=== PATIENT | male | born 1935 | race Caucasian/White ===

== ENCOUNTER 2020-10-20 15:59 | Outpatient (REF) | payer MEDICARE, SELFPAY ==
[2020-10-20 16:21] LABS: MANUAL DIFF FLAG NO
[2020-10-20 16:24] LABS: Basophils Percent Auto 0.3 % (0-2); Eosinophils Absolute Auto 0.1 X10*3/uL (0.0-0.4); Eosinophils Percent Auto 2.2 % (0-4); Hematocrit 38.9 % (42-52); Hemoglobin 12.3 g/dl (14.0-18.0); Imm Gran Abs Auto 0.01 X10*3/uL (0.00-0.03); Imm Gran Pct Auto 0.2 % (0.0-0.4); Lymphocytes Absolute Auto 1.8 X10*3/uL (1.2-4.9); Lymphocytes Percent Auto 29.5 % (20-40); Mean Corpuscular HGB Conc 31.6 g/dl (31.0-36.0); Mean Corpuscular Volume 88.6 fL (80-98); Mean Platelet Volume 9.4 fL (9.4-12.4); Monocytes Absolute Auto 0.6 X10*3/uL (0.1-1.2); Monocytes Percent Auto 9.3 % (2-11); Neutrophils Absolute Auto 3.7 X10*3/uL (2.0-8.3); Neutrophils Percent Auto 58.5 % (45-73); Platelet Count 229 X10*3/uL (160-400); Red Blood Count 4.39 X10*6/uL (4.60-5.80); Red Cell Distribution Width 13.3 % (11.0-16.0); White Blood Count 6.2 X10*3/uL (4.8-10.8)
--- NOTE | 2020-10-20 16:26 | MR_ITS ---
EXAMINATION: MR BRAIN WITHOUT AND WITH CONTRAST CLINICAL INFORMATION: Parageusia. Reported tinnitus. COMPARISON: MRI dated 01/19/2017. TECHNIQUE: Multiplanar, multisequence imaging of the brain was performed before and after the intravenous administration of 7 mL of Gadavist. FINDINGS: No diffusion abnormalities are identified to suggest an acute or subacute infarct. The ventricles are normal in size. No mass effect or midline shift is seen. Mild chronic white matter microangiopathic changes again noted with generalized parenchymal volume loss. No extra-axial fluid collections are seen. The brainstem and cerebellum are normal. There is no abnormal parenchymal or leptomeningeal enhancement. The anterior cranial fossa and olfactory recesses appear normal. The gradient refocused acquisition is normal. The craniovertebral junction, marrow signal, and midline structures are normal. The major intracranial flow voids at the level of the [place] de[place] of [place] are preserved. The dural venous sinus flow voids are maintained. The mastoid air cells are well aerated. There is a 3 cm retention cyst along the floor of the right maxillary sinus. Small retention cysts and mild mucosal thickening noted in the left maxillary antrum. Leftward nasal septal deviation visible. MR/MR head/brain wo/w con IMPRESSION: No abnormal enhancement. No retrocochlear pathology. Stable mild white matter signal changes and moderate generalized parenchymal volume loss. No acute findings.
[2020-10-20 16:55] LABS: Alanine Aminotransferase 14 U/L (0-40); Albumin Level 4.2 g/dL (3.5-5.0); Alkaline Phosphatase 114 U/L (39-117); Anion Gap 10 (12-20); Aspartate Amino Transferase 18 U/L (5-37); Bilirubin Total 0.3 mg/dL (0.0-1.0); Blood Urea Nitrogen 16 mg/dL (9-16); Calcium 9.1 mg/dL (8.4-10.2); Carbon Dioxide 32 mmol/L (22-29); Chloride 100 mmol/L (96-108); Estimated Glomerular Filt Rate > 60; Glucose Random 121 mg/dL (60-115); Potassium 4.8 mmol/l (3.3-5.1); Sodium 137 mmol/L (135-145); Total Protein 6.5 g/dL (6.5-8.0)
[2020-10-20 17:02] LABS: Erythrocyte Sedimentation Rate 10 MM/HR (0-15)
[2020-10-20 17:16] LABS: Free T4 (Free Thyroxine) 0.94 ng/dL (0.71-1.85); Thyroid Stimulating Hormone 0.98 uIU/mL (0.32-4.0)
[2020-10-20 17:23] LABS: Folate 13.5 ng/mL (> or = 4.0); Vitamin B12 1169 pg/mL (200-900)
== END 2020-10-20 16:00 | disposition home or self-care (01) ==
LOC: HO.MRI 15:59
PROVIDERS: PCP Internal Medicine; Visit Provider Internal Medicine
DX: R43.2 Parageusia (principal)
CPT/HCPCS: 36415; 70553; 80053; 82607; 82746; 84439; 84443; 85025; 85652; A9585

== ENCOUNTER 2021-03-28 07:33 | Outpatient (REF) | payer MEDICARE, SELFPAY ==
[2021-03-28 10:21] LABS: MANUAL DIFF FLAG NO
[2021-03-28 10:25] LABS: Basophils Percent Auto 0.5 % (0-2); Eosinophils Absolute Auto 0.3 X10*3/uL (0.0-0.4); Eosinophils Percent Auto 4.3 % (0-4); Hematocrit 38.1 % (42-52); Hemoglobin 12.2 g/dl (14.0-18.0); Imm Gran Abs Auto 0.01 X10*3/uL (0.00-0.03); Imm Gran Pct Auto 0.2 % (0.0-0.4); Immature Retic Fraction 8.2 % (2.3-13.4); Lymphocytes Absolute Auto 1.7 X10*3/uL (1.2-4.9); Lymphocytes Percent Auto 26.6 % (20-40); Mean Corpuscular Hemoglobin 28.5 pg (27.0-33.0); Mean Platelet Volume 10.1 fL (9.4-12.4); Monocytes Absolute Auto 0.6 X10*3/uL (0.1-1.2); Monocytes Percent Auto 9.1 % (2-11); Neutrophils Absolute Auto 3.7 X10*3/uL (2.0-8.3); Neutrophils Percent Auto 59.3 % (45-73); Platelet Count 217 X10*3/uL (160-400); Red Blood Count 4.28 X10*6/uL (4.60-5.80); Red Cell Distribution Width 13.4 % (11.0-16.0); Retic HGB Equivalent 31.5 pg (30.0-35.0); Reticulocyte Percent 1.2 % (0.5-1.8); Reticulocytes Absolute 0.052 X10*6/uL (0.026-0.095); White Blood Count 6.3 X10*3/uL (4.8-10.8)
[2021-03-28 10:45] LABS: Alanine Aminotransferase 16 U/L (0-40); Albumin Level 3.9 g/dL (3.5-5.0); Alkaline Phosphatase 137 U/L (39-117); Anion Gap 11 (12-20); Aspartate Amino Transferase 16 U/L (5-37); Bilirubin Total 0.3 mg/dL (0.0-1.0); Blood Urea Nitrogen 15 mg/dL (9-16); Calcium 9.2 mg/dL (8.4-10.2); Carbon Dioxide 29 mmol/L (22-29); Chloride 104 mmol/L (96-108); Cholesterol 141 mg/dL; Estimated Glomerular Filt Rate > 60; Glucose Random 120 mg/dL (60-115); HDL Cholesterol 52 mg/dL; Iron 84 mcg/dL (45-160); LDL Cholesterol Calculated 72 mg/dl; Percent Iron Saturation 38 % (15-50); Potassium 4.2 mmol/L (3.3-5.1); Sodium 140 mmol/L (135-145); Total Iron Binding Capacity 222 mcg/dL (228-428); Total Protein 6.1 g/dL (6.5-8.0); Triglycerides 88 mg/dL; Unsaturated Iron Binding 138 ug/dL
[2021-03-28 10:55] LABS: Estimated Average Glucose 137 mg/dL; Hemoglobin A1C 151.0847 umol/L; Hemoglobin A1c % 6.4 %
[2021-03-28 11:06] LABS: Ferritin 307 ng/mL (20-250); Free T4 (Free Thyroxine) 0.87 ng/dL (0.71-1.85); Thyroid Stimulating Hormone 0.97 uIU/mL (0.32-4.0); Vitamin D 25-OH Total 46.6 ng/mL (>30)
[2021-03-28 11:19] LABS: Creatinine Urine 104.51 mg/dL; Microalbum/Creatinine Ratio Ur 12.4 ug/mg cr
[2021-03-28 11:48] LABS: Folate 13.3 ng/mL (> or = 4.0); Vitamin B12 1425 pg/mL (200-900)
[2021-03-31 12:21] LABS: Alkaline Phosphatase Bone 31.4 mcg/L (see note)
== END 2021-03-28 07:34 | disposition home or self-care (01) ==
LOC: HO.10HDL 07:33
PROVIDERS: Absent Provider Internal Medicine Endocrinology, Diabetes & Metabolism; Visit Provider Internal Medicine
DX: I10 Essential (primary) hypertension (principal); I25.10 Atherosclerotic heart disease of native coronary artery without angina pectoris; E11.65 Type 2 diabetes mellitus with hyperglycemia; E78.00 Pure hypercholesterolemia, unspecified; M88.9 Osteitis deformans of unspecified bone; M85.80 Other specified disorders of bone density and structure, unspecified site
CPT/HCPCS: 36415; 80053; 80061; 82043; 82306; 82607; 82728; 82746; 83036; 83540; 84075; 84439; 84443; 85025; 85045

== ENCOUNTER → 2021-03-29 10:25 | Outpatient (BNVA) | payer MEDICARE, SELFPAY | PROVIDERS: PCP Internal Medicine; Visit Provider Internal Medicine Endocrinology, Diabetes & Metabolism | DX: M88.9 Osteitis deformans of unspecified bone (principal); M85.80 Other specified disorders of bone density and structure, unspecified site | CPT/HCPCS: 99212 ==

== ENCOUNTER → 2021-04-20 08:27 | Outpatient (REF) | payer MEDICARE, SELFPAY ==
--- NOTE | 2021-04-20 08:31 | CA_ITS ---
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 Normal LV systolic function with impaired relaxation filling pattern 2. Mildly dilated left atrium 3. Moderate aortic stenosis 4. Normal RV systolic pressure 5. No pericardial effusion Findings Left Ventricle Normal left ventricular size, thickness, and systolic function. The visually estimated ejection fraction is between 55-60%. There is paradoxical septal motion consistent with post-operative status. Spectral Doppler is indicative of an impaired relaxation filling pattern. E/E prime ratio is between 8 and 15 consistent with indeterminate filling pressures. Right Ventricle Normal right ventricular cavity size and systolic function. Atria The left atrium is mildly dilated. There is lipomatous hypertrophy of the interatrial septum. There is no evidence of interatrial shunt. The right atrium is normal in size. Aortic Valve There is moderate calcification of the aortic valve. There is moderate thickening of the aortic valve. There is moderate aortic valve stenosis. The peak aortic gradient is 49 mmHg.The mean gradient is 26 mmHg. The aortic valve area is 1.25 cm2. There is trace (trivial) aortic valve regurgitation. Mitral Valve There is mild anterior mitral leaflet thickening. There is mild mitral annular calcification. There is no mitral valve regurgitation. There is no mitral valve stenosis. Pulmonic Valve The pulmonic valve is likely normal. Tricuspid Valve Likely normal tricuspid valve structure and function. There is trace tricuspid valve regurgitation. The right ventricular systolic pressure is normal. The right ventricular systolic pressure is 29 mmHg. Normal right atrial pressure. There is no evidence of pulmonary hypertension. Great Vessels All visible segments of the aorta are normal in size. The pulmonary artery was not well visualized. Small plaque is seen in the sino tubular ridge. Venous The inferior vena cava is normal in size and collapses greater than 50% with inspiration. Pericardium/Pleural There is no evidence of pericardial effusion. Prior Study Comparison Changes noted compared to prior study dated: 04/07/2020. Aortic stenosis is moderate Measurements 2D Linear Measurements IVSd: 1.12 0.6-0.9/0.6-1.0 cm LVIDd: 4.29 3.9-5.3/4.2-5.9 cm LVIDd Index: 2.37 2.4-3.2/2.2-3.1 cm/m2 LVIDs: 3.05 2.0-3.6 cm LVPWd: 1.06 0.7-1.1 cm Ao Root: 3.80 2.1-3.5 cm LA Diam: 4.10 2.7-3.8/3.0-4.0 cm LAIDs Index: 2.27 1.5-2.3 cm/m2 LV Mass: 199.56 67-162/88-224 g LV Mass Index: 110.26 43-95/49-115 g/m2 LVOT Diam: 2.20 3.0+(-)1.3 cm 2D Systolic Function EF 4C: 56.80 >55% EF 2C: 55.20 >55% EF BiP: 55.50 >55% Mitral Valve MV Pk E: 0.89 MV PK A: 1.08 MV Decel Time: 303.00 E/A: 0.80 E'Lateral: 11.50 E'Medial: 5.33 E/E' Med: 16.70 E/E' Lat: 7.70 PHT: 89.00 MVA PHT: 2.47 Decel [place]: 2.93 Aortic Valve AoV Pk L[place]: 3.49 AoV Mn [place]: 2.39 AoV VTI: 0.81 AoV Pk Grad: 49.00 Aov Mn Grad: 26.00 SIRISHA Cont.VTI: 1.25 AI Pk [place]: 3.04 AI [place]: 1.64 LVOT LVOT Pk [place]: 1.19 LVOT Mn [place]: 0.79 LVOT VTI: 0.27 LVOT Pk Grad: 6.00 LVOT Mn Grad: 3.00 LVOT Diam: 2.20 LVOT Area: 3.80 Diastolic Function MV Pk E: 0.89 MV Pk A: 1.08 E/A: 0.80 E'Medial: 5.33 E/E' Med: 16.70 E' Laterial: 11.50 E/E' Lat: 7.70 Tricuspid Valve TR Pk [place]azaro: 2.54 TR Pk Grad: 26.00 RA Press: 3.00 RVSP: 29.00 Great Vessels Aorta Ao Root-2D: 3.80 2.0-3.7 cm Ao Asc: 3.50 2.1-3.4 cm Ao Arch: 2.70 Updated in Other Vendor System with Status of Final Kristofer Pinon MD electronically signed on 04/20/2021 3:47:03 PM with status of Final
== END ==
LOC: HO.CARD 08:27
PROVIDERS: Visit Provider Internal Medicine
DX: I35.0 Nonrheumatic aortic (valve) stenosis (principal); Z95.1 Presence of aortocoronary bypass graft
CPT/HCPCS: 93306

== ENCOUNTER → 2021-05-09 09:33 | Outpatient (BNVA) | payer MEDICARE, SELFPAY | PROVIDERS: PCP Internal Medicine; Referring Provider Internal Medicine; Visit Provider Internal Medicine | DX: I25.10 Atherosclerotic heart disease of native coronary artery without angina pectoris (principal); I35.0 Nonrheumatic aortic (valve) stenosis; I49.3 Ventricular premature depolarization; I10 Essential (primary) hypertension; E11.8 Type 2 diabetes mellitus with unspecified complications | CPT/HCPCS: 93005; 99212 ==

== ENCOUNTER → 2022-04-24 09:01 | Outpatient (REF) | payer MEDICARE, SELFPAY ==
--- NOTE | 2022-04-24 09:19 | CA_ITS ---
Transthoracic Echocardiogram Patient (Last, First, Middle): Kenneth Beard, Gender: Male Date of : 1935 Age: 86 Procedure Date: 04/24/2022 Procedure Type: Transthoracic Echocardiogram Location: OP Height: 162.56 cm Weight: 77.57 kg BSA: 1.83 m2 Heart Rate: bpm BP: 140 / 61 mmHg Predatory Game Hunter: NINA Referring MD: Nj Damian MD Symptoms: I35.0 - Nonrheumatic aortic (valve) stenosis Study Quality: Fair ECG Rhythm: Sinus, PVCs Conclusions: - The left ventricular systolic function is normal. The calculated ejection fraction is 57% by biplane method. - There is moderate aortic valve stenosis. Findings Left Ventricle Normal left ventricular cavity size. There is mildly increased left ventricular wall thickness. The left ventricular systolic function is normal. The calculated ejection fraction is 57% by biplane method. There is no evidence of regional wall motion abnormalities. Evidence suggests grade I (mild) diastolic dysfunction. Right Ventricle Normal right ventricular cavity size. There is mildly decreased right ventricular systolic function. Atria The left atrium is moderately dilated. The right atrium is normal in size. Aortic Valve There is moderate calcification of the aortic valve. There is moderate aortic valve stenosis. The mean gradient is 21 mmHg. The aortic valve area is 1.22 cm2. There is mild aortic valve regurgitation. Mitral Valve The mitral valve appears normal. There is no mitral valve regurgitation. There is no mitral valve stenosis. Pulmonic Valve The pulmonic valve is likely normal. Tricuspid Valve Normal tricuspid valve structure. There is mild tricuspid valve regurgitation. The pulmonary artery systolic pressure is normal. Great Vessels The asc aorta is normal in size. Small plaque is seen in the sino tubular ridge. Venous The inferior vena cava was not well visualized. The inferior vena cava is normal in size and collapses greater than 50% with inspiration. Pericardium/Pleural There is no evidence of pericardial effusion. Prior Study Comparison No significant change compared to prior study dated: 04/20/2021. Measurements 2D Linear Measurements IVSd: 1.15 0.6-0.9/0.6-1.0 cm LVIDd: 4.33 3.9-5.3/4.2-5.9 cm LVIDd Index: 2.37 2.4-3.2/2.2-3.1 cm/m2 LVIDs: 3.04 2.0-3.6 cm LVPWd: 1.16 0.7-1.1 cm LA Diam: 3.40 2.7-3.8/3.0-4.0 cm LAIDs Index: 1.86 1.5-2.3 cm/m2 LV Mass: 220.04 67-162/88-224 g LV Mass Index: 120.24 43-95/49-115 g/m2 LVOT Diam: 2.20 3.0+(-)1.3 cm 2D Systolic Function EF 4C: 63.00 >55% EF 2C: 53.40 >55% EF BiP: 57.00 >55% Mitral Valve MV Pk E: 0.66 MV PK A: 0.98 MV Decel Time: 316.00 E/A: 0.70 E'Lateral: 9.25 E'Medial: 4.79 E/E' Med: 13.80 E/E' Lat: 7.10 PHT: 93.00 MVA PHT: 2.37 Decel [place]: 2.09 Aortic Valve AoV Pk Lazaro: 3.37 AoV Mn [place]: 2.01 AoV VTI: 0.80 AoV Pk Grad: 45.00 Aov Mn Grad: 21.00 SIRISHA Cont.VTI: 1.22 AI Pk L[place]aro: 3.34 AI [place]: 1.56 LVOT LVOT Pk [place]azaro: 0.93 LVOT Mn [place]: 0.66 LVOT VTI: 0.26 LVOT Pk Grad: 3.00 LVOT Mn Grad: 2.00 LVOT Diam: 2.20 LVOT Area: 3.80 Diastolic Function MV Pk E: 0.66 MV Pk A: 0.98 E/A: 0.70 E'Medial: 4.79 E/E' Med: 13.80 E' Laterial: 9.25 E/E' Lat: 7.10 Tricuspid Valve TR Pk [place]az[place]: 2.23 TR Pk Grad: 20.00 Great Vessels Aorta Sinus of Valsalva: 4.21 2.0-3.[address] [place]: 2.63 1.7-3.4 cm Ao Asc: 3.50 2.1-3.4 cm Updated in Other Vendor System with Status of Final Nj Damian MD electronically signed on 04/24/2022 12:24:00 PM with status of Final
== END ==
LOC: HO.CARD 09:01
PROVIDERS: PCP Internal Medicine; Visit Provider Internal Medicine
DX: I35.0 Nonrheumatic aortic (valve) stenosis (principal)
CPT/HCPCS: 93306

== ENCOUNTER 2022-04-29 15:37 | Emergency (ER) | payer MEDICARE, SELFPAY ==
--- NOTE | ~2022-04-29 | XR_ITS ---
EXAMINATION: XR FINGER, LEFT CLINICAL INFORMATION: Laceration with electric hedge clipper COMPARISON: Left hand radiographs 01/30/2017 TECHNIQUE: Three views of the left index finger. FINDINGS: Bandaging overlies the index finger. There is soft tissue laceration at the tip of the finger. Subtle linear lucency through the radial margin of the tuft of the distal phalanx suspicious for nondisplaced osseous involvement/fracture. No additional fracture or dislocation. Mild osteoarthritic changes of the IP joints throughout the hand and compatible the presence of small marginal osteophytes. Moderate first CMC joint space narrowing and osteophyte formation also noted. XR/XR finger LT min 2V IMPRESSION: 1. Soft tissue laceration overlying the distal index finger. There is a small lucency at the radial margin of the tuft of the index finger distal phalanx suspicious for focal osseous involvement/small nondisplaced fracture.
[2022-04-29 16:04] VITALS: BP 146/47; PULSE 56; RESP 16; TEMP 36.6; O2SAT 99; BMI 30.4
--- NOTE | 2022-04-29 19:04 | ED_ITS ---
HPI - Wound/Laceration General Chief Complaint: Wound/Laceration Stated Complaint: finger lac Time Seen by Provider: 04/29/22 18:55 Source: patient Mode of arrival: ambulatory Limitations: no limitations History of Present Illness HPI narrative: 86-year-old male here with reports of laceration to the left index finger after he cut his finger with cargo trimmer at home. This happened just prior to arrival. Patient is unsure of his last tetanus vaccination. He reports no numbness, tingling, weakness, fevers, chills. Patient is not on any anticoagulation. Related Data Home Medications Medication Instructions Recorded Confirmed ascorbate calcium (vitamin C) 500 500 mg PO DAILY 10/11/20 01/09/22 mg tablet aspirin 81 mg tablet,delayed 81 mg PO DAILY 10/11/20 01/09/22 release (Adult Aspirin Regimen) vitamins A,C,W-scps-ctqjyg PO 03/29/21 01/09/22 [PreserVision AREDS] Previous Rx's Medication Instructions Recorded blood sugar diagnostic #3 boxes 03/31/21 metoprolol succinate 25 mg 25 mg PO DAILY #90 tabs 05/06/21 tablet,extended release 24 hr lancets #3 boxes 05/12/21 metformin 500 mg tablet 1,000 mg PO BID #360 tabs 11/13/21 rosuvastatin 40 mg tablet (Crestor) 40 mg PO DAILY #90 tabs 12/26/21 ferrous sulfate 325 mg (65 mg 325 mg PO DAILY #90 tabs 01/09/22 iron) tablet (Feosol) cyanocobalamin (vitamin B-12) 1,000 mcg PO DAILY #90 caps 01/29/22 1,000 mcg capsule cholecalciferol (vitamin D3) 50 50 mcg PO DAILY #30 caps 04/20/22 mcg (2,000 unit) capsule amoxicillin 875 mg-potassium 1 tab PO BID #14 tabs 04/29/22 clavulanate 125 mg tablet Allergies Allergy/AdvReac Type Severity Reaction Status Date / Time No Known Allergies Allergy Verified 01/09/22 14:25 [No Known Allergies*] Review of Systems Review of Systems: Yes all other systems are reviewed and are negative Constitutional: Constitutional: Reports no additional constitutional complaints, Denies body ache(s), Denies chills, Denies fever(s), Denies headache(s) and Denies weakness Eyes: Eyes: Reports no additional eye complaints and Denies change in vision ENT: Reports system reviewed and no additional complaints, except as doc umented, Denies dizziness, Denies headache(s), Denies nasal congestion, Denies nasal discharge and Denies neck pain Cardiovascular: Cardiovascular: Reports no additional cardiovascular complaints, Denies chest pain, Denies leg edema and Denies dyspnea Respiratory: Respiratory: Reports no additional respiratory complaints, Denies cough and Denies dyspnea Gastrointestinal: Gastrointestinal: Reports no additional gastrointestinal complaints, Denies abdominal pain, Denies diarrhea, Denies nausea and Denies vomiting Genitourinary: Genitourinary: Denies urinary incontinence Musculoskeletal: Musculoskeletal: Reports no additional musculoskeletal complaints, Denies back pain, Denies arthralgias, Denies joint swelling, Denies neck pain, Denies numbness and Denies tingling Integumentary/Breasts: Skin/Breast: Reports system reviewed and no additional complaints, except as docu and Denies rash Neurologic: Reports system reviewed and no additional complaints, except as documented, Denies Abnormal speech present, Denies dizziness, Denies headac he(s), Denies numbness, Denies tingling and Denies weakness PMFSH Past Medical History Attestation statement: The following information was validated with the patient. Source: old records reviewed and nursing notes reviewed Medical History Aortic stenosis, mild Left renal stone Lumbar degenerative disc disease Macular degeneration Paget's disease of bone Peripheral vascular disease Surgical History History of ankle surgery History of bilateral cataract extraction History of inguinal hernia repair History of tonsillectomy S/P CABG x 3 S/P repair of hydrocele Family History Family History Father CVD (cardiovascular disease) Mother CVD (cardiovascular disease) Heart disease Brother In good health Sister In good health Son Diabetes Social History Social History Housing: House Alcohol intake: never Patient Tobacco Use Status: Former Tobacco user e-Cigarette/Vaping Use: Never Used Advance Directives: No Advance Directives Information Provided: No Current occupational status: retired Physical Exam Vital Signs: Vital Signs: Last Vital Signs Temp 97.8 F 04/29/22 16:04 Pulse 56 04/29/22 16:04 Resp 16 04/29/22 16:04 BP 146/47 H 04/29/22 16:04 Pulse Ox 99 04/29/22 16:04 O2 Del Method 04/29/22 16:04 BMI result Body Mass Index 30.4 Const: General: cooperative, healthy appearing, comfortable and no acute distress Orientation/consciousness: patient oriented x3 Limitations: no limitations HEENT: Head: Yes normal to inspection Ears: hearing grossly normal bilaterally General nose exam: Normal external nose present Face and sinus: Yes normal facial exam Mouth: Normal oral and palatal mucosa present Throat: Yes posterior oropharynx normal Eyes: General: appearance normal, both eyes and all related structures Pupils: Equal, round and reactive pupils present Neck: Neck: Yes normal visual inspection Chest: Chest palpation & inspection: normal inspection of the chest Resp: Effort & Inspection: normal respiratory effort Auscultation: clear to auscultation bilaterally Cardio: Rate: regular rate Rhythm: regular rhythm Peripheral pulses: Peripheral pulses 2+ throughout Back/Spine/Pelvis: Thoracic/Lumbar Spine: thoracic and lumbar spine normal to inspection Skin: General skin exam: no rashes or lesions noted Neuro: General: patient oriented x3 and moves all extremities Cranial nerves: Yes Equal, round and reactive pupils present Cognition (Neuro): normal cognition Speech: No Abnormal speech present Gait exam (Neuro): Normal gait present Extrem: General: Yes normal to inspection Hand/finger images: 1. 2 cm laceration. Bleeding is controlled. Full range of motion of the digit. Neurovascular intact distally. Nail is intact MDM - Wound/Laceration MDM Narrative Medical decision making narrative: 86-year-old male here with laceration to left index finger from cargo trimmer just prior to arrival. Will obtain x-rays, update tetanus, provide wound repair Differential Diagnosis Differential diagnosis: Likely laceration Medical Records Attestation: I reviewed the patient's medical records. Lab Data Attestation: I reviewed the patient's lab results. Imaging Data hand xray: Attestation: I personally reviewed and interpreted this imaging study as follows: Radiologist's impression: [address] [address] XRay Report Signed Patient: Kenneth Beard MR#: [id number] : 1935 Acct:[id number] Age/Sex: 86 / M ADM Date: 04/29/22 Loc: HO.ED Attending Dr: Ordering Physician: Generic ED Physician Date of Service: 04/29/22 Procedure(s): XR finger LT min 2V Accession Number(s): [id number] cc: Generic ED Physician~ EXAMINATION: XR FINGER, LEFT CLINICAL INFORMATION: Laceration with electric hedge clipper COMPARISON: Left hand radiographs 01/30/2017? TECHNIQUE: Three views of the left index finger. FINDINGS: Bandaging overlies the index finger. There is soft tissue laceration at the tip of the finger. Subtle linear lucency through the radial margin of the tuft of the distal phalanx suspicious for nondisplaced osseous involvement/fracture. No additional fracture or dislocation. Mild osteoarthritic changes of the IP joints throughout the hand and compatible the presence of small marginal osteophytes. Moderate first CMC joint space narrowing and osteophyte formation also noted. XR/XR finger LT min 2V IMPRESSION: ? 1. Soft tissue laceration overlying the distal index finger. There is a small lucency at the radial margin of the tuft of the index finger distal phalanx suspicious for focal osseous involvement/small nondisplaced fracture. ? Procedures Laceration Laceration 1: Site: hand (Second digit) Side (If applicable): left Size (cm): 2 Description: linear Depth: simple, single layer Local Anesthetic: lidocaine 1% Amount of anesthesia used (mL): 4 Pre-repair: wound explored, irrigated extensively and deep structures intact Skin layer closed with: vicryl Size (cm): 5-0 Number of sutures: 4 Technique: simple, interrupted Nerve Block Nerve Block 1: Time out performed: Yes Local Anesthetic: lidocaine 1% Amount of anesthesia used (mL): 4 Side: left Nerve Blocks: digital Procedure Successful: Yes Patient Tolerated Procedure: well Complications: none Discharge Plan Discharge Clinical Impression: Laceration, Fracture of distal phalanx of finger Patient Disposition: Home, Self-Care Instructions: Finger Fracture (ED), Finger Laceration (ED) Additional Instructions: Wash your laceration with soap and water every day Sutures out in 7-10 days Return for redness, fever, drainage Prescriptions: New amoxicillin-pot clavulanate 875-125 mg tablet 1 tab PO BID Qty: 14 0RF No Action (DME) blood sugar diagnostic Strip See Rx Instructions Not Applicable TID Qty: 3 3RF Rx Instructions: As directed check blood sugars 3 times a day metoprolol succinate 25 mg tablet extended release 24 hr 25 mg PO DAILY Qty: 90 3RF (DME) lancets Misc See Rx Instructions .ROUTE TID Qty: 3 3RF Rx Instructions: As directed check the blood sugars 3 times a day metformin 500 mg tablet 1,000 mg PO BID Qty: 360 0RF rosuvastatin [Crestor] 40 mg tablet 40 mg PO DAILY Qty: 90 1RF ferrous sulfate [Feosol] 325 mg (65 mg iron) tablet 325 mg PO DAILY Qty: 90 3RF cyanocobalamin (vitamin B-12) 1,000 mcg capsule 1,000 mcg PO DAILY Qty: 90 3RF cholecalciferol (vitamin D3) 50 mcg (2,000 unit) capsule 50 mcg PO DAILY Qty: 30 11RF aspirin [Adult Aspirin Regimen] 81 mg tablet,delayed release (DR/EC) 81 mg PO DAILY ascorbate calcium (vitamin C) 500 mg tablet 500 mg PO DAILY vitamins A,C,O-scut-ysiffd PO Referrals: Po,Radha Washburn MD [Primary Care Provider] - Interventions: ED Discharge Assessment Last Done: 04/29/22 21:00 Discharge Date/Time: 04/29/22 21:03
[2022-04-29] MEDS: Lidocaine HCl 1 % MPF 5 ML VIAL SUBCUT (19:50)
[2022-04-29] MEDS: Diphth,Pertus(ACell),Tet Adult 0.5 ML SYRINGE IM (20:04)
== END 2022-04-29 21:03 | disposition home or self-care (01) ==
PROVIDERS: Emergency Provider Emergency Medicine; PCP Internal Medicine
DX: S62.661B Nondisplaced fracture of distal phalanx of left index finger, initial encounter for open fracture (principal); W29.3XXA Contact with powered garden and outdoor hand tools and machinery, initial encounter; Y93.H2 Activity, gardening and landscaping; Y92.017 Garden or yard in single-family (private) house as the place of occurrence of the external cause; Y99.9 Unspecified external cause status
CPT/HCPCS: 12001; 73140; 90471; 90715; 99282; 99284

== ENCOUNTER 2022-05-04 06:58 | Outpatient (REF) | payer MEDICARE, SELFPAY ==
[2022-05-04 11:19] LABS: Alkaline Phosphatase 146 U/L (39-117)
== END 2022-05-04 06:59 | disposition home or self-care (01) ==
LOC: HO.HMGCLDS 06:58
PROVIDERS: Visit Provider Internal Medicine Endocrinology, Diabetes & Metabolism
DX: M88.9 Osteitis deformans of unspecified bone (principal)
CPT/HCPCS: 36415; 84075

== ENCOUNTER → 2022-05-08 12:40 | Outpatient (BNVA) | payer MEDICARE, SELFPAY | PROVIDERS: PCP Internal Medicine; Referring Provider Internal Medicine; Visit Provider Internal Medicine | DX: I25.10 Atherosclerotic heart disease of native coronary artery without angina pectoris (principal); I35.0 Nonrheumatic aortic (valve) stenosis; I10 Essential (primary) hypertension; E11.8 Type 2 diabetes mellitus with unspecified complications; Z79.82 Long term (current) use of aspirin; Z79.84 Long term (current) use of oral hypoglycemic drugs; Z79.899 Other long term (current) drug therapy | CPT/HCPCS: 93005; 99212 ==

== ENCOUNTER 2022-05-08 15:37 | Emergency (ER) | payer MEDICARE, SELFPAY | END 2022-05-08 16:52 | disposition left against medical advice (07) | PROVIDERS: Emergency Provider Emergency Medicine; PCP Internal Medicine | DX: Z48.02 Encounter for removal of sutures (principal) ==

== ENCOUNTER 2022-05-09 06:52 | Emergency (ER) | payer MEDICARE, SELFPAY ==
[2022-05-09 07:01] VITALS: BP 151/59; PULSE 62; RESP 16; TEMP 36.2; O2SAT 99; BMI 29.0
--- NOTE | 2022-05-09 07:04 | ED.RECABL ---
HPI - Recheck/Abnormal Lab/Rx General Chief Complaint: Wound/Laceration Stated Complaint: stitch removal Time Seen by Provider: 05/09/22 06:57 Source: patient Mode of arrival: ambulatory Limitations: no limitations History of Present Illness complaint: suture/staple removal Initial visit (ago): day(s) (10) Initial visit for: laceration Returns today for: staple/stitch removal Symptoms since prior visit: no new symptoms Context: planned re-check Associated symptoms: none Treatments prior to arrival: dressings Related Data Home Medications Medication Instructions Recorded Confirmed ascorbate calcium (vitamin C) 500 500 mg PO DAILY 10/11/20 05/08/22 mg tablet aspirin 81 mg tablet,delayed 81 mg PO DAILY 10/11/20 05/08/22 release (Adult Aspirin Regimen) vitamins A,C,W-mgzw-fcfmdf PO 03/29/21 05/08/22 [PreserVision AREDS] metformin 500 mg tablet 500 mg PO DAILY 05/08/22 05/08/22 Previous Rx's Medication Instructions Recorded blood sugar diagnostic #3 boxes 03/31/21 metoprolol succinate 25 mg 25 mg PO DAILY #90 tabs 05/06/21 tablet,extended release 24 hr lancets #3 boxes 05/12/21 rosuvastatin 40 mg tablet (Crestor) 40 mg PO DAILY #90 tabs 12/26/21 ferrous sulfate 325 mg (65 mg 325 mg PO DAILY #90 tabs 01/09/22 iron) tablet (Feosol) cyanocobalamin (vitamin B-12) 1,000 mcg PO DAILY #90 caps 01/29/22 1,000 mcg capsule cholecalciferol (vitamin D3) 50 50 mcg PO DAILY #30 caps 04/20/22 mcg (2,000 unit) capsule amlodipine 2.5 mg tablet 2.5 mg PO DAILY #90 tabs 05/08/22 Allergies Allergy/AdvReac Type Severity Reaction Status Date / Time No Known Allergies Allergy Verified 05/08/22 12:51 [No Known Allergies*] Review of Systems Review of Systems: Constitutional : No Fever, No Chills, Cardiovascular : No Chest Pain, No SOB Respiratory : No Dyspnea Gastrointestinal : No abdominal pain Musculoskeletal : No Joint Swelling Skin : No rash, positive healing skin laceration Neuro : No Weakness, No Numbness PMFSH Past Medical History Attestation statement: The following information was validated with the patient. Medical History Aortic stenosis, mild Left renal stone Lumbar degenerative disc disease Macular degeneration Paget's disease of bone Peripheral vascular disease Surgical History History of ankle surgery History of bilateral cataract extraction History of inguinal hernia repair History of tonsillectomy S/P CABG x 3 S/P repair of hydrocele Family History Family History Father CVD (cardiovascular disease) Mother CVD (cardiovascular disease) Heart disease Brother In good health Sister In good health Son Diabetes Social History Social History Housing: House Alcohol intake: never Patient Tobacco Use Status: Former Tobacco user e-Cigarette/Vaping Use: Never Used Current occupational status: retired Physical Exam Vital Signs: Vital Signs: Last Vital Signs Temp 97.1 F 05/09/22 07:01 Pulse 62 05/09/22 07:01 Resp 16 05/09/22 07:01 BP 151/59 H 05/09/22 07:01 Pulse Ox 99 05/09/22 07:01 O2 Del Method 05/09/22 07:01 BMI result Body Mass Index 29.0 Appearance: Alert. Oriented X3. No acute distress. Eyes: Pupils equal, round and reactive to light. ENT: Pharynx normal. Neck: Normal inspection. CVS: Pulses normal. Respiratory: No respiratory distress. Skin: Skin warm and dry. Normal skin color. Extremities: R index finger wound well appearing no redness, swelling, drainage, warmth, wound margins well approximated [address] Neuro: Oriented X 3. No motor deficit. No sensory deficit. MDM - Recheck/Abnormal Lab/Rx MDM Narrative Medical decision making narrative: 86 yo male s/p stitches on 04/29 - wound well healing no issues here for stitch removal. will remove and send home with precautions Procedures Procedure Narrative Procedure Narrative: removed 3 sutures without issue tolerated well - wound well healed had lost 1 suture at home prior to arrival, no signs of infection at this time Discharge Plan Discharge Clinical Impression: Encounter for removal of sutures Patient Disposition: Home, Self-Care Instructions: Stitches Removal (ED) Additional Instructions: return to ED for any worsening symptoms or concerns monitor for redness, yellow drainage, fevers, swelling keep clean and dry for 3 more days Prescriptions: No Action (DME) blood sugar diagnostic Strip See Rx Instructions Not Applicable TID Qty: 3 3RF Rx Instructions: As directed check blood sugars 3 times a day metoprolol succinate 25 mg tablet extended release 24 hr 25 mg PO DAILY Qty: 90 3RF (DME) lancets Misc See Rx Instructions .ROUTE TID Qty: 3 3RF Rx Instructions: As directed check the blood sugars 3 times a day rosuvastatin [Crestor] 40 mg tablet 40 mg PO DAILY Qty: 90 1RF ferrous sulfate [Feosol] 325 mg (65 mg iron) tablet 325 mg PO DAILY Qty: 90 3RF cyanocobalamin (vitamin B-12) 1,000 mcg capsule 1,000 mcg PO DAILY Qty: 90 3RF cholecalciferol (vitamin D3) 50 mcg (2,000 unit) capsule 50 mcg PO DAILY Qty: 30 11RF aspirin [Adult Aspirin Regimen] 81 mg tablet,delayed release (DR/EC) 81 mg PO DAILY ascorbate calcium (vitamin C) 500 mg tablet 500 mg PO DAILY vitamins A,C,A-wlvp-rdtjio PO metformin 500 mg tablet 500 mg PO DAILY amlodipine 2.5 mg tablet 2.5 mg PO DAILY Qty: 90 3RF
== END 2022-05-09 07:17 | disposition home or self-care (01) ==
LOC: HO.ED 07:12
PROVIDERS: Emergency Provider Emergency Medicine; PCP Internal Medicine
DX: Z48.02 Encounter for removal of sutures (principal); M88.9 Osteitis deformans of unspecified bone; E55.9 Vitamin D deficiency, unspecified
CPT/HCPCS: 99212; 99282

== ENCOUNTER 2022-06-12 07:58 | Outpatient (REF) | payer MEDICARE, SELFPAY ==
[2022-06-12 09:25] LABS: MANUAL DIFF FLAG NO
[2022-06-12 09:28] LABS: Basophils Percent Auto 0.6 % (0-2); Eosinophils Absolute Auto 0.2 X10*3/uL (0.0-0.4); Eosinophils Percent Auto 2.9 % (0-4); Hematocrit 38.4 % (42.0-52.0); Hemoglobin 12.3 g/dl (14.0-18.0); Imm Gran Abs Auto 0.01 X10*3/uL (0.00-0.03); Imm Gran Pct Auto 0.1 % (0.0-0.4); Immature Retic Fraction 12.7 % (2.3-13.4); Lymphocytes Absolute Auto 2.3 X10*3/uL (1.2-4.9); Lymphocytes Percent Auto 33.1 % (20-40); Mean Corpuscular Hemoglobin 27.8 pg (27.0-33.0); Mean Corpuscular Volume 86.7 fL (80.0-98.0); Mean Platelet Volume 9.7 fL (9.4-12.4); Monocytes Absolute Auto 0.6 X10*3/uL (0.1-1.2); Monocytes Percent Auto 9.1 % (2-11); Neutrophils Absolute Auto 3.7 x10*3/uL (2.0-8.3); Neutrophils Percent Auto 54.2 % (45-73); Platelet Count 242 X10*3/uL (160-400); Red Blood Count 4.43 X10*6/uL (4.60-5.80); Red Cell Distribution Width 13.4 % (11.0-16.0); Retic HGB Equivalent 32.5 pg (30.0-35.0); Reticulocyte Percent 1.4 % (0.5-1.8); Reticulocytes Absolute 0.063 X10*6/uL (0.026-0.095); White Blood Count 6.9 X10*3/uL (4.8-10.8)
[2022-06-12 09:53] LABS: Cholesterol 146 mg/dL; Creatinine Urine 110.76 mg/dL; HDL Cholesterol 51 mg/dL; LDL Cholesterol Calculated 78 mg/dl; Microalbum/Creatinine Ratio Ur 38.8 ug/mg cr; Triglycerides 85 mg/dL
[2022-06-12 10:15] LABS: Ferritin 355 ng/mL (20-250); Free T4 (Free Thyroxine) 0.88 ng/dL (0.71-1.85)
[2022-06-12 11:17] LABS: Folate 10.4 ng/mL (> or = 4.0); Vitamin B12 911 pg/mL (200-900)
== END 2022-06-12 07:59 | disposition home or self-care (01) ==
LOC: HO.10HDL 07:58
PROVIDERS: Visit Provider Internal Medicine
DX: E11.65 Type 2 diabetes mellitus with hyperglycemia (principal); E78.00 Pure hypercholesterolemia, unspecified
CPT/HCPCS: 36415; 80061; 82043; 82607; 82728; 82746; 84439; 85025; 85045

== ENCOUNTER 2022-09-18 08:04 | Outpatient (REF) | payer MEDICARE, SELFPAY ==
[2022-09-18 10:56] LABS: Estimated Average Glucose 146 mg/dL; Hemoglobin A1c % 6.7 %
[2022-09-18 11:09] LABS: Alanine Aminotransferase 17 U/L (0-40); Albumin Level 3.8 g/dL (3.5-5.0); Alkaline Phosphatase 126 U/L (39-117); Anion Gap 16 (12-20); Aspartate Amino Transferase 23 U/L (5-37); Bilirubin Total 0.5 mg/dL (0.0-1.0); Blood Urea Nitrogen 19 mg/dL (9-16); Calcium 9.2 mg/dL (8.4-10.2); Carbon Dioxide 24 mmol/L (22-29); Chloride 105 mmol/L (96-108); Cholesterol 143 mg/dL; Estimated Glomerular Filt Rate 53; Glucose Random 125 mg/dL (60-115); HDL Cholesterol 48 mg/dL; Iron 74 mcg/dL (45-160); LDL Cholesterol Calculated 81 mg/dl; Percent Iron Saturation 36 % (15-50); Potassium 4.4 mmol/L (3.3-5.1); Sodium 141 mmol/L (135-145); Total Iron Binding Capacity 207 mcg/dL (228-428); Total Protein 6.4 g/dL (6.5-8.0); Triglycerides 74 mg/dL; Unsaturated Iron Binding 133 ug/dL
[2022-09-18 11:16] LABS: Creatinine Urine 147.67 mg/dL
[2022-09-18 11:29] LABS: Thyroid Stimulating Hormone 1.07 uIU/mL (0.32-4.0)
== END 2022-09-18 08:05 | disposition home or self-care (01) ==
LOC: HO.10HDL 08:04
PROVIDERS: Visit Provider Internal Medicine
DX: E78.00 Pure hypercholesterolemia, unspecified (principal); E11.65 Type 2 diabetes mellitus with hyperglycemia
CPT/HCPCS: 36415; 80053; 80061; 83036; 83540; 84443

== ENCOUNTER 2022-12-25 08:36 | Outpatient (REF) | payer MEDICARE, SELFPAY ==
[2022-12-25 10:25] LABS: MANUAL DIFF FLAG NO
[2022-12-25 10:52] LABS: Basophils Percent Auto 0.5 % (0-2); Eosinophils Absolute Auto 0.2 X10*3/uL (0.0-0.4); Eosinophils Percent Auto 3.1 % (0-4); Hematocrit 36.9 % (42.0-52.0); Hemoglobin 11.9 g/dl (14.0-18.0); Imm Gran Abs Auto 0.01 X10*3/uL (0.00-0.03); Imm Gran Pct Auto 0.2 % (0.0-0.4); Immature Retic Fraction 11.8 % (2.3-13.4); Lymphocytes Absolute Auto 2.3 X10*3/uL (1.2-4.9); Lymphocytes Percent Auto 37.5 % (20-40); Mean Corpuscular HGB Conc 32.2 g/dl (31.0-36.0); Mean Corpuscular Hemoglobin 28.4 pg (27.0-33.0); Mean Corpuscular Volume 88.1 fL (80.0-98.0); Mean Platelet Volume 10.2 fL (9.4-12.4); Monocytes Absolute Auto 0.6 X10*3/uL (0.1-1.2); Monocytes Percent Auto 9.7 % (2-11); Platelet Count 241 X10*3/uL (160-400); Red Blood Count 4.19 X10*6/uL (4.60-5.80); Red Cell Distribution Width 13.3 % (11.0-16.0); Retic HGB Equivalent 32.7 pg (30.0-35.0); Reticulocyte Percent 1.3 % (0.5-1.8); Reticulocytes Absolute 0.054 X10*6/uL (0.026-0.095); White Blood Count 6.1 X10*3/uL (4.8-10.8)
[2022-12-25 11:07] LABS: Estimated Average Glucose 146 mg/dL; Hemoglobin A1c % 6.7 %
[2022-12-25 11:36] LABS: Alanine Aminotransferase 18 U/L (0-40); Albumin Level 3.6 g/dL (3.5-5.0); Alkaline Phosphatase 114 U/L (39-117); Anion Gap 12 (12-20); Aspartate Amino Transferase 17 U/L (5-37); Bilirubin Total 0.5 mg/dL (0.0-1.0); Blood Urea Nitrogen 14 mg/dL (9-16); Calcium 9.2 mg/dL (8.4-10.2); Carbon Dioxide 27 mmol/L (22-29); Chloride 105 mmol/L (96-108); Cholesterol 131 mg/dL; Estimated Glomerular Filt Rate > 60; Glucose Random 121 mg/dL (60-115); HDL Cholesterol 47 mg/dL; Iron 80 mcg/dL (45-160); LDL Cholesterol Calculated 67 mg/dl; Percent Iron Saturation 39 % (15-50); Potassium 4.3 mmol/L (3.3-5.1); Sodium 140 mmol/L (135-145); Total Iron Binding Capacity 203 mcg/dL (228-428); Total Protein 5.7 g/dL (6.5-8.0); Triglycerides 85 mg/dL; Unsaturated Iron Binding 123 ug/dL
[2022-12-25 11:37] LABS: Ferritin 345 ng/mL (20-250)
== END 2022-12-25 08:37 | disposition home or self-care (01) ==
LOC: HO.10HDL 08:36
PROVIDERS: Visit Provider Internal Medicine
DX: E11.65 Type 2 diabetes mellitus with hyperglycemia (principal); E78.00 Pure hypercholesterolemia, unspecified
CPT/HCPCS: 36415; 80053; 80061; 82728; 83036; 83540; 85025; 85045

== ENCOUNTER → 2023-03-26 14:15 | Outpatient (REF) | payer MEDICARE, SELFPAY ==
--- NOTE | 2023-03-26 14:18 | CA_ITS ---
Transthoracic Echocardiogram Patient (Last, First, Middle): Kenneth Beard, Gender: Male Date of : 1935 Age: 87 Procedure Date: 03/26/2023 Procedure Type: Transthoracic Echocardiogram Location: OP Height: 162.56 cm Weight: 78.02 kg BSA: 1.83 m2 Heart Rate: 53 bpm BP: 148 / 70 mmHg Anthropology Faculty Member: SB Referring MD: Nj Damian MD Symptoms: I35.0 - Nonrheumatic aortic (valve) stenosis Study Quality: Adequate w contrast ECG Rhythm: Bradycardia Conclusions: - The left ventricular systolic function is hyperdynamic. The visually estimated ejection fraction is >70%. - There is moderately decreased right ventricular systolic function. - There is moderate to severe aortic valve stenosis. Findings Procedure Information Contrast agent, definity, is being given per protocol without apparent complications. Left Ventricle Normal left ventricular cavity size. The left ventricular systolic function is hyperdynamic. The visually estimated ejection fraction is >70%. There is no evidence of regional wall motion abnormalities. Diastolic function is normal for age. There is mild septal asymmetric hypertrophy. Right Ventricle Mildly increased right ventricular cavity size. There is moderately decreased right ventricular systolic function. Atria Both atria are normal in size. Aortic Valve There is moderate calcification of the aortic valve. There is moderate to severe aortic valve stenosis. The peak aortic velocity is 3.34 m/s with a calculated peak gradient of 45 mmHg. The mean gradient is 23 mmHg. The aortic valve area is 0.93 cm2. There is trace (trivial) aortic valve regurgitation. Dimensionless index 0.27. Mitral Valve There is mild mitral annular calcification. There is no mitral valve regurgitation. There is no mitral valve stenosis. Pulmonic Valve The pulmonic valve is likely normal. Tricuspid Valve Normal tricuspid valve structure. There is mild tricuspid valve regurgitation. There is no evidence of pulmonary hypertension. Great Vessels The asc aorta is normal in size. Venous The inferior vena cava was not well visualized. Pericardium/Pleural There is no evidence of pericardial effusion. Prior Study Comparison Changes noted compared to prior study dated: 04/24/2022. Progression of aortic valve stenosis. Measurements 2D Linear Measurements IVSd: 1.13 0.6-0.9/0.6-1.0 cm LVIDd: 5.32 3.9-5.3/4.2-5.9 cm LVIDd Index: 2.91 2.4-3.2/2.2-3.1 cm/m2 LVIDs: 3.79 2.0-3.6 cm LVPWd: 0.67 0.7-1.1 cm LA Diam: 4.00 2.7-3.8/3.0-4.0 cm LAIDs Index: 2.19 1.5-2.3 cm/m2 LV Mass: 218.16 67-162/88-224 g LV Mass Index: 119.21 43-95/49-115 g/m2 LVOT Diam: 2.20 3.0+(-)1.3 cm 2D Systolic Function EF 4C: 73.80 >55% EF 2C: 83.10 >55% EF BiP: 78.70 >55% Mitral Valve MV Pk E: 0.72 MV PK A: 0.92 MV Decel Time: 299.00 E/A: 0.80 E'Lateral: 7.51 E'Medial: 4.24 E/E' Med: 17.00 E/E' Lat: 9.60 PHT: 88.00 MVA PHT: 2.50 Decel Montour: 2.40 Aortic Valve AoV Pk Lazaro: 3.34 AoV Mn Alzaro: 2.25 AoV VTI: 0.86 AoV Pk Grad: 45.00 Aov Mn Grad: 23.00 SIRISHA Cont.VTI: 0.93 AI Pk Lazaro: 3.52 AI Montour: 1.81 LVOT LVOT Pk Lazaro: 0.92 LVOT Mn Lazaro: 0.63 LVOT VTI: 0.21 LVOT Pk Grad: 3.00 LVOT Mn Grad: 2.00 LVOT Diam: 2.20 LVOT Area: 3.80 Diastolic Function MV Pk E: 0.72 MV Pk A: 0.92 E/A: 0.80 E'Medial: 4.24 E/E' Med: 17.00 E' Laterial: 7.51 E/E' Lat: 9.60 Right Ventricle TAPSE (mm): 11.70 TVS' Lazaro: 8.27 Tricuspid Valve TR Pk Lazaro: 2.29 TR Pk Grad: 21.00 RA Press: 3.00 RVSP: 24.00 Great Vessels Aorta Sinus of Valsalva: 3.60 2.0-3.5 cm Ao Asc: 3.70 2.1-3.4 cm Pulmonary Valve PV Pk Lazaro: 0.86 Peak PV Grad: 3.00 Updated in Other Vendor System with Status of Final Nj Damian MD electronically signed on 03/26/2023 3:44:33 PM with status of Final
== END ==
LOC: HO.CARD 14:15
PROVIDERS: PCP Internal Medicine; Visit Provider Internal Medicine
DX: I35.0 Nonrheumatic aortic (valve) stenosis (principal)
CPT/HCPCS: 93306; Q9957

== ENCOUNTER → 2023-05-07 12:37 | Outpatient (BNVA) | payer MEDICARE, SELFPAY | PROVIDERS: PCP Internal Medicine; Referring Provider Internal Medicine; Visit Provider Internal Medicine | DX: I25.10 Atherosclerotic heart disease of native coronary artery without angina pectoris (principal); I35.0 Nonrheumatic aortic (valve) stenosis; I10 Essential (primary) hypertension; E11.8 Type 2 diabetes mellitus with unspecified complications | CPT/HCPCS: 93005; 99212 ==

== ENCOUNTER → 2023-05-08 15:53 | Outpatient (BNVA) | payer MEDICARE, SELFPAY | PROVIDERS: PCP Internal Medicine; Visit Provider Internal Medicine Endocrinology, Diabetes & Metabolism | DX: M88.812 Osteitis deformans of left shoulder (principal); E55.9 Vitamin D deficiency, unspecified | CPT/HCPCS: 99212 ==

== ENCOUNTER 2023-05-28 08:38 | Outpatient (REF) | payer MEDICARE, SELFPAY ==
[2023-05-28 11:41] LABS: Estimated Average Glucose 146 mg/dL; Hemoglobin A1c % 6.7 %
[2023-05-28 11:57] LABS: Alanine Aminotransferase 11 U/L (0-40); Albumin Level 3.8 g/dL (3.5-5.0); Alkaline Phosphatase 141 U/L (39-117); Anion Gap 13 (12-20); Aspartate Amino Transferase 16 U/L (5-37); Bilirubin Total 0.4 mg/dL (0.0-1.0); Blood Urea Nitrogen 13 mg/dL (9-16); Calcium 9.6 mg/dL (8.4-10.2); Carbon Dioxide 27 mmol/L (22-29); Chloride 104 mmol/L (96-108); Estimated Glomerular Filt Rate 55; Glucose Random 126 mg/dL (60-115); Potassium 4.1 mmol/L (3.3-5.1); Sodium 140 mmol/L (135-145); Total Protein 6.4 g/dL (6.5-8.0)
== END 2023-05-28 08:39 | disposition home or self-care (01) ==
LOC: HO.10HDL 08:38
PROVIDERS: Visit Provider Internal Medicine
DX: E11.9 Type 2 diabetes mellitus without complications (principal); E78.00 Pure hypercholesterolemia, unspecified
CPT/HCPCS: 36415; 80053; 83036

== ENCOUNTER 2023-05-28 11:24 | Outpatient (AMB) | payer MEDICARE, SELFPAY ==
[2023-05-28 11:37] VITALS: BP 128/62; PULSE 53; O2SAT 96; BMI 30.2
--- NOTE | 2023-05-28 11:37 | MHC.PC.OV ---
Vital Signs 05/28/23 11:37 Height 5 ft 4 in Weight 176 lb BMI 30.2 BP 128/62 Blood Pressure Location Lt brachial Position Sitting Pulse 53 Pulse Source Pulse Oximeter Pulse Oximetry (%) 96 Oxygen Delivery Method Room Air Intake Visit Reasons: DM Allergies No Known Allergies [No Known Allergies*] Allergy (Verified 05/28/23 11:40) Tobacco use date assessed: 05/28/23 Fall risk assessment: No Falls in past year Last assessed Fall Risk: 05/28/23 Dental Screening Dental Screen Date: 05/28/23 Did you have a dental visit in the last 12 months?: No Did you have a dental problem in the last 6 months where you did not have access to dental care?: No HPI DM HPI Details 88-year-old obese male with diabetes mellitus coronary artery disease hypercholesterolemia aortic stenosis hypertension coming in for follow-up. Last seen in December 2022. Patient has also Paget's and has been following up with endocrinology. Stable presently and will continue monitoring the alkaline phosphatase if going high then will refer back to Endocrinology patient also followed up with Cardiology April 2023 and advised echocardiogram in 1 year echocardiogram done March 2023 The left ventricular systolic function is hyperdynamic. The visually estimated ejection fraction is >70%. - There is moderately decreased right ventricular systolic function. - There is moderate to severe aortic valve stenosis 0.93. macular degeneration - sent to [facility]- retina specialist Dr. Godoy [facility] Medical History (Updated 05/28/23 @ 12:20 by Radha Ortiz MD) Aortic stenosis, mild Coronary artery disease Diabetic nephropathy Hypercholesterolemia Left renal stone Lumbar degenerative disc disease Macular degeneration Osteopenia Overweight (BMI 25.0-29.9) Paget's bone disease Paget's disease of bone Peripheral vascular disease Type 2 diabetes mellitus with hyperglycemia Vitamin D deficiency Surgical History History of ankle surgery History of bilateral cataract extraction History of inguinal hernia repair History of tonsillectomy S/P CABG x 3 S/P repair of hydrocele Family History Father CVD (cardiovascular disease) Mother CVD (cardiovascular disease) Heart disease Brother In good health Sister In good health Son Diabetes Social History (Reviewed 06/27/23 @ 15:58 by MARILYNN Lorenzana Housing: House Alcohol intake: never Patient Tobacco Use Status: Former Tobacco user e-Cigarette/Vaping Use: Never Used Current occupational status: retired Cognitive needs: No Hearing needs: No Vision needs: Yes Questionnaire Thrive Questionnaire Date Thrive assessed: 12/28/22 AUDIT C Alcohol Use Questionnaire (AUDIT-C) 1. How often do you have a drink containing alcohol?: Never 3. How often do you have six or more drinks on one occasion?: Never Total Score: 0 LESLEY-7 AMB Questionnaire LESLEY-7 Date LESLEY - 7 assessed: 12/28/22 Source: Developed by Drs. Lawson Jackson, Geeta Montoya, Chivo Felix and colleagues, with an educational fallon from [employer]. Physical exam (Primary Care) Vital Signs: Last Vital Signs Pulse 53 05/28/23 11:37 BP 128/62 05/28/23 11:37 Pulse Ox 96 05/28/23 11:37 Oxygen Delivery Method Room Air 05/28/23 11:37 BMI result Body Mass Index 30.2 Tobacco/Smoking Status: Tobacco use Status Tobacco use date assessed 05/28/23 05/28/23 11:43 Patient Tobacco Use Status Former Tobacco user 05/28/23 11:43 e-Cigarette/Vaping Use Never Used 05/28/23 11:43 Thrive Assessment: Date of Thrive Assessment Date Thrive assessed 12/28/22 05/28/23 11:43 Const General: alert; No acute distress Eyes Conjunctivae: conjunctivae normal Resp Auscultation: clear to auscultation bilaterally Cardio Rate: regular rate Rhythm: regular rhythm GI Inspection: Yes normal to inspection Extrem General: Yes normal to inspection and No edema Results AMB Hemoglobin A1c AMB Hemoglobin A1c 7.0 % Last Edit by ROSETTA Bean on 05/28/23 11:46 Results Reviewed Results Reviewed: Laboratory Last Values Hgb A1c (Clinic) 7.0 % (4.0-6.0) H 05/28/23 09:04 Assessment and Plan Assessment & Plan (1) Type 2 diabetes mellitus with hyperglycemia: Comment: PApale Code(s): E11.65 - Type 2 diabetes mellitus with hyperglycemia Qualifiers: Diabetes mellitus intermediate insulin use: without joint terminal attack controller use Qualified Code(s): E11.65 - Type 2 diabetes mellitus with hyperglycemia Plan: Decrease the amount of carbohydrate intake, pasta, bread, rice and potatoes are all sugar and that is aside from all the sweet stuff, remember that fruits are good but they are Sweet also. Hemoglobin A1c goal of less than 7.0 patient is taking metformin 500 once a day (2) Hypercholesterolemia: Code(s): E78.00 - Pure hypercholesterolemia, unspecified Plan: Avoid fried foods, chicken skin, eggs, butter margarine, pastries and meat. Be it pork or beef they have a lot of cholesterol LDL goal of less than 70. December 2022 last tested (3) Paget's bone disease: Code(s): M88.9 - Osteitis deformans of unspecified bone Plan: Patient has seen Endocrinology and this is stable will continue to monitor (4) Atherosclerotic cardiovascular disease: Code(s): I25.10 - Atherosclerotic heart disease of kaw coronary artery without angina pectoris Plan: Control the cholesterol, weight, blood pressure, diabetes (5) Obesity (BMI 30.0-34.9): Code(s): E66.9 - Obesity, unspecified Plan: Diet and exercise (6) Essential hypertension: Code(s): I10 - Essential (primary) hypertension Plan: Continue with blood pressure medication. Decrease salt intake and exercise patient takes metoprolol fit 25 mg once a day and amlodipine 2.5 mg once a day (7) Non-rheumatic aortic stenosis: Comment: April 2022 1.2 cm2, march 2023 0.93 Code(s): I35.0 - Nonrheumatic aortic (valve) stenosis Plan: Continuing to monitor with echocardiogram (8) Macular degeneration: Code(s): H35.30 - Unspecified macular degeneration Orders: Orders AMB Hemoglobin A1c Today E11.65 - Type 2 diabetes mellitus with hyperglycemia Coding Level of Care Code Est Pt Level 4 (76297) Diagnoses Type 2 diabetes mellitus with hyperglycemia E11.65 Diabetes mellitus joint terminal attack controller insulin use: without joint terminal attack controller use Hypercholesterolemia E78.00 Paget's bone disease M88.9 Atherosclerotic cardiovascular disease I25.10 Obesity (BMI 30.0-34.9) E66.9 Essential hypertension I10 Non-rheumatic aortic stenosis I35.0 Macular degeneration H35.30
== END 2023-05-28 12:35 | disposition home or self-care (01) ==
PROVIDERS: Visit Provider Internal Medicine
DX: E11.65 Type 2 diabetes mellitus with hyperglycemia (principal); I10 Essential (primary) hypertension; E66.9 Obesity, unspecified; Z68.30 Body mass index [BMI] 30.0-30.9, adult; E78.00 Pure hypercholesterolemia, unspecified; I25.10 Atherosclerotic heart disease of native coronary artery without angina pectoris; I35.0 Nonrheumatic aortic (valve) stenosis; M88.9 Osteitis deformans of unspecified bone; H35.30 Unspecified macular degeneration
CPT/HCPCS: 83036; 99214

== ENCOUNTER 2023-09-06 15:45 | Outpatient (AMB) | payer MEDICARE, SELFPAY ==
[2023-09-06 15:51] VITALS: BP 130/54; PULSE 55; O2SAT 98; BMI 29.5
--- NOTE | 2023-09-06 15:51 | A.OFFPC_ITS ---
Vital Signs 09/06/23 15:51 Height 5 ft 4 in Weight 172 lb BMI 29.5 BP 130/54 L Blood Pressure Location Lt brachial Position Sitting Pulse 55 Pulse Source Pulse Oximeter Pulse Oximetry (%) 98 Oxygen Delivery Method Room Air Intake Visit Reasons: 3 month f/u Allergies No Known Allergies [No Known Allergies*] Allergy (Verified 09/06/23 15:51) Medication List - Last Reconciled 09/06/23 by Radha Ortiz MD amlodipine 2.5 mg PO DAILY ascorbate calcium (vitamin C) 500 mg PO DAILY aspirin (Adult Aspirin Regimen) 81 mg PO DAILY blood sugar diagnostic As directed check blood sugars 3 times a day blood sugar diagnostic (OneTouch Ultra Test strips) As directed check the blood sugar once a day cholecalciferol (vitamin D3) 50 mcg PO DAILY cyanocobalamin (vitamin B-12) 1,000 mcg PO DAILY ferrous sulfate (Feosol) 325 mg PO DAILY lancets As directed check the blood sugars 3 times a day ONETOUCH ULTRASOFT LANCETS metformin 500 mg PO DAILY 90 days metoprolol succinate ER 25 mg PO DAILY rosuvastatin (Crestor) 40 mg PO DAILY vitamins A,C,A-hmsk-lseniy (PreserVision AREDS) PO Tobacco use date assessed: 05/28/23 Fall risk assessment: No Falls in past year Last assessed Fall Risk: 09/06/23 Dental Screening Dental Screen Date: 09/06/23 Did you have a dental visit in the last 12 months?: No Did you have a dental problem in the last 6 months where you did not have access to dental care?: No Was dental information given to patient?: Patient has dentist HPI 3 month f/u HPI Details 88-year-old overweight male with control led diabetes mellitus hypercholesterolemia coronary artery disease hypertension aortic stenosis coming in for follow-up. Last seen in May 2020, retina specialist injection L eye - macular deg. Q [address] Shahla Peguero. better [facility] Medical History Osteopenia Paget's bone disease Overweight (BMI 25.0-29.9) Peripheral vascular disease Hypercholesterolemia Diabetic nephropathy Type 2 diabetes mellitus with hyperglycemia Macular degeneration Lumbar degenerative disc disease Left renal stone Paget's disease of bone Vitamin D deficiency Aortic stenosis, mild Coronary artery disease Surgical History S/P CABG x 3 History of tonsillectomy History of bilateral cataract extraction History of ankle surgery S/P repair of hydrocele History of inguinal hernia repair Family History Father CVD (cardiovascular disease) Mother CVD (cardiovascular disease) Heart disease Brother In good health Sister In good health Son Diabetes Social History Housing: House Alcohol intake: never Patient Tobacco Use Status: Former Tobacco user e-Cigarette/Vaping Use: Never Used Current occupational status: retired Cognitive needs: No Hearing needs: No Vision needs: Yes Questionnaire PHQ-9 Over the last 2 weeks, how often have you been bothered by any of the following problems? 1. Little interest or pleasure in doing things: not at all 2. Feeling down, depressed, or hopeless: not at all 3. Trouble falling or staying asleep, or sleeping too much: not at all 4. Feeling tired or having little energy: not at all 5. Poor appetite or overeating: not at all 6. Feeling bad about yourself - or that you are a failure or have let yourself or your family down: not at all 7. Trouble concentrating on things, such as reading the newspaper or watching television: not at all 8. Moving or speaking so slowly that other people could have noticed. Or the opposite - being so fidgety or restless that you have been moving around a lot more than usual: not at all 9. Thoughts that you would be better off or of hurting yourself in some way: not at all Total score: 0 Depression Screening Interpretation: Negative Depression Screening Done: Yes Source: Developed by Drs. Lawson Jackson, Geeta Montoya, Chivo Felix and colleagues, with an educational fallon from [employer]. Thrive Questionnaire Date Thrive assessed: 12/28/22 AUDIT C Alcohol Use Questionnaire (AUDIT-C) 1. How often do you have a drink containing alcohol?: Never 3. How often do you have six or more drinks on one occasion?: Never Total Score: 0 LESLEY-7 AMB Questionnaire LESLEY-7 Date LESLEY - 7 assessed: 12/28/22 Source: Developed by DrsAlysia Jackson, Geeta Montoya, Chivo Felix and colleagues, with an educational fallon from [employer]. Physical exam (Primary Care) Vital Signs: Last Vital Signs Pulse 55 09/06/23 15:51 BP 130/54 L 09/06/23 15:51 Pulse Ox 98 09/06/23 15:51 Oxygen Delivery Method Room Air 09/06/23 15:51 BMI result Body Mass Index 29.5 Tobacco/Smoking Status: Tobacco use Status Tobacco use date assessed 05/28/23 09/06/23 15:52 Patient Tobacco Use Status Former Tobacco user 09/06/23 15:52 e-Cigarette/Vaping Use Never Used 09/06/23 15:52 PHQ-9: PHQ-9 Score PHQ-9: Total score 0 09/06/23 16:24 Depression Screening Interpretation: Negative Thrive Assessment: Date of Thrive Assessment Date Thrive assessed 12/28/22 09/06/23 15:52 Const General: alert; No acute distress Eyes Conjunctivae: conjunctivae normal Resp Auscultation: clear to auscultation bilaterally Cardio Rate: regular rate Rhythm: regular rhythm GI Inspection: Yes normal to inspection Extrem General: Yes normal to inspection and No edema Results AMB Hemoglobin A1c AMB Hemoglobin A1c 6.8 % Last Edit by ROSETTA Carey on 09/06/23 16:25 Results Reviewed Results Reviewed: Laboratory Last Values Hgb A1c (Clinic) 6.8 % (4.0-6.0) H 09/06/23 16:05 Assessment and Plan Assessment & Plan (1) Type 2 diabetes mellitus with hyperglycemia: Comment: Roxy Code(s): E11.65 - Type 2 diabetes mellitus with hyperglycemia Qualifiers: Diabetes mellitus [employer] insulin use: without prison use Qualified Code(s): E11.65 - Type 2 diabetes mellitus with hyperglycemia Plan: Decrease the amount of carbohydrate intake, pasta, bread, rice and potatoes are all sugar and that is aside from all the sweet stuff, remember that fruits are good but they are Sweet also. Hemoglobin A1c goal of less than 7.0 patient on metformin 500 mg once a day (2) Atherosclerotic cardiovascular disease: Code(s): I25.10 - Atherosclerotic heart disease of [place] coronary artery without angina pectoris Plan: Control the cholesterol, weight, blood pressure, diabetes and continue with aspirin 81 (3) Non-rheumatic aortic stenosis: Comment: April 2022 1.2 cm2, march 2023 0.93 Code(s): I35.0 - Nonrheumatic aortic (valve) stenosis Plan: Continue to follow-up March 2023 last echocardiogram (4) Essential hypertension: Code(s): I10 - Essential (primary) hypertension Plan: Continue with blood pressure medication. Decrease salt intake and exercise on amlodipine 2.5 mg once a day metoprolol 25 mg once a day (5) Overweight (BMI 25.0-29.9): Code(s): E66.3 - Overweight Plan: Diet and exercise (6) Hypercholesterolemia: Code(s): E78.00 - Pure hypercholesterolemia, unspecified Plan: Avoid fried foods, chicken skin, eggs, butter margarine, pastries and meat. Be it pork or beef they have a lot of cholesterol on rosuvastatin 40 mg once a day LDL goal of less than 70 and triglyceride of less than 150 Orders: Orders AMB Hemoglobin A1c Today E11.65 - Type 2 diabetes mellitus with hyperglycemia Free T4 (Free Thyroxine) 4 Months I25.10 - Atherosclerotic heart disease of [place] coronary artery without angina pectoris Thyroid Stimulating Hormone 4 Months I25.10 - Atherosclerotic heart disease of [place] coronary artery without angina pectoris Lipid Panel 4 Months E78.00 - Pure hypercholesterolemia, unspecified, I25.10 - Atherosclerotic heart disease of [place] coronary artery without angina pectoris Ferritin 4 Months I25.10 - Atherosclerotic heart disease of [place] coronary artery without angina pectoris IRON PROFILE 4 Months I25.10 - Atherosclerotic heart disease of [place] coronary artery without angina pectoris Reticulocyte Count 4 Months I25.10 - Atherosclerotic heart disease of [place] coronary artery without angina pectoris Creatinine Urine 4 Months E11.65 - Type 2 diabetes mellitus with hyperglycemia, I25.10 - Atherosclerotic heart disease of [place] coronary artery without angina pectoris Complete Blood Count Auto Diff 4 Months I25.10 - Atherosclerotic heart disease of [place] coronary artery without angina pectoris Comprehensive Met. Panel 4 Months I25.10 - Atherosclerotic heart disease of [place] coronary artery without angina pectoris Vitamin B12 and Folate 4 Months I25.10 - Atherosclerotic heart disease of [place] coronary artery without angina pectoris Microalbumin, Random (w Creat) 4 Months E11.65 - Type 2 diabetes mellitus with hyperglycemia, I25.10 - Atherosclerotic heart disease of [place] coronary artery without angina pectoris Medications: New blood sugar diagnostic (vufinduch Ultra Test strips) As directed check the blood sugar once a day 100 ea 3RF E11.65 - Type 2 diabetes mellitus with hyperglycemia, I25.10 - Atherosclerotic heart disease of [place] coronary artery without angina pectoris Refilled metformin 500 mg PO DAILY 90 days 90 tabs 1RF I25.10 - Atherosclerotic heart disease of [place] coronary artery without angina pectoris Coding Level of Care Code Est Pt Level 4 (57382) Diagnoses Type 2 diabetes mellitus with hyperglycemia, without long-term current use of insulin E11.65 Diabetes mellitus [employer] insulin use: without prison use Atherosclerotic cardiovascular disease I25.10 Non-rheumatic aortic stenosis I35.0 Essential hypertension I10 Overweight (BMI 25.0-29.9) E66.3 Hypercholesterolemia E78.00 Additional Codes PHQ-9 - 37398 - PHQ-9 Billing: ([id number])
== END 2023-09-06 16:49 | disposition home or self-care (01) ==
PROVIDERS: PCP Internal Medicine; Visit Provider Internal Medicine
DX: E11.65 Type 2 diabetes mellitus with hyperglycemia (principal); I25.10 Atherosclerotic heart disease of native coronary artery without angina pectoris; I35.0 Nonrheumatic aortic (valve) stenosis; I10 Essential (primary) hypertension; E66.3 Overweight; E78.00 Pure hypercholesterolemia, unspecified
CPT/HCPCS: 83036; 99214

== ENCOUNTER 2023-09-27 13:29 | Emergency (ER) | payer OTHER, SELFPAY ==
[2023-09-27 13:51] VITALS: BP 146/56; PULSE 54; RESP 18; TEMP 36.7; O2SAT 100; BMI 28.8
--- NOTE | 2023-09-27 14:02 | ED_ITS ---
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 Tetanus up-to-date. Denies injury to other area, numbness, tingling, weakness. Denies crush injury Onset (ago): hour(s) Related Data Home Medications Medication Instructions Recorded Confirmed ascorbate calcium (vitamin C) 500 500 mg PO DAILY 10/11/20 09/06/23 mg tablet aspirin 81 mg tablet,delayed 81 mg PO DAILY 10/11/20 09/06/23 release (Adult Aspirin Regimen) vitamins A,C,C-hywf-fxpucl PO 03/29/21 09/06/23 [PreserVision AREDS] Previous Rx's Medication Instructions Recorded blood sugar diagnostic #3 boxes 03/31/21 cholecalciferol (vitamin D3) 50 50 mcg PO DAILY #30 caps 04/20/22 mcg (2,000 unit) capsule cyanocobalamin (vitamin B-12) 1,000 mcg PO DAILY #90 caps 02/17/23 1,000 mcg capsule ferrous sulfate 325 mg (65 mg 325 mg PO DAILY #90 tabs 03/01/23 iron) tablet (Feosol) amlodipine 2.5 mg tablet 2.5 mg PO DAILY #90 tabs 03/22/23 metoprolol succinate 25 mg 25 mg PO DAILY #90 tabs 04/18/23 tablet,extended release 24 hr rosuvastatin 40 mg tablet (Crestor) 40 mg PO DAILY #90 tabs 06/04/23 lancets #300 ea 07/11/23 blood sugar diagnostic (OneTouch #100 ea 09/06/23 Ultra Test strips) metformin 500 mg tablet 500 mg PO DAILY 90 days #90 tabs 09/06/23 bacitracin 500 unit/gram topical 1 appl topical BID #30 grams 09/27/23 ointment Allergies Allergy/AdvReac Type Severity Reaction Status Date / Time No Known Allergies Allergy Verified 09/06/23 15:51 [No Known Allergies*] Review of Systems Review of Systems: Constitutional: No Fever, No Chills ENT/Mouth: No Ear Pain, No Nasal Congestion, No sore throat, No Rhinorrhea, No Swallowing Difficulty Cardiovascular: No Chest Pain, No SOB Respiratory: No Cough, No Sputum, Musculoskeletal: No joint pain, No Myalgias, No Joint Swelling Skin: + Skin Lesions, No rash Neuro: No Weakness, No Numbness, No Paresthesias Yes all other systems are reviewed and are negative Constitutional: Constitutional: Reports as per [facility] Past Medical History Attestation statement: The following information was validated with the patient. Source: old records reviewed Medical History Osteopenia Paget's bone disease Overweight (BMI 25.0-29.9) Peripheral vascular disease Hypercholesterolemia Diabetic nephropathy Type 2 diabetes mellitus with hyperglycemia Macular degeneration Lumbar degenerative disc disease Left renal stone Paget's disease of bone Vitamin D deficiency Aortic stenosis, mild Coronary artery disease Surgical History S/P CABG x 3 History of tonsillectomy History of bilateral cataract extraction History of ankle surgery S/P repair of hydrocele History of inguinal hernia repair Family History Family History Father CVD (cardiovascular disease) Mother CVD (cardiovascular disease) Heart disease Brother In good health Sister In good health Son Diabetes Social History Social History Housing: House Alcohol intake: never Patient Tobacco Use Status: Former Tobacco user e-Cigarette/Vaping Use: Never Used Advance Directives: No Current occupational status: retired Cognitive needs: No Hearing needs: No Vision needs: Yes Physical Exam Vital Signs: Vital Signs: Last Vital Signs Temp 98.1 F 09/27/23 13:51 Pulse 54 09/27/23 13:51 Resp 18 09/27/23 13:51 BP 146/56 H 09/27/23 13:51 Pulse Ox 100 09/27/23 13:51 O2 Del Method Room Air 09/27/23 13:51 BMI result Body Mass Index 28.8 Const: General: cooperative, healthy appearing and no acute distress Orientation/consciousness: patient oriented x3 Limitations: no limitations HEENT: Head: Yes normal to inspection and Yes atraumatic Ears: hearing grossly normal bilaterally General nose exam: Normal external nose present Face and sinus: Yes normal facial exam Eyes: General: appearance normal, both eyes and all related structures EOM: EOMs intact bilaterally Neck: Neck: Yes normal visual inspection and Yes no meningeal signs Resp: Effort & Inspection: normal respiratory effort and no respiratory distress Cardio: Rate: regular rate Skin: Other: 2cm half [place] laceration noted to left 3rd digit palmar aspect, distal to DIP. Smaller 0.5 cm half o[place] laceration noted just distal. Superficial. Underlying structures appear intact. Full range of motion intact. Neurovascular intact. Bbrhfo-sm-bsenu opposition intact Rashes: no rashes Neuro: General: patient oriented x3, tone normal and no meningeal signs Cranial nerves: Yes CN's II-XII intact bilaterally Gait exam (Neuro): Normal gait present Extrem: General: Yes normal to inspection Medications Administered Discontinued Medications Generic Name Dose Route Start Last Admin Trade Name Castroq PRN Reason Stop Dose Admin Bacitracin 1 appl 09/27/23 15:07 09/27/23 15:10 Bacitracin Oint 0.9 Gm Packet TOPICAL 09/27/23 15:08 1 appl ONCE ONE Administration Protocol Lidocaine HCl 5 ml 09/27/23 14:09 09/27/23 14:38 Lidocaine Hcl 1 % Mpf 5 Ml Vial INFILTRATI 09/27/23 14:10 5 ml ONCE ONE Administration Medical Decision Making Medical Decision Making MDM Narrative: 88-year-old male with a past medical history Paget's bone disease, PVD, diabetes, aortic stenosis, CAD, on ASA presenting to the ED complaining of laceration to left middle finger 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 On exam vital signs stable, NAD, nontoxic appearing, physical exam as noted above. Concern for laceration. Tetanus up-to-date. Low suspicion for fracture. No evidence of infection Plan: Repair wound Please refer to course for remaining clinical decision making, interpretation of labs/imaging results, and discussions with consultants and/or family members. Differential Diagnosis Differential Diagnoses: The differential diagnosis associated with the presentation includes As above External Record Review External record reviewed: Inpatient record, Office record, Outpatient record, Prior outpatient labs, Prior outpatient radiology, Primary care record and Outside ED record Tests considered The following testing was considered but not selected: As above Procedures Laceration Laceration 1: Site: hand Side (If applicable): left Size (cm): 2 Description: flap and irregular Depth: simple, single layer Local Anesthetic: lidocaine 1% and other anesthetic (Digital block) Amount of anesthesia used (mL): 4 Pre-repair: wound explored Skin layer closed with: nylon Size (cm): 5-0 Number of sutures: 3 Technique: simple, interrupted Laceration 2: Site: hand Side (If applicable): left Size (cm): 1 Description: flap and irregular Depth: simple, single layer Local Anesthetic: lidocaine 1% and other anesthetic (Digital block) Pre-repair: wound explored Skin layer closed with: nylon Size (cm): 5-0 Number of sutures: 1 Technique: simple, interrupted Discharge Plan Discharge Clinical Impression: Finger laceration Patient Disposition: Home, Self-Care Instructions: Finger Laceration (ED) Additional Instructions: Your wounds were repaired today in the emergency department. Keep dry and clean. You need to return to any emergency department, urgent care, or your PCPs office in 7-10 days for suture removal Apply bacitracin and or Neosporin daily Once sutures are removed apply anti scar cream like Mederma If area begins look infected, is red, there is drainage, streaking, or you have fever please return to the emergency department Prescriptions: New bacitracin 500 unit/gram ointment 1 appl topical BID Qty: 30 0RF No Action (DME) blood sugar diagnostic Strip See Rx Instructions Not Applicable TID Qty: 3 3RF Rx Instructions: As directed check blood sugars 3 times a day cholecalciferol (vitamin D3) 50 mcg (2,000 unit) capsule 50 mcg PO DAILY Qty: 30 11RF cyanocobalamin (vitamin B-12) 1,000 mcg capsule 1,000 mcg PO DAILY Qty: 90 3RF ferrous sulfate [Feosol] 325 mg (65 mg iron) tablet 325 mg PO DAILY Qty: 90 3RF amlodipine 2.5 mg tablet 2.5 mg PO DAILY Qty: 90 3RF metoprolol succinate 25 mg tablet extended release 24 hr 25 mg PO DAILY Qty: 90 3RF rosuvastatin [Crestor] 40 mg tablet 40 mg PO DAILY Qty: 90 1RF (DME) lancets Misc See Rx Instructions .ROUTE TID Qty: 300 3RF Rx Instructions: As directed check the blood sugars 3 times a day ONETOUCH ULTRASOFT LANCETS aspirin [Adult Aspirin Regimen] 81 mg tablet,delayed release (DR/EC) 81 mg PO DAILY ascorbate calcium (vitamin C) 500 mg tablet 500 mg PO DAILY (DME) OneTouch Ultra Test Strip See Rx Instructions .ROUTE .MEDSUPPLY Qty: 100 3RF Rx Instructions: As directed check the blood sugar once a day metformin 500 mg tablet 500 mg PO DAILY 90 Days Qty: 90 1RF vitamins A,C,D-zrhn-jkunqk PO Referrals: Po,Radha Washburn MD [Primary Care Provider] - 1 week Interventions: ED Discharge Assessment Last Done: 09/27/23 15:21 Discharge Date/Time: 09/27/23 15:22
[2023-09-27] MEDS: Lidocaine HCl 1 % MPF 5 ML VIAL INFILTRATI (14:38)
[2023-09-27] MEDS: Bacitracin Oint 0.9 GM PACKET 1 APPL TOPICAL (15:10)
== END 2023-09-27 15:22 | disposition home or self-care (01) ==
PROVIDERS: Emergency Provider Emergency Medicine; PCP Internal Medicine
DX: S61.213A Laceration without foreign body of left middle finger without damage to nail, initial encounter (principal); M79.642 Pain in left hand; E11.9 Type 2 diabetes mellitus without complications; I25.10 Atherosclerotic heart disease of native coronary artery without angina pectoris; W26.9XXA Contact with unspecified sharp object(s), initial encounter; Y93.9 Activity, unspecified; Y92.9 Unspecified place or not applicable; Y99.0 Civilian activity done for income or pay; Z79.899 Other long term (current) drug therapy; Z79.84 Long term (current) use of oral hypoglycemic drugs; Z87.891 Personal history of nicotine dependence
CPT/HCPCS: 12002; 99282; 99284

== ENCOUNTER 2023-10-08 10:28 | Outpatient (AMB) | payer OTHER, SELFPAY ==
[2023-10-08 12:19] VITALS: BP 118/68; PULSE 65; TEMP 36.4; O2SAT 98
--- NOTE | 2023-10-08 12:19 | MHC.OFFWIV ---
Intake Vital Signs 10/08/23 12:19 Height 5 ft 4 in Weight 175 lb BMI 30.0 BP 118/68 Blood Pressure Location Rt brachial Position Sitting Pulse 65 Pulse Source Pulse Oximeter Temp 97.6 F Temp Source Temporal Artery Scan Pulse Oximetry (%) 98 Oxygen Delivery Method Room Air Intake Visit Reasons: EST/stitch removal on middle finger(LOBBY) Intake Note: pt is here today to have stitch removal from middle finger Patient Tobacco Use Status: Former Tobacco user Allergies No Known Allergies [No Known Allergies*] Allergy (Verified 10/08/23 12:19) Do you need a note to return to daycare/school/sports/work: No HPI EST/stitch removal on middle finger(LOBBY) HPI Details 88-year-old male presents to the office for a sick visit. Patient would like to get the stitches removed. [facility] Medical History Osteopenia Paget's bone disease Overweight (BMI 25.0-29.9) Peripheral vascular disease Hypercholesterolemia Diabetic nephropathy Type 2 diabetes mellitus with hyperglycemia Macular degeneration Lumbar degenerative disc disease Left renal stone Paget's disease of bone Vitamin D deficiency Aortic stenosis, mild Coronary artery disease Surgical History S/P CABG x 3 History of tonsillectomy History of bilateral cataract extraction History of ankle surgery S/P repair of hydrocele History of inguinal hernia repair Family History Father CVD (cardiovascular disease) Mother CVD (cardiovascular disease) Heart disease Brother In good health Sister In good health Son Diabetes Housing: House Alcohol intake: never Patient Tobacco Use Status: Former Tobacco user e-Cigarette/Vaping Use: Never Used Current occupational status: retired Cognitive needs: No Hearing needs: No Vision needs: Yes Physical Exam Vital Signs: Last Vital Signs Temp 97.6 F 10/08/23 12:19 Pulse 65 10/08/23 12:19 BP 118/68 10/08/23 12:19 Pulse Ox 98 10/08/23 12:19 Oxygen Delivery Method Room Air 10/08/23 12:19 BMI result Body Mass Index 30.0 Extrem Other: Left hand: 3rd digit: Well stitched wound. Wound approximation is good. Four sutures have been placed. Assessment & Plan Assessment & Plan (1) Open wound, hand: Code(s): S61.409A - Unspecified open wound of unspecified hand, initial encounter Plan: Sutures removed. Patient tolerated the procedure well. Coding Level of Care Code Est Pt Level 3 (82541) Diagnoses Open wound, hand S61.409A
== END 2023-10-08 13:20 | disposition home or self-care (01) ==
PROVIDERS: PCP Internal Medicine; Visit Provider Internal Medicine
DX: S61.409A Unspecified open wound of unspecified hand, initial encounter (principal)
CPT/HCPCS: 99213

== ENCOUNTER 2023-10-24 08:39 | Outpatient (AMB) | payer OTHER, SELFPAY ==
[2023-10-24 08:45] VITALS: BP 140/60; PULSE 54; O2SAT 96; BMI 29.2
--- NOTE | 2023-10-24 08:45 | A.OFFPC_ITS ---
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: Present Accompanied by: Son Allergies No Known Allergies [No Known Allergies*] Allergy (Verified 10/24/23 08:47) Medication List - Last Reconciled 10/24/23 by Radha Ortiz MD amlodipine 2.5 mg PO DAILY ascorbate calcium (vitamin C) 500 mg PO DAILY aspirin (Adult Aspirin Regimen) 81 mg PO DAILY bacitracin 1 appl topical BID blood sugar diagnostic As directed check blood sugars 3 times a day blood sugar diagnostic (OneTouch Ultra Test strips) As directed check the blood sugar once a day cholecalciferol (vitamin D3) 50 mcg PO DAILY cyanocobalamin (vitamin B-12) 1,000 mcg PO DAILY ferrous sulfate (Feosol) 325 mg PO DAILY lancets As directed check the blood sugars 3 times a day ONETOUCH ULTRASOFT LANCETS metformin 500 mg PO DAILY 90 days metoprolol succinate ER 25 mg PO DAILY rosuvastatin (Crestor) 40 mg PO DAILY vitamins A,C,F-[id number] (PreserVision AREDS) PO Tobacco use date assessed: 05/28/23 Fall risk assessment: No Falls in past year Last assessed Fall Risk: 10/24/23 Dental Screening Dental Screen Date: 10/24/23 Did you have a dental visit in the last 12 months?: Yes Did you have a dental problem in the last 6 months where you did not have access to dental care?: No Was dental information given to patient?: No (Dentures) HPI depression, HR slowing down HPI Details 88-year-old overweight male with control led diabetes mellitus coronary artery disease aortic stenosis hypertension hypercholesterolemia last seen in August 2023.. Review of the notes ER visit 10/08/2023 had laceration on the left middle finger work related and came in for an stitch removal. Noted on exam has bradycardia. . Patient does have benign positional vertigo but reassured them about this problem. Patient brought up the problem of the having him getting down because the is getting depressed and rodriguez but discussed with the patient that this is more of a problem off and to set up with her physician. Meanwhile discussed with the patient that if there is any thing to help with his mood regarding counseling and therapy then I will be able to do. Patient is aware. [facility] Medical History Osteopenia Paget's bone disease Overweight (BMI 25.0-29.9) Peripheral vascular disease Hypercholesterolemia Diabetic nephropathy Type 2 diabetes mellitus with hyperglycemia Macular degeneration Lumbar degenerative disc disease Left renal stone Paget's disease of bone Vitamin D deficiency Aortic stenosis, mild Coronary artery disease Surgical History S/P CABG x 3 History of tonsillectomy History of bilateral cataract extraction History of ankle surgery S/P repair of hydrocele History of inguinal hernia repair Family History Father CVD (cardiovascular disease) Mother CVD (cardiovascular disease) Heart disease Brother In good health Sister In good health Son Diabetes Social History Housing: House Alcohol intake: never Patient Tobacco Use Status: Former Tobacco user e-Cigarette/Vaping Use: Never Used Current occupational status: retired Cognitive needs: No Hearing needs: No Vision needs: Yes Questionnaire Thrive Questionnaire Date Thrive assessed: 12/28/22 LESLEY-7 AMB Questionnaire LESLEY-7 Date LESLEY - 7 assessed: 12/28/22 Source: Developed by Drs. Lawson Jackson, Geeta Montoya, Chivo Felix and colleagues, with an educational fallon from [employer]. Physical exam (Primary Care) Vital Signs: Last Vital Signs Pulse 54 10/24/23 08:45 BP 140/60 H 10/24/23 08:45 Pulse Ox 96 10/24/23 08:45 Oxygen Delivery Method Room Air 10/24/23 08:45 BMI result Body Mass Index 29.2 Tobacco/Smoking Status: Tobacco use Status Tobacco use date assessed 05/28/23 10/24/23 08:50 Patient Tobacco Use Status Former Tobacco user 10/24/23 08:50 e-Cigarette/Vaping Use Never Used 10/24/23 08:50 Thrive Assessment: Date of Thrive Assessment Date Thrive assessed 12/28/22 10/24/23 08:50 Const General: alert; No acute distress Eyes Conjunctivae: conjunctivae normal Resp Auscultation: clear to auscultation bilaterally Cardio Rate: regular rate Rhythm: regular rhythm GI Inspection: Yes normal to inspection Extrem General: Yes normal to inspection and No edema Assessment and Plan Assessment & Plan (1) Laceration of finger of left hand: Code(s): S61.219A - Laceration without foreign body of unspecified finger without damage to nail, initial encounter Plan: Resolved (2) Atherosclerotic cardiovascular disease: Code(s): I25.10 - Atherosclerotic heart disease of [place] coronary artery without angina pectoris Plan: Control the cholesterol, weight, blood pressure, diabetes and continue with aspirin 81 mg once a day (3) Essential hypertension: Code(s): I10 - Essential (primary) hypertension Plan: Patient presently on amlodipine 2.5 mg once a day metoprolol 25 mg once a day. Discussed with the patient that if the heart rate is getting slow with symptoms then we can always decrease the metoprolol to half a tablet once a day. Coding Level of Care Code Est Pt Level 4 (78727) Diagnoses Laceration of finger of left hand S61.219A Atherosclerotic cardiovascular disease I25.10 Essential hypertension I10
== END 2023-10-24 09:34 | disposition home or self-care (01) ==
PROVIDERS: PCP Internal Medicine; Visit Provider Internal Medicine
DX: S61.219A Laceration without foreign body of unspecified finger without damage to nail, initial encounter (principal); I25.10 Atherosclerotic heart disease of native coronary artery without angina pectoris; I10 Essential (primary) hypertension; Z23 Encounter for immunization
CPT/HCPCS: 90471; 90686; 99214

== ENCOUNTER 2023-12-24 07:54 | Outpatient (REF) | payer MEDICARE, SELFPAY ==
[2023-12-24 11:14] LABS: MANUAL DIFF FLAG NO
[2023-12-24 11:25] LABS: Basophils Percent Auto 0.6 % (0-2); Eosinophils Absolute Auto 0.2 X10*3/uL (0.0-0.4); Eosinophils Percent Auto 2.6 % (0-4); Imm Gran Abs Auto 0.01 X10*3/uL (0.00-0.03); Imm Gran Pct Auto 0.2 % (0.0-0.4); Immature Retic Fraction 11.1 % (2.3-13.4); Lymphocytes Absolute Auto 2.1 X10*3/uL (1.2-4.9); Mean Corpuscular HGB Conc 31.6 g/dl (31.0-36.0); Mean Corpuscular Volume 85.6 fL (80.0-98.0); Mean Platelet Volume 9.9 fL (9.4-12.4); Monocytes Absolute Auto 0.7 X10*3/uL (0.1-1.2); Monocytes Percent Auto 10.4 % (2-11); Neutrophils Absolute Auto 3.7 x10*3/uL (2.0-8.3); Neutrophils Percent Auto 55.2 % (45-73); Platelet Count 267 X10*3/uL (160-400); Red Blood Count 4.44 X10*6/uL (4.60-5.80); Red Cell Distribution Width 13.6 % (11.0-16.0); Retic HGB Equivalent 31.4 pg (30.0-35.0); Reticulocyte Percent 1.2 % (0.5-1.8); Reticulocytes Absolute 0.053 X10*6/uL (0.026-0.095); White Blood Count 6.6 X10*3/uL (4.8-10.8)
[2023-12-24 11:33] LABS: Creatinine Urine 93.33 mg/dL; Microalbum/Creatinine Ratio Ur 92.1 ug/mg cr (<30)
[2023-12-24 12:47] LABS: Alanine Aminotransferase 10 U/L (0-40); Albumin Level 3.8 g/dL (3.5-5.0); Alkaline Phosphatase 120 U/L (39-117); Anion Gap 12 (12-20); Aspartate Amino Transferase 15 U/L (5-37); Bilirubin Total 0.4 mg/dL (0.0-1.0); Blood Urea Nitrogen 18 mg/dL (9-16); Calcium 9.7 mg/dL (8.4-10.2); Carbon Dioxide 27 mmol/L (22-29); Chloride 105 mmol/L (96-108); Cholesterol 141 mg/dL (<200); Estimated Glomerular Filt Rate 44; Ferritin 452 ng/mL (20-250); Free T4 (Free Thyroxine) 0.75 ng/dL (0.71-1.85); Glucose Random 127 mg/dL (60-115); HDL Cholesterol 48 mg/dL (>40); Iron 56 mcg/dL (45-160); LDL Cholesterol Calculated 74 mg/dL (<100); Percent Iron Saturation 31 % (15-50); Sodium 140 mmol/L (135-145); Thyroid Stimulating Hormone 1.42 uIU/mL (0.32-4.0); Total Iron Binding Capacity 180 mcg/dL (228-428); Total Protein 6.7 g/dL (6.5-8.0); Triglycerides 99 mg/dL (<150); Unsaturated Iron Binding 124 ug/dL
[2023-12-24 12:52] LABS: Folate 5.3 ng/mL (> or = 4.0); Vitamin B12 1189 pg/mL (200-900)
== END 2023-12-24 07:55 | disposition home or self-care (01) ==
LOC: HO.10HDL 07:54
PROVIDERS: Visit Provider Internal Medicine
DX: I25.10 Atherosclerotic heart disease of native coronary artery without angina pectoris (principal); E11.65 Type 2 diabetes mellitus with hyperglycemia; E78.00 Pure hypercholesterolemia, unspecified
CPT/HCPCS: 36415; 80053; 80061; 82043; 82570; 82607; 82728; 82746; 83540; 84439; 84443; 85025; 85045

== ENCOUNTER 2024-01-01 15:29 | Outpatient (AMB) | payer MEDICARE, SELFPAY ==
[2024-01-01 15:36] VITALS: BP 142/60; PULSE 51; O2SAT 100; BMI 29.2
--- NOTE | 2024-01-01 15:36 | A.OFFPC_ITS ---
Vital Signs 01/01/24 15:36 Height 5 ft 4 in Weight 170 lb BMI 29.2 BP 142/60 H Blood Pressure Location Lt brachial Position Sitting Pulse 51 Pulse Source Pulse Oximeter Pulse Oximetry (%) 100 Oxygen Delivery Method Room Air Intake Visit Reasons: DM Intake Note: Patient is here to follow up on DM Creative Services Writer Required: No Allergies No Known Allergies [No Known Allergies*] Allergy (Verified 01/01/24 15:37) Tobacco use date assessed: 01/01/24 Fall risk assessment: No Falls in past year Last assessed Fall Risk: 01/01/24 Dental Screening Dental Screen Date: 01/01/24 HPI DM HPI Details 88-year-old overweight male with a histo ry of coronary artery disease hypertension diabetes mellitus hypercholesterolemia Paget's bone disease coming in for follow-up last seen in October having a laceration of the finger.. 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 to be monitored [facility] Medical History Osteopenia Paget's bone disease Overweight (BMI 25.0-29.9) Peripheral vascular disease Hypercholesterolemia Diabetic nephropathy Type 2 diabetes mellitus with hyperglycemia Macular degeneration Lumbar degenerative disc disease Left renal stone Paget's disease of bone Vitamin D deficiency Aortic stenosis, mild Coronary artery disease Surgical History S/P CABG x 3 History of tonsillectomy History of bilateral cataract extraction History of ankle surgery S/P repair of hydrocele History of inguinal hernia repair Family History Father CVD (cardiovascular disease) Mother CVD (cardiovascular disease) Heart disease Brother In good health Sister In good health Son Diabetes Social History Housing: House Alcohol intake: never Patient Tobacco Use Status: Former Tobacco user e-Cigarette/Vaping Use: Never Used Current occupational status: retired Cognitive needs: No Hearing needs: No Vision needs: Yes Questionnaire Thrive Questionnaire Date Thrive assessed: 12/28/22 AUDIT C Alcohol Use Questionnaire (AUDIT-C) 1. How often do you have a drink containing alcohol?: Never 3. How often do you have six or more drinks on one occasion?: Never Total Score: 0 LESLEY-7 AMB Questionnaire LESLEY-7 Date LESLEY - 7 assessed: 01/01/24 Source: Developed by Drs. Lawson Jackson, Geeta Montoya, Chivo Felix and colleagues, with an educational fallon from [employer]. Physical exam (Primary Care) Vital Signs: Last Vital Signs Pulse 51 01/01/24 15:36 BP 142/60 H 01/01/24 15:36 Pulse Ox 100 01/01/24 15:36 Oxygen Delivery Method Room Air 01/01/24 15:36 BMI result Body Mass Index 29.2 Tobacco/Smoking Status: Tobacco use Status Tobacco use date assessed 01/01/24 01/01/24 15:37 Patient Tobacco Use Status Former Tobacco user 01/01/24 15:37 e-Cigarette/Vaping Use Never Used 01/01/24 15:37 Thrive Assessment: Date of Thrive Assessment Date Thrive assessed 12/28/22 01/01/24 15:37 Const General: alert; No acute distress Eyes Conjunctivae: conjunctivae normal Resp Auscultation: clear to auscultation bilaterally Cardio Rate: regular rate Rhythm: regular rhythm GI Inspection: Yes normal to inspection Extrem General: Yes normal to inspection and No edema Results AMB Hemoglobin A1c AMB Hemoglobin A1c 6.0 % Last Edit by ROSETTA Bean on 01/01/24 15:50 Results Reviewed Results Reviewed: Laboratory Last Values Hgb A1c (Clinic) 6.0 % (4.0-6.0) 01/01/24 11:29 Assessment and Plan Assessment & Plan (1) Type 2 diabetes mellitus with hyperglycemia: Comment: Roxy Code(s): E11.65 - Type 2 diabetes mellitus with hyperglycemia Qualifiers: Diabetes mellitus half-way insulin use: without half-way use Qualified Code(s): E11.65 - Type 2 diabetes mellitus with hyperglycemia Plan: Decrease the amount of carbohydrate intake, pasta, bread, rice and potatoes are all sugar and that is aside from all the sweet stuff, remember that fruits are good but they are Sweet also. Hemoglobin A1c goal of less than 7.0 patient presently on metformin 500 mg once a day (2) Atherosclerotic cardiovascular disease: Code(s): I25.10 - Atherosclerotic heart disease of [place] coronary artery without angina pectoris Plan: Control the cholesterol, weight, blood pressure, diabetes continue with aspirin 81 mg once a day (3) Hypercholesterolemia: Code(s): E78.00 - Pure hypercholesterolemia, unspecified Plan: Avoid fried foods, chicken skin, eggs, butter margarine, pastries and meat. Be it pork or beef they have a lot of cholesterol LDL goal of less than 70 and triglyceride of less than 150 on rosuvastatin 40 mg once a day (4) Overweight (BMI 25.0-29.9): Code(s): E66.3 - Overweight Plan: Diet and exercise (5) Non-rheumatic aortic stenosis: Comment: April 2022 1.2 cm2, march 2023 0.93 Code(s): I35.0 - Nonrheumatic aortic (valve) stenosis Plan: Continue to monitor. Echocardiogram to be done in March (6) Macular degeneration: Code(s): H35.30 - Unspecified macular degeneration Plan: Patient sees Ophthalmology and has had intravitreal Avastin (7) Anemia: Code(s): D64.9 - Anemia, unspecified Plan: Chronic and stable (8) Diabetic nephropathy: Code(s): E11.21 - Type 2 diabetes mellitus with diabetic nephropathy Plan: Keep well hydrated, avoid NSAIDs. Request for blood work for follow-up on renal function in 3 months. Orders: Orders Hemoglobin A1c 3 Months E11.65 - Type 2 diabetes mellitus with hyperglycemia Comprehensive Met. Panel 3 Months E11.65 - Type 2 diabetes mellitus with hyperglycemia Magnesium 3 Months E11.65 - Type 2 diabetes mellitus with hyperglycemia AMB Hemoglobin A1c Today E11.65 - Type 2 diabetes mellitus with hyperglycemia Medications: Refilled rosuvastatin (Crestor) 40 mg PO DAILY 90 tabs 2RF E78.00 - Pure hypercholesterolemia, unspecified Coding Level of Care Code Est Pt Level 4 (25083) Diagnoses Type 2 diabetes mellitus with hyperglycemia, without long-term current use of insulin E11.65 Diabetes mellitus half-way insulin use: without intermediate school teacher use Atherosclerotic cardiovascular disease I25.10 Hypercholesterolemia E78.00 Overweight (BMI 25.0-29.9) E66.3 Non-rheumatic aortic stenosis I35.0 Macular degeneration H35.30 Anemia D64.9 Diabetic nephropathy E11.21
== END 2024-01-01 16:28 | disposition home or self-care (01) ==
LOC: HO.HMGH 15:30
PROVIDERS: PCP Internal Medicine; Visit Provider Internal Medicine
DX: E11.65 Type 2 diabetes mellitus with hyperglycemia (principal); E11.21 Type 2 diabetes mellitus with diabetic nephropathy; I25.10 Atherosclerotic heart disease of native coronary artery without angina pectoris; E78.00 Pure hypercholesterolemia, unspecified; E66.3 Overweight; I35.0 Nonrheumatic aortic (valve) stenosis; H35.30 Unspecified macular degeneration; D64.9 Anemia, unspecified
CPT/HCPCS: 83036; 99214

== ENCOUNTER 2024-01-26 10:30 | Inpatient (IN) | payer MEDICARE, SELFPAY ==
--- NOTE | ~2024-01-26 | FL_ITS ---
EXAMINATION: XR FLUOROSCOPY WITH IMAGES CLINICAL INFORMATION: Cystoscopy with ureteroscopy and retrograde pyelogram. COMPARISON: CT 01/26/2024. TECHNIQUE: Fluoroscopy Supervised By: Dr. Lobo Dugan. Fluoroscopy Time: 34.0 seconds. Cumulative Dose: 13.00 mGy. Images: 7. FINDINGS: Imaging was obtained during placement of a presumed internally dwelling double-J ureteral stent. Only the proximal end of the stent is seen in an upper pole calyx. No imaging of the bladder. Please see Dr. Lobo Dugan's report for full details. FL/FL guidance in OR IMPRESSION: Fluoroscopy and spot films provided during retrograde pyelogram.
--- NOTE | ~2024-01-26 | CT_ITS ---
EXAMINATION: CT ABDOMEN AND PELVIS WITH CONTRAST CLINICAL INFORMATION: Hematuria, UTI and left flank pain, question pyelonephritis COMPARISON: None available. TECHNIQUE: Multidetector volumetric images were obtained from the superior aspect of the liver through the pubic symphysis following administration 85 mL of Omnipaque 350 intravenous contrast. Sagittal and coronal reformatted images were obtained on the technologist's workstation. Oral contrast: No This CT examination was performed using dose optimization techniques as appropriate, variously including the following: *Automated exposure control *Adjustment of mA and/or kV according to patient size (this includes techniques or standardized protocols for targeted exams where dose is matched to indication/reason for exam; i.e. extremities or head) *Use of iterative reconstruction technique DLP: 844 mGy-cm FINDINGS: LUNG BASES: Coronary artery calcifications present, recommend correlation with cardiac risk factors. Calcifications in the aortic valve leaflets which can be seen in the setting of aortic stenosis. Mild lower lobe cylindrical bronchiectasis. ABDOMINAL AND PELVIC WALL: Unremarkable. LIVER AND BILIARY TREE: Unremarkable. GALLBLADDER: Unremarkable. PANCREAS: Unremarkable. SPLEEN: Unremarkable. ADRENAL GLANDS: Unremarkable. KIDNEYS AND URETERS: Moderate left hydroureteronephrosis with a delayed nephrogram. The left ureter is dilated to the level of the ureterovesicular junction. No striation of the renal nephrogram to favor pyelonephritis. There is mild right hydroureteronephrosis with the ureter dilated to the level of the left ureterovesicular junction. Bosniak 2 left upper pole renal cyst with a punctate cortical calcification, no imaging follow-up recommended. No nephrolithiasis. GASTROINTESTINAL TRACT: Small hiatal hernia. Arch and small bowel are unremarkable. Normal appendix. VASCULAR: Moderate atherosclerosis of the abdominal aorta. LYMPH NODES/PERITONEUM: No lymphadenopathy. FREE FLUID: None. BLADDER: There is an abnormal heterogeneous soft tissue mass involving the base of the bladder measuring 4.1 cm, 6:65, inseparable from the prostate gland and involving the left ureterovesicular junction and abutting the right ureterovesicular junction. PELVIC VISCERA: Findings of bladder mass inseparable from the prostate as detailed above. OSSEOUS STRUCTURES: Unremarkable. CT/CT abdomen pelvis w IV con IMPRESSION: 1. There is an abnormal heterogeneous soft tissue mass involving the base of the bladder measuring 4.1 cm, inseparable from the prostate gland and involving the left ureterovesicular junction and abutting the right ureterovesicular junction resulting in moderate left hydroureteronephrosis with a delayed nephrogram and mild right hydroureteronephrosis. Findings are suspicious for transitional cell carcinoma, though differential considerations could include primary prostatic malignancy invading the bladder. Recommend correlation with PSA, urologic evaluation and consideration of cystoscopy. 2. No striation of the renal nephrogram to favor pyelonephritis. 3. Coronary artery calcifications present, recommend correlation with cardiac risk factors. Calcifications in the aortic valve leaflets which can be seen in the setting of aortic stenosis. 4. Mild lower lobe cylindrical bronchiectasis. The findings and recommendations were discussed with SHERINE Barrientos by telephone at 01/26/2024 3:22 PM and it was ascertained that the content and urgency of the report was understood at the time of direct communication.
[2024-01-26 10:37] VITALS: BP 144/39; PULSE 57; RESP 18; TEMP 36.4; O2SAT 100; BMI 29.1
[2024-01-26 10:58] LABS: MANUAL DIFF FLAG NO
[2024-01-26 11:01] LABS: Basophils Percent Auto 0.5 % (0-2); Eosinophils Absolute Auto 0.1 X10*3/uL (0.0-0.4); Eosinophils Percent Auto 1.2 % (0-4); Hematocrit 36.2 % (42.0-52.0); Hemoglobin 11.5 g/dl (14.0-18.0); Imm Gran Abs Auto 0.02 X10*3/uL (0.00-0.03); Imm Gran Pct Auto 0.3 % (0.0-0.4); Lymphocytes Absolute Auto 1.4 X10*3/uL (1.2-4.9); Lymphocytes Percent Auto 20.8 % (20-40); Mean Corpuscular HGB Conc 31.8 g/dl (31.0-36.0); Mean Corpuscular Hemoglobin 27.3 pg (27.0-33.0); Mean Corpuscular Volume 85.8 fL (80.0-98.0); Mean Platelet Volume 9.1 fL (9.4-12.4); Monocytes Absolute Auto 0.6 X10*3/uL (0.1-1.2); Monocytes Percent Auto 9.5 % (2-11); Neutrophils Absolute Auto 4.5 x10*3/uL (2.0-8.3); Neutrophils Percent Auto 67.7 % (45-73); Platelet Count 263 X10*3/uL (160-400); Red Blood Count 4.22 X10*6/uL (4.60-5.80); Red Cell Distribution Width 13.6 % (11.0-16.0); White Blood Count 6.6 X10*3/uL (4.8-10.8)
[2024-01-26 11:04] LABS: Appearance Urine Turbid; Glucose Urine UA Negative (Negative); Leukocyte Esterase Urine Moderate (2+) (Negative); Nitrite Urine Positive (Negative); PH 6.5 (5.0-9.0); UMIC TRIGGER UACC YES; Urine Blood Large (3+) (Negative); Urine Ketones 15 mg/dL (Negative); Urine Protein 300 (3+) mg/dL (Neg-Trace)
[2024-01-26 11:18] LABS: Alanine Aminotransferase 9 U/L (0-40); Albumin Level 3.7 g/dL (3.5-5.0); Alkaline Phosphatase 130 U/L (39-117); Anion Gap 11 (12-20); Aspartate Amino Transferase 14 U/L (5-37); Bilirubin Total 0.3 mg/dL (0.0-1.0); Blood Urea Nitrogen 17 mg/dL (9-16); Calcium 9.7 mg/dL (8.4-10.2); Carbon Dioxide 29 mmol/L (22-29); Chloride 106 mmol/L (96-108); Color Urine BROWN; Creatinine Clr Calc Pharmacy 31.8; Estimated Glomerular Filt Rate 42; Glucose Random 153 mg/dL (60-115); Potassium 4.2 mmol/L (3.3-5.1); Sodium 142 mmol/L (135-145); Total Protein 6.4 g/dL (6.5-8.0)
[2024-01-26 11:36] VITALS: BP 134/42; PULSE 57; RESP 16; TEMP 36.7; O2SAT 100
[2024-01-26 11:38] LABS: Bacteria Urine None Seen (None Seen); Hyaline Casts Urine 0-2 /LPF (0-2); UACC Culture Trigger YES; WBC Urine 21-50 /HPF (0-5)
--- NOTE | 2024-01-26 11:41 | PC.NURSE ---
pt a&ox4. vss and up to date. pt presents to the ED d/t bright red hematuria/dysuria since yesterday. pt denies all other urinary sx. pt states that he had 2 episodes where a large clot came out while urinating. pt denies n/v/d/abd pain/fever/chills. no sob/wob noted. respirations even and unlabored. pt waiting to be seen by ED provider. partner bedside for support. plan of care ongoing. call baltazar placed within reach.
[2024-01-26 11:49] LABS: RBC Urine >20 /HPF (0-2)
[2024-01-26] MEDS: 0.9 % Sodium Chloride 1,000 ML 999 ML IVCONT (12:06)
[2024-01-26 12:29] LABS: Lactic Acid 1.2 mmol/L (0.5-2.0)
[2024-01-26] MEDS: cefTRIAXone sodium 2 GM in 0.9 % Sodium Chloride 50 ML IV (12:32)
--- NOTE | 2024-01-26 12:34 | PC.NURSE ---
abx administered per provider order.
[2024-01-26] MEDS: iohexoL 350 MG/ML 100 ML INFUS..BTL IV (13:11)
--- NOTE | 2024-01-26 13:35 | PC.NURSE ---
pt to CT at this time.
--- NOTE | 2024-01-26 14:28 | ED_ITS ---
HPI - Male Genitourinary General Chief complaint: Urogenital-Male Stated complaint: blood in urine Time Seen by Provider: 01/26/24 11:26 Source: patient and family Mode of arrival: ambulatory Limitations: no limitations History of Present Illness HPI Narrative: 88-year-old male with a past medical history Paget's bone disease, PVD, diabetes, aortic stenosis, CAD, on ASA presenting to the ER with complaints of hematuria that he noticed yesterday and today. He reports he did notice some clots. He reports he has never had hematuria in the past. He denies any history of cancer. He denies any fevers, chills, dizziness headaches, neck pain or stiffness, chest pain or shortness of breath, abdominal pain, flank pain, back pain, black or bloody stools, recent falls or trauma or any other symptoms complaints or concerns at this time MD Complaint: other (Hematuria) Onset (ago): day(s) (2) Duration: constant Location: penis Relieving factors: none Exacerbating factors: urination Associated symptoms: Reports denies other symptoms Related Data Home Medications Medication Instructions Recorded Confirmed ascorbate calcium (vitamin C) 500 500 mg PO DAILY 10/11/20 10/24/23 mg tablet aspirin 81 mg tablet,delayed 81 mg PO DAILY 10/11/20 10/24/23 release (Adult Aspirin Regimen) vitamins A,C,C-[id number] PO 03/29/21 10/24/23 [PreserVision AREDS] Previous Rx's Medication Instructions Recorded blood sugar diagnostic #3 boxes 03/31/21 cholecalciferol (vitamin D3) 50 50 mcg PO DAILY #30 caps 04/20/22 mcg (2,000 unit) capsule ferrous sulfate 325 mg (65 mg 325 mg PO DAILY #90 tabs 03/01/23 iron) tablet (Feosol) amlodipine 2.5 mg tablet 2.5 mg PO DAILY #90 tabs 03/22/23 metoprolol succinate 25 mg 25 mg PO DAILY #90 tabs 04/18/23 tablet,extended release 24 hr lancets #300 ea 07/11/23 blood sugar diagnostic (OneTouch #100 ea 09/06/23 Ultra Test strips) metformin 500 mg tablet 500 mg PO DAILY 90 days #90 tabs 09/06/23 bacitracin 500 unit/gram topical 1 appl topical BID #30 grams 09/27/23 ointment cyanocobalamin (vitamin B-12) 1,000 mcg PO DAILY #90 caps 10/07/23 1,000 mcg capsule rosuvastatin 40 mg tablet (Crestor) 40 mg PO DAILY #90 tabs 01/01/24 Allergies Allergy/AdvReac Type Severity Reaction Status Date / Time No Known Allergies Allergy Verified 01/26/24 10:40 [No Known Allergies*] Review of Systems 2 Review of Systems: Constitutional : No Weight loss, No Fever, No Chills, No Night Sweats, No Fatigue, No Malaise ENT/Mouth: No ear pain, No sore throat, No Difficulty swallowing Cardiovascular : No Chest Pain, No SOB, No Dyspnea on Exertion, No Orthopnea, No Edema, No Palpitations Respiratory : No Cough, No Sputum, No Wheezing, No Dyspnea Gastrointestinal : No Nausea, No Vomiting, No Diarrhea, No abdominal Pain, No Hematochezia, No Melena Genitourinary : + Hematuria, No testicular pain, No irregular bleeding, No Dysuria, No Urinary Frequency, No Hematuria,No Urinary Incontinence, No Urgency, No Flank Pain Musculoskeletal : No joint pain, No Myalgias, No Joint Swelling Skin : No Skin Lesions, No rash Neuro : No Weakness, No Numbness, No Paresthesias, No Loss of Consciousness, NoDizziness, No Headache Psych : No Social Issues, Heme/Lymph: No Bruising, No Bleeding,No Lymphadenopathy Endocrine : No Polyuria, No Polydipsia, No Temperature Intolerance PATIENT DENIES ANY THOUGHTS OF STDS Yes all other systems are reviewed and are negative [facility] Past Medical History Attestation statement: The following information was validated with the patient. Source: old records reviewed, obtained from family and nursing notes reviewed Medical History Osteopenia Paget's bone disease Overweight (BMI 25.0-29.9) Peripheral vascular disease Hypercholesterolemia Diabetic nephropathy Type 2 diabetes mellitus with hyperglycemia Macular degeneration Lumbar degenerative disc disease Left renal stone Paget's disease of bone Vitamin D deficiency Aortic stenosis, mild Coronary artery disease Surgical History S/P CABG x 3 History of tonsillectomy History of bilateral cataract extraction History of ankle surgery S/P repair of hydrocele History of inguinal hernia repair Family History Family History Father CVD (cardiovascular disease) Mother CVD (cardiovascular disease) Heart disease Brother In good health Sister In good health Son Diabetes Social History Social History Housing: House Alcohol intake: never Patient Tobacco Use Status: Former Tobacco user Smoked in Last 30 Days: No e-Cigarette/Vaping Use: Never Used Use of substances other than those prescribed or required for medical reasons: No Advance Directives: No Advance Directives Information Provided: No Current occupational status: retired Cognitive needs: No Hearing needs: No Vision needs: Yes Physical Exam 2 Vital Signs: Vital Signs: Last Vital Signs Temp 97.8 F 01/26/24 15:40 Pulse 53 01/26/24 15:40 Resp 16 01/26/24 15:40 BP 158/50 H 01/26/24 15:40 Pulse Ox 97 01/26/24 15:40 O2 Del Method Room Air 01/26/24 15:40 BMI result Body Mass Index 29.1 vital signs have been reviewed as normal and appeared to be correct. Blood pressure normal. Heart rate normal. Respiration rate normal. Temperature normal. Oxygen saturation normal. Appearance: Alert. Oriented X3. No acute distress. Head: Normal external exam. Normocephalic. Atraumatic. Eyes: PERRLA. EOMI. Conjunctiva and sclera normal. Eyelids normal. ENT: Pharynx normal. Uvula midline. Moist mucous membranes. Normal voice. Neck: Normal inspection. Neck supple. FROM. No adenopathy. Thyroid Normal. No tracheal deviation noted. No crepitus is noted. No meningeal signs. CVS: Normal heart rate and rhythm. Heart sound normal. Pulses normal throughout. No murmurs/rales/gallops. Respiratory: No respiratory distress. Painless inspiration. Breath sounds normal. No wheezes/rales/rhonchi noted. Chest nontender. No accessory muscle usage noted or decreased air movement noted. No signs of trauma. Abdomen: Soft and nontender. Nondistended. No guarding. No rigidity. Bowel sounds normal in all 4 quadrants. No distention noted. No organomegaly noted. No visible injury noted. No rebound tenderness. Negative Rovsing sign. Negative obturator's sign. Negative psoas sign. Negative Bell sign. Back: + left CVA tenderness. Full range of motion noted. Nontender. No signs of trauma. Patient neuro intact bilaterally and distally on all 4 extremities. Patient's reflexes intact bilaterally and distally on all 4 extremities. No rashes/lesion/induration/fluctuance or signs of infection noted. Skin: Skin warm and dry. Normal skin color. Normal skin turgor. No rashes/lesions/lacerations noted. Extremities: No lower extremity edema. No calf tenderness is noted. Extremities exhibit normal range of motion and nontender. Neuro: Oriented X 3. No motor deficit. No sensory deficit. Reflexes normal. Normal steady gait. No focal neuro deficits noted. CN's II-XII intact bilaterally? Vascular: + radial pulses/+ 2 distal pedal pulses/+2 dorsalis pedis b/l. Normal cap refill. No cyanosis noted to upper extremity nails and lower extremity toes nails. Course Course Course Narrative: 11:55pm - 88-year-old male presenting with painless hematuria for the past 2 days with clots. Has never had this in the past. Concerned for UTI versus kidney stone versus malignancy. H&P not consistent with sepsis. Plan: Labs, UA, CT scan abdomen pelvis with IV contrast and re-evaluate Reevaluation(s) Reevaluation #1: Labs reviewed patient mild anemia with an H&H of 11.5/36.2. Anion gap 11. BUN 17. Creatinine 1.56. This is new for the patient. Random glucose 153. Alkaline phosphate 130. Total protein 6.4. UA revealed protein, blood, positive for nitrates and leukocytes consistent with UTI. Therefore blood cultures and lactate were obtained and patient was given IV Rocephin and IV fluids. CT scan of abdomen pelvis still pending at this time. Will re-evaluate Time: 15:06 Reevaluation #2: CT scan abdomen pelvis with IV contrast returned at this time and revealed that patient has abnormal mass involving base of the bladder which is 4.1 cm inseparable from the prostate gland and it is involving the left UVJ and abutting the right UVJ resulting in moderate left hydroureteronephrosis and delayed nephrogram and mild right hydroureteronephrosis. Findings are suspicious for transitional cell carcinoma including primary prostatic malignancy invading the bladder. They are recommending PSA and cystoscopy. There is no pyelonephritis. And there is other chronic changes otherwise no other acute processes. Therefore at this time I sent out a tiger text to Dr. Dugan the urologist. I discussed this with the patient, his and his son at bedside they understand and agree with the plan that the patient will need admission for further evaluation treatment and the abnormalities found on the CT scan. Will continue to monitor. Time: 15:28 Reevaluation #3: I discussed this case with Dr. Dugan who reported that the patient should be admitted to Medicine for procedure on Sunday or Sunday. Patient reports his hematuria has improved. Patient will be admitted at this time. Patient with family at bedside understand agree this plan Time: 15:47 Medications Administered Discontinued Medications Generic Name Dose Route Start Last Admin Trade Name Freq PRN Reason Stop Dose Admin Sodium Chloride 1,000 mls @ 999 mls/hr 01/26/24 11:45 01/26/24 13:55 Ns IVCONT 01/26/24 12:45 Infused .Q1H1M ELEANOR Infusion Ceftriaxone Sodium 2 gm/ 50 mls @ 100 mls/hr 01/26/24 11:55 01/26/24 13:26 Sodium Chloride IV 01/26/24 12:24 Infused ONCE ONE Infusion Iohexol 100 ml 01/26/24 13:11 01/26/24 13:11 Iohexol 350 Mg/Ml 100 Ml Infus..Btl IV 01/26/24 13:12 85 ml ONCE ONE Administration Medical Decision Making Medical Decision Making MDM Narrative: see course Differential Diagnosis Differential Diagnoses: The differential diagnosis associated with the presentation includes see course Admission/Observation Consideration of admission/observation: Escalation of care including admission/observation considered Consult Healthcare Provider Management of the patient was discussed with: Hospitalist and Events Associate (Dr. Dugan the Urology) Lab Data [facility] Lab Attestation statement: I reviewed the patient's lab results. 01/26/24 10:51 01/26/24 10:51 Labs: Lab Results 01/26/24 01/26/24 Range/Units 10:51 12:06 WBC 6.6 (4.8-10.8) X10*3/uL RBC 4.22 L (4.60-5.80) X10*6/uL Hgb 11.5 L (14.0-18.0) g/dl Hct 36.2 L (42.0-52.0) % MCV 85.8 (80.0-98.0) fL MCH 27.3 (27.0-33.0) pg MCHC 31.8 (31.0-36.0) g/dl RDW 13.6 (11.0-16.0) % Plt Count 263 (160-400) X10*3/uL MPV 9.1 L (9.4-12.4) fL Immature Gran % (Auto) 0.3 (0.0-0.4) % Neut % (Auto) 67.7 (45-73) % Lymph % (Auto) 20.8 (20-40) % [place] % (Auto) 9.5 (2-11) % Eos % (Auto) 1.2 (0-4) % Baso % (Auto) 0.5 (0-2) % Lymph # (Auto) 1.4 (1.2-4.9) X10*3/uL [place] # (Auto) 0.6 (0.1-1.2) X10*3/uL Eos # (Auto) 0.1 (0.0-0.4) X10*3/uL Baso # (Auto) 0.0 (0.0-0.2) X10*3/uL Abs Immat Gran (auto) 0.02 (0.00-0.03) X10*3/uL Absolute Neuts (auto) 4.5 (2.0-8.3) x10*3/uL Absolute Nucleated RBC 0.000 (0.0-0.012) X10*3/uL Nucleated RBC % (auto) 0.0 (0.0-0.2) /100WBC Sodium 142 (135-145) mmol/L Potassium 4.2 (3.3-5.1) mmol/L Chloride 106 (96-108) mmol/L Carbon Dioxide 29 (22-29) mmol/L Anion Gap 11 L (12-20) BUN 17 H (9-16) mg/dL Creatinine 1.56 H (0.5-1.4) mg/dL Estim Creat Clear Calc 31.8 Estimated GFR 42 Random Glucose 153 H (60-115) mg/dL Lactic Acid 1.2 (0.5-2.0) mmol/L Calcium 9.7 (8.4-10.2) mg/dL Total Bilirubin 0.3 (0.0-1.0) mg/dL AST 14 (5-37) U/L ALT 9 (0-40) U/L Alkaline Phosphatase 130 H (39-117) U/L Total Protein 6.4 L (6.5-8.0) g/dL Albumin 3.7 (3.5-5.0) g/dL Urine Color BROWN Urine Appearance Turbid Urine pH 6.5 (5.0-9.0) Ur Specific [place] 1.020 (1.005-1.025) Urine Protein 300 (3+) H (Neg-Trace) mg/dL Urine Glucose (UA) Negative (Negative) mg/dL Urine Ketones 15 (Negative) mg/dL Urine Blood Large (3+) H (Negative) Urine Nitrite Positive H (Negative) Ur Leukocyte Esterase Moderate (2+) H (Negative) Urine RBC >20 H (0-2) /HPF Urine WBC 21-50 H (0-5) /HPF Ur Squamous Epith Cells 11-20 (0-2) /HPF Urine Bacteria None Seen (None Seen) Hyaline Casts 0-2 (0-2) /LPF Independent Interpretation I performed an independent interpretation of an: CT Scan (CT scan abdomen pelvis with IV contrast reviewed by myself this is my independent interpretation agreeable radiologist report) Radiology Impression Discussion of test interpretation with radiology: I have reviewed the radiologist's reading. Radiologist Impression: FINDINGS: LUNG BASES: Coronary artery calcifications present, recommend correlation with cardiac risk factors. Calcifications in the aortic valve leaflets which can be seen in the setting of aortic stenosis. Mild lower lobe cylindrical bronchiectasis. ABDOMINAL AND PELVIC WALL: Unremarkable. LIVER AND BILIARY TREE: Unremarkable. GALLBLADDER: Unremarkable. PANCREAS: Unremarkable. SPLEEN: Unremarkable. ADRENAL GLANDS: Unremarkable. KIDNEYS AND URETERS: Moderate left hydroureteronephrosis with a delayed nephrogram. The left ureter is dilated to the level of the ureterovesicular junction. No striation of the renal nephrogram to favor pyelonephritis. There is mild right hydroureteronephrosis with the ureter dilated to the level of the left ureterovesicular junction. Bosniak 2 left upper pole renal cyst with a punctate cortical calcification, no imaging follow-up recommended. No nephrolithiasis. GASTROINTESTINAL TRACT: Small hiatal hernia. Arch and small bowel are unremarkable. Normal appendix. VASCULAR: Moderate atherosclerosis of the abdominal aorta. LYMPH NODES/PERITONEUM: No lymphadenopathy. FREE FLUID: None. BLADDER: There is an abnormal heterogeneous soft tissue mass involving the base of the bladder measuring 4.1 cm, 6:65, inseparable from the prostate gland and involving the left ureterovesicular junction and abutting the right ureterovesicular junction. PELVIC VISCERA: Findings of bladder mass inseparable from the prostate as detailed above. OSSEOUS STRUCTURES: Unremarkable. CT/CT abdomen pelvis w IV con IMPRESSION: 1. There is an abnormal heterogeneous soft tissue mass involving the base of the bladder measuring 4.1 cm, inseparable from the prostate gland and involving the left ureterovesicular junction and abutting the right ureterovesicular junction resulting in moderate left hydroureteronephrosis with a delayed nephrogram and mild right hydroureteronephrosis. Findings are suspicious for transitional cell carcinoma, though differential considerations could include primary prostatic malignancy invading the bladder. Recommend correlation with PSA, urologic evaluation and consideration of cystoscopy. 2. No striation of the renal nephrogram to favor pyelonephritis. 3. Coronary artery calcifications present, recommend correlation with cardiac risk factors. Calcifications in the aortic valve leaflets which can be seen in the setting of aortic stenosis. 4. Mild lower lobe cylindrical bronchiectasis. The findings and recommendations were discussed with SHERINE Barrientos by telephone at 01/26/2024 3:22 PM and it was ascertained that the content and urgency of the report was understood at the time of direct communication. Independent Historian Clinical information obtained from an independent historian. History obtained from or confirmed by: Spouse Patient, son, at bedside, medical records and nurse's note External Record Review External record reviewed: Inpatient record, Office record, Outpatient record, Prior outpatient labs, Prior outpatient radiology, Primary care record and Outside ED record All prior labs/imaging/EKG and notes that are accessible in our system reviewed by my Prescription Management I considered prescription management with: Antibiotic Social Determinants Patient?s care significantly limited by Social Determinants of Health including: Other Social Determinant of Health Critical Care Time Critical Care Time Critical Care Time: Yes Total Critical Care Time: 60 Attestation: I personally attest to this time spent taking care of the patient Discharge Plan Discharge Clinical Impression: Hematuria, UTI (urinary tract infection), Abnormal computed tomography of abdomen and pelvis, Bladder mass, Prostate mass Patient Disposition: Admitted As Inpatient Prescriptions: No Action (DME) blood sugar diagnostic Strip See Rx Instructions Not Applicable TID Qty: 3 3RF Rx Instructions: As directed check blood sugars 3 times a day cholecalciferol (vitamin D3) 50 mcg (2,000 unit) capsule 50 mcg PO DAILY Qty: 30 11RF ferrous sulfate [Feosol] 325 mg (65 mg iron) tablet 325 mg PO DAILY Qty: 90 3RF amlodipine 2.5 mg tablet 2.5 mg PO DAILY Qty: 90 3RF metoprolol succinate 25 mg tablet extended release 24 hr 25 mg PO DAILY Qty: 90 3RF (DME) lancets Misc See Rx Instructions .ROUTE TID Qty: 300 3RF Rx Instructions: As directed check the blood sugars 3 times a day ONETOUCH ULTRASOFT LANCETS cyanocobalamin (vitamin B-12) 1,000 mcg capsule 1,000 mcg PO DAILY Qty: 90 3RF bacitracin 500 unit/gram ointment 1 appl topical BID Qty: 30 0RF aspirin [Adult Aspirin Regimen] 81 mg tablet,delayed release (DR/EC) 81 mg PO DAILY ascorbate calcium (vitamin C) 500 mg tablet 500 mg PO DAILY (DME) OneTouch Ultra Test Strip See Rx Instructions .ROUTE .MEDSUPPLY Qty: 100 3RF Rx Instructions: As directed check the blood sugar once a day metformin 500 mg tablet 500 mg PO DAILY 90 Days Qty: 90 1RF rosuvastatin [Crestor] 40 mg tablet 40 mg PO DAILY Qty: 90 2RF vitamins A,C,M-lbxn-ocznwt PO
[2024-01-26 15:40] VITALS: BP 158/50; PULSE 53; RESP 16; TEMP 36.6; O2SAT 97
--- NOTE | 2024-01-26 16:53 | PM.IMHP ---
History of Present Illness Date of Service: 01/26/24 Attending physician on admission: Ankit Blanco Chief Complaint: hematuria 88-year-old male with history of hypertension, aortic stenosis, coronary artery disease, osteopenia, Paget's disease, hyperlipidemia, CKD stage 3, macular degeneration, PVCs, and [id number] type 2 diabetes presented to the ED for evaluation of hematuria she noted last night. States while urinating last night on 2 separate occasions, passed blood clots with bright red urine. This morning did not note any clots but urine was still red. However has been given IV fluids in the ER and urine is now more pink in color without clots. He states he has had mild dysuria for several days and also reports urinary frequency that has been ongoing for several years. Denies any fevers, chills, abdominal pain, nausea, vomiting, diarrhea, shortness of breath, lightheadedness, chest pain. Denies any history of similar symptoms. Vital signs stable since arrival. No leukocytosis. Mild, stable normocytic anemia with H/H 11.5/36.2%. Creatinine 1.56, consistent with baseline. Electrolyte levels normal. Glucose 153. Lactic acid 1.2. Urinalysis significant for 2+ leukocytes, positive nitrites, 3+ blood, 3+ protein, positive urinary sediment, negative bacteria. CT abdomen/pelvis shows abnormal heterogenous soft tissue mass involving the base of the bladder measuring 4.1 cm inseparable from the prostate gland involving the left ureterovesicular junction and abutting the right ureterovesicular junction resulting in moderate left hydronephrosis with delayed nephrogram and mild right hydroureteronephrosis suspicious for transitional cell carcinoma though differential could include primary prostate malignancy involving the bladder. No evidence of pyelonephritis. In the ED, has been given 1 L IV NS, 2 g Rocephin. ED discussed with urology recommending admission to medicine for hematuria. Review of Systems Review of Systems: General: No fevers, malaise, unintentional weight loss HEENT: No blurred vision, diplopia. No sore throat, nasal congestion, rhinorrhea, sinus pain, ear pain Cardiovascular: No chest pain, palpitations, or leg edema Respiratory: No shortness of breath, wheezing, cough GI: No abdominal pain, nausea, vomiting, diarrhea, constipation, melena, hematochezia : +hematuria, +dysuria, +urinary frequency. No decreased urinary output MSK: No myalgia, back pain Neuro: No headaches, weakness, paresthesias Skin: No rashes or lesions [facility] Medical History Osteopenia Paget's bone disease Overweight (BMI 25.0-29.9) Peripheral vascular disease Hypercholesterolemia Diabetic nephropathy Type 2 diabetes mellitus with hyperglycemia Macular degeneration Lumbar degenerative disc disease Left renal stone Paget's disease of bone Vitamin D deficiency Aortic stenosis, mild Coronary artery disease Family History Father CVD (cardiovascular disease) Mother CVD (cardiovascular disease) Heart disease Brother In good health Sister In good health Son Diabetes Surgical History S/P CABG x 3 History of tonsillectomy History of bilateral cataract extraction History of ankle surgery S/P repair of hydrocele History of inguinal hernia repair Social History Housing: House Alcohol intake: never Patient Tobacco Use Status: Former Tobacco user Smoked in Last 30 Days: No e-Cigarette/Vaping Use: Never Used Use of substances other than those prescribed or required for medical reasons: No Advance Directives: No Advance Directives Information Provided: No Current occupational status: retired Cognitive needs: No Hearing needs: No Vision needs: Yes Meds Allergies Allergy/AdvReac Type Severity Reaction Status Date / Time No Known Allergies Allergy Verified 01/26/24 10:40 [No Known Allergies*] Active Medications: Current Medications Acetaminophen (Acetaminophen 325 Mg Tablet) 650 mg PO Q6H PRN PRN Reason: Pain, Mild (Pain Scale 1-3) Ondansetron HCl (Ondansetron Hcl 4 Mg/2 Ml Vial) 4 mg IVPUSH Q8H PRN PRN Reason: Nausea and Vomiting Senna (Sennosides 8.6 Mg Tablet) 17.2 mg PO BEDTIME PRN PRN Reason: Constipation Sodium Chloride (0.9 % Sodium Chloride Flush 3 Ml Syringe) 3 ml IVFLUSH [facility] Home Medications Medication Instructions Recorded Confirmed Last Taken Type ascorbate calcium (vitamin C) 500 500 mg PO DAILY 10/11/20 10/24/23 Unknown History mg tablet aspirin 81 mg tablet,delayed 81 mg PO DAILY 10/11/20 10/24/23 Unknown History release (Adult Aspirin Regimen) vitamins A,C,U-ouel-onflkd PO 03/29/21 10/24/23 Unknown History [PreserVision AREDS] Physical Exam Vital Signs and Narrative: Vital Signs: Last Vital Signs Temp 97.8 F 01/26/24 15:40 Pulse 53 01/26/24 15:40 Resp 16 01/26/24 15:40 BP 158/50 H 01/26/24 15:40 Pulse Ox 97 01/26/24 15:40 O2 Del Method Room Air 01/26/24 15:40 BMI result Body Mass Index 29.1 Constitutional - Awake and Alert, No apparent distress Eyes - PERRLA, EOMI Cardiovascular - S1S2, RRR, No edema Respiratory - Normal lung expansion, Normal respiratory effort, No respiratory distress, CTA bilaterally Gastrointestinal - NT / ND; +BS; No rebound or guarding Extremities - no calf tenderness bilaterally, no swelling Skin - Warm/Dry Neurological - Alert & oriented x3 Psychological - Appropriate affect Results Labs 01/26/24 10:51 01/26/24 10:51 Labs: Laboratory Results - last 24 hr 01/26/24 01/26/24 10:51 12:06 MCV 85.8 MCH 27.3 MCHC 31.8 RDW 13.6 Plt Count 263 MPV 9.1 L Immature Gran % (Auto) 0.3 Neut % (Auto) 67.7 Lymph % (Auto) 20.8 Davis % (Auto) 9.5 Eos % (Auto) 1.2 Baso % (Auto) 0.5 Lymph # (Auto) 1.4 Davis # (Auto) 0.6 Eos # (Auto) 0.1 Baso # (Auto) 0.0 Abs Immat Gran (auto) 0.02 Absolute Neuts (auto) 4.5 Absolute Nucleated RBC 0.000 Nucleated RBC % (auto) 0.0 Anion Gap 11 L Estim Creat Clear Calc 31.8 Estimated GFR 42 Random Glucose 153 H Lactic Acid 1.2 Calcium 9.7 Total Bilirubin 0.3 AST 14 ALT 9 Alkaline Phosphatase 130 H Total Protein 6.4 L Albumin 3.7 Urine Color BROWN Urine Appearance Turbid Urine pH 6.5 Ur Specific [place] 1.020 Urine Protein 300 (3+) H Urine Glucose (UA) Negative Urine Ketones 15 Urine Blood Large (3+) H Urine Nitrite Positive H Ur Leukocyte Esterase Moderate (2+) H Urine RBC >20 H Urine WBC 21-50 H Ur Squamous Epith Cells 11-20 Urine Bacteria None Seen Hyaline Casts 0-2 Imaging Radiologist's Impressions: Impressions Abdomen/Pelvis CT 01/26/24 13:29 IMPRESSION: 1. There is an abnormal heterogeneous soft tissue mass involving the base of the bladder measuring 4.1 cm, inseparable from the prostate gland and involving the left ureterovesicular junction and abutting the right ureterovesicular junction resulting in moderate left hydroureteronephrosis with a delayed nephrogram and mild right hydroureteronephrosis. Findings are suspicious for transitional cell carcinoma, though differential considerations could include primary prostatic malignancy invading the bladder. Recommend correlation with PSA, urologic evaluation and consideration of cystoscopy. 2. No striation of the renal nephrogram to favor pyelonephritis. 3. Coronary artery calcifications present, recommend correlation with cardiac risk factors. Calcifications in the aortic valve leaflets which can be seen in the setting of aortic stenosis. 4. Mild lower lobe cylindrical bronchiectasis. The findings and recommendations were discussed with SHERINE Barrientos by telephone at 01/26/2024 3:22 PM and it was ascertained that the content and urgency of the report was understood at the time of direct communication. Assessment and Plan (1) Prostate mass: Status: Acute (2) Bladder mass: Status: Acute (3) UTI (urinary tract infection): Status: Acute (4) Hematuria: Status: Acute Plan 88-year-old male with history of hypertension, aortic stenosis, coronary artery disease, osteopenia, Paget's disease, hyperlipidemia, CKD stage 3, macular degeneration, PVCs, and sir-jtkyugs-aymxaaakx type 2 diabetes admitted for further management of gross hematuria. #Gross hematuria with bladder/prostate mass -CT abdomen/pelvis shows abnormal heterogenous soft tissue mass involving the base of the bladder measuring 4.1 cm inseparable from the prostate gland involving the left ureterovesicular junction and abutting the right ureterovesicular junction resulting in moderate left hydronephrosis with delayed nephrogram and mild right hydroureteronephrosis suspicious for transitional cell carcinoma though differential could include primary prostate malignancy involving the bladder. -no recurrence of clots, hold on cbi for now -urology consult -PSA, urine cytology ordered -hold aspirin #Acute UTi -UA with 2+ leukocytes, positive nitrites, 3+ blood, positive urinary sediment, negative bacteria -IV ceftriaxone (initiated 01/25) -No leukocytosis, no sepsis -follow cultures # alw-dsohtce-kcarchegg type 2 diabetes -POC glucose, diabetic diet -Humalog on sliding scale -hold metformin # hypertension -blood pressure reasonably controlled -continue metoprolol, amlodipine # CAD/ -asymptomatic -hold aspirin due to above. Continue statin, beta-jayson # osteopenia/Paget's disease -continue multivitamin # chronic normocytic anemia -likely related to chronic disease -H/H above transfusion threshold -continue ferrous sulfate # CKD stage 3 -renal function baseline DVT prophylaxis- SCPs Full code Patient requires inpatient stay at least 2 midnights for management of gross hematuria requiring close monitoring of blood counts, expert consultation, and possible cystoscopy with biopsy given prostate/bladder mass seen on CT scan Quality Stroke Does the patient have a stroke diagnosis?: No VTE Prior VTE?: No VTE Risk Level:: Medical - moderate - high VTE Device Contraindication: N/A - Device Ordered VTE Drug Contraindication: Treatment Not Indicated
--- NOTE | 2024-01-26 16:58 | PC.NURSE ---
pt speaking w/ hospitalist at this time. pt and family aware of plans in regards to future care at this time. plan of care ongoing. call baltazar placed within reach.
[2024-01-26 18:02] VITALS: BP 143/51; PULSE 61; RESP 16; TEMP 36.8; O2SAT 99
--- NOTE | 2024-01-26 18:03 | PC.NURSE ---
vss and up to date at this time. pt denies pain. resting comfortably in no apparent distress. no sob/wob noted. respirations remain even and unlabored. pt waiting for bed assignment at this time. call baltazar placed within reach.
--- NOTE | 2024-01-26 18:27 | PHA.MEDREC ---
Pharmacy Consult ? Medication Reconciliation Pharmacy has completed the medication reconciliation. spoke with patient and family member at bedside who had a list. Went over the list with them to confirm medications.
[2024-01-26 19:23] VITALS: BP 142/53; PULSE 56; RESP 16; TEMP 36.8; O2SAT 99
--- NOTE | 2024-01-26 19:25 | PM.UROCN ---
History of Present Illness Consult details Consult date: 01/26/24 Narrative: CC: Left hydro secondary to bladder mass 88-year-old male presents to emergency room with complaints of hematuria. He did notice some clots. No prior hematuria. Denies prior cancer. Past medical history of Paget's Alk phos 155, creatinine 1.[address] result - abnormal heterogeneous soft tissue mass involving the base of the bladder measuring 4.1 cm, inseparable from the prostate gland and involving the left ureterovesicular junction and abutting the right ureterovesicular junction resulting in moderate left hydroureteronephrosis with a delayed nephrogram and mild right hydroureteronephrosis PSA pending. If PSA comes back elevated over 20 would recommend bone scan. Current alk-phos difficult to determine with background of Paget's bone disease. Will consider cystoscopy with bladder biopsy for Sunday or Sunday next week Review of Systems Constitutional: Constitutional: Reports as per HPI and Reports no additional constitutional complaints Cardiovascular: Cardiovascular: Reports as per HPI and Reports no additional cardiovascular complaints Respiratory: Respiratory: Reports as per HPI and Reports no additional respiratory complaints Gastrointestinal: Gastrointestinal: Reports as per HPI and Reports no additional gastrointestinal complaints Genitourinary: Genitourinary: Reports as per HPI Musculoskeletal: Musculoskeletal: Reports no additional musculoskeletal complaints and Reports as per HPI Neurologic: Reports system reviewed and no additional complaints, except as documented and Reports as per HPI [facility] Past Medical History Medical History Osteopenia Paget's bone disease Overweight (BMI 25.0-29.9) Peripheral vascular disease Hypercholesterolemia Diabetic nephropathy Type 2 diabetes mellitus with hyperglycemia Macular degeneration Lumbar degenerative disc disease Left renal stone Paget's disease of bone Vitamin D deficiency Aortic stenosis, mild Coronary artery disease Family History Family History Father CVD (cardiovascular disease) Mother CVD (cardiovascular disease) Heart disease Brother In good health Sister In good health Son Diabetes Surgical History Surgical History S/P CABG x 3 History of tonsillectomy History of bilateral cataract extraction History of ankle surgery S/P repair of hydrocele History of inguinal hernia repair Social History Social History Housing: House Alcohol intake: never Patient Tobacco Use Status: Former Tobacco user Smoked in Last 30 Days: No e-Cigarette/Vaping Use: Never Used Use of substances other than those prescribed or required for medical reasons: No Advance Directives: No Advance Directives Information Provided: No Nutrition Risks: No Nutritional Risk Current occupational status: retired Cognitive needs: No Hearing needs: No Vision needs: Yes Meds Allergies Allergy/AdvReac Type Severity Reaction Status Date / Time No Known Allergies Allergy Verified 01/26/24 10:40 [No Known Allergies*] Active Medications: Current Medications Acetaminophen (Acetaminophen 325 Mg Tablet) 650 mg PO Q6H PRN PRN Reason: Pain, Mild (Pain Scale 1-3) Amlodipine Besylate (Amlodipine Besylate 2.5 Mg Tablet) 2.5 mg PO DAILY [facility]; Protocol Ascorbic Acid (Ascorbic Acid 500 Mg Tablet) 500 mg PO DAILY [facility] Aspirin (Aspirin Enteric Coated 81 Mg Tablet.) 81 mg PO DAILY [facility] Atorvastatin Calcium (Atorvastatin Calcium 80 Mg Tablet) 80 mg PO DAILY [facility] Cyanocobalamin (Cyanocobalamin (Vitamin B-12) 1,000 Mcg Tablet) 1,000 mcg PO Q48H [facility] Dextrose (Dextrose 50 % 25 Gm/50 Ml Syringe) 25 gm IVPUSH Q15M PRN; Protocol PRN Reason: per Hypoglycemia Standing Ord. Ferrous Sulfate (Ferrous Sulfate 324 Mg Tablet.) 324 mg PO Q48H [facility] Glucose (Glucose Gel 15 Gm Gel..Gram.) 15 gm PO Q15M PRN; Protocol PRN Reason: per Hypoglycemia Standing Ord. Ceftriaxone Sodium 1 gm/ (Sodium Chloride) 50 mls @ 100 mls/hr IV Q24H [facility] Insulin Human Lispro (Insulin Lispro 100 Unit/Ml 3 Ml Vial) 0 unit SUBCUT QIDACHS [facility]; Protocol Metoprolol Succinate (Metoprolol Succinate Er 25 Mg Tab.Er.24h) 25 mg PO DAILY [facility]; Protocol Ondansetron HCl (Ondansetron Hcl 4 Mg/2 Ml Vial) 4 mg IVPUSH Q8H PRN PRN Reason: Nausea and Vomiting Senna (Sennosides 8.6 Mg Tablet) 17.2 mg PO BEDTIME PRN PRN Reason: Constipation Sodium Chloride (0.9 % Sodium Chloride Flush 3 Ml Syringe) 3 ml IVFLUSH QSHIFT [facility] Vitamin D (Cholecalciferol (Vitamin D3) 25 Mcg Tablet) 50 mcg PO DAILY [facility] Home Medications Medication Instructions Recorded Confirmed Last Taken Type ascorbate calcium (vitamin C) 500 500 mg PO DAILY 10/11/20 01/26/24 Unknown History mg tablet aspirin 81 mg tablet,delayed 81 mg PO DAILY 10/11/20 01/26/24 01/26/24 History release (Adult Aspirin Regimen) vitamins A,C,R-avhu-jsklhk 1 tab PO BID 03/29/21 01/26/24 01/26/24 History [PreserVision AREDS] cyanocobalamin (vitamin B-12) 1,000 mcg PO Q OTHER DAY 01/26/24 01/26/24 Unknown History 1,000 mcg capsule ferrous sulfate 325 mg (65 mg 325 mg PO Q OTHER DAY 01/26/24 01/26/24 01/26/24 History iron) tablet (Feosol) Physical Exam Vital Signs: Vital Signs: Last Vital Signs Temp 98.2 F 01/26/24 19:23 Pulse 56 01/26/24 19:23 Resp 16 01/26/24 19:23 BP 142/53 H 01/26/24 19:23 Pulse Ox 99 01/26/24 19:23 O2 Del Method Room Air 01/26/24 18:02 BMI result Body Mass Index 29.1 Const: General: cooperative, healthy appearing, comfortable and no acute distress Orientation/consciousness: patient oriented x3 HEENT: Face and sinus: Yes normal facial exam Mouth: moist mucous membranes Neck: Neck: Yes normal visual inspection, Yes full ROM and Yes trachea midline Chest: Chest palpation & inspection: normal inspection of the chest Resp: Effort & Inspection: normal respiratory effort, able to speak in complete sentences and no respiratory distress GI: Inspection: Yes normal to inspection Back/Spine/Pelvis: Cervical Spine: normal cervical lordosis Thoracic/Lumbar Spine: thoracic and lumbar spine normal to inspection Skin: General skin exam: no rashes or lesions noted Neuro: General: patient oriented x3, tone normal and moves all extremities Extrem: General: Yes normal to inspection and Yes capillary refill normal Results Labs 01/26/24 10:51 01/26/24 10:51 Labs: Abnormal lab results 01/26/24 Range/Units 10:51 RBC 4.22 L (4.60-5.80) X10*6/uL Hgb 11.5 L (14.0-18.0) g/dl Hct 36.2 L (42.0-52.0) % MPV 9.1 L (9.4-12.4) fL Anion Gap 11 L (12-20) BUN 17 H (9-16) mg/dL Creatinine 1.56 H (0.5-1.4) mg/dL Random Glucose 153 H (60-115) mg/dL Alkaline Phosphatase 130 H (39-117) U/L Total Protein 6.4 L (6.5-8.0) g/dL Urine Protein 300 (3+) H (Neg-Trace) mg/dL Urine Blood Large (3+) H (Negative) Urine Nitrite Positive H (Negative) Ur Leukocyte Esterase Moderate (2+) H (Negative) Urine RBC >20 H (0-2) /HPF Urine WBC 21-50 H (0-5) /HPF Short CBC 01/26/24 Range/Units 10:51 WBC 6.6 (4.8-10.8) X10*3/uL Hgb 11.5 L (14.0-18.0) g/dl Hct 36.2 L (42.0-52.0) % Plt Count 263 (160-400) X10*3/uL BMP 01/26/24 10:51 Sodium 142 Potassium 4.2 Chloride 106 Carbon Dioxide 29 BUN 17 H Creatinine 1.56 H Calcium 9.7 Liver Function 01/26/24 Range/Units 10:51 Total Bilirubin 0.3 (0.0-1.0) mg/dL AST 14 (5-37) U/L ALT 9 (0-40) U/L Alkaline Phosphatase 130 H (39-117) U/L Albumin 3.7 (3.5-5.0) g/dL Urine 01/26/24 Range/Units 10:51 Urine Color BROWN Urine Appearance Turbid Urine pH 6.5 (5.0-9.0) Ur Specific [place] 1.020 (1.005-1.025) Urine Protein 300 (3+) H (Neg-Trace) mg/dL Urine Glucose (UA) Negative (Negative) mg/dL All other labs normal. Assessment and Plan (1) Prostate mass: Status: Acute (2) Bladder mass: Status: Acute (3) Hydronephrosis: Status: Acute (4) Acute kidney injury: Status: Acute Plan Await PSA Bone scan if elevated Plan cystoscopy and bladder biopsy for Sunday or Sunday Procedures Date of Service Date of Service: 01/26/24
[2024-01-26] MEDS: Cyanocobalamin (Vitamin B-12) 1,000 MCG TABLET 1000 MCG PO (19:29)
[2024-01-26] MEDS: Ferrous Sulfate 324 MG TABLET.DR PO (19:29)
--- NOTE | 2024-01-26 19:32 | PC.NURSE ---
assumed care of patient at 1900 - pt A&Ox4, resting comfortably on stretcher, offering no current coplaints. medicated per jan, pt took meds whole with water no issues. vital signs updated - call baltazar within reach. [facility]
[2024-01-26 20:17] VITALS: BMI 29.1
[2024-01-26 20:30] LABS: Urine Cytology See Pathology rpt
[2024-01-26 20:56] LABS: Glucose, Whole Blood 153 mg/dL (60-115)
[2024-01-26] MEDS: Insulin Lispro 100 UNIT/ML 3 ML VIAL SUBCUT (21:21)
[2024-01-26] MEDS: 0.9 % Sodium Chloride Flush 3 ML SYRINGE IVFLUSH (21:22)
[2024-01-26 21:41] VITALS: BP 140/65; PULSE 60; RESP 16; TEMP 35.9; O2SAT 100
[2024-01-27 03:23] VITALS: BP 128/59; PULSE 53; RESP 16; TEMP 36.4; O2SAT 97
[2024-01-27 05:42] LABS: MANUAL DIFF FLAG NO
[2024-01-27 05:49] LABS: Basophils Absolute Auto 0.1 X10*3/uL (0.0-0.2); Basophils Percent Auto 0.7 % (0-2); Eosinophils Absolute Auto 0.1 X10*3/uL (0.0-0.4); Hematocrit 35.2 % (42.0-52.0); Hemoglobin 11.5 g/dl (14.0-18.0); Imm Gran Abs Auto 0.01 X10*3/uL (0.00-0.03); Imm Gran Pct Auto 0.1 % (0.0-0.4); Lymphocytes Absolute Auto 1.5 X10*3/uL (1.2-4.9); Lymphocytes Percent Auto 21.1 % (20-40); Mean Corpuscular HGB Conc 32.7 g/dl (31.0-36.0); Mean Corpuscular Volume 85.9 fL (80.0-98.0); Mean Platelet Volume 9.5 fL (9.4-12.4); Monocytes Absolute Auto 0.8 X10*3/uL (0.1-1.2); Monocytes Percent Auto 11.9 % (2-11); Neutrophils Absolute Auto 4.4 x10*3/uL (2.0-8.3); Neutrophils Percent Auto 64.2 % (45-73); Platelet Count 237 X10*3/uL (160-400); Red Cell Distribution Width 13.7 % (11.0-16.0); White Blood Count 6.9 X10*3/uL (4.8-10.8)
[2024-01-27 06:02] LABS: Anion Gap 12 (12-20); Blood Urea Nitrogen 15 mg/dL (9-16); Calcium 9.2 mg/dL (8.4-10.2); Carbon Dioxide 26 mmol/L (22-29); Chloride 107 mmol/L (96-108); Creatinine Clr Calc Pharmacy 37.3; Estimated Glomerular Filt Rate 51; Glucose Random 84 mg/dL (60-115); Potassium 4.5 mmol/L (3.3-5.1); Sodium 140 mmol/L (135-145)
[2024-01-27 07:33] LABS: Glucose, Whole Blood 89 mg/dL (60-115)
[2024-01-27 08:00] VITALS: BP 158/66; PULSE 64; RESP 18; TEMP 36.1; O2SAT 100
[2024-01-27] MEDS: Metoprolol Succinate ER 25 MG TAB.ER.24H PO (08:41)
[2024-01-27] MEDS: Ascorbic Acid 500 MG TABLET PO (08:41)
[2024-01-27] MEDS: Atorvastatin Calcium 80 MG TABLET PO (08:41)
[2024-01-27] MEDS: amLODIPine Besylate 2.5 MG TABLET PO (08:41)
[2024-01-27] MEDS: Aspirin Enteric Coated 81 MG TABLET.DR PO (08:41)
[2024-01-27] MEDS: Cholecalciferol (Vitamin D3) 25 MCG TABLET 50 MCG PO (08:41)
[2024-01-27] MEDS: 0.9 % Sodium Chloride Flush 3 ML SYRINGE IVFLUSH ×2 (08:44→23:08)
--- NOTE | 2024-01-27 09:44 | HO.PM.IMPN ---
Subjective Subjective Date of Service: 01/27/24 Interval History: urine cleared Physical Exam Vital Signs: Vital Signs: Last Vital Signs Temp 97 F 01/27/24 08:00 Pulse 64 01/27/24 08:00 Resp 18 01/27/24 08:00 BP 158/66 H 01/27/24 08:00 Pulse Ox 100 01/27/24 08:00 O2 Del Method Room Air 01/27/24 08:00 BMI result Body Mass Index 29.1 General: AO X 3, no acute distress Resp: CTA bilateral, no accessory muscles used CVS: S1,S2,RRR GI: soft, non tender, non distended Neuro: motor grossly intact, alert Psych: appropriate affect, appropriate insight Const: General: cooperative, healthy appearing, comfortable and no acute distress Orientation/consciousness: patient oriented x3 HEENT: Face and sinus: Yes normal facial exam Mouth: moist mucous membranes Neck: Neck: Yes normal visual inspection, Yes full ROM and Yes trachea midline Chest: Chest palpation & inspection: normal inspection of the chest Resp: Effort & Inspection: normal respiratory effort, able to speak in complete sentences and no respiratory distress GI: Inspection: Yes normal to inspection Back/Spine/Pelvis: Cervical Spine: normal cervical lordosis Thoracic/Lumbar Spine: thoracic and lumbar spine normal to inspection Skin: General skin exam: no rashes or lesions noted Neuro: General: patient oriented x3, tone normal and moves all extremities Extrem: General: Yes normal to inspection and Yes capillary refill normal Objective Data Active Medications Acetaminophen (Acetaminophen 325 Mg Tablet) 650 mg PO Q6H PRN PRN Reason: Pain, Mild (Pain Scale 1-3) Amlodipine Besylate (Amlodipine Besylate 2.5 Mg Tablet) 2.5 mg PO DAILY [facility]; Protocol Last Admin: 01/27/24 08:41 Dose: 2.5 mg Documented By: ABELARDO Ascorbic Acid (Ascorbic Acid 500 Mg Tablet) 500 mg PO DAILY [facility] Last Admin: 01/27/24 08:41 Dose: 500 mg Documented By: ABELARDO Aspirin (Aspirin Enteric Coated 81 Mg Tablet.) 81 mg PO DAILY [facility] Last Admin: 01/27/24 08:41 Dose: 81 mg Documented By: ABELARDO Atorvastatin Calcium (Atorvastatin Calcium 80 Mg Tablet) 80 mg PO DAILY [facility] Last Admin: 01/27/24 08:41 Dose: 80 mg Documented By: ABELARDO Cyanocobalamin (Cyanocobalamin (Vitamin B-12) 1,000 Mcg Tablet) 1,000 mcg PO Q48H [facility] Last Admin: 01/26/24 19:29 Dose: 1,000 mcg Documented By: NAYAN Dextrose (Dextrose 50 % 25 Gm/50 Ml Syringe) 25 gm IVPUSH Q15M PRN; Protocol PRN Reason: per Hypoglycemia Standing Ord. Ferrous Sulfate (Ferrous Sulfate 324 Mg Tablet.Dr) 324 mg PO Q48H [facility] Last Admin: 01/26/24 19:29 Dose: 324 mg Documented By: NAYAN Glucose (Glucose Gel 15 Gm Gel..Gram.) 15 gm PO Q15M PRN; Protocol PRN Reason: per Hypoglycemia Standing Ord. Ceftriaxone Sodium 1 gm/ (Sodium Chloride) 50 mls @ 100 mls/hr IV Q24H [facility] Insulin Human Lispro (Insulin Lispro 100 Unit/Ml 3 Ml Vial) 0 unit SUBCUT QIDACHS [facility]; Protocol Last Admin: 01/27/24 07:34 Dose: Not Given Documented By: ABELARDO Non-Admin Reason: No Insulin Coverage Metoprolol Succinate (Metoprolol Succinate Er 25 Mg Tab.Er.24h) 25 mg PO DAILY [facility]; Protocol Last Admin: 01/27/24 08:41 Dose: 25 mg Documented By: ABELARDO Ondansetron HCl (Ondansetron Hcl 4 Mg/2 Ml Vial) 4 mg IVPUSH Q8H PRN PRN Reason: Nausea and Vomiting Senna (Sennosides 8.6 Mg Tablet) 17.2 mg PO BEDTIME PRN PRN Reason: Constipation Sodium Chloride (0.9 % Sodium Chloride Flush 3 Ml Syringe) 3 ml IVFLUSH QSHIFT [facility] Last Admin: 01/27/24 08:44 Dose: 3 ml Documented By: ABELARDO Vitamin D (Cholecalciferol (Vitamin D3) 25 Mcg Tablet) 50 mcg PO DAILY [facility] Last Admin: 01/27/24 08:41 Dose: 50 mcg Documented By: ABELARDO Labs 01/27/24 05:14 01/27/24 05:14 Labs: Laboratory Results - last 24 hr 01/26/24 01/26/24 01/26/24 10:51 12:06 20:37 MCV 85.8 MCH 27.3 MCHC 31.8 RDW 13.6 Plt Count 263 MPV 9.1 L Immature Gran % (Auto) 0.3 Neut % (Auto) 67.7 Lymph % (Auto) 20.8 [place] % (Auto) 9.5 Eos % (Auto) 1.2 Baso % (Auto) 0.5 Lymph # (Auto) 1.4 [place] # (Auto) 0.6 Eos # (Auto) 0.1 Baso # (Auto) 0.0 Abs Immat Gran (auto) 0.02 Absolute Neuts (auto) 4.5 Absolute Nucleated RBC 0.000 Nucleated RBC % (auto) 0.0 Anion Gap 11 L Estim Creat Clear Calc 31.8 Estimated GFR 42 POC Glucose 153 H Random Glucose 153 H Lactic Acid 1.2 Calcium 9.7 Total Bilirubin 0.3 AST 14 ALT 9 Alkaline Phosphatase 130 H Total Protein 6.4 L Albumin 3.7 Prostate Specific Ag Urine Color BROWN Urine Appearance Turbid Urine pH 6.5 Ur Specific [place] 1.020 Urine Protein 300 (3+) H Urine Glucose (UA) Negative Urine Ketones 15 Urine Blood Large (3+) H Urine Nitrite Positive H Ur Leukocyte Esterase Moderate (2+) H Urine RBC >20 H Urine WBC 21-50 H Ur Squamous Epith Cells 11-20 Urine Bacteria None Seen Hyaline Casts 0-2 01/27/24 01/27/24 05:14 07:24 MCV 85.9 MCH 28.0 MCHC 32.7 RDW 13.7 Plt Count 237 MPV 9.5 Immature Gran % (Auto) 0.1 Neut % (Auto) 64.2 Lymph % (Auto) 21.1 [place] % (Auto) 11.9 H Eos % (Auto) 2.0 Baso % (Auto) 0.7 Lymph # (Auto) 1.5 [place] # (Auto) 0.8 Eos # (Auto) 0.1 Baso # (Auto) 0.1 Abs Immat Gran (auto) 0.01 Absolute Neuts (auto) 4.4 Absolute Nucleated RBC 0.000 Nucleated RBC % (auto) 0.0 Anion Gap 12 Estim Creat Clear Calc 37.3 Estimated GFR 51 POC Glucose 89 Random Glucose 84 Lactic Acid Calcium 9.2 Total Bilirubin AST ALT Alkaline Phosphatase Total Protein Albumin Prostate Specific Ag 2.30 Urine Color Urine Appearance Urine pH Ur Specific [place] Urine Protein Urine Glucose (UA) Urine Ketones Urine Blood Urine Nitrite Ur Leukocyte Esterase Urine RBC Urine WBC Ur Squamous Epith Cells Urine Bacteria Hyaline Casts Assessment and Plan (1) Hydronephrosis: Status: Acute Plan 88M PMH cad, , htn, hld, pagers, ckd3, macular degeneration, dm presented with hematuria, found to have suspicious bladder mass hematuria due to bladder mass complicated by hydronephrosis now cleared plan for cysto sunday or sunday psa normal, suspect bladder ca uti rocephin, follow up cultures dm insulin htn metoprolol, amlodipine cad, as holding asa for hematuria continue statin ckd 3 stable dvt prophylaxis - mechancial due to hematuria full code reason for continued hospitalization:plan for inpatient cysto due to hydronephrosis Quality Stroke Does the patient have a stroke diagnosis?: No VTE Prior VTE?: No VTE Risk Level:: Medical - moderate - high VTE Device Contraindication: N/A - Device Ordered VTE Drug Contraindication: Treatment Not Indicated
[2024-01-27 11:43] LABS: Glucose, Whole Blood 118 mg/dL (60-115)
[2024-01-27] MEDS: cefTRIAXone sodium 1 GM in 0.9 % Sodium Chloride 50 ML IV (13:10)
--- NOTE | 2024-01-27 15:25 | MHC.CM.PN ---
CM MET WITH PT AND DAUGHTER AT BEDSIDE PT LIVES WITH HIS AND IS INDEPENDENT WITH CARE / MOBILITY PT HAS [facility], CURRENTLY ONLY A CM THAT CHECKS IN Q 6 MONTHS PT SAYS HE HAS A HCP, COPY REQUESTED PCP: BOB MARTINEZ IMM DELIVERED DCP: HOME NO SERVICES VIA FAMILY TRANSPORT
[2024-01-27 15:34] VITALS: BP 172/76; PULSE 52; RESP 18; TEMP 36.6; O2SAT 100
[2024-01-27 15:56] VITALS: BP 136/72
[2024-01-27 16:37] LABS: Glucose, Whole Blood 129 mg/dL (60-115)
[2024-01-27 20:00] VITALS: BP 158/60; PULSE 56; RESP 18; TEMP 36.5; O2SAT 99
[2024-01-27 20:40] LABS: Glucose, Whole Blood 117 mg/dL (60-115)
[2024-01-28] VITALS (9 sets, daily range): BP systolic 130–188; BP diastolic 59–80; PULSE 53–74; RESP 12–18; TEMP 36–36.4; O2SAT 98–100
[2024-01-28 07:21] LABS: Glucose, Whole Blood 121 mg/dL (60-115)
[2024-01-28] MEDS: Atorvastatin Calcium 80 MG TABLET PO (07:50)
[2024-01-28] MEDS: Ascorbic Acid 500 MG TABLET PO (07:50)
[2024-01-28] MEDS: Aspirin Enteric Coated 81 MG TABLET.DR PO (07:50)
[2024-01-28] MEDS: Cholecalciferol (Vitamin D3) 25 MCG TABLET 50 MCG PO (07:50)
[2024-01-28] MEDS: Metoprolol Succinate ER 25 MG TAB.ER.24H PO (07:50)
[2024-01-28] MEDS: 0.9 % Sodium Chloride Flush 3 ML SYRINGE IVFLUSH ×3 (07:51→23:32)
[2024-01-28] MEDS: amLODIPine Besylate 2.5 MG TABLET PO (07:51)
--- NOTE | 2024-01-28 08:18 | HO.PM.IMPN ---
Subjective Subjective Date of Service: 01/28/24 Interval History: no further hematuria Physical Exam Vital Signs: Vital Signs: Last Vital Signs Temp 97 F 01/28/24 07:41 Pulse 60 01/28/24 07:41 Resp 12 01/28/24 07:41 BP 159/72 H 01/28/24 07:41 Pulse Ox 99 01/28/24 07:41 O2 Del Method Room Air 01/28/24 07:41 BMI result Body Mass Index 29.1 General: AO X 3, no acute distress Resp: CTA bilateral, no accessory muscles used CVS: S1,S2,RRR GI: soft, non tender, non distended Neuro: motor grossly intact, alert Psych: appropriate affect, appropriate insight Const: General: cooperative, healthy appearing, comfortable and no acute distress Orientation/consciousness: patient oriented x3 HEENT: Face and sinus: Yes normal facial exam Mouth: moist mucous membranes Neck: Neck: Yes normal visual inspection, Yes full ROM and Yes trachea midline Chest: Chest palpation & inspection: normal inspection of the chest Resp: Effort & Inspection: normal respiratory effort, able to speak in complete sentences and no respiratory distress GI: Inspection: Yes normal to inspection Back/Spine/Pelvis: Cervical Spine: normal cervical lordosis Thoracic/Lumbar Spine: thoracic and lumbar spine normal to inspection Skin: General skin exam: no rashes or lesions noted Neuro: General: patient oriented x3, tone normal and moves all extremities Extrem: General: Yes normal to inspection and Yes capillary refill normal Objective Data Active Medications Acetaminophen (Acetaminophen 325 Mg Tablet) 650 mg PO Q6H PRN PRN Reason: Pain, Mild (Pain Scale 1-3) Amlodipine Besylate (Amlodipine Besylate 2.5 Mg Tablet) 2.5 mg PO DAILY [facility]; Protocol Last Admin: 01/28/24 07:51 Dose: 2.5 mg Documented By: CRUZ Ascorbic Acid (Ascorbic Acid 500 Mg Tablet) 500 mg PO DAILY [facility] Last Admin: 01/28/24 07:50 Dose: 500 mg Documented By: CRUZ Aspirin (Aspirin Enteric Coated 81 Mg Tablet.) 81 mg PO DAILY [facility] Last Admin: 01/28/24 07:50 Dose: 81 mg Documented By: CRUZ Atorvastatin Calcium (Atorvastatin Calcium 80 Mg Tablet) 80 mg PO DAILY [facility] Last Admin: 01/28/24 07:50 Dose: 80 mg Documented By: CRUZ Cyanocobalamin (Cyanocobalamin (Vitamin B-12) 1,000 Mcg Tablet) 1,000 mcg PO Q48H [facility] Last Admin: 01/26/24 19:29 Dose: 1,000 mcg Documented By: NAYAN Dextrose (Dextrose 50 % 25 Gm/50 Ml Syringe) 25 gm IVPUSH Q15M PRN; Protocol PRN Reason: per Hypoglycemia Standing Ord. Ferrous Sulfate (Ferrous Sulfate 324 Mg Tablet.) 324 mg PO Q48H [facility] Last Admin: 01/26/24 19:29 Dose: 324 mg Documented By: NAYAN Glucose (Glucose Gel 15 Gm Gel..Gram.) 15 gm PO Q15M PRN; Protocol PRN Reason: per Hypoglycemia Standing Ord. Ceftriaxone Sodium 1 gm/ (Sodium Chloride) 50 mls @ 100 mls/hr IV Q24H [facility] Last Infusion: 01/27/24 13:44 Dose: Infused Documented By: ABELARDO Insulin Human Lispro (Insulin Lispro 100 Unit/Ml 3 Ml Vial) 0 unit SUBCUT QIDACHS [facility]; Protocol Last Admin: 01/28/24 07:45 Dose: Not Given Documented By: CRUZ Non-Admin Reason: No Insulin Coverage Metoprolol Succinate (Metoprolol Succinate Er 25 Mg Tab.Er.24h) 25 mg PO DAILY [facility]; Protocol Last Admin: 01/28/24 07:50 Dose: 25 mg Documented By: CRUZ Ondansetron HCl (Ondansetron Hcl 4 Mg/2 Ml Vial) 4 mg IVPUSH Q8H PRN PRN Reason: Nausea and Vomiting Senna (Sennosides 8.6 Mg Tablet) 17.2 mg PO BEDTIME PRN PRN Reason: Constipation Sodium Chloride (0.9 % Sodium Chloride Flush 3 Ml Syringe) 3 ml IVFLUSH QSHIFT [facility] Last Admin: 01/28/24 07:51 Dose: 3 ml Documented By: CRUZ Vitamin D (Cholecalciferol (Vitamin D3) 25 Mcg Tablet) 50 mcg PO DAILY [facility] Last Admin: 01/28/24 07:50 Dose: 50 mcg Documented By: CRUZ Labs 01/27/24 05:14 01/27/24 05:14 Labs: Laboratory Results - last 24 hr 0301/27/24 01/27/24 11:07 16:33 20:29 POC Glucose 118 H 129 H 117 H 01/28/24 07:05 POC Glucose 121 H Microbiology Microbiology Results: Microbiology 01/26/24 12:15 Blood Culture - Preliminary Blood - Venous No growth after 24 hours. 01/26/24 12:06 Blood Culture - Preliminary Blood - Venous No growth after 24 hours. 01/26/24 Unknown Urine Culture - Final Urine clean catch - Urine zimmer top No growth. Assessment and Plan (1) Hydronephrosis: Status: Acute Plan 88M PMH cad, , htn, hld, pagers, ckd3, macular degeneration, dm presented with hematuria, found to have suspicious bladder mass hematuria due to bladder mass complicated by hydronephrosis now cleared plan for cysto add on today psa normal, suspect bladder ca uti rocephin urine culture negative dm insulin htn metoprolol, amlodipine cad, as asa, statin ckd 3 stable dvt prophylaxis - mechancial due to hematuria full code reason for continued hospitalization:plan for inpatient cysto due to hydronephrosis Quality Stroke Does the patient have a stroke diagnosis?: No VTE Prior VTE?: No VTE Risk Level:: Medical - moderate - high VTE Device Contraindication: N/A - Device Ordered VTE Drug Contraindication: Treatment Not Indicated
[2024-01-28 08:27] LABS: Hematocrit 38.1 % (42.0-52.0); Hemoglobin 12.2 g/dl (14.0-18.0); Mean Corpuscular Hemoglobin 27.2 pg (27.0-33.0); Mean Corpuscular Volume 84.9 fL (80.0-98.0); Mean Platelet Volume 9.5 fL (9.4-12.4); Platelet Count 251 X10*3/uL (160-400); Red Blood Count 4.49 X10*6/uL (4.60-5.80); Red Cell Distribution Width 13.7 % (11.0-16.0); White Blood Count 7.2 X10*3/uL (4.8-10.8)
[2024-01-28 08:40] LABS: Anion Gap 13 (12-20); Blood Urea Nitrogen 19 mg/dL (9-16); Calcium 9.6 mg/dL (8.4-10.2); Carbon Dioxide 26 mmol/L (22-29); Chloride 106 mmol/L (96-108); Creatinine Clr Calc Pharmacy 34.5; Estimated Glomerular Filt Rate 47; Glucose Fasting 113 mg/dL (60-99); Potassium 4.3 mmol/L (3.3-5.1); Sodium 141 mmol/L (135-145)
[2024-01-28 11:23] LABS: Glucose, Whole Blood 118 mg/dL (60-115)
[2024-01-28] MEDS: cefTRIAXone sodium 1 GM in 0.9 % Sodium Chloride 50 ML IV (12:06)
[2024-01-28 14:23] LABS: Glucose, Whole Blood 101 mg/dL (60-115)
[2024-01-28] MEDS: Dextrose 50 % 25 GM/50 ML SYRINGE IVPUSH (14:43)
--- NOTE | 2024-01-28 14:54 | MHC.CM.PN ---
per rounds pt to have a cysto todayno dc at this time
[2024-01-28 15:20] LABS: Glucose, Whole Blood 158 mg/dL (60-115)
--- NOTE | 2024-01-28 15:26 | PC.NURSE ---
Md Blanco Made aware via tiger text at 14:24 the pts blood sugar is 101, pt states he feels symptomatic, pt is requesting sugar water . MD Blanco ordered 12.5gm D50 IVP 1x. Medication administered per orders, blood sugar recheck 158 at 15:15. Pt states he feels better.
[2024-01-28 16:17] LABS: Glucose, Whole Blood 125 mg/dL (60-115)
--- NOTE | 2024-01-28 17:52 | PC.NURSE ---
Preop report given to MACHINE FITTERLia.
--- NOTE | 2024-01-28 18:01 | HO.ANESPROP2 ---
[facility] Active Problems Active Problems: All Active Problems (Updated 01/26/24 @ 19:47 by Lobo Dugan MD) Acute kidney injury (Acute) Hydronephrosis (Acute) Prostate mass (Acute) Bladder mass (Acute) Abnormal computed tomography of abdomen and pelvis (Acute) UTI (urinary tract infection) (Acute) Hematuria (Acute) Laceration of finger of left hand (Acute) Macular degeneration (Acute) Obesity (BMI 30.0-34.9) (Acute) PVC (premature ventricular contraction) (Acute) Essential hypertension (Acute) Non-rheumatic aortic stenosis (Acute) Atherosclerotic cardiovascular disease (Acute) Osteopenia (Acute) Paget's bone disease (Acute) Anemia (Acute) Dysgeusia (Acute) Overweight (BMI 25.0-29.9) (Acute) Hypercholesterolemia (Acute) Diabetic nephropathy (Acute) Type 2 diabetes mellitus with hyperglycemia (Acute) Vitamin D deficiency (Acute) Coronary artery disease (Acute) Past Medical History Medical History Osteopenia Paget's bone disease Overweight (BMI 25.0-29.9) Peripheral vascular disease Hypercholesterolemia Diabetic nephropathy Type 2 diabetes mellitus with hyperglycemia Macular degeneration Lumbar degenerative disc disease Left renal stone Paget's disease of bone Vitamin D deficiency Aortic stenosis, mild Coronary artery disease Functional capacity: independent ambulation Family History Family History Father CVD (cardiovascular disease) Mother CVD (cardiovascular disease) Heart disease Brother In good health Sister In good health Son Diabetes Family history of problems with anesthesia: No Surgical History Surgical History S/P CABG x 3 History of tonsillectomy History of bilateral cataract extraction History of ankle surgery S/P repair of hydrocele History of inguinal hernia repair History of Problems with Anesthesia: No Social History Social History Household Members: Spouse Housing: House Do you presently have visiting nurse or other home services: No Alcohol intake: never Patient Tobacco Use Status: Former Tobacco user Quit Date: 1979 Tobacco use type: Cigarette Cigarette Packs Per Day: 2 Cigarettes Per Day: 40.0 Years Smoked: 30 e-Cigarette/Vaping Use: Never Used service: Yes Current occupational status: retired Cognitive needs: No Hearing needs: No Vision needs: Yes Meds Allergies Allergy/AdvReac Type Severity Reaction Status Date / Time No Known Allergies Allergy Verified 01/28/24 17:25 [No Known Allergies*] Active Medications: Current Medications Acetaminophen (Acetaminophen 325 Mg Tablet) 650 mg PO Q6H PRN PRN Reason: Pain, Mild (Pain Scale 1-3) Amlodipine Besylate (Amlodipine Besylate 2.5 Mg Tablet) 2.5 mg PO DAILY [facility]; Protocol Last Admin: 01/28/24 07:51 Dose: 2.5 mg Ascorbic Acid (Ascorbic Acid 500 Mg Tablet) 500 mg PO DAILY [facility] Last Admin: 01/28/24 07:50 Dose: 500 mg Aspirin (Aspirin Enteric Coated 81 Mg Tablet.) 81 mg PO DAILY [facility] Last Admin: 01/28/24 07:50 Dose: 81 mg Atorvastatin Calcium (Atorvastatin Calcium 80 Mg Tablet) 80 mg PO DAILY [facility] Last Admin: 01/28/24 07:50 Dose: 80 mg Cyanocobalamin (Cyanocobalamin (Vitamin B-12) 1,000 Mcg Tablet) 1,000 mcg PO Q48H [facility] Last Admin: 01/26/24 19:29 Dose: 1,000 mcg Dextrose (Dextrose 50 % 25 Gm/50 Ml Syringe) 25 gm IVPUSH Q15M PRN; Protocol PRN Reason: per Hypoglycemia Standing Ord. Ferrous Sulfate (Ferrous Sulfate 324 Mg Tablet.) 324 mg PO Q48H [facility] Last Admin: 01/26/24 19:29 Dose: 324 mg Glucose (Glucose Gel 15 Gm Gel..Gram.) 15 gm PO Q15M PRN; Protocol PRN Reason: per Hypoglycemia Standing Ord. Ceftriaxone Sodium 1 gm/ (Sodium Chloride) 50 mls @ 100 mls/hr IV Q24H [facility] Last Infusion: 01/28/24 12:41 Dose: Infused Insulin Human Lispro (Insulin Lispro 100 Unit/Ml 3 Ml Vial) 0 unit SUBCUT QIDACHS [facility]; Protocol Last Admin: 01/28/24 15:58 Dose: Not Given Metoprolol Succinate (Metoprolol Succinate Er 25 Mg Tab.Er.24h) 25 mg PO DAILY [facility]; Protocol Last Admin: 01/28/24 07:50 Dose: 25 mg Ondansetron HCl (Ondansetron Hcl 4 Mg/2 Ml Vial) 4 mg IVPUSH Q8H PRN PRN Reason: Nausea and Vomiting Senna (Sennosides 8.6 Mg Tablet) 17.2 mg PO BEDTIME PRN PRN Reason: Constipation Sodium Chloride (0.9 % Sodium Chloride Flush 3 Ml Syringe) 3 ml IVFLUSH QSHIFT [facility] Last Admin: 01/28/24 14:42 Dose: 3 ml Vitamin D (Cholecalciferol (Vitamin D3) 25 Mcg Tablet) 50 mcg PO DAILY [facility] Last Admin: 01/28/24 07:50 Dose: 50 mcg Home Medications Medication Instructions Recorded Confirmed Last Taken Type ascorbate calcium (vitamin C) 500 500 mg PO DAILY 10/11/20 01/26/24 Unknown History mg tablet aspirin 81 mg tablet,delayed 81 mg PO DAILY 10/11/20 01/26/24 01/26/24 History release (Adult Aspirin Regimen) vitamins A,C,[id number] 1 tab PO BID 03/29/21 01/26/24 01/26/24 History [PreserVision AREDS] cyanocobalamin (vitamin B-12) 1,000 mcg PO Q OTHER DAY 01/26/24 01/26/24 Unknown History 1,000 mcg capsule ferrous sulfate 325 mg (65 mg 325 mg PO Q OTHER DAY 01/26/24 01/26/24 01/26/24 History iron) tablet (Feosol) Exam Height,Weight and Vital Signs: Height 5 ft 4 in Weight 77 kg Last Vital Signs Temp 97.1 F 01/28/24 17:31 Pulse 63 01/28/24 17:31 Resp 16 01/28/24 17:31 BP 188/79 H 01/28/24 17:31 Pulse Ox 99 01/28/24 17:31 O2 Del Method Room Air 01/28/24 17:31 Pertinent Lab Results Pertinent Lab Results: Laboratory Tests 01/26/24 01/26/24 01/26/24 10:51 12:06 20:37 WBC 6.6 RBC 4.22 L Hgb 11.5 L Hct 36.2 L MCV 85.8 MCH 27.3 MCHC 31.8 RDW 13.6 Plt Count 263 MPV 9.1 L Immature Gran % (Auto) 0.3 Neut % (Auto) 67.7 Lymph % (Auto) 20.8 [place] % (Auto) 9.5 Eos % (Auto) 1.2 Baso % (Auto) 0.5 Lymph # (Auto) 1.4 [place] # (Auto) 0.6 Eos # (Auto) 0.1 Baso # (Auto) 0.0 Abs Immat Gran (auto) 0.02 Absolute Neuts (auto) 4.5 Absolute Nucleated RBC 0.000 Nucleated RBC % (auto) 0.0 Sodium 142 Potassium 4.2 Chloride 106 Carbon Dioxide 29 Anion Gap 11 L BUN 17 H Creatinine 1.56 H Estim Creat Clear Calc 31.8 Estimated GFR 42 POC Glucose 153 H Random Glucose 153 H Fasting Glucose Lactic Acid 1.2 Calcium 9.7 Total Bilirubin 0.3 AST 14 ALT 9 Alkaline Phosphatase 130 H Total Protein 6.4 L Albumin 3.7 Prostate Specific Ag Urine Color BROWN Urine Appearance Turbid Urine pH 6.5 Ur Specific [place] 1.020 Urine Protein 300 (3+) H Urine Glucose (UA) Negative Urine Ketones 15 Urine Blood Large (3+) H Urine Nitrite Positive H Ur Leukocyte Esterase Moderate (2+) H Urine RBC >20 H Urine WBC 21-50 H Ur Squamous Epith Cells 11-20 Urine Bacteria None Seen Hyaline Casts 0-2 01/27/24 01/27/24 01/27/24 05:14 07:24 11:07 WBC 6.9 RBC 4.10 L Hgb 11.5 L Hct 35.2 L MCV 85.9 MCH 28.0 MCHC 32.7 RDW 13.7 Plt Count 237 MPV 9.5 Immature Gran % (Auto) 0.1 Neut % (Auto) 64.2 Lymph % (Auto) 21.1 [place] % (Auto) 11.9 H Eos % (Auto) 2.0 Baso % (Auto) 0.7 Lymph # (Auto) 1.5 [place] # (Auto) 0.8 Eos # (Auto) 0.1 Baso # (Auto) 0.1 Abs Immat Gran (auto) 0.01 Absolute Neuts (auto) 4.4 Absolute Nucleated RBC 0.000 Nucleated RBC % (auto) 0.0 Sodium 140 Potassium 4.5 Chloride 107 Carbon Dioxide 26 Anion Gap 12 BUN 15 Creatinine 1.33 Estim Creat Clear Calc 37.3 Estimated GFR 51 POC Glucose 89 118 H Random Glucose 84 Fasting Glucose Lactic Acid Calcium 9.2 Total Bilirubin AST ALT Alkaline Phosphatase Total Protein Albumin Prostate Specific Ag 2.30 Urine Color Urine Appearance Urine pH Ur Specific [place] Urine Protein Urine Glucose (UA) Urine Ketones Urine Blood Urine Nitrite Ur Leukocyte Esterase Urine RBC Urine WBC Ur Squamous Epith Cells Urine Bacteria Hyaline Casts 01/27/24 01/27/24 01/28/24 16:33 20:29 07:05 WBC RBC Hgb Hct MCV MCH MCHC RDW Plt Count MPV Immature Gran % (Auto) Neut % (Auto) Lymph % (Auto) [place] % (Auto) Eos % (Auto) Baso % (Auto) Lymph # (Auto) [place] # (Auto) Eos # (Auto) Baso # (Auto) Abs Immat Gran (auto) Absolute Neuts (auto) Absolute Nucleated RBC Nucleated RBC % (auto) Sodium Potassium Chloride Carbon Dioxide Anion Gap BUN Creatinine Estim Creat Clear Calc Estimated GFR POC Glucose 129 H 117 H 121 H Random Glucose Fasting Glucose Lactic Acid Calcium Total Bilirubin AST ALT Alkaline Phosphatase Total Protein Albumin Prostate Specific Ag Urine Color Urine Appearance Urine pH Ur Specific [place] Urine Protein Urine Glucose (UA) Urine Ketones Urine Blood Urine Nitrite Ur Leukocyte Esterase Urine RBC Urine WBC Ur Squamous Epith Cells Urine Bacteria Hyaline Casts 01/28/24 01/28/24 01/28/24 07:37 11:19 14:19 WBC 7.2 RBC 4.49 L Hgb 12.2 L Hct 38.1 L MCV 84.9 MCH 27.2 MCHC 32.0 RDW 13.7 Plt Count 251 MPV 9.5 Immature Gran % (Auto) Neut % (Auto) Lymph % (Auto) [place] % (Auto) Eos % (Auto) Baso % (Auto) Lymph # (Auto) [place] # (Auto) Eos # (Auto) Baso # (Auto) Abs Immat Gran (auto) Absolute Neuts (auto) Absolute Nucleated RBC 0.000 Nucleated RBC % (auto) 0.0 Sodium 141 Potassium 4.3 Chloride 106 Carbon Dioxide 26 Anion Gap 13 BUN 19 H Creatinine 1.44 H Estim Creat Clear Calc 34.5 Estimated GFR 47 POC Glucose 118 H 101 Random Glucose Fasting Glucose 113 H Lactic Acid Calcium 9.6 Total Bilirubin AST ALT Alkaline Phosphatase Total Protein Albumin Prostate Specific Ag Urine Color Urine Appearance Urine pH Ur Specific [place] Urine Protein Urine Glucose (UA) Urine Ketones Urine Blood Urine Nitrite Ur Leukocyte Esterase Urine RBC Urine WBC Ur Squamous Epith Cells Urine Bacteria Hyaline Casts 01/28/24 01/28/24 15:15 16:12 WBC RBC Hgb Hct MCV MCH MCHC RDW Plt Count MPV Immature Gran % (Auto) Neut % (Auto) Lymph % (Auto) [place] % (Auto) Eos % (Auto) Baso % (Auto) Lymph # (Auto) [place] # (Auto) Eos # (Auto) Baso # (Auto) Abs Immat Gran (auto) Absolute Neuts (auto) Absolute Nucleated RBC Nucleated RBC % (auto) Sodium Potassium Chloride Carbon Dioxide Anion Gap BUN Creatinine Estim Creat Clear Calc Estimated GFR POC Glucose 158 H 125 H Random Glucose Fasting Glucose Lactic Acid Calcium Total Bilirubin AST ALT Alkaline Phosphatase Total Protein Albumin Prostate Specific Ag Urine Color Urine Appearance Urine pH Ur Specific [place] Urine Protein Urine Glucose (UA) Urine Ketones Urine Blood Urine Nitrite Ur Leukocyte Esterase Urine RBC Urine WBC Ur Squamous Epith Cells Urine Bacteria Hyaline Casts Airway Mallampati Class: III TM Dist: >3cm Neck ROM: Full Denture: Upper and Lower Heart: RRR Lungs: CTA Assessment and Plan Assessment Anesthesia Assessment: Anesthesia Plan Discussed Final Anesthetic Review Family History of Problems with Anesthesia: No History of Problems with Anesthesia: No NPO: Yes ASA Class: III and Emergency Final Preanesthetic Review: Meds/Allgs Chart Reviewed, Consent Obtained/Reviewed and Anes Risks/Benef Reviewed Patient Risk: Intermediate Procedure Risk: Intermediate Anesthetic Plan Anesthetic Plan: GA Disposition: Standard PACU
--- NOTE | 2024-01-28 20:39 | MHC.SHP ---
Pre-Procedural Eval Section A - 24 Hr Update-Section A only Date of Service: 01/28/24 The patient is an INPATIENT: Yes Changes since office visit: No Cold of Flu in the past 2 weeks, No New Medical Problems, No Changes in Medication and No Patient answered all questions The patient has been examined within 24 hours of the surgical procedure. The History & Physical has been completed within 30 days and I have reviewed it.: Yes Section B - Complete if H&P > 30 days Chief Complaint: hematuria, uti Details of Present Illness: Bladder mass, left hydronephrosis, elevated creatinine, normal PSA Relevant Social History: None Present Medications: see Short Stay Collaborative assessment Medical History: No relevant PMH History of Previous Operations: No relevant previous surgery Allergies: Allergies Allergy/AdvReac Type Severity Reaction Status Date / Time No Known Allergies Allergy Verified 01/28/24 17:25 [No Known Allergies*] Review of Systems Sugical H&P ROS: Negative: Constitution, Cardiovascular, Respiratory, Neurological, Psychiatric, Hem-Onc, Allergic/Immunologic, Gastrointestinal, Genitourinary, Musculoskeletal, Integumentary, Endocrine and Eyes/Ears/Nose/Throat Exam Surgical H&P Exam: Normal: HEENT, Normal: Heart, Normal: Lungs, Normal: Extremities, Normal: Abdomen, Normal: Skin and Normal: Neurological Plan Diagnosis/Plan: Unchanged (Cystoscopy, bladder biopsy, left retrograde, left stent placement) I have reviewed the history and physical and performed a pertinent physical examination on my patient. No changes have occurred unless specified. Time Spent With Patient Time: Total time managing care of this patient today ____ minutes.
--- NOTE | 2024-01-28 20:41 | P.PNUR_ITS ---
Subjective Subjective Date of Service: 01/28/24 Interval history: Minimal hematuria PSA result 2.3 Low probability for prostate cancer Imaging CT result - abnormal heterogeneous soft tissue mass involving the base of the bladder measuring 4.1 cm, inseparable from the prostate gland and involving the left ureterovesicular junction and abutting the right ureterovesicular junction resulting in moderate left hydroureteronephrosis with a delayed nephrogram and mild right hydroureteronephrosis Likely bladder cancer. Plan cystoscopy, bladder biopsy, left stent placement with left retrograde Physical Exam 2 Vital Signs: Vital Signs: Last Vital Signs Temp 97.1 F 01/28/24 17:31 Pulse 63 01/28/24 17:31 Resp 16 01/28/24 17:31 BP 188/79 H 01/28/24 17:31 Pulse Ox 99 01/28/24 17:31 O2 Del Method Room Air 01/28/24 17:31 BMI result Body Mass Index 29.1 Const: General: cooperative, healthy appearing, comfortable and no acute distress Orientation/consciousness: patient oriented x3 HEENT: Face and sinus: Yes normal facial exam Mouth: moist mucous membranes Neck: Neck: Yes normal visual inspection, Yes full ROM and Yes trachea midline Chest: Chest palpation & inspection: normal inspection of the chest Resp: Effort & Inspection: normal respiratory effort, able to speak in complete sentences and no respiratory distress GI: Inspection: Yes normal to inspection Back/Spine/Pelvis: Cervical Spine: normal cervical lordosis Thoracic/Lumbar Spine: thoracic and lumbar spine normal to inspection Skin: General skin exam: no rashes or lesions noted Neuro: General: patient oriented x3, tone normal and moves all extremities Extrem: General: Yes normal to inspection and Yes capillary refill normal Urology Results Labs 01/28/24 07:37 01/28/24 07:37 Labs: Laboratory Results - last 24 hr 01/28/24 01/28/24 01/28/24 07:05 07:37 11:19 WBC 7.2 RBC 4.49 L Hgb 12.2 L Hct 38.1 L MCV 84.9 MCH 27.2 MCHC 32.0 RDW 13.7 Plt Count 251 MPV 9.5 Absolute Nucleated RBC 0.000 Nucleated RBC % (auto) 0.0 Sodium 141 Potassium 4.3 Chloride 106 Carbon Dioxide 26 Anion Gap 13 BUN 19 H Creatinine 1.44 H Estim Creat Clear Calc 34.5 Estimated GFR 47 POC Glucose 121 H 118 H Fasting Glucose 113 H Calcium 9.6 01/28/24 01/28/24 01/28/24 14:19 15:15 16:12 WBC RBC Hgb Hct MCV MCH MCHC RDW Plt Count MPV Absolute Nucleated RBC Nucleated RBC % (auto) Sodium Potassium Chloride Carbon Dioxide Anion Gap BUN Creatinine Estim Creat Clear Calc Estimated GFR POC Glucose 101 158 H 125 H Fasting Glucose Calcium Progress Note: A&P Assessment and plan (1) Bladder mass: Status: Acute (2) Abnormal computed tomography of abdomen and pelvis: Status: Acute (3) Hydronephrosis: Status: Acute Plan Risks, benefits and alternatives to therapy were discussed. These include but are not limited to infection, bleeding, damage to local organs and tissues, need for further interventions. Anesthetic risks regarding cardiac arrhythmia, blood clots, and potential mortality were discussed. The patient understands the typical recovery time and the outpatient nature of the procedure. After consideration of these risks the patient gives full informed consent and they wish to move ahead with the procedure. Cystoscopy, left retrograde, left stent placement, bladder biopsy/mass removal Time Spent With Patient Time: Total time managing care of this patient today ____ minutes. Progress Note: Quality Stroke Does the patient have a stroke diagnosis?: No
--- NOTE | 2024-01-28 21:21 | P.CONAN_ITS ---
[facility] Active Problems Active Problems: All Active Problems (Updated 01/28/24 @ 20:43 by Lobo Dugan MD) Acute kidney injury (Acute) Hydronephrosis (Acute) Bladder mass (Acute) Abnormal computed tomography of abdomen and pelvis (Acute) UTI (urinary tract infection) (Acute) Hematuria (Acute) Laceration of finger of left hand (Acute) Macular degeneration (Acute) Obesity (BMI 30.0-34.9) (Acute) PVC (premature ventricular contraction) (Acute) Essential hypertension (Acute) Non-rheumatic aortic stenosis (Acute) Atherosclerotic cardiovascular disease (Acute) Osteopenia (Acute) Paget's bone disease (Acute) Anemia (Acute) Dysgeusia (Acute) Overweight (BMI 25.0-29.9) (Acute) Hypercholesterolemia (Acute) Diabetic nephropathy (Acute) Type 2 diabetes mellitus with hyperglycemia (Acute) Vitamin D deficiency (Acute) Coronary artery disease (Acute) Past Medical History Medical History Prostate mass Osteopenia Paget's bone disease Overweight (BMI 25.0-29.9) Peripheral vascular disease Hypercholesterolemia Diabetic nephropathy Type 2 diabetes mellitus with hyperglycemia Macular degeneration Lumbar degenerative disc disease Left renal stone Paget's disease of bone Vitamin D deficiency Aortic stenosis, mild Coronary artery disease Functional capacity: independent ambulation Family History Family History Father CVD (cardiovascular disease) Mother CVD (cardiovascular disease) Heart disease Brother In good health Sister In good health Son Diabetes Family history of problems with anesthesia: No Surgical History Surgical History S/P CABG x 3 History of tonsillectomy History of bilateral cataract extraction History of ankle surgery S/P repair of hydrocele History of inguinal hernia repair History of Problems with Anesthesia: No Social History Social History Household Members: Spouse Housing: House Do you presently have visiting nurse or other home services: No Alcohol intake: never Patient Tobacco Use Status: Former Tobacco user Quit Date: 1979 Tobacco use type: Cigarette Cigarette Packs Per Day: 2 Cigarettes Per Day: 40.0 Years Smoked: 30 e-Cigarette/Vaping Use: Never Used service: Yes Current occupational status: retired Cognitive needs: No Hearing needs: No Vision needs: Yes Meds Allergies Allergy/AdvReac Type Severity Reaction Status Date / Time No Known Allergies Allergy Verified 01/28/24 17:25 [No Known Allergies*] Active Medications: Current Medications Acetaminophen (Acetaminophen 325 Mg Tablet) 650 mg PO Q6H PRN PRN Reason: Pain, Mild (Pain Scale 1-3) Amlodipine Besylate (Amlodipine Besylate 2.5 Mg Tablet) 2.5 mg PO DAILY [facility]; Protocol Last Admin: 01/28/24 07:51 Dose: 2.5 mg Ascorbic Acid (Ascorbic Acid 500 Mg Tablet) 500 mg PO DAILY [facility] Last Admin: 01/28/24 07:50 Dose: 500 mg Aspirin (Aspirin Enteric Coated 81 Mg Tablet.) 81 mg PO DAILY [facility] Last Admin: 01/28/24 07:50 Dose: 81 mg Atorvastatin Calcium (Atorvastatin Calcium 80 Mg Tablet) 80 mg PO DAILY [facility] Last Admin: 01/28/24 07:50 Dose: 80 mg Cyanocobalamin (Cyanocobalamin (Vitamin B-12) 1,000 Mcg Tablet) 1,000 mcg PO Q48H [facility] Last Admin: 01/26/24 19:29 Dose: 1,000 mcg Dextrose (Dextrose 50 % 25 Gm/50 Ml Syringe) 25 gm IVPUSH Q15M PRN; Protocol PRN Reason: per Hypoglycemia Standing Ord. Fentanyl (Fentanyl Citrate/Pf 100 Mcg/2 Ml Vial) 25 mcg IVPUSH Q5M PRN; Protocol PRN Reason: Pain, Moderate(Pain Scale 4-6) Stop: 01/29/24 00:13 Ferrous Sulfate (Ferrous Sulfate 324 Mg Tablet.) 324 mg PO Q48H [facility] Last Admin: 01/26/24 19:29 Dose: 324 mg Glucose (Glucose Gel 15 Gm Gel..Gram.) 15 gm PO Q15M PRN; Protocol PRN Reason: per Hypoglycemia Standing Ord. Ceftriaxone Sodium 1 gm/ (Sodium Chloride) 50 mls @ 100 mls/hr IV Q24H [facility] Last Infusion: 01/28/24 12:41 Dose: Infused Insulin Human Lispro (Insulin Lispro 100 Unit/Ml 3 Ml Vial) 0 unit SUBCUT QIDAC [facility]; Protocol Last Admin: 01/28/24 15:58 Dose: Not Given Metoprolol Succinate (Metoprolol Succinate Er 25 Mg Tab.Er.24h) 25 mg PO DAILY [facility]; Protocol Last Admin: 01/28/24 07:50 Dose: 25 mg Ondansetron HCl (Ondansetron Hcl 4 Mg/2 Ml Vial) 4 mg IVPUSH Q8H PRN PRN Reason: Nausea and Vomiting Senna (Sennosides 8.6 Mg Tablet) 17.2 mg PO BEDTIME PRN PRN Reason: Constipation Sodium Chloride (0.9 % Sodium Chloride Flush 3 Ml Syringe) 3 ml IVFLUSH QSHIFT [facility] Last Admin: 01/28/24 14:42 Dose: 3 ml Vitamin D (Cholecalciferol (Vitamin D3) 25 Mcg Tablet) 50 mcg PO DAILY [facility] Last Admin: 01/28/24 07:50 Dose: 50 mcg Home Medications Medication Instructions Recorded Confirmed Last Taken Type ascorbate calcium (vitamin C) 500 500 mg PO DAILY 10/11/20 01/26/24 Unknown History mg tablet aspirin 81 mg tablet,delayed 81 mg PO DAILY 10/11/20 01/26/24 01/26/24 History release (Adult Aspirin Regimen) vitamins A,C,[id number] 1 tab PO BID 03/29/21 01/26/24 01/26/24 History [PreserVision AREDS] cyanocobalamin (vitamin B-12) 1,000 mcg PO Q OTHER DAY 01/26/24 01/26/24 Unknown History 1,000 mcg capsule ferrous sulfate 325 mg (65 mg 325 mg PO Q OTHER DAY 01/26/24 01/26/24 01/26/24 History iron) tablet (Feosol) Exam Height,Weight and Vital Signs: Height 5 ft 4 in Weight 77 kg Last Vital Signs Temp 97.1 F 01/28/24 17:31 Pulse 63 01/28/24 17:31 Resp 16 01/28/24 17:31 BP 188/79 H 01/28/24 17:31 Pulse Ox 99 01/28/24 17:31 O2 Del Method Room Air 01/28/24 17:31 Pertinent Lab Results Pertinent Lab Results: Laboratory Tests 01/26/24 01/26/24 01/26/24 10:51 12:06 20:37 WBC 6.6 RBC 4.22 L Hgb 11.5 L Hct 36.2 L MCV 85.8 MCH 27.3 MCHC 31.8 RDW 13.6 Plt Count 263 MPV 9.1 L Immature Gran % (Auto) 0.3 Neut % (Auto) 67.7 Lymph % (Auto) 20.8 Lanier % (Auto) 9.5 Eos % (Auto) 1.2 Baso % (Auto) 0.5 Lymph # (Auto) 1.4 Lanier # (Auto) 0.6 Eos # (Auto) 0.1 Baso # (Auto) 0.0 Abs Immat Gran (auto) 0.02 Absolute Neuts (auto) 4.5 Absolute Nucleated RBC 0.000 Nucleated RBC % (auto) 0.0 Sodium 142 Potassium 4.2 Chloride 106 Carbon Dioxide 29 Anion Gap 11 L BUN 17 H Creatinine 1.56 H Estim Creat Clear Calc 31.8 Estimated GFR 42 POC Glucose 153 H Random Glucose 153 H Fasting Glucose Lactic Acid 1.2 Calcium 9.7 Total Bilirubin 0.3 AST 14 ALT 9 Alkaline Phosphatase 130 H Total Protein 6.4 L Albumin 3.7 Prostate Specific Ag Urine Color BROWN Urine Appearance Turbid Urine pH 6.5 Ur Specific Haigler 1.020 Urine Protein 300 (3+) H Urine Glucose (UA) Negative Urine Ketones 15 Urine Blood Large (3+) H Urine Nitrite Positive H Ur Leukocyte Esterase Moderate (2+) H Urine RBC >20 H Urine WBC 21-50 H Ur Squamous Epith Cells 11-20 Urine Bacteria None Seen Hyaline Casts 0-2 01/27/24 01/27/24 01/27/24 05:14 07:24 11:07 WBC 6.9 RBC 4.10 L Hgb 11.5 L Hct 35.2 L MCV 85.9 MCH 28.0 MCHC 32.7 RDW 13.7 Plt Count 237 MPV 9.5 Immature Gran % (Auto) 0.1 Neut % (Auto) 64.2 Lymph % (Auto) 21.1 Lanier % (Auto) 11.9 H Eos % (Auto) 2.0 Baso % (Auto) 0.7 Lymph # (Auto) 1.5 Lanier # (Auto) 0.8 Eos # (Auto) 0.1 Baso # (Auto) 0.1 Abs Immat Gran (auto) 0.01 Absolute Neuts (auto) 4.4 Absolute Nucleated RBC 0.000 Nucleated RBC % (auto) 0.0 Sodium 140 Potassium 4.5 Chloride 107 Carbon Dioxide 26 Anion Gap 12 BUN 15 Creatinine 1.33 Estim Creat Clear Calc 37.3 Estimated GFR 51 POC Glucose 89 118 H Random Glucose 84 Fasting Glucose Lactic Acid Calcium 9.2 Total Bilirubin AST ALT Alkaline Phosphatase Total Protein Albumin Prostate Specific Ag 2.30 Urine Color Urine Appearance Urine pH Ur Specific [place] Urine Protein Urine Glucose (UA) Urine Ketones Urine Blood Urine Nitrite Ur Leukocyte Esterase Urine RBC Urine WBC Ur Squamous Epith Cells Urine Bacteria Hyaline Casts 01/27/24 01/27/24 01/28/24 16:33 20:29 07:05 WBC RBC Hgb Hct MCV MCH MCHC RDW Plt Count MPV Immature Gran % (Auto) Neut % (Auto) Lymph % (Auto) Lanier % (Auto) Eos % (Auto) Baso % (Auto) Lymph # (Auto) Lanier # (Auto) Eos # (Auto) Baso # (Auto) Abs Immat Gran (auto) Absolute Neuts (auto) Absolute Nucleated RBC Nucleated RBC % (auto) Sodium Potassium Chloride Carbon Dioxide Anion Gap BUN Creatinine Estim Creat Clear Calc Estimated GFR POC Glucose 129 H 117 H 121 H Random Glucose Fasting Glucose Lactic Acid Calcium Total Bilirubin AST ALT Alkaline Phosphatase Total Protein Albumin Prostate Specific Ag Urine Color Urine Appearance Urine pH Ur Specific Ha[place]ler Urine Protein Urine Glucose (UA) Urine Ketones Urine Blood Urine Nitrite Ur Leukocyte Esterase Urine RBC Urine WBC Ur Squamous Epith Cells Urine Bacteria Hyaline Casts 01/28/24 01/28/24 01/28/24 07:37 11:19 14:19 WBC 7.2 RBC 4.49 L Hgb 12.2 L Hct 38.1 L MCV 84.9 MCH 27.2 MCHC 32.0 RDW 13.7 Plt Count 251 MPV 9.5 Immature Gran % (Auto) Neut % (Auto) Lymph % (Auto) Lanier % (Auto) Eos % (Auto) Baso % (Auto) Lymph # (Auto) Lanier # (Auto) Eos # (Auto) Baso # (Auto) Abs Immat Gran (auto) Absolute Neuts (auto) Absolute Nucleated RBC 0.000 Nucleated RBC % (auto) 0.0 Sodium 141 Potassium 4.3 Chloride 106 Carbon Dioxide 26 Anion Gap 13 BUN 19 H Creatinine 1.44 H Estim Creat Clear Calc 34.5 Estimated GFR 47 POC Glucose 118 H 101 Random Glucose Fasting Glucose 113 H Lactic Acid Calcium 9.6 Total Bilirubin AST ALT Alkaline Phosphatase Total Protein Albumin Prostate Specific Ag Urine Color Urine Appearance Urine pH Ur Specific Ha[place] Urine Protein Urine Glucose (UA) Urine Ketones Urine Blood Urine Nitrite Ur Leukocyte Esterase Urine RBC Urine WBC Ur Squamous Epith Cells Urine Bacteria Hyaline Casts 01/28/24 01/28/24 15:15 16:12 WBC RBC Hgb Hct MCV MCH MCHC RDW Plt Count MPV Immature Gran % (Auto) Neut % (Auto) Lymph % (Auto) Lanier % (Auto) Eos % (Auto) Baso % (Auto) Lymph # (Auto) Lanier # (Auto) Eos # (Auto) Baso # (Auto) Abs Immat Gran (auto) Absolute Neuts (auto) Absolute Nucleated RBC Nucleated RBC % (auto) Sodium Potassium Chloride Carbon Dioxide Anion Gap BUN Creatinine Estim Creat Clear Calc Estimated GFR POC Glucose 158 H 125 H Random Glucose Fasting Glucose Lactic Acid Calcium Total Bilirubin AST ALT Alkaline Phosphatase Total Protein Albumin Prostate Specific Ag Urine Color Urine Appearance Urine pH Ur Specific Ha[place] Urine Protein Urine Glucose (UA) Urine Ketones Urine Blood Urine Nitrite Ur Leukocyte Esterase Urine RBC Urine WBC Ur Squamous Epith Cells Urine Bacteria Hyaline Casts Assessment and Plan Final Anesthetic Review Family History of Problems with Anesthesia: No History of Problems with Anesthesia: No
--- NOTE | 2024-01-28 22:02 | P.OP_ITS ---
Operative Note Operative Note Date of Service: 01/28/24 Narrative: PreOperative Diagnosis: bladder mass with left hydroureteronephrosis Post Operative Diagnosis: bladder cancer - Tumor size 6 cm, location left ureteric orifice through bladder neck running from 7 o'clock position back to 12 o'clock position Procedure: 1. TURBT large 2. Left retrograde 3. Left stent placement Surgeon: Dr Lobo Dugan Anesthesia: general Indications for procedure: 88-year-old male admitted with hematuria found to have bladder mass on CT scan with left hydroureteronephrosis Procedure: After informed consent was verified the patient was brought to the operating room and placed in a supine position. Anesthesia was administered per protocol. The patient was placed in a modified dorsal lithotomy position and prepped and draped in a sterile fashion. Safety pause time-out was performed. Antibiotics were confirmed. A 26 Iranian continuous flow resectoscope was inserted per urethra. The visual obturator was used in order to minimize potential for urethral damage. Tumor seen on bladder floor running across left ureteric orifice then up left sidewall and then running around bladder neck through to the 12 o'clock position. Resection performed using bipolar resectoscope. Left ureteric orifice involved with tumor. Left ureteric orifice resected. Resection carried around up left sidewall around bladder neck up to 12 o'clock position. Unable to fully resect tumor at the 12 o'clock position. Cautery performed the best we could. Specimen removed. The left ureteric orifice was seen. The resectoscope was removed. A cystoscope was placed. A small opening was seen. The sensor guidewire was placed and seen to coil under fluoroscopy. An open-ended catheter was placed. Retrograde examination performed. Significant hydroureteronephrosis was seen. The sensor guidewire was advanced into the renal pelvis. The open-ended catheter was a dvanced. The renal pelvis was aspirated of 60 cc of fluid. A 6 Iranian by 24 cm double-J stent was placed. At the completion of the procedure the bladder was irrigated. The cystoscope was removed. A [address] [place] catheter was inserted into the bladder. 10 cc was placed in the balloon. The patient tolerated the procedure well. They were extubated in the operating room and transferred in stable condition to the recovery area. Pathology: Bladder tumor Drains: Double-J stent as identified, three-way [place] catheter
[2024-01-28] MEDS: traMADoL HCL 50 MG TABLET PO (22:25)
[2024-01-28 22:58] LABS: Glucose, Whole Blood 88 mg/dL (60-115)
--- NOTE | 2024-01-28 23:35 | PC.NURSE ---
Patient arrived from PACU, awake, comfortable at this time. CBI clamped, small amount of bloody urine in du bag. Transfer destination verified with Dr Dugan and it is [facility] not like it's entered under transfer in computer. Patients son at bedside for a while.
[2024-01-29 03:18] VITALS: BP 139/61; PULSE 50; RESP 16; TEMP 36.2; O2SAT 100
[2024-01-29 07:14] VITALS: BP 143/61; PULSE 55; RESP 16; TEMP 36; O2SAT 98
[2024-01-29 07:15] LABS: Glucose, Whole Blood 98 mg/dL (60-115)
[2024-01-29] MEDS: Metoprolol Succinate ER 25 MG TAB.ER.24H PO (08:28)
[2024-01-29] MEDS: amLODIPine Besylate 2.5 MG TABLET PO (08:28)
[2024-01-29] MEDS: Aspirin Enteric Coated 81 MG TABLET.DR PO (08:28)
[2024-01-29] MEDS: Ascorbic Acid 500 MG TABLET PO (08:29)
[2024-01-29] MEDS: Cholecalciferol (Vitamin D3) 25 MCG TABLET 50 MCG PO (08:29)
[2024-01-29] MEDS: 0.9 % Sodium Chloride Flush 3 ML SYRINGE IVFLUSH ×2 (08:29→20:22)
[2024-01-29] MEDS: Atorvastatin Calcium 80 MG TABLET PO (08:29)
--- NOTE | 2024-01-29 09:02 | HO.PM.IMPN ---
Subjective Subjective Date of Service: 01/29/24 Interval History: hematuria Physical Exam Vital Signs: Vital Signs: Last Vital Signs Temp 96.8 F 01/29/24 07:14 Pulse 55 01/29/24 07:14 Resp 16 01/29/24 07:14 BP 143/61 H 01/29/24 07:14 Pulse Ox 98 01/29/24 07:14 O2 Del Method Room Air 01/29/24 07:14 BMI result Body Mass Index 29.1 General: AO X 3, no acute distress Resp: CTA bilateral, no accessory muscles used CVS: S1,S2,RRR GI: soft, non tender, non distended Neuro: motor grossly intact, alert Psych: appropriate affect, appropriate insight hematuria in du Objective Data Active Medications Acetaminophen (Acetaminophen 325 Mg Tablet) 650 mg PO Q6H PRN PRN Reason: Pain, Mild (Pain Scale 1-3) Amlodipine Besylate (Amlodipine Besylate 2.5 Mg Tablet) 2.5 mg PO DAILY [facility]; Protocol Last Admin: 01/29/24 08:28 Dose: 2.5 mg Documented By: BANDAR Ascorbic Acid (Ascorbic Acid 500 Mg Tablet) 500 mg PO DAILY [facility] Last Admin: 01/29/24 08:29 Dose: 500 mg Documented By: BANDAR Aspirin (Aspirin Enteric Coated 81 Mg Tablet.) 81 mg PO DAILY [facility] Last Admin: 01/29/24 08:28 Dose: 81 mg Documented By: BANDAR Atorvastatin Calcium (Atorvastatin Calcium 80 Mg Tablet) 80 mg PO DAILY [facility] Last Admin: 01/29/24 08:29 Dose: 80 mg Documented By: BANDAR Cyanocobalamin (Cyanocobalamin (Vitamin B-12) 1,000 Mcg Tablet) 1,000 mcg PO Q48H [facility] Last Admin: 01/28/24 23:04 Dose: Not Given Documented By: REFUGIO Non-Admin Reason: Pt in OR Dextrose (Dextrose 50 % 25 Gm/50 Ml Syringe) 25 gm IVPUSH Q15M PRN; Protocol PRN Reason: per Hypoglycemia Standing Ord. Ferrous Sulfate (Ferrous Sulfate 324 Mg Tablet.) 324 mg PO Q48H [facility] Last Admin: 01/28/24 23:04 Dose: Not Given Documented By: REFUGIO Non-Admin Reason: Pt in [place] Glucose (Glucose Gel 15 Gm Gel..Gram.) 15 gm PO Q15M PRN; Protocol PRN Reason: per Hypoglycemia Standing Ord. Ceftriaxone Sodium 1 gm/ (Sodium Chloride) 50 mls @ 100 mls/hr IV Q24H [facility] Last Infusion: 01/28/24 12:41 Dose: Infused Documented By: CRUZ Insulin Human Lispro (Insulin Lispro 100 Unit/Ml 3 Ml Vial) 0 unit SUBCUT QIDACHS [facility]; Protocol Last Admin: 01/29/24 07:20 Dose: Not Given Documented By: BANDAR Non-Admin Reason: No Insulin Coverage Metoprolol Succinate (Metoprolol Succinate Er 25 Mg Tab.Er.24h) 25 mg PO DAILY [facility]; Protocol Last Admin: 01/29/24 08:28 Dose: 25 mg Documented By: BANDAR Ondansetron HCl (Ondansetron Hcl 4 Mg/2 Ml Vial) 4 mg IVPUSH Q8H PRN PRN Reason: Nausea and Vomiting Senna (Sennosides 8.6 Mg Tablet) 17.2 mg PO BEDTIME PRN PRN Reason: Constipation Sodium Chloride (0.9 % Sodium Chloride Flush 3 Ml Syringe) 3 ml IVFLUSH QSHIFT [facility] Last Admin: 01/29/24 08:29 Dose: 3 ml Documented By: BANDAR Tramadol HCl (Tramadol Hcl 50 Mg Tablet) 50 mg PO Q6H PRN PRN Reason: Pain, Moderate(Pain Scale 4-6) Last Admin: 01/28/24 22:25 Dose: 50 mg Documented By: DANGELRoberto Vitamin D (Cholecalciferol (Vitamin D3) 25 Mcg Tablet) 50 mcg PO DAILY [facility] Last Admin: 01/29/24 08:29 Dose: 50 mcg Documented By: BANDAR Labs 01/28/24 07:37 01/28/24 07:37 Labs: Laboratory Results - last 24 hr 01/28/24 01/28/24 01/28/24 11:19 14:19 15:15 POC Glucose 118 H 101 158 H 01/28/24 01/28/24 01/29/24 16:12 22:48 07:11 POC Glucose 125 H 88 98 Microbiology Microbiology Results: Microbiology 01/26/24 12:15 Blood Culture - Preliminary Blood - Venous No growth after 48 hours. 01/26/24 12:06 Blood Culture - Preliminary Blood - Venous No growth after 48 hours. Assessment and Plan (1) Hydronephrosis: Status: Acute Plan 88M PMH cad, , htn, hld, pagers, ckd3, macular degeneration, dm presented with hematuria, found to have suspicious bladder mass hematuria due to bladder mass complicated by hydronephrosis initially cleared s/p cystoscopy 01/28/24 - found to have bladder mass suspcious for malignancy - 1. TURBT large 2. Left retrograde 3. Left stent placement now with some hematuria postop uti rocephin urine culture negative dm insulin htn metoprolol, amlodipine cad, as asa, statin ckd 3 stable dvt prophylaxis - mechancial due to hematuria full code reason for continued hospitalization:hematuria Quality Stroke Does the patient have a stroke diagnosis?: No VTE Prior VTE?: No VTE Risk Level:: Medical - moderate - high VTE Device Contraindication: N/A - Device Ordered VTE Drug Contraindication: Treatment Not Indicated
[2024-01-29 11:08] LABS: Glucose, Whole Blood 107 mg/dL (60-115)
[2024-01-29 11:27] VITALS: BP 143/65; PULSE 63; RESP 16; TEMP 36.2; O2SAT 98
[2024-01-29] MEDS: cefTRIAXone sodium 1 GM in 0.9 % Sodium Chloride 50 ML IV (11:48)
--- NOTE | 2024-01-29 12:05 | HO.POSTANES ---
Post Anesthesia Evaluation Post Anesthesia Evaluation Date of Service: 01/29/24 Vital Signs: Vital Signs Temp Pulse Resp BP Pulse Ox O2 Del Method 01/29/24 11:27 97.1 F 63 16 143/65 H 98 Room Air 01/29/24 07:14 96.8 F 55 16 143/61 H 98 Room Air 01/29/24 03:18 97.1 F 50 16 139/61 100 Room Air Anesthesia: General Mental Status: Awake Pain Control: Satisfactory Nausea/Vomiting: None Hydration: Adequate Anesthesia-Related Issues: No Anes. Related Issues
[2024-01-29 15:03] VITALS: BP 133/63; PULSE 61; RESP 18; TEMP 36; O2SAT 98
[2024-01-29 16:11] LABS: Glucose, Whole Blood 138 mg/dL (60-115)
[2024-01-29 19:18] VITALS: BP 138/60; PULSE 70; RESP 18; TEMP 36.2; O2SAT 99
[2024-01-29 20:02] LABS: Glucose, Whole Blood 127 mg/dL (60-115)
[2024-01-29 23:37] VITALS: BP 114/55; PULSE 69; RESP 18; TEMP 37.1; O2SAT 94
[2024-01-30 03:29] VITALS: BP 128/60; PULSE 66; RESP 18; TEMP 36.1; O2SAT 96
[2024-01-30 05:49] LABS: Hemoglobin 11.7 g/dl (14.0-18.0); Mean Corpuscular HGB Conc 32.5 g/dl (31.0-36.0); Mean Corpuscular Hemoglobin 27.4 pg (27.0-33.0); Mean Corpuscular Volume 84.3 fL (80.0-98.0); Mean Platelet Volume 9.4 fL (9.4-12.4); Platelet Count 245 X10*3/uL (160-400); Red Blood Count 4.27 X10*6/uL (4.60-5.80); Red Cell Distribution Width 13.9 % (11.0-16.0); White Blood Count 9.4 X10*3/uL (4.8-10.8)
[2024-01-30 06:09] LABS: Anion Gap 12 (12-20); Blood Urea Nitrogen 20 mg/dL (9-16); Calcium 9.2 mg/dL (8.4-10.2); Carbon Dioxide 26 mmol/L (22-29); Chloride 105 mmol/L (96-108); Creatinine Clr Calc Pharmacy 36.5; Estimated Glomerular Filt Rate 50; Glucose Fasting 96 mg/dL (60-99); Potassium 4.1 mmol/L (3.3-5.1); Sodium 139 mmol/L (135-145)
[2024-01-30 07:25] LABS: Glucose, Whole Blood 100 mg/dL (60-115)
[2024-01-30 07:37] VITALS: BP 140/66; PULSE 63; RESP 16; TEMP 36.2; O2SAT 97
[2024-01-30] MEDS: 0.9 % Sodium Chloride Flush 3 ML SYRINGE IVFLUSH ×3 (07:49→20:59)
[2024-01-30] MEDS: Ascorbic Acid 500 MG TABLET PO (07:49)
[2024-01-30] MEDS: Atorvastatin Calcium 80 MG TABLET PO (07:49)
[2024-01-30] MEDS: Aspirin Enteric Coated 81 MG TABLET.DR PO (07:49)
[2024-01-30] MEDS: Metoprolol Succinate ER 25 MG TAB.ER.24H PO (07:49)
[2024-01-30] MEDS: amLODIPine Besylate 2.5 MG TABLET PO (07:49)
[2024-01-30] MEDS: Cholecalciferol (Vitamin D3) 25 MCG TABLET 50 MCG PO (07:49)
--- NOTE | 2024-01-30 08:56 | HO.PM.IMPN ---
Subjective Subjective Date of Service: 01/30/24 Interval History: continues to have hematuria Physical Exam Vital Signs: Vital Signs: Last Vital Signs Temp 97.1 F 01/30/24 07:37 Pulse 63 01/30/24 07:37 Resp 16 01/30/24 07:37 BP 140/66 H 01/30/24 07:37 Pulse Ox 97 01/30/24 07:37 O2 Del Method Room Air 01/30/24 07:37 BMI result Body Mass Index 29.1 General: AO X 3, no acute distress Resp: CTA bilateral, no accessory muscles used CVS: S1,S2,RRR GI: soft, non tender, non distended Neuro: motor grossly intact, alert Psych: appropriate affect, appropriate insight hematuria in du Objective Data Active Medications Acetaminophen (Acetaminophen 325 Mg Tablet) 650 mg PO Q6H PRN PRN Reason: Pain, Mild (Pain Scale 1-3) Amlodipine Besylate (Amlodipine Besylate 2.5 Mg Tablet) 2.5 mg PO DAILY [facility]; Protocol Last Admin: 01/30/24 07:49 Dose: 2.5 mg Documented By: CRUZ Ascorbic Acid (Ascorbic Acid 500 Mg Tablet) 500 mg PO DAILY [facility] Last Admin: 01/30/24 07:49 Dose: 500 mg Documented By: CRUZ Aspirin (Aspirin Enteric Coated 81 Mg Tablet.) 81 mg PO DAILY [facility] Last Admin: 01/30/24 07:49 Dose: 81 mg Documented By: CRUZ Atorvastatin Calcium (Atorvastatin Calcium 80 Mg Tablet) 80 mg PO DAILY [facility] Last Admin: 01/30/24 07:49 Dose: 80 mg Documented By: CRUZ Cyanocobalamin (Cyanocobalamin (Vitamin B-12) 1,000 Mcg Tablet) 1,000 mcg PO Q48H [facility] Last Admin: 01/28/24 23:04 Dose: Not Given Documented By: REFUGIO Non-Admin Reason: Pt in OR Dextrose (Dextrose 50 % 25 Gm/50 Ml Syringe) 25 gm IVPUSH Q15M PRN; Protocol PRN Reason: per Hypoglycemia Standing Ord. Ferrous Sulfate (Ferrous Sulfate 324 Mg Tablet.) 324 mg PO Q48H [facility] Last Admin: 01/28/24 23:04 Dose: Not Given Documented By: REFUGIO Non-Admin Reason: Pt in OR Glucose (Glucose Gel 15 Gm Gel..Gram.) 15 gm PO Q15M PRN; Protocol PRN Reason: per Hypoglycemia Standing Ord. Ceftriaxone Sodium 1 gm/ (Sodium Chloride) 50 mls @ 100 mls/hr IV Q24H [facility] Last Infusion: 01/29/24 12:57 Dose: Infused Documented By: BANDAR Tranexamic Acid 1,000 mg/ (Sodium Chloride) 60 mls @ 360 mls/hr IV ONCE ONE Stop: 01/30/24 09:02 Insulin Human Lispro (Insulin Lispro 100 Unit/Ml 3 Ml Vial) 0 unit SUBCUT QIDACHS [facility]; Protocol Last Admin: 01/30/24 07:50 Dose: Not Given Documented By: CRUZ Non-Admin Reason: No Insulin Coverage Metoprolol Succinate (Metoprolol Succinate Er 25 Mg Tab.Er.24h) 25 mg PO DAILY [facility]; Protocol Last Admin: 01/30/24 07:49 Dose: 25 mg Documented By: CRUZ Ondansetron HCl (Ondansetron Hcl 4 Mg/2 Ml Vial) 4 mg IVPUSH Q8H PRN PRN Reason: Nausea and Vomiting Senna (Sennosides 8.6 Mg Tablet) 17.2 mg PO BEDTIME PRN PRN Reason: Constipation Sodium Chloride (0.9 % Sodium Chloride Flush 3 Ml Syringe) [facility] Admin: 01/30/24 07:49 Dose: 3 ml Documented By: CRUZ Tramadol HCl (Tramadol Hcl 50 Mg Tablet) 50 mg PO Q6H PRN PRN Reason: Pain, Moderate(Pain Scale 4-6) Last Admin: 01/28/24 22:25 Dose: 50 mg Documented By: DANGELRoberto Vitamin D (Cholecalciferol (Vitamin D3) 25 Mcg Tablet) 50 mcg PO DAILY [facility] Last Admin: 01/30/24 07:49 Dose: 50 mcg Documented By: CRUZ Labs 01/30/24 05:16 01/30/24 05:16 Labs: Laboratory Results - last 24 hr 01/29/24 01/29/24 01/29/24 11:04 15:53 19:50 MCV MCH MCHC RDW Plt Count MPV Absolute Nucleated RBC Nucleated RBC % (auto) Anion Gap Estim Creat Clear Calc Estimated GFR POC Glucose 107 138 H 127 H Fasting Glucose Calcium 03/20/24 03/20/24 05:16 07:18 MCV 84.3 MCH 27.4 MCHC 32.5 RDW 13.9 Plt Count 245 MPV 9.4 Absolute Nucleated RBC 0.000 Nucleated RBC % (auto) 0.0 Anion Gap 12 Estim Creat Clear Calc 36.5 Estimated GFR 50 POC Glucose 100 Fasting Glucose 96 Calcium 9.2 Assessment and Plan (1) Hydronephrosis: Status: Acute Plan 88M PMH cad, , htn, hld, pagers, ckd3, macular degeneration, dm presented with hematuria, found to have suspicious bladder mass hematuria due to bladder mass complicated by hydronephrosis initially cleared s/p cystoscopy 01/28/24 - found to have bladder mass suspcious for malignancy - 1. TURBT large 2. Left retrograde 3. Left stent placement now with some hematuria postop follow up pathology discussed with , will give 1gm tranexamic acid - no known contraindications uti rocephin day 4 urine culture negative dm insulin htn metoprolol, amlodipine cad, as holding asa, continue statin ckd 3 stable dvt prophylaxis - mechancial due to hematuria full code reason for continued hospitalization:hematuria Quality Stroke Does the patient have a stroke diagnosis?: No VTE Prior VTE?: No VTE Risk Level:: Medical - moderate - high VTE Device Contraindication: N/A - Device Ordered VTE Drug Contraindication: Treatment Not Indicated
--- NOTE | 2024-01-30 09:20 | P.PNUR_ITS ---
Subjective Subjective Date of Service: 01/30/24 Interval history: TURBT Sunday Bladder cancer involving left ureteric opening mild hematuria restart CBI TXA Physical Exam 2 Vital Signs: Vital Signs: Last Vital Signs Temp 97.1 F 01/30/24 07:37 Pulse 63 01/30/24 07:37 Resp 16 01/30/24 07:37 BP 140/66 H 01/30/24 07:37 Pulse Ox 97 01/30/24 07:37 O2 Del Method Room Air 01/30/24 07:37 BMI result Body Mass Index 29.1 Const: General: cooperative, healthy appearing, comfortable and no acute distress Orientation/consciousness: patient oriented x3 HEENT: Face and sinus: Yes normal facial exam Mouth: moist mucous membranes Neck: Neck: Yes normal visual inspection, Yes full ROM and Yes trachea midline Chest: Chest palpation & inspection: normal inspection of the chest Resp: Effort & Inspection: normal respiratory effort, able to speak in complete sentences and no respiratory distress GI: Inspection: Yes normal to inspection Back/Spine/Pelvis: Cervical Spine: normal cervical lordosis Thoracic/Lumbar Spine: thoracic and lumbar spine normal to inspection Skin: General skin exam: no rashes or lesions noted Neuro: General: patient oriented x3, tone normal and moves all extremities Extrem: General: Yes normal to inspection and Yes capillary refill normal Urology Results Labs 01/30/24 05:16 01/30/24 05:16 Labs: Laboratory Results - last 24 hr 01/29/24 01/29/24 01/29/24 11:04 15:53 19:50 WBC RBC Hgb Hct MCV MCH MCHC RDW Plt Count MPV Absolute Nucleated RBC Nucleated RBC % (auto) Sodium Potassium Chloride Carbon Dioxide Anion Gap BUN Creatinine Estim Creat Clear Calc Estimated GFR POC Glucose 107 138 H 127 H Fasting Glucose Calcium 01/30/24 01/30/24 05:16 07:18 WBC 9.4 RBC 4.27 L Hgb 11.7 L Hct 36.0 L MCV 84.3 MCH 27.4 MCHC 32.5 RDW 13.9 Plt Count 245 MPV 9.4 Absolute Nucleated RBC 0.000 Nucleated RBC % (auto) 0.0 Sodium 139 Potassium 4.1 Chloride 105 Carbon Dioxide 26 Anion Gap 12 BUN 20 H Creatinine 1.36 Estim Creat Clear Calc 36.5 Estimated GFR 50 POC Glucose 100 Fasting Glucose 96 Calcium 9.2 Progress Note: A&P Assessment and plan (1) Bladder cancer: Status: Acute (2) Hydronephrosis: Status: Acute Plan CBI for bleeding Time Spent With Patient Time: Total time managing care of this patient today ____ minutes. Progress Note: Quality Stroke Does the patient have a stroke diagnosis?: No
[2024-01-30] MEDS: Tranexamic Acid 1,000 MG in 0.9 % Sodium Chloride 50 ML 360 MG IV (09:31)
--- NOTE | 2024-01-30 09:41 | PC.NURSE ---
FC output dark red colored, no clots or shreds noted, MD Dugan notified via tiger text, Per ok to start CBI. MD Blanco aware. Pt aware and agreeable to plan denies any pain.
[2024-01-30 11:38] LABS: Glucose, Whole Blood 141 mg/dL (60-115)
[2024-01-30] MEDS: cefTRIAXone sodium 1 GM in 0.9 % Sodium Chloride 50 ML IV (11:49)
[2024-01-30 12:00] VITALS: BP 120/58; PULSE 68; RESP 16; TEMP 36.3; O2SAT 99
--- NOTE | 2024-01-30 13:16 | HO.WOUND ---
Wound Consult: Initial 88yr old?Male admitted to [facility] [place] on 01/25 - See progress notes and H&P for detailed history.? Wound consult placed for buttock redness. Patient agreeable to assessment and photo documentation.? Arrival to bedside patient was sitting in recliner chair and able to stand independently - waffle cushion was not yet in use - provided and applied - buttock / sacrum assessed and detailed below. Foam dressing applied. Patient reported increase comfort with sitting. Patient edeucated to shift and reposition often - he demonstrated understanding. Of note the sacral coccyx and ischial areas are noted to have prominent bony areas - there is loose tissue and little muscle over the bony prominences he is a risk for pressure injury breakdown all preventative measures should be employed at this time. Sacrum Etiology: Stage 1 Pressure Injury -?Present on Admission Measurements: see charting for detailed measurements Wound Bed: intact red pink nonblanchable tissue over bony prominence Drainage / Odor: None Edges: ? irregular Radha wound: Intact ? No Induration, Fluctuance or Warmth noted Pain: Patient reports tenderness Goals of Treatment: ? Off load pressure and protect from friction - foam applied and waffle cushion provided - low airloss mattress to be applied Recommendations: 1. Turn and Reposition every 2 hours and as needed for patient comfort.? Use pillows or wedges to support off loading positions. Waffle cushion provided should be used when up to chair and limit sit time to 2 hours increments. 2. Off Load all bony prominences with use of pillows and heel boots if needed.? Apply Preventative foams where needed. ? 3. Monitor for incontinence and moisture control, use barrier creams when needed for prevention and treatment. 4. Provide adequate and supplemental nutrition.? 5. Order or Continue low air loss mattress. 6. Sacrum - Routine Cleaning - Apply sacral foam dressing, peel back and assess Q shift, change every 3 days. Waffle cushion provided should be used when up to chair and limit sit time to 2 hours increments. Re-consult wound care Nurse for wound deterioration or wound changes.
--- NOTE | 2024-01-30 15:32 | MHC.CM.PN ---
per rounds pt not ready for dc pt has hematuria
[2024-01-30 16:00] VITALS: BP 130/62; PULSE 64; RESP 16; TEMP 36.3; O2SAT 99
[2024-01-30 16:40] LABS: Glucose, Whole Blood 116 mg/dL (60-115)
[2024-01-30] MEDS: Ferrous Sulfate 324 MG TABLET.DR PO (17:21)
[2024-01-30] MEDS: Cyanocobalamin (Vitamin B-12) 1,000 MCG TABLET 1000 MCG PO (17:21)
[2024-01-30 19:34] VITALS: BP 104/57; PULSE 60; RESP 16; TEMP 36.9; O2SAT 99
[2024-01-30 20:21] LABS: Glucose, Whole Blood 134 mg/dL (60-115)
[2024-01-30 23:16] VITALS: BP 156/58; PULSE 63; RESP 18; TEMP 36.3; O2SAT 97
[2024-01-30] MEDS: Calcium Carbonate 750 MG TAB.CHEW PO (23:32)
[2024-01-31 01:38] VITALS: BP 160/72; PULSE 65; RESP 18; O2SAT 99
[2024-01-31] MEDS: Magnesium Hydrox/Alum Hydrox 30 ML ORAL.SUSP PO (01:45)
[2024-01-31 03:27] VITALS: BP 136/61; PULSE 66; RESP 18; TEMP 36.2; O2SAT 97
[2024-01-31 06:12] LABS: Hematocrit 34.9 % (42.0-52.0); Hemoglobin 11.4 g/dl (14.0-18.0); Mean Corpuscular HGB Conc 32.7 g/dl (31.0-36.0); Mean Corpuscular Hemoglobin 27.3 pg (27.0-33.0); Mean Corpuscular Volume 83.5 fL (80.0-98.0); Mean Platelet Volume 9.6 fL (9.4-12.4); Platelet Count 264 X10*3/uL (160-400); Red Blood Count 4.18 X10*6/uL (4.60-5.80); Red Cell Distribution Width 13.9 % (11.0-16.0); White Blood Count 9.9 X10*3/uL (4.8-10.8)
[2024-01-31 06:23] LABS: Anion Gap 13 (12-20); Blood Urea Nitrogen 23 mg/dL (9-16); Calcium 9.4 mg/dL (8.4-10.2); Carbon Dioxide 25 mmol/L (22-29); Chloride 105 mmol/L (96-108); Creatinine Clr Calc Pharmacy 37.9; Estimated Glomerular Filt Rate 52; Glucose Fasting 125 mg/dL (60-99); Potassium 3.9 mmol/L (3.3-5.1); Sodium 139 mmol/L (135-145)
--- NOTE | 2024-01-31 07:36 | P.DS_ITS ---
DS: Providers Provider Date of Service: 01/31/24 Date of admission: 01/26/24 16:43 Primary care physician: Radha Ortiz MD Consults: 01/26/24 16:52 Consult to Urology Routine Consulting Provider: Lobo Reyes Reason for consultation: hematuria 01/29/24 10:33 Consult to Wound Care Routine Reason for consultation: blanchable redness to bottom DS: Diagnosis Discharge Diagnosis (1) Bladder cancer: Status: Acute (2) Hydronephrosis: Status: Acute DS: Summary Hospital Course Hospital Course: from initial hpi: 88-year-old male with history of hypertension, aortic stenosis, coronary artery disease, osteopenia, Paget's disease, hyperlipidemia, CKD stage 3, macular degeneration, PVCs, and mys-lmorpxe-rjlurcgeu type 2 diabetes presented to the ED for evaluation of hematuria she noted last night. States while urinating last night on 2 separate occasions, passed blood clots with bright red urine. This morning did not note any clots but urine was still red. However has been given IV fluids in the ER and urine is now more pink in color without clots. He states he has had mild dysuria for several days and also reports urinary frequency that has been ongoing for several years. Denies any fevers, chills, abdominal pain, nausea, vomiting, diarrhea, shortness of breath, lightheadedness, chest pain. Denies any history of similar symptoms. Vital signs stable since arrival. No leukocytosis. Mild, stable normocytic anemia with H/H 11.5/36.2%. Creatinine 1.56, consistent with baseline. Electrolyte levels normal. Glucose 153. Lactic acid 1.2. Urinalysis significant for 2+ leukocytes, positive nitrites, 3+ blood, 3+ protein, positive urinary sediment, negative bacteria. CT abdomen/pelvis shows abnormal heterogenous soft tissue mass involving the base of the bladder measuring 4.1 cm inseparable from the prostate gland involving the left ureterovesicular junction and abutting the right ureterovesicular junction resulting in moderate left hydronephrosis with delayed nephrogram and mild right hydroureteronephrosis suspicious for transitional cell carcinoma though differential could include primary prostate malignancy involving the bladder. No evidence of pyelonephritis. In the ED, has been given 1 L IV NS, 2 g Rocephin. ED discussed with urology recommending admission to medicine for hematuria. hospital course: Patient was admitted for hematuria due to bladder mass complicated by hydronephrosis. He underwent cystoscopy on 01/28/2024 and found to have bladder mass suspicious for malignancy underwent TURBT and left stent placement. Course was complicated by postoperative hematuria. He received tranexamic acid and CBI and urine cleared. Patient will be discharged home with Du catheter and follow-up with Urology. Aspirin will be held for about 1 week. For urinary tract infection patient was treated with 5 days of ceftriaxone. Urine culture was negative. For diabetes was continue insulin. For hypertension was continued on metoprolol and amlodipine. For coronary artery disease aspirin is held as stated, continue statin. His CKD 3 remained stable. Time Attestation Discharge Coordination Time (in mins): 35 Quality: Safe Use of Opioids Does Pt have an Active Cancer Diagnosis on the Problem List?: Yes Opioid Measure Date for [facility] Report: 01/01/24 Opioid Measure Time for [facility] Report: 07:37 Quality: Stroke Does the patient have a stroke diagnosis?: No Physical Exam Vital Signs: Vital Signs: Last Vital Signs Temp 97.1 F 01/31/24 03:27 Pulse 66 01/31/24 03:27 Resp 18 01/31/24 03:27 BP 136/61 01/31/24 03:27 Pulse Ox 97 01/31/24 03:27 O2 Del Method Room Air 01/31/24 03:27 BMI result Body Mass Index 29.1 General: AO X 3, no acute distress Resp: CTA bilateral, no accessory muscles used CVS: S1,S2,RRR GI: soft, non tender, non distended Neuro: motor grossly intact, alert Psych: appropriate affect, appropriate insight DS: Data Data Completed and Pending Pending studies at discharge: Pending at discharge 01/28/24 22:12 Surgical [PTH] Routine Labs on day of discharge: Laboratory Results - last 24 hr 01/30/24 01/30/24 01/30/24 11:28 16:27 20:12 WBC RBC Hgb Hct MCV MCH MCHC RDW Plt Count MPV Absolute Nucleated RBC Nucleated RBC % (auto) Sodium Potassium Chloride Carbon Dioxide Anion Gap BUN Creatinine Estim Creat Clear Calc Estimated GFR POC Glucose 141 H 116 H 134 H Fasting Glucose Calcium 01/31/24 05:18 WBC 9.9 RBC 4.18 L Hgb 11.4 L Hct 34.9 L MCV 83.5 MCH 27.3 MCHC 32.7 RDW 13.9 Plt Count 264 MPV 9.6 Absolute Nucleated RBC 0.000 Nucleated RBC % (auto) 0.0 Sodium 139 Potassium 3.9 Chloride 105 Carbon Dioxide 25 Anion Gap 13 BUN 23 H Creatinine 1.31 Estim Creat Clear Calc 37.9 Estimated GFR 52 POC Glucose Fasting Glucose 125 H Calcium 9.4 Preliminary micro results at discharge 01/26/24 12:15 Blood Culture - Preliminary Blood - Venous No growth after 48 hours. 01/26/24 12:06 Blood Culture - Preliminary Blood - Venous No growth after 48 hours. Discharge Plan Discharge Anticipated Discharge Date/Time: 01/31/24 07:34 Patient Disposition: Home Health Service Discharge Diagnosis: hematuria due to bladder cancer Referrals: Lobo Reyes MD [Physician] - 1 Week Po,Radha Washburn MD [Primary Care Provider] - 1 Week Discharge Medications: Continued (DME) blood sugar diagnostic Strip See Rx Instructions Not Applicable TID Qty: 3 3RF Rx Instructions: As directed check blood sugars 3 times a day cholecalciferol (vitamin D3) 50 mcg (2,000 unit) capsule 50 mcg PO DAILY Qty: 30 11RF amlodipine 2.5 mg tablet 2.5 mg PO DAILY Qty: 90 3RF metoprolol succinate 25 mg tablet extended release 24 hr 25 mg PO DAILY Qty: 90 3RF (DME) lancets Misc See Rx Instructions .ROUTE TID Qty: 300 3RF Rx Instructions: As directed check the blood sugars 3 times a day ONETOUCH ULTRASOFT LANCETS ferrous sulfate [Feosol] 325 mg (65 mg iron) tablet 325 mg PO Q OTHER DAY cyanocobalamin (vitamin B-12) 1,000 mcg capsule 1,000 mcg PO Q OTHER DAY ascorbate calcium (vitamin C) 500 mg tablet 500 mg PO DAILY (DME) OneTouch Ultra Test Strip See Rx Instructions .ROUTE .MEDSUPPLY Qty: 100 3RF Rx Instructions: As directed check the blood sugar once a day metformin 500 mg tablet 500 mg PO DAILY 90 Days Qty: 90 1RF rosuvastatin [Crestor] 40 mg tablet 40 mg PO DAILY Qty: 90 2RF vitamins A,C,R-jjil-dyiorr 1 tab PO BID Held aspirin [Adult Aspirin Regimen] 81 mg tablet,delayed release (DR/EC) 81 mg PO DAILY Hold Instructions: Resume on 02/07/24. Discharge Orders: Discharge Order (Routine); Ordered 01/31/24 Ordered By: Ankit Blanco Diet: Advance to usual diet Activity on Discharge: As tolerated Stand Alone Forms: Patient Portal Discharge page Care Plan Goals: manage bladder ca Health Concerns: bladder ca Plan of Treatment: hold asa one week, du until follow up with dr reyes Assessment: see above
--- NOTE | 2024-01-31 07:38 | W.MHC.F2F ---
Service Date Service Date: 01/31/24 Encounter Date of encounter: 01/31/24 Reasons for Services Signs and symptoms assessed: weakness, manolo du Reason for assisted: medication management, medication treatment, teach disease management and GI/ assessment (May flush with 30-60 cc sterile water as needed for blockage or increased sediment. If becomes dislodged may replace with (22F)) Homebound: Leaving the home is medically contraindicated at this time without the asist of a device and/or another person due th the listed conditions above and below. Reason homebound: unsteady gait / fall risk and other (manolo du) Certification: Based on the above findings, I certify that this patient is confined to the home and needs intermittent assisted care, physical therapy and/or speech therapy, or continues to need occupational therapy. The patient is under my care, and I have initiated the establishment of the plan of care. The patient will be followed by a physician who will periodically review the plan of care. Time Spent With Patient Time: Total time managing care of this patient today ____ minutes.
[2024-01-31 07:56] LABS: Glucose, Whole Blood 104 mg/dL (60-115)
[2024-01-31] MEDS: amLODIPine Besylate 2.5 MG TABLET PO (08:46)
[2024-01-31] MEDS: 0.9 % Sodium Chloride Flush 3 ML SYRINGE IVFLUSH (08:46)
[2024-01-31] MEDS: Metoprolol Succinate ER 25 MG TAB.ER.24H PO (08:46)
[2024-01-31] MEDS: Ascorbic Acid 500 MG TABLET PO (08:46)
[2024-01-31] MEDS: Atorvastatin Calcium 80 MG TABLET PO (08:46)
[2024-01-31] MEDS: Cholecalciferol (Vitamin D3) 25 MCG TABLET 50 MCG PO (08:46)
--- NOTE | 2024-01-31 08:50 | MHC.CM.PN ---
DP: PT HAS BEEN MEDICALLY CLEARED FOR DC HOME WITH NEW [facility] FOR SN VISITS. FAMILY WILL TRANSPORT HOME.
== END 2024-01-31 12:28 | disposition home health service (06) | DRG 657 ==
LOC: HO.ED 15:49 → HO.EDOVER 16:56 → HO.S3 19:30
PROVIDERS: Physician Assistant Medical; Urology; Admitting Provider Physician Assistant; Emergency Provider Emergency Medicine; PCP Internal Medicine; Visit Provider Internal Medicine
PROC: 0T778DZ Dilation of Left Ureter with Intraluminal Device, Via Natural or Artificial Opening Endoscopic (ICD-10-PCS; principal; 2024-01-28 17:20)
DX: C67.8 Malignant neoplasm of overlapping sites of bladder (principal); N17.9 Acute kidney failure, unspecified; R31.0 Gross hematuria; D63.1 Anemia in chronic kidney disease; I12.9 Hypertensive chronic kidney disease with stage 1 through stage 4 chronic kidney disease, or unspecified chronic kidney disease; I35.0 Nonrheumatic aortic (valve) stenosis; E78.5 Hyperlipidemia, unspecified; D63.0 Anemia in neoplastic disease; M85.80 Other specified disorders of bone density and structure, unspecified site; N18.30 Chronic kidney disease, stage 3 unspecified; E11.22 Type 2 diabetes mellitus with diabetic chronic kidney disease; I25.10 Atherosclerotic heart disease of native coronary artery without angina pectoris; Z87.891 Personal history of nicotine dependence; Z79.82 Long term (current) use of aspirin; Z79.84 Long term (current) use of oral hypoglycemic drugs; Z79.899 Other long term (current) drug therapy
CPT/HCPCS: 36415; 74177; 80048; 80053; 81001; 81003; 82947; 83605; 84153; 85025; 85027; 87040; 87086; 88112; 88307; 99285; C1758; C1769; C2617; J0131; J0696; J2371; J2704; J3010; Q9967

== ENCOUNTER → 2024-01-26 16:43 | Outpatient (BNV) | payer MEDICARE, SELFPAY | PROVIDERS: Admitting Provider Physician Assistant; Emergency Provider Emergency Medicine; PCP Internal Medicine; Visit Provider Physician Assistant | DX: N13.30 Unspecified hydronephrosis (principal) | CPT/HCPCS: 99223; 99232; 99233; 99239; G0180 ==

== ENCOUNTER → 2024-01-26 16:43 | Outpatient (BNV) | payer MEDICARE, SELFPAY | PROVIDERS: Admitting Provider Physician Assistant; Emergency Provider Emergency Medicine; PCP Internal Medicine; Visit Provider Urology | DX: C67.9 Malignant neoplasm of bladder, unspecified (principal); N13.30 Unspecified hydronephrosis | CPT/HCPCS: 52240; 52332; 74420; 99222; 99232; 99233 ==

== ENCOUNTER 2024-02-05 09:42 | Outpatient (AMB) | payer MEDICARE, SELFPAY ==
--- NOTE | 2024-02-05 09:48 | A.OFFVIS_ITS ---
Intake Intake Visit Reasons: path results/ ER visit/ [place]vall[place] Removal Intake Note: Patient is present for Path Results/ [place] Removal Blood Thinners: Aspirin Antibiotic Allergy:None ER Visit 01/25 U/A was completed at ER Was Nitrate + TURPT was performed Patient presents to office for follow up s/p TURBT. 22 fr catheter removed, patient tolerated well. Dr. Dugan to room to discuss plan of care. Allergies No Known Allergies [No Known Allergies*] Allergy (Verified 02/05/24 09:58) HPI HPI Comments History of Present Illness Details Kenneth is a very pleasant male. Accompanied by his family. He has a patient of Dr Ortiz. He is seen for the following urologic conditions - bladder cancer Initial presentation in hospital with imaging mass in bladder TURBT incomplete. Recommend external beam radiation with possible chemotherapy based on age. Will need completion TURBT in 4-[address] - There is an abnormal heterogeneous soft tissue mass involving the base of the bladder measuring 4.1 cm, inseparable from the prostate gland and involving the left ureterovesicular junction and abutting the right ureterovesicular junction resulting in moderate left hydroureteronephrosis with a delayed nephrogram and mild right hydroureteronephrosis. Findings are suspicious for tra nsitional cell carcinoma, though differential considerations could include primary prostatic malignancy invading the bladder. Recommend correlation with PSA, urologic evaluation and consideration of cystoscopy. Bladder cancer - high-grade muscularis propria invasion 02/02 TURBT Complicated since lesion involved left ureteric orifice. Stent required Bladder, transurethral resection: High grade urothelial carcinoma, invasive into muscularis propria. Procedure: Transurethral resection Tumor site: Left ureteric orifice Histologic type: Urothelial carcinoma Histologic grade: High-grade Muscularis propria: Present Extent of invasion: Muscularis propria Lymphovascular invasion: Present [facility] Medical History Prostate mass Osteopenia Paget's bone disease Overweight (BMI 25.0-29.9) Peripheral vascular disease Hypercholesterolemia Diabetic nephropathy Type 2 diabetes mellitus with hyperglycemia Macular degeneration Lumbar degenerative disc disease Left renal stone Paget's disease of bone Vitamin D deficiency Aortic stenosis, mild Coronary artery disease Surgical History S/P CABG x 3 History of tonsillectomy History of bilateral cataract extraction History of ankle surgery S/P repair of hydrocele History of inguinal hernia repair Family History Father CVD (cardiovascular disease) Mother CVD (cardiovascular disease) Heart disease Brother In good health Sister In good health Son Diabetes Social History Household Members: Spouse Housing: House Do you presently have visiting nurse or other home services: No Alcohol intake: never Patient Tobacco Use Status: Former Tobacco user Quit Date: 1979 Tobacco use type: Cigarette Cigarette Packs Per Day: 2 Cigarettes Per Day: 40.0 Years Smoked: 30 e-Cigarette/Vaping Use: Never Used service: Yes Current occupational status: retired Cognitive needs: No Hearing needs: No Vision needs: Yes Review of Systems Const Denies chills and Denies fever(s) Card Reports no additional complaints and Denies syncope Resp Denies cough GI Denies abdominal pain and Denies heartburn Reports as per HPI and Denies change in libido Neuro Denies syncope Psych Denies change in libido Endo Denies change in libido Physical Exam Const General: cooperative, healthy appearing, comfortable and no acute distress Orientation/consciousness: patient oriented x3 HEENT Face and sinus: Yes normal facial exam Mouth: moist mucous membranes Neck Neck: Yes normal visual inspection, Yes full ROM and Yes trachea midline Chest Chest palpation & inspection: normal inspection of the chest Resp Effort & Inspection: normal respiratory effort, able to speak in complete sentences and no respiratory distress GI Inspection: Yes normal to inspection Back/Spine/Pelvis Cervical Spine: normal cervical lordosis Thoracic/Lumbar Spine: thoracic and lumbar spine normal to inspection Skin General skin exam: no rashes or lesions noted Neuro General: patient oriented x3, gait normal, tone normal and moves all extremities Extrem General: Yes normal to inspection and Yes capillary refill normal Assessment & Plan Assessment & Plan (1) Bladder cancer: Code(s): C67.9 - Malignant neoplasm of bladder, unspecified Plan For radiation oncology Repeat TURBT 4-6 weeks Orders: Referrals Radiation Oncology Referral C67.9 - Malignant neoplasm of bladder, unspecified Patient Instructions: Imaging studies, laboratory and physical exam results were discussed and reviewed in detail. No major barriers to patient understanding were identified. An opportunity to ask questions regarding the treatment plan was provided. All questions were answered. The patient expressed understanding and agreement with the above treatment plan. The patient is aware they should contact our office by phone for worsening of their current condition or the appearance of new urologic symptoms. Compliance is encouraged with any medications and followup testing that is ordered. It is a privilege to participate in the urologic care of your patient. If you have any questions or concerns regarding treatment for the above conditions, or other urologic issues, please do not hesitate to contact me. The office telephone contact is [phone]. This note is constructed using voice recognition software. While every effort has been made to ensure accuracy staffing assistant errors may have been included. Yours sincerely, Dr Lobo Dugan MD, [facility] - Urology Providers of Expert, Compassionate Care for the Genitourinary System Coding Level of Care Code Est Pt Level 4 (52027) Diagnoses Bladder cancer C67.9
== END 2024-02-05 10:32 | disposition home or self-care (01) ==
PROVIDERS: PCP Internal Medicine; Visit Provider Urology
DX: C67.8 Malignant neoplasm of overlapping sites of bladder (principal)
CPT/HCPCS: 99214

== ENCOUNTER → 2024-02-05 09:42 | Outpatient (BNVA) | payer MEDICARE, SELFPAY | PROVIDERS: PCP Internal Medicine; Visit Provider Urology | DX: C67.9 Malignant neoplasm of bladder, unspecified (principal); Z46.6 Encounter for fitting and adjustment of urinary device | CPT/HCPCS: 99212 ==

== ENCOUNTER 2024-02-07 14:49 | Outpatient (AMB) | payer MEDICARE, SELFPAY ==
[2024-02-07 14:58] VITALS: BP 116/56; PULSE 60; BMI 27.8
--- NOTE | 2024-02-07 14:58 | MHC.PC.OV ---
Vital Signs 02/07/24 14:58 Height 5 ft 4 in Weight 162 lb 0.8 oz BMI 27.8 BP 116/56 L Blood Pressure Location Lt brachial Position Sitting Pulse 60 Pulse Source Pulse Oximeter Oxygen Delivery Method Room Air Intake Visit Reasons: ED follow up Intake Note: Patient is here for hospital discharge follow up. 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: No Allergies No Known Allergies [No Known Allergies*] Allergy (Verified 02/07/24 14:59) Medication List - Last Reconciled 02/07/24 by Radha Ortiz MD amlodipine 2.5 mg PO DAILY ascorbate calcium (vitamin C) 500 mg PO DAILY aspirin (Adult Aspirin Regimen) 81 mg PO DAILY blood sugar diagnostic As directed check blood sugars 3 times a day blood sugar diagnostic (OneTouch Ultra Test strips) As directed check the blood sugar once a day cholecalciferol (vitamin D3) 50 mcg PO DAILY cyanocobalamin (vitamin B-12) 1,000 mcg PO Q OTHER DAY ferrous sulfate (Feosol) 325 mg PO Q OTHER DAY lancets As directed check the blood sugars 3 times a day ONETOUCH ULTRASOFT LANCETS metformin 500 mg PO DAILY 90 days metoprolol succinate ER 25 mg PO DAILY rosuvastatin (Crestor) 40 mg PO DAILY vitamins A,C,D-epsi-wlrlrg (PreserVision AREDS) 1 tab PO BID Tobacco use date assessed: 02/07/24 Fall risk assessment: No Falls in past year Last assessed Fall Risk: 02/07/24 HPI ED follow up HPI Details 88-year-old overweight male with controlled diabetes mellitus coronary artery disease hypercholesterolemia aortic stenosis coming in for follow-up. Last seen in December 2023. Patient follows up with urology bladder cancer history advised external beam radiation with TURBT. Patient was in the hospital presenting with hematuria CT of the abdomen pelvis shows soft tissue mass on the base of the bladder 4.1 cm inseparable from the prostate gland involving the left ureterovesical junction and abutting right uretero vesicular junction with moderate left hydronephrosis [facility] Medical History Prostate mass Osteopenia Paget's bone disease Overweight (BMI 25.0-29.9) Peripheral vascular disease Hypercholesterolemia Diabetic nephropathy Type 2 diabetes mellitus with hyperglycemia Macular degeneration Lumbar degenerative disc disease Left renal stone Paget's disease of bone Vitamin D deficiency Aortic stenosis, mild Coronary artery disease Surgical History S/P CABG x 3 History of tonsillectomy History of bilateral cataract extraction History of ankle surgery S/P repair of hydrocele History of inguinal hernia repair Family History Father CVD (cardiovascular disease) Mother CVD (cardiovascular disease) Heart disease Brother In good health Sister In good health Son Diabetes Social History Household Members: Spouse Housing: House Do you presently have visiting nurse or other home services: No Alcohol intake: never Patient Tobacco Use Status: Former Tobacco user Quit Date: 1979 Tobacco use type: Cigarette Cigarette Packs Per Day: 2 Cigarettes Per Day: 40.0 Years Smoked: 30 e-Cigarette/Vaping Use: Never Used service: Yes Current occupational status: retired Cognitive needs: No Hearing needs: No Vision needs: Yes Questionnaire Thrive Questionnaire Date Thrive assessed: 01/27/24 AUDIT C Alcohol Use Questionnaire (AUDIT-C) 1. How often do you have a drink containing alcohol?: Never 3. How often do you have six or more drinks on one occasion?: Never Total Score: 0 LESLEY-7 AMB Questionnaire LESLEY-7 Date LESLEY - 7 assessed: 01/01/24 Source: Developed by Drs. Lawson Jackson, Geeta Montoya, Chivo Felix and colleagues, with an educational fallon from [employer]. Physical exam (Primary Care) Vital Signs: Last Vital Signs Pulse 60 02/07/24 14:58 BP 116/56 L 02/07/24 14:58 Oxygen Delivery Method Room Air 02/07/24 14:58 BMI result Body Mass Index 27.8 Tobacco/Smoking Status: Tobacco use Status Tobacco use date assessed 02/07/24 02/07/24 14:59 Patient Tobacco Use Status Former Tobacco user 02/07/24 14:59 Tobacco use type Cigarette 02/07/24 14:59 e-Cigarette/Vaping Use Never Used 02/07/24 14:59 Thrive Assessment: Date of Thrive Assessment Date Thrive assessed 01/27/24 02/07/24 14:59 Const General: alert; No acute distress Eyes Conjunctivae: conjunctivae normal Resp Auscultation: clear to auscultation bilaterally Cardio Rate: regular rate Rhythm: regular rhythm GI Inspection: Yes normal to inspection Extrem General: Yes normal to inspection and No edema Assessment and Plan Assessment & Plan (1) Bladder cancer: Code(s): C67.9 - Malignant neoplasm of bladder, unspecified Plan: Patient has been following up with urology and planned radiation therapy (2) Essential hypertension: Code(s): I10 - Essential (primary) hypertension Plan: Continue with blood pressure medication. Decrease salt intake and exercise presently on amlodipine 2.5 mg once a day metoprolol 25 mg (3) Non-rheumatic aortic stenosis: Comment: April 2022 1.2 cm2, march 2023 0.93 Code(s): I35.0 - Nonrheumatic aortic (valve) stenosis Plan: This is continued to be followed up by Cardiology March 2023 last echocardiogram (4) Paget's bone disease: Code(s): M88.9 - Osteitis deformans of unspecified bone (5) Type 2 diabetes mellitus with hyperglycemia: Comment: Roxy Code(s): E11.65 - Type 2 diabetes mellitus with hyperglycemia Qualifiers: Diabetes mellitus technician terminal and repeater insulin use: without technician terminal and repeater use Qualified Code(s): E11.65 - Type 2 diabetes mellitus with hyperglycemia Plan: Decrease the amount of carbohydrate intake, pasta, bread, rice and potatoes are all sugar and that is aside from all the sweet stuff, remember that fruits are good but they are Sweet also. Hemoglobin A1c goal of less than 7.0 on metformin 500 mg once a day (6) Hypercholesterolemia: Code(s): E78.00 - Pure hypercholesterolemia, unspecified Plan: Avoid fried foods, chicken skin, eggs, butter margarine, pastries and meat. Be it pork or beef they have a lot of cholesterol LDL goal of less than 100 and triglyceride of less than 150 on rosuvastatin 40 mg once a day (7) Coronary artery disease: Code(s): I25.10 - Atherosclerotic heart disease of [place] coronary artery without angina pectoris Qualifiers: Associated angina: without angina Coronary Disease-Associated Artery/Lesion type: [place] artery [place] vs. transplanted heart: [place] heart Qualified Code(s): I25.10 - Atherosclerotic heart disease of [place] coronary artery without angina pectoris Plan: Control the cholesterol, weight, blood pressure, diabetes continue with aspirin 81 mg once a day Medications: Refilled amlodipine 2.5 mg PO DAILY 90 tabs 3RF Coding Level of Care Code Est Pt Level 4 (97670) Diagnoses Bladder cancer C67.9 Essential hypertension I10 Non-rheumatic aortic stenosis I35.0 Paget's bone disease M88.9 Type 2 diabetes mellitus with hyperglycemia, without long-term current use of insulin E11.65 Diabetes mellitus prison insulin use: without technician terminal and repeater use Hypercholesterolemia E78.00 Coronary artery disease involving [place] coronary artery of [place] heart without angina pectoris I25.10 Associated angina: without angina Coronary Disease-Associated Artery/Lesion type: [place] artery [place] vs. transplanted heart: [place] heart
== END 2024-02-07 15:42 | disposition home or self-care (01) ==
PROVIDERS: PCP Internal Medicine; Visit Provider Internal Medicine
DX: E11.65 Type 2 diabetes mellitus with hyperglycemia (principal); C67.9 Malignant neoplasm of bladder, unspecified; I10 Essential (primary) hypertension; I35.0 Nonrheumatic aortic (valve) stenosis; M88.9 Osteitis deformans of unspecified bone; E78.00 Pure hypercholesterolemia, unspecified; I25.10 Atherosclerotic heart disease of native coronary artery without angina pectoris
CPT/HCPCS: 99214

== ENCOUNTER 2024-04-16 09:15 | Outpatient (AMB) | payer MEDICARE, SELFPAY ==
--- NOTE | 2024-04-16 09:15 | A.OFFVIS_ITS ---
Intake Visit Reasons: Bladder cx follow up (after [facility] Admission) Intake Note: Patient is present via phone for a Bladder Cancer after [facility] Admission Blood Thinners: Aspirin Antibiotic Allergy:None Dietary Server Required: No Accompanied by: Son Allergies No Known Allergies [No Known Allergies*] Allergy (Verified 04/16/24 09:23) HPI Comments Details: Kenneth is a very pleasant male. Accompanied by his family. He has a patient of Dr Ortiz. He is seen for the following urologic conditions - bladder cancer Telemedicine Evaluation 15 min Consultation Amerityre Syed Video attempted Recent admission to [facility] with inability to void Ovalles catheter placed with decrease in creatinine Underwent bladder examination with 2nd stent placed on right side. Has seen radiation oncology and oncology Planning on palliative therapy Needs completion TURBT Bladder cancer - high-grade muscularis propria invasion 04/04 admission [facility] with retention and elevated creatinine. Underwent stent placement right side Assessment with radiation oncology for palliative RT. Therapy would not be for curative intent. 02/02 TURBT incomplete with left stent placement Complicated since lesion involved left ureteric orifice. Stent required Bladder, transurethral resection: High grade urothelial carcinoma, invasive into muscularis propria. Procedure: Transurethral resection Tumor site: Left ureteric orifice Histologic type: Urothelial carcinoma Histologic grade: High-grade Muscularis propria: Present Extent of invasion: Muscularis propria Lymphovascular invasion: Present CT - There is an abnormal heterogeneous soft tissue mass involving the base of the bladder measuring 4.1 cm, inseparable from the prostate gland and involving the left ureterovesicular junction and abutting the right ureterovesicular junction resulting in moderate left hydroureteronephrosis with a delayed nephrogram and mild right hydroureteronephrosis. Findings are suspicious for transitional cell carcinoma, though differential considerations could include primary prostatic malignancy invading the bladder. Recommend correlation with PSA, urologic evaluation and consideration of cystoscopy. [facility] Medical History Prostate mass Osteopenia Paget's bone disease Overweight (BMI 25.0-29.9) Peripheral vascular disease Hypercholesterolemia Diabetic nephropathy Type 2 diabetes mellitus with hyperglycemia Macular degeneration Lumbar degenerative disc disease Left renal stone Paget's disease of bone Vitamin D deficiency Aortic stenosis, mild Coronary artery disease Surgical History S/P CABG x 3 History of tonsillectomy History of bilateral cataract extraction History of ankle surgery S/P repair of hydrocele History of inguinal hernia repair Family History Father CVD (cardiovascular disease) Mother CVD (cardiovascular disease) Heart disease Brother In good health Sister In good health Son Diabetes Social History Household Members: Spouse Housing: House Do you presently have visiting nurse or other home services: No Alcohol intake: never Patient Tobacco Use Status: Former Tobacco user Tobacco use type: Cigarette Cigarette Packs Per Day: 2 Cigarettes Per Day: 40.0 Years Smoked: 30 e-Cigarette/Vaping Use: Never Used service: Yes Current occupational status: retired Cognitive needs: No Hearing needs: No Vision needs: Yes Review of Systems Const All systems reviewed & are unremarkable except as noted in HPI and below Reports no additional complaints Resp Reports no additional complaints GI Reports no additional complaints Reports as per HPI Musc Reports no additional complaints Physical Exam Telemedicine evaluation Appropriate responses Regular breathing rate and rhythm HEENT Head: Yes normal to inspection Ears: hearing grossly normal bilaterally Eyes General: appearance normal, both eyes and all related structures Neck Neck: Yes normal visual inspection Chest Chest palpation & inspection: normal inspection of the chest Resp Effort & Inspection: normal respiratory effort and able to speak in complete sentences Telehealth Telehealth Telehealth Platform: [facility] Location of provider rendering services: practice address Location of patient: address on file Patient Identification confirmed using: Name, : Yes Telehealth method: voice only Patient verbally consented to treatment: Yes Patient verbally consented to billing insurance company: Yes Patient informed of any privacy concerns related to visit: Yes Minutes spent on Phone/Video with Pt.: 15 Assessment & Plan Assessment & Plan (1) Bladder cancer: Code(s): C67.9 - Malignant neoplasm of bladder, unspecified Category: Medical (2) Hydronephrosis: Code(s): N13.30 - Unspecified hydronephrosis Category: Medical Plan Risks, benefits and alternatives to therapy were discussed. These include but are not limited to infection, bleeding, damage to local organs and tissues, need for further interventions. Anesthetic risks regarding cardiac arrhythmia, blood clots, and potential mortality were discussed. The patient understands the typical recovery time and the outpatient nature of the procedure. After consideration of these risks the patient gives full informed consent and they wish to move ahead with the procedure. TURBT complete Patient Instructions: Imaging studies, laboratory and physical exam results were discussed and reviewed in detail. No major barriers to patient understanding were identified. An opportunity to ask questions regarding the treatment plan was provided. All questions were answered. The patient expressed understanding and agreement with the above treatment plan. The patient is aware they should contact our office by phone for worsening of their current condition or the appearance of new urologic symptoms. Compliance is encouraged with any medications and followup testing that is ordered. It is a privilege to participate in the urologic care of your patient. If you have any questions or concerns regarding treatment for the above conditions, or other urologic issues, please do not hesitate to contact me. The office telephone contact is [phone]. This note is constructed using voice recognition software. While every effort has been made to ensure accuracy registrar assistant errors may have been included. Yours sincerely, Dr Lobo Dugan MD, [facility] - Urology Providers of Expert, Compassionate Care for the Genitourinary System Coding Level of Care Code Tele Est Pt Level 4 (95215) Diagnoses Bladder cancer C67.9 Hydronephrosis N13.30
== END 2024-04-16 10:13 | disposition home or self-care (01) ==
LOC: HO.HUSH 09:15
PROVIDERS: PCP Internal Medicine; Visit Provider Urology
DX: C67.9 Malignant neoplasm of bladder, unspecified (principal); N13.30 Unspecified hydronephrosis
CPT/HCPCS: 99442

== ENCOUNTER → 2024-04-16 09:15 | Outpatient (BNVA) | payer MEDICARE, SELFPAY | PROVIDERS: PCP Internal Medicine; Visit Provider Urology ==

== ENCOUNTER → 2024-04-21 08:44 | Outpatient (REF) | payer MEDICARE, SELFPAY ==
--- NOTE | 2024-04-21 08:47 | CA_ITS ---
Transthoracic Echocardiogram Patient (Last, First, Middle): Kenneth Beard W Gender: Male Date of : 1935 Age: 88 Procedure Date: 04/21/2024 Procedure Type: Transthoracic Echocardiogram Location: OP Height: 162.56 cm Weight: 63.96 kg BSA: 1.69 m2 Heart Rate: 66 bpm BP: 85 / 40 mmHg Machine I Trimmer: [id number] Referring MD: Nj Damian MD Symptoms: I35.0 - Nonrheumatic aortic (valve) stenosis Study Quality: Adequate w contrast ECG Rhythm: Sinus Conclusions: - The left ventricular systolic function is normal. The visually estimated ejection fraction is between 55-60%. - The basal inferior segment is hypokinetic. - There is severe calcification of the aortic valve. There is moderate aortic valve stenosis. Findings Procedure Information Contrast agent, definity, is being given per protocol without apparent complications. Left Ventricle Normal left ventricular cavity size. There is mildly increased left ventricular wall thickness. The left ventricular systolic function is normal. The visually estimated ejection fraction is between 55-60%. There is no evidence of regional wall motion abnormalities. There is paradoxical septal motion consistent with post-operative status. Diastolic function is normal for age. There is moderate septal asymmetric hypertrophy. Wall Motion Rest Echo Findings The basal inferior segment is hypokinetic. Right Ventricle Normal right ventricular cavity size. There is severely decreased right ventricular systolic function. Atria Both atria are normal in size. Aortic Valve There is severe calcification of the aortic valve. There is moderate aortic valve stenosis. The peak aortic velocity is 2.87 m/s with a calculated peak gradient of 33 mmHg. The mean gradient is 19 mmHg. The aortic valve area is 1.38 cm2. There is mild aortic valve regurgitation. Dimensionless index 0.35. Mitral Valve The mitral valve appears normal. There is no mitral valve regurgitation. There is no mitral valve stenosis. Pulmonic Valve The pulmonic valve is likely normal. Tricuspid Valve Normal tricuspid valve structure. There is mild tricuspid valve regurgitation. There is no evidence of pulmonary hypertension. Great Vessels The asc aorta is normal in size. Large plaque is seen in the sino tubular ridge. Venous The inferior vena cava is normal in size and collapses greater than 50% with inspiration. Pericardium/Pleural There is no evidence of pericardial effusion. Prior Study Comparison No significant change compared to prior study dated: 03/26/2023. Aortic valve gradients slightly lower and valve area larger, could be underestimation; wall motion looks about the same. Measurements 2D Linear Measurements IVSd: 1.46 0.6-0.9/0.6-1.0 cm LVIDd: 2.98 3.9-5.3/4.2-5.9 cm LVIDd Index: 1.76 2.4-3.2/2.2-3.1 cm/m2 LVIDs: 1.30 2.0-3.6 cm LVPWd: 1.12 0.7-1.1 cm LA Diam: 2.50 2.7-3.8/3.0-4.0 cm LAIDs Index: 1.48 1.5-2.3 cm/m2 LV Mass: 151.23 67-162/88-224 g LV Mass Index: 89.49 43-95/49-115 g/m2 LVOT Diam: 2.20 3.0+(-)1.3 cm 2D Systolic Function EF 4C: 54.50 >55% EF 2C: 57.00 >55% EF BiP: 54.90 >55% Mitral Valve MV Pk E: 0.52 MV PK A: 1.02 MV Decel Time: 321.00 E/A: 0.50 E'Lateral: 7.07 E'Medial: 3.92 E/E' Med: 13.40 E/E' Lat: 7.40 PHT: 94.00 MVA PHT: 2.34 Decel Benzie: 1.63 Aortic Valve AoV Pk Lazaro: 2.87 AoV Mn Lazaro: 2.07 AoV VTI: 0.58 AoV Pk Grad: 33.00 Aov Mn Grad: 19.00 SIRISHA Cont.VTI: 1.38 AI Pk Lazaro: 3.81 AI Benzie: 2.22 LVOT LVOT Pk Lazaro: 0.99 LVOT Mn Lazaro: 0.71 LVOT VTI: 0.21 LVOT Pk Grad: 4.00 LVOT Mn Grad: 2.00 LVOT Diam: 2.20 LVOT Area: 3.80 Diastolic Function MV Pk E: 0.52 MV Pk A: 1.02 E/A: 0.50 E'Medial: 3.92 E/E' Med: 13.40 E' Laterial: 7.07 E/E' Lat: 7.40 Right Ventricle TAPSE (mm): 9.00 TVS' Lazaro: 6.20 Tricuspid Valve TR Pk Lazaro: 2.37 TR Pk Grad: 22.00 RA Press: 8.00 RVSP: 30.00 Great Vessels Aorta Sinus of Valsalva: 3.60 2.0-3.5 cm Ao Asc: 3.70 2.1-3.4 cm Pulmonary Valve PV Pk Lazaro: 0.89 Peak PV Grad: 3.00 Updated in Other Vendor System with Status of Final Nj Damian MD electronically signed on 04/21/2024 2:30:44 PM with status of Final
== END ==
LOC: HO.CARD 08:44
PROVIDERS: PCP Internal Medicine; Visit Provider Internal Medicine
DX: I35.0 Nonrheumatic aortic (valve) stenosis (principal)
CPT/HCPCS: 93306; Q9957

== ENCOUNTER → 2024-04-21 08:47 | Outpatient (BNV) | payer MEDICARE, SELFPAY | PROVIDERS: PCP Internal Medicine; Visit Provider Internal Medicine | DX: I35.0 Nonrheumatic aortic (valve) stenosis (principal); I35.8 Other nonrheumatic aortic valve disorders; I36.1 Nonrheumatic tricuspid (valve) insufficiency; I42.2 Other hypertrophic cardiomyopathy | CPT/HCPCS: 93306 ==

== ENCOUNTER 2024-04-21 14:24 | Day surgery (SDC) | payer MEDICARE, SELFPAY ==
[2024-04-21] VITALS (7 sets, daily range): BP systolic 113–138; BP diastolic 45–54; PULSE 62–68; RESP 12–16; TEMP 35.9–36.2; O2SAT 96–100; BMI 34.0
--- NOTE | ~2024-04-21 | FL_ITS ---
EXAMINATION: XR FLUOROSCOPY WITH IMAGES CLINICAL INFORMATION: Bilateral ureteral stent placement. COMPARISON: None available. TECHNIQUE: Fluoroscopy Supervised By: Dr. Lobo Dugan. Fluoroscopy Time: 62.4 seconds. Cumulative Dose: 14.69 mGy. Images: 4. FINDINGS: Images were taken during placement of bilateral indwelling double-J stents. Please see Dr. Dugan's procedure note for full details. FL/FL guidance in OR IMPRESSION: Fluoroscopy and spot films provided during placement of bilateral double-J stents.
[2024-04-21] MEDS: Lactated Ringers 1,000 ML 50 ML IVCONT (15:23)
[2024-04-21 15:27] LABS: Glucose, Whole Blood 113 mg/dL (60-115)
--- NOTE | 2024-04-21 16:10 | P.HPSUR_ITS ---
Pre-Procedural Eval Section A - 24 Hr Update-Section A only Date of Service: 04/21/24 The patient is an INPATIENT: No Changes since office visit: No Cold of Flu in the past 2 weeks, No New Medical Problems, No Changes in Medication and No Patient answered all questions The patient has been examined within 24 hours of the surgical procedure. The History & Physical has been completed within 30 days and I have reviewed it.: No Section B - Complete if H&P > 30 days Chief Complaint: Malignant neoplasm of bladder, unspecified Details of Present Illness: Underwent recent admission to [facility]. B ilateral external renal stents placed. Here for bilateral antegrade examination, bilateral stent internalization, cystoscopy with tumor fulguration at base of bladder. Relevant Family History (Specify if Yes): No Relevant Social History: None Medical History: Significant History History of Previous Operations: Relevant previous surgery/procedure and date(s) Allergies: Allergies Allergy/AdvReac Type Severity Reaction Status Date / Time No Known Allergies Allergy Verified 04/21/24 15:07 [No Known Allergies*] Review of Systems Sugical H&P ROS: Negative: Constitution, Cardiovascular, Respiratory, Neurological, Psychiatric, Hem-Onc, Allergic/Immunologic, Gastrointestinal, Genitourinary, Musculoskeletal, Integumentary, Endocrine and Eyes/Ears/Nose/Throat Exam Surgical H&P Exam: Normal: HEENT, Normal: Heart, Normal: Lungs, Normal: Extremities, Normal: Abdomen, Normal: Skin and Normal: Neurological Plan Diagnosis/Plan: Unchanged (See above) I have reviewed the history and physical and performed a pertinent physical examination on my patient. No changes have occurred unless specified. Time Spent With Patient Time: Total time managing care of this patient today ____ minutes.
--- NOTE | 2024-04-21 17:37 | P.OP_ITS ---
Operative Note Operative Note Date of Service: 04/21/24 Narrative: PreOperative Diagnosis: Bilateral hydronephrosis, invasive bladder cancer Post Operative Diagnosis: Bilateral hydronephrosis, invasive bladder cancer Procedure: 1) bilateral stent internalization - cystoscopy, retrograde, stent exchange 2) extensive fulguration bladder tumor - using VaporTrode Surgeon: Dr Lobo Dugan Anesthesia: General Indications for procedure: External PCN catheters Procedure: After informed consent was verified the patient was brought to the operating room and placed in a supine position. Anesthesia was administered per protocol. The patient was placed in modified dorsal lithotomy position and prepped and draped in a sterile fashion. A safety pause time-out was performed. Laterality of procedure and antibiotics were confirmed, appropriate imaging was available. Fluoroscopy showed nephro ureteral stent on the right side and nephro stent on t he left side with internal ureteric stent. A 22 [facility] cystoscope was introduced per urethra. There was healing cancer across the floor the bladder. Stent was emerging from the left side. Stent was emerging from the right side. The right ureter was cannulated with an open ended catheter and a sensor guidewire was advanced under fluoroscopy up into the renal pelvis. The nephroureteral stent was then removed externally. A retrograde examination was then done with the open-ended catheter over the sensor guidewire to display the renal pelvis. The sensor guidewire was placed into the renal pelvis. A 7 [facility] by 24 cm double-J stent was then advanced through the cystoscope up into the renal pelvis with a good coil in the bladder. Addressing the left side. We were unable to place a wire alongside the current indwelling 6 [facility] stent. The 6 [facility] stent was grasped and removed to the meatus. A sensor wire was placed through the internal aspect of the stent and advanced up into the renal pelvis. The indwelling 6 [facility]ian stent was removed. The external PCN 8 [facility]ian stent was removed. The wire remained in good position within the renal pelvis. The open-ended catheter was placed retrograde was performed in order to delineate the renal pelvis. The sensor wire was placed. The open-ended catheter was removed. A 7 [facility] by 24 cm stent was placed without difficulty. At this point the cystoscope was removed. A resectoscope was placed. Using a VaporTrode and settings of 180, 120 the base of the bladder was fulgurated in order to control the invasive tumor. Once completed decision was made to leave an 18 [facility] silicon catheter. This was placed into the bladder and 10 cc placed in the balloon. An external 2 L bag was attached. The patient tolerated the procedure well and was transferred in a stable condition to the recovery area. A telephone discussion was had with his son Carlos Alberto. Care of the [place] catheter was discussed and he should cycle of bladder during the day and use the bag at nighttime. We will see him in 4 weeks' time to exchange the catheter. Carlos Alberto will call oncology and radiation oncology at [facility] tomorrow so he can move ahead with palliative treatment of the bladder mass Pathology: Drains: As above
--- NOTE | 2024-04-21 17:41 | HO.ANESPROP2 ---
[facility] Active Problems Active Problems: All Active Problems Depression, major (Acute) Bladder cancer (Acute) Hydronephrosis (Acute) Bladder mass (Acute) Abnormal computed tomography of abdomen and pelvis (Acute) UTI (urinary tract infection) (Acute) Laceration of finger of left hand (Acute) Obesity (BMI 30.0-34.9) (Acute) PVC (premature ventricular contraction) (Acute) Essential hypertension (Acute) Non-rheumatic aortic stenosis (Acute) Atherosclerotic cardiovascular disease (Acute) Anemia (Acute) Dysgeusia (Acute) Macular degeneration (Acute) Osteopenia (Acute) Paget's bone disease (Acute) Overweight (BMI 25.0-29.9) (Acute) Hypercholesterolemia (Acute) Diabetic nephropathy (Acute) Type 2 diabetes mellitus with hyperglycemia (Acute) Vitamin D deficiency (Acute) Coronary artery disease (Acute) Past Medical History Medical History Prostate mass Osteopenia Paget's bone disease Overweight (BMI 25.0-29.9) Peripheral vascular disease Hypercholesterolemia Diabetic nephropathy Type 2 diabetes mellitus with hyperglycemia Macular degeneration Lumbar degenerative disc disease Left renal stone Paget's disease of bone Vitamin D deficiency Aortic stenosis, mild Coronary artery disease Family History Family History Father CVD (cardiovascular disease) Mother CVD (cardiovascular disease) Heart disease Brother In good health Sister In good health Son Diabetes Family history of problems with anesthesia: No Surgical History Surgical History History of removal of calculus of renal pelvis through percutaneous nephrostomy S/P CABG x 3 History of tonsillectomy History of bilateral cataract extraction History of ankle surgery S/P repair of hydrocele History of inguinal hernia repair History of Problems with Anesthesia: No Social History Social History Household Members: Spouse Housing: House Do you presently have visiting nurse or other home services: No Alcohol intake: never Patient Tobacco Use Status: Former Tobacco user Tobacco use type: Cigarette Cigarette Packs Per Day: 2 Cigarettes Per Day: 40.0 Years Smoked: 30 e-Cigarette/Vaping Use: Never Used Use of substances other than those prescribed or required for medical reasons: No Advance Directives: No Advance Directives Information Provided: Yes service: Yes Current occupational status: retired Cognitive needs: No Hearing needs: No Vision needs: Yes Meds Allergies Allergy/AdvReac Type Severity Reaction Status Date / Time No Known Allergies Allergy Verified 04/21/24 15:07 [No Known Allergies*] Active Medications: Current Medications Lactated Ringer's (Lr) 1,000 mls @ 50 mls/hr IVCONT .Q20H ELEANOR Last Admin: 04/21/24 15:23 Dose: 50 mls/hr Home Medications ?Medication ?Instructions ?Recorded ?Confirmed ?Last Taken ?Type ascorbate calcium (vitamin C) 500 500 mg PO DAILY 10/11/20 04/21/24 Unknown History mg tablet aspirin 81 mg tablet,delayed 81 mg PO DAILY 10/11/20 04/21/24 01/26/24 History release (Adult Aspirin Regimen) vitamins A,C,O-jmwg-bzbbov 1 tab PO BID 03/29/21 04/21/24 01/26/24 History [PreserVision AREDS] cyanocobalamin (vitamin B-12) 1,000 mcg PO Q OTHER DAY 01/26/24 04/21/24 Unknown History 1,000 mcg capsule Exam Height,Weight and Vital Signs: Height 5 ft 4 in Weight 89.947 kg Last Vital Signs Temp 96.7 F L 04/21/24 15:09 Pulse 68 04/21/24 15:09 Resp 16 04/21/24 15:09 BP 138/54 L 04/21/24 15:09 Pulse Ox 97 04/21/24 15:09 O2 Del Method Room Air 04/21/24 15:09 Pertinent Lab Results Pertinent Lab Results: Laboratory Tests 04/21/24 15:12 POC Glucose 113 Airway Mallampati Class: II TM Dist: >3cm Neck ROM: Limited Denture: Upper and Lower Assessment and Plan Assessment Anesthesia Assessment: Anesthesia Plan Discussed and Chart Reviewed Final Anesthetic Review Family History of Problems with Anesthesia: No History of Problems with Anesthesia: No NPO: Yes ASA Class: III Final Preanesthetic Review: No Changes in Pt Med Stat, Meds/Allgs Chart Reviewed, Consent Obtained/Reviewed and Anes Risks/Benef Reviewed Patient Risk: Intermediate Procedure Risk: Low Anesthetic Plan Anesthetic Plan: GA Disposition: Standard PACU
== END 2024-04-21 19:08 | disposition home or self-care (01) ==
PROVIDERS: PCP Internal Medicine; Visit Provider Urology
PROC: 0TBB8ZZ Excision of Bladder, Via Natural or Artificial Opening Endoscopic (ICD-10-PCS; CPT 50389; principal; 2024-04-21 16:00)
DX: C67.9 Malignant neoplasm of bladder, unspecified (principal); N13.30 Unspecified hydronephrosis; E11.9 Type 2 diabetes mellitus without complications; Z43.6 Encounter for attention to other artificial openings of urinary tract
CPT/HCPCS: 50389; 52332; 52240; 82947; C2617; J0131; J1100; J1596; J1956; J2405; J2704; J3010; Q9967

== ENCOUNTER → 2024-04-21 14:24 | Outpatient (BNV) | payer MEDICARE, SELFPAY | PROVIDERS: PCP Internal Medicine; Visit Provider Urology | DX: C67.6 Malignant neoplasm of ureteric orifice (principal); N13.39 Other hydronephrosis | CPT/HCPCS: 52224; 52332; 74420 ==

== ENCOUNTER 2024-04-28 03:54 | Inpatient (IN) | payer MEDICARE, SELFPAY ==
--- NOTE | ~2024-04-28 | FL_ITS ---
EXAMINATION: XR FLUOROSCOPY WITH IMAGES CLINICAL INFORMATION: Bilateral stents COMPARISON: 04/21/2024 TECHNIQUE: Fluoroscopy Supervised By: Dr. Lobo Dugan. Fluoroscopy Time: 30.7 seconds. Cumulative Dose: 8.79 mGy. DAP: Not applicable Images: 3. FINDINGS: Images were taken during placement of bilateral indwelling double-J stents. Please see Dr. Dugan's procedure note for full details. FL/FL guidance in OR IMPRESSION: Fluoroscopy and spot films provided during placement of bilateral double-J stents.
--- NOTE | ~2024-04-28 | CT_ITS ---
EXAMINATION: CT ABDOMEN AND PELVIS WITHOUT CONTRAST CLINICAL INFORMATION: Left flank pain. Status post stent placement. COMPARISON: 01/26/2024 TECHNIQUE: Multidetector volumetric imaging was performed from the superior aspect of the liver through the pubic symphysis. Sagittal and coronal reformatted images were obtained on the technologist's workstation. This CT examination was performed using dose optimization techniques as appropriate, variously including the following: *Automated exposure control *Adjustment of mA and/or kV according to patient size (this includes techniques or standardized protocols for targeted exams where dose is matched to indication/reason for exam; i.e. extremities or head) *Use of iterative reconstruction technique DLP: 420 mGy-cm FINDINGS: LUNG BASES: The visualized lung bases are unremarkable. LIVER, GALLBLADDER, AND BILIARY TREE: The liver is normal in size, shape, and attenuation. No focal hepatic lesion or biliary ductal dilatation is present. Minimal layering dense material within the gallbladder. PANCREAS: Unremarkable. SPLEEN: Unremarkable. ADRENAL GLANDS: Unremarkable. KIDNEYS AND URETERS: The kidneys are normal in size, shape, and attenuation. Lateral double-J stents are seen in place with proximal stent within the bilateral renal pelvises and distal stent extending into the urinary bladder. There is persistent moderate bilateral hydronephrosis slightly more pronounced on the left. BLADDER: Decompressed. GASTROINTESTINAL TRACT: The small and large bowel are unremarkable. The appendix is unremarkable. ABDOMINAL WALL: No significant hernia is appreciated. LYMPH NODES: Normal. VASCULAR: There is atherosclerotic plaque of the abdominal aorta. PELVIC VISCERA: Prostate gland hypertrophy is again seen. OSSEOUS STRUCTURES: Unremarkable. CT/CT abdomen pelvis wo IV con IMPRESSION: Bilateral double-J stents are seen in place. There is persistent moderate bilateral hydronephrosis slightly more pronounced on the left. Fleischner guidelines were followed.
[2024-04-28 03:57] VITALS: BP 104/49; PULSE 73; RESP 16; TEMP 36.3; O2SAT 0; BMI 24.5
--- NOTE | 2024-04-28 04:25 | ED.MALEGU ---
HPI - Male Genitourinary General Chief complaint: Urogenital-Male Stated complaint: pain in the lower back Time Seen by Provider: 04/28/24 04:25 Source: patient Mode of arrival: ambulatory Limitations: no limitations History of Present Illness ED Provider: verona CAMPA Narrative: Patient status post bilateral ureteric stent placement on 04/21 for bladder cancer patient was doing good until earlier today when noticed pain in the left flank area and slightly thick milky urine Related Data Home Medications ?Medication ?Instructions ?Recorded ?Confirmed ascorbate calcium (vitamin C) 500 500 mg PO DAILY 10/11/20 04/21/24 mg tablet aspirin 81 mg tablet,delayed 81 mg PO DAILY 10/11/20 04/21/24 release (Adult Aspirin Regimen) vitamins A,C,L-bzxl-sznbki 1 tab PO BID 03/29/21 04/21/24 [PreserVision AREDS] cyanocobalamin (vitamin B-12) 1,000 mcg PO Q OTHER DAY 01/26/24 04/21/24 1,000 mcg capsule Previous Rx's ?Medication ?Instructions ?Recorded blood sugar diagnostic #3 boxes 03/31/21 cholecalciferol (vitamin D3) 50 50 mcg PO DAILY #30 caps 04/20/22 mcg (2,000 unit) capsule lancets #300 ea 07/11/23 blood sugar diagnostic (OneTouch #100 ea 09/06/23 Ultra Test strips) metformin 500 mg tablet 500 mg PO DAILY 90 days #90 tabs 09/06/23 rosuvastatin 40 mg tablet (Crestor) 40 mg PO DAILY #90 tabs 01/01/24 ferrous sulfate 325 mg (65 mg 325 mg PO Q OTHER DAY #90 tabs 03/11/24 iron) tablet (Feosol) metoprolol succinate 25 mg 12.5 mg (1/2 x 25 mg) PO DAILY #90 04/18/24 tablet,extended release 24 hr tabs paroxetine HCl 10 mg tablet (Paxil) 10 mg PO DAILY #30 tabs 04/18/24 ascorbic acid (vitamin C) 1,000 mg 1 g PO DAILY UTI prevention 90 04/21/24 tablet (Vitamin C) days #90 tabs methenamine hippurate 1 gram tablet 1 g PO DAILY 90 days #90 tabs 04/21/24 Allergies Allergy/AdvReac Type Severity Reaction Status Date / Time No Known Allergies Allergy Verified 04/28/24 04:03 [No Known Allergies*] Review of Systems Review of Systems: Yes all other systems are reviewed and are negative [facility] Past Medical History Medical History Prostate mass Osteopenia Paget's bone disease Overweight (BMI 25.0-29.9) Peripheral vascular disease Hypercholesterolemia Diabetic nephropathy Type 2 diabetes mellitus with hyperglycemia Macular degeneration Lumbar degenerative disc disease Left renal stone Paget's disease of bone Vitamin D deficiency Aortic stenosis, mild Coronary artery disease Surgical History History of removal of calculus of renal pelvis through percutaneous nephrostomy S/P CABG x 3 History of tonsillectomy History of bilateral cataract extraction History of ankle surgery S/P repair of hydrocele History of inguinal hernia repair Family History Family History Father CVD (cardiovascular disease) Mother CVD (cardiovascular disease) Heart disease Brother In good health Sister In good health Son Diabetes Social History Social History Household Members: Spouse Housing: House Do you presently have visiting nurse or other home services: No Alcohol intake: never Patient Tobacco Use Status: Former Tobacco user Tobacco use type: Cigarette Cigarette Packs Per Day: 2 Cigarettes Per Day: 40.0 Years Smoked: 30 Smoked in Last 30 Days: No e-Cigarette/Vaping Use: Never Used Use of substances other than those prescribed or required for medical reasons: No Advance Directives: No Advance Directives Information Provided: Yes Do you have a plan to hurt others: No Plan service: Yes Current occupational status: retired Cognitive needs: No Hearing needs: No Vision needs: Yes Physical Exam Vital Signs: Vital Signs: Last Vital Signs Temp 97.4 F 04/28/24 03:57 Pulse 73 04/28/24 03:57 Resp 16 04/28/24 03:57 BP 104/49 L 04/28/24 03:57 Pulse Ox 0 L 04/28/24 03:57 O2 Del Method Room Air 04/28/24 03:57 BMI result Body Mass Index 24.5 Appearance: Alert. Oriented X3. No acute distress. ENT: Pharynx normal. Oral Mucosa moist Neck: Normal inspection. Neck supple. CVS: Normal heart rate and rhythm. Pulses normal. Respiratory: No respiratory distress. Equal air entry bilateral, no wheezing/rales/rhonchi Abdomen: Soft and nontender. Bowel sounds are present, no mass palpable, L CVA tenderness Ovalles catheter in place draining urine Skin: Skin warm and dry. Normal skin color. Normal skin turgor. Extremities: No lower extremity edema. No calf tenderness Neuro: Oriented X 3. Medications Administered Discontinued Medications Generic Name Dose Route Start Last Admin Trade Name Freq PRN Reason Stop Dose Admin Ceftriaxone Sodium 1 gm/ 50 mls @ 100 mls/hr 04/28/24 05:02 04/28/24 06:44 Sodium Chloride IV 04/28/24 05:31 Infused ONCE ONE Infusion Sodium Chloride 1,000 mls @ 999 mls/hr 04/28/24 05:03 04/28/24 06:02 Ns IV 04/28/24 06:03 999 mls/hr .Q1H1M ONE Administration Medical Decision Making Medical Decision Making [facility] Narrative: Patient with acute left flank pain with history of bladder cancer status post bilateral ureteric stent placement on 04/21 comes with acute pain in the left flank area workup showed acute renal failure with mild hydronephrosis patient does have Ovalles catheter and making urine case discussed Dr. Dugan will evaluate the patient admit to hospitalist service requested nephrology consult also Differential Diagnosis Differential Diagnoses: The differential diagnosis associated with the presentation includes Admission/Observation Consideration of admission/observation: Escalation of care including admission/observation considered Obstructive nephropathy/urinary tract infection Consult Healthcare Provider Management of the patient was discussed with: Hospitalist and Fitter Placer Case discussed Dr. Dugan urologist will see the patient requested nephrology consult likely acute on chronic renal failure Lab Data [facility] Lab Attestation statement: I reviewed the patient's lab results. 04/28/24 04:41 Labs: Lab Results 04/28/24 04/28/24 04/28/24 Range/Units 04:33 04:41 05:45 Sodium 137 (135-145) mmol/L Potassium 4.4 (3.3-5.1) mmol/L Chloride 106 (96-108) mmol/L Carbon Dioxide 14 L (22-29) mmol/L Anion Gap 21 H (12-20) BUN 99 H (9-16) mg/dL Creatinine 8.64 H* (0.5-1.4) mg/dL Estim Creat Clear Calc 5.1 Estimated GFR 6 Random Glucose 99 (60-115) mg/dL Lactic Acid 0.2 L (0.5-2.0) mmol/L Calcium 9.1 (8.4-10.2) mg/dL Urine Color Yellow Urine Appearance Turbid Urine pH 5.5 (5.0-9.0) Ur Specific [place] 1.010 (1.005-1.025) Urine Protein 300 (3+) H (Neg-Trace) mg/dL Urine Glucose (UA) Negative (Negative) mg/dL Urine Ketones Negative (Negative) mg/dL Urine Blood Large (3+) H (Negative) Urine Nitrite Negative (Negative) Ur Leukocyte Esterase Large (3+) H (Negative) Urine RBC >20 H (0-2) /HPF Urine WBC >50 H (0-5) /HPF Ur Squamous Epith Cells >20 (0-2) /HPF Urine Bacteria 3+ (None Seen) Hyaline Casts 6-10 (0-2) /LPF Urine Yeast Present Discharge Plan Discharge Clinical Impression: Acute renal failure, UTI (urinary tract infection), Bladder cancer Patient Disposition: Admitted As Inpatient Print Language: Anguillan
[2024-04-28 04:40] LABS: Appearance Urine Turbid; Color Urine Yellow; Glucose Urine UA Negative (Negative); Leukocyte Esterase Urine Large (3+) (Negative); Nitrite Urine Negative (Negative); PH 5.5 (5.0-9.0); UMIC TRIGGER UACC YES; Urine Blood Large (3+) (Negative); Urine Ketones Negative (Negative); Urine Protein 300 (3+) mg/dL (Neg-Trace)
[2024-04-28 04:52] LABS: Bacteria Urine 3+ (None Seen); RBC Urine >20 /HPF (0-2); Squamous Epithelial Cell Urine >20 /HPF (0-2); UACC Culture Trigger YES; WBC Urine >50 /HPF (0-5)
[2024-04-28 05:02] LABS: Anion Gap 21 (12-20); Blood Urea Nitrogen 99 mg/dL (9-16); Calcium 9.1 mg/dL (8.4-10.2); Carbon Dioxide 14 mmol/L (22-29); Chloride 106 mmol/L (96-108); Creatinine Clr Calc Pharmacy 5.1; Estimated Glomerular Filt Rate 6; Glucose Random 99 mg/dL (60-115); Potassium 4.4 mmol/L (3.3-5.1); Sodium 137 mmol/L (135-145)
[2024-04-28 06:02] LABS: Lactic Acid 0.2 mmol/L (0.5-2.0)
[2024-04-28] MEDS: 0.9 % Sodium Chloride 1,000 ML 999 ML IV ×2 (06:02→07:21)
[2024-04-28] MEDS: cefTRIAXone sodium 1 GM in 0.9 % Sodium Chloride 50 ML IV (06:02)
[2024-04-28 07:13] VITALS: BP 116/43; PULSE 65; RESP 16; TEMP 36.5; O2SAT 100
--- NOTE | 2024-04-28 07:21 | PC.NURSE ---
patient resting quietly in room with visitor at bedside. bladder scan obtained, patient with approx 131mL. fluids infusing at this time, patient offering no further complaints. call baltazar within reach.
[2024-04-28 07:45] LABS: MANUAL DIFF FLAG NO
[2024-04-28 07:49] VITALS: BP 114/30; PULSE 64; RESP 16; TEMP 36.6; O2SAT 100
[2024-04-28 07:51] LABS: Basophils Percent Auto 0.4 % (0-2); Eosinophils Absolute Auto 0.1 X10*3/uL (0.0-0.4); Eosinophils Percent Auto 1.3 % (0-4); Hematocrit 24.4 % (42.0-52.0); Hemoglobin 8.2 g/dl (14.0-18.0); Imm Gran Abs Auto 0.06 X10*3/uL (0.00-0.03); Imm Gran Pct Auto 0.5 % (0.0-0.4); Lymphocytes Absolute Auto 0.9 X10*3/uL (1.2-4.9); Lymphocytes Percent Auto 8.1 % (20-40); Mean Corpuscular HGB Conc 33.6 g/dl (31.0-36.0); Mean Corpuscular Hemoglobin 28.3 pg (27.0-33.0); Mean Corpuscular Volume 84.1 fL (80.0-98.0); Mean Platelet Volume 8.6 fL (9.4-12.4); Monocytes Absolute Auto 0.7 X10*3/uL (0.1-1.2); Monocytes Percent Auto 6.5 % (2-11); Neutrophils Absolute Auto 9.1 x10*3/uL (2.0-8.3); Neutrophils Percent Auto 83.2 % (45-73); Platelet Count 423 X10*3/uL (160-400); Red Cell Distribution Width 14.6 % (11.0-16.0); White Blood Count 10.9 X10*3/uL (4.8-10.8)
--- NOTE | 2024-04-28 08:40 | PHA.MEDREC ---
Pharmacy Consult ? Medication Reconciliation Pharmacy has completed the medication reconciliation. spoke with patient to confirm medications. He does have a prescription for amlodipine 2.5mg daily but last took it 2 weeks ago due to low blood pressure. He confirmed metoprolol 1/2 tablet daily. Patient did not take any medications at home today.
--- NOTE | 2024-04-28 09:28 | PC.NURSE ---
family and patient updated on plan of care. awaiting hospitalist to speak with patient, no other complaints at this time, call baltazar within reach.
--- NOTE | 2024-04-28 10:43 | P.HPHOSP_ITS ---
History of Present Illness Date of Service: 04/28/24 Attending physician on admission: Chencho [place] Chief Complaint: flank pain 88-year-old male with history aortic stenosis, macular degeneration, Paget's disease with osteopenia, vjb-kuzlrwi-ohvfraesl type 2 diabetes, coronary artery disease, diabetic polyneuropathy, bladder cancer and hypertension who is s/p bilateral J-stent placement on 04/21 with Du catheter in place presented to the ED due to left flank pain. Has been following closely with Dr. Corbett and Dr. Dugan in urology and is now following with Radiation Oncology at [facility] for invasive bladder cancer at the floor of the bladder. He had bilateral external PCN tubes placed on March 26 but was then admitted to [facility] with acute kidney injury. One week ago, underwent PCN tube internal fixation by Dr. Dugan with double-J stents placed bilaterally along with Du catheter. He is reporting suprapubic pressure but otherwise denies any fevers, chills, abdominal pain, nausea, vomiting, hematuria, frequency, urgency. He does note the urine in his Du bag has been cloudy but no blood. Since arrival, VSS. WBC 10.9, h/h 8.2/24.4% (was 9.8/30.3% at [facility] on 04/10). Creat 7.96 on admission, baseline around 1.3. BUN 91. Lytes wnl except co2 18, AG 15. VBG with pH 7.27, pCO2 28, bicarb 13. Urinalysis significant for 3+ leukocytes, negative nitrites, 3+ blood, positive urinary sediment with elevated squamous epithelial cells with 3+ bacteria. CT abdomen/pelvis shows bilateral double-J stents in place with persistent moderate bilateral hydronephrosis slightly more pronounced on the left. Urine sodium 48, urine creatinine 55.13. FeNa 5.0%. In the ED, du catheter replaced, output -475cc. In the ED, given 2 L IV NS and changed to sodium bicarbonate drip. He has also been given 1 g IV ceftriaxone. The patient will be admitted for further management of acute kidney injury with concern for obstructive uropathy. Review of Systems 2 Review of Systems: Yes all other systems are reviewed and are negative [facility] Medical History Prostate mass Osteopenia Paget's bone disease Overweight (BMI 25.0-29.9) Peripheral vascular disease Hypercholesterolemia Diabetic nephropathy Type 2 diabetes mellitus with hyperglycemia Macular degeneration Lumbar degenerative disc disease Left renal stone Paget's disease of bone Vitamin D deficiency Aortic stenosis, mild Coronary artery disease Family History Father CVD (cardiovascular disease) Mother CVD (cardiovascular disease) Heart disease Brother In good health Sister In good health Son Diabetes Surgical History History of removal of calculus of renal pelvis through percutaneous nephrostomy S/P CABG x 3 History of tonsillectomy History of bilateral cataract extraction History of ankle surgery S/P repair of hydrocele History of inguinal hernia repair Social History Household Members: Spouse Housing: House Do you presently have visiting nurse or other home services: No Alcohol intake: never Patient Tobacco Use Status: Former Tobacco user Tobacco use type: Cigarette Cigarette Packs Per Day: 2 Cigarettes Per Day: 40.0 Years Smoked: 30 Smoked in Last 30 Days: No e-Cigarette/Vaping Use: Never Used Use of substances other than those prescribed or required for medical reasons: No Advance Directives: No Advance Directives Information Provided: Yes Do you have a plan to hurt others: No Plan service: Yes Current occupational status: retired Cognitive needs: No Hearing needs: No Vision needs: Yes Meds Allergies Allergy/AdvReac Type Severity Reaction Status Date / Time No Known Allergies Allergy Verified 04/28/24 04:03 [No Known Allergies*] Active Medications: Current Medications Sodium Chloride (Ns) 1,000 mls @ 75 mls/hr IVCONT .[id number] Home Medications ?Medication ?Instructions ?Recorded ?Confirmed ?Last Taken ?Type aspirin 81 mg tablet,delayed 81 mg PO DAILY 10/11/20 04/28/24 01/26/24 History release (Adult Aspirin Regimen) vitamins A,C,O-zxhl-krmkal 1 tab PO BID 03/29/21 04/28/24 01/26/24 History [PreserVision AREDS] cyanocobalamin (vitamin B-12) 1,000 mcg PO Q OTHER DAY 01/26/24 04/28/24 Unknown History 1,000 mcg capsule Physical Exam 2 Vital Signs and Narrative: Vital Signs: Last Vital Signs Temp 97.8 F 04/28/24 07:49 Pulse 64 04/28/24 07:49 Resp 16 04/28/24 07:49 BP 114/30 L 04/28/24 07:49 Pulse Ox 100 04/28/24 07:49 O2 Del Method Room Air 04/28/24 07:49 BMI result Body Mass Index 24.5 Constitutional - Awake and Alert, No apparent distress Eyes - PERRLA, EOMI Cardiovascular - S1S2, RRR, No edema Respiratory - Normal lung expansion, Normal respiratory effort, No respiratory distress, CTA bilaterally Gastrointestinal - NT / ND; +BS; No rebound or guarding - No CVA tenderness. s/p PCN placement with internalization Extremities - no calf tenderness bilaterally, no swelling Skin - Warm/Dry Neurological - Alert & oriented x3 Psychological - Appropriate affect Results Labs 04/28/24 07:03 04/28/24 10:38 Labs: Laboratory Results - last 24 hr 04/28/24 04/28/24 04/28/24 04:33 04:41 05:45 MCV MCH MCHC RDW Plt Count MPV Immature Gran % (Auto) Neut % (Auto) Lymph % (Auto) [place] % (Auto) Eos % (Auto) Baso % (Auto) Lymph # (Auto) [place] # (Auto) Eos # (Auto) Baso # (Auto) Abs Immat Gran (auto) Absolute Neuts (auto) Absolute Nucleated RBC Nucleated RBC % (auto) Anion Gap 21 H Estim Creat Clear Calc 5.1 Estimated GFR 6 Random Glucose 99 Lactic Acid 0.2 L Calcium 9.1 Urine Color Yellow Urine Appearance Turbid Urine pH 5.5 Ur Specific [place] 1.010 Urine Protein 300 (3+) H Urine Glucose (UA) Negative Urine Ketones Negative Urine Blood Large (3+) H Urine Nitrite Negative Ur Leukocyte Esterase Large (3+) H Urine RBC >20 H Urine WBC >50 H Ur Squamous Epith Cells >20 Urine Bacteria 3+ Hyaline Casts 6-10 Urine Yeast Present Blood Type Antibody Screen 04/28/24 04/28/24 07:03 08:30 MCV 84.1 MCH 28.3 MCHC 33.6 RDW 14.6 Plt Count 423 H D MPV 8.6 L Immature Gran % (Auto) 0.5 H Neut % (Auto) 83.2 H Lymph % (Auto) 8.1 L [place] % (Auto) 6.5 Eos % (Auto) 1.3 Baso % (Auto) 0.4 Lymph # (Auto) 0.9 L [place] # (Auto) 0.7 Eos # (Auto) 0.1 Baso # (Auto) 0.0 Abs Immat Gran (auto) 0.06 H Absolute Neuts (auto) 9.1 H Absolute Nucleated RBC 0.000 Nucleated RBC % (auto) 0.0 Anion Gap Estim Creat Clear Calc Estimated GFR Random Glucose Lactic Acid Calcium Urine Color Urine Appearance Urine pH Ur Specific [place] Urine Protein Urine Glucose (UA) Urine Ketones Urine Blood Urine Nitrite Ur Leukocyte Esterase Urine RBC Urine WBC Ur Squamous Epith Cells Urine Bacteria Hyaline Casts Urine Yeast Blood Type B Positive Antibody Screen NEGATIVE Imaging Radiologist's Impressions: Impressions Abdomen/Pelvis CT 04/28/24 05:10 IMPRESSION: Bilateral double-J stents are seen in place. There is persistent moderate bilateral hydronephrosis slightly more pronounced on the left. Fleischner guidelines were followed. Assessment and Plan (1) Acute renal failure: Qualifiers: Acute renal failure type: unspecified Qualified Code(s): N17.9 - Acute kidney failure, unspecified Status: Acute (2) Obstructive uropathy: Status: Acute (3) Bladder cancer: Qualifiers: Bladder location: unspecified site Qualified Code(s): C67.9 - Malignant neoplasm of bladder, unspecified Status: Acute (4) Hydronephrosis: Qualifiers: Hydronephrosis type: other Qualified Code(s): N13.39 - Other hydronephrosis Status: Acute Plan 88-year-old male with history aortic stenosis, macular degeneration, Paget's disease with osteopenia, nln-fqgpeje-nnzftjyku type 2 diabetes, coronary artery disease, diabetic polyneuropathy, bladder cancer and hypertension who is s/p bilateral J-stent placement on 04/21 with Du catheter in place admitted for further management of JOSI r/t suspected obstructive uropathy. #Acute kidney injury- suspect 2/2 obstructive uropathy -urine sodium 40.0, urine creatinine 55.13, FENA 5.0%. Creatinine 7.96, baseline around 1.3. Lytes WNL except co2 14 on arrival -resuscitated with 2 L IV NS -urology consult -nephrology consult- no indication for emergent dialysis at this time -avoid nephrotoxins -strict I&O -continue Du catheter -monitor renal function, electrolytes # acute metabolic acidosis -VBG pH 7.27, pCO2 28, bicarb 13 -initiate bicarb drip at 75 mL/hr -nephrology consult-no indication for HD at this time -monitor renal function, lytes # obstructive uropathy -s/p bilateral PCN internalization with bilateral ureteral j stent placement 04/21 -urology consult pending -Du catheter in place -keep NPO for now #Bladder cancer -following with Radiation Oncology at [facility], has not yet started therapy. s/p turbt 01/2024. -urology consult # [id number] type 2 diabetes -POC glucose, advanced to diabetic diet -Humalog on sliding scale -hold metformin # hypertension -continue metoprolol # hyperlipidemia -hold statin # acute on chronic normocytic anemia -likely in setting of JOSI, above transfusion threshold -continue ferrous sulfate -monitor H/H # CAD -no anginal chest pain -hold aspirin in case of urologic procedure. Hold statin. Continue metoprolol DVT prophylaxis- SCPs for now, consider heparin post procedure full code Patient requires inpatient stay at least 2 midnights for management of acute kidney injury secondary to obstructive uropathy likely requiring surgical intervention and will require expert consultation close monitoring of renal function and electrolyte levels as well as correction of metabolic acidosis with bicarbonate drip. Quality Stroke Does the patient have a stroke diagnosis?: No VTE Prior VTE?: No VTE Risk Level:: Medical - moderate - high VTE Device Contraindication: N/A - Device Ordered VTE Drug Contraindication: Treatment Not Indicated
[2024-04-28 10:44] VITALS: BP 129/53; PULSE 62; RESP 16; TEMP 36.6; O2SAT 100
[2024-04-28 10:47] LABS: VBG HCO3 13 mmol/L (22-26); VBG pCO2 28 mmHg; VBG pH 7.27 (7.32-7.43); VBG pO2 67 mmHg
[2024-04-28 10:47] LABS: Venous Blood Gas Refer to POC result
[2024-04-28 11:00] LABS: Creatinine Urine 55.13 mg/dL
[2024-04-28] MEDS: 0.9 % Sodium Chloride 1,000 ML 75 ML IVCONT (11:01)
--- NOTE | 2024-04-28 11:02 | PC.NURSE ---
fluids infusing, du bag placed w/ patient's clamp placed in belongings bag
[2024-04-28 11:08] LABS: Anion Gap 15 (12-20); Blood Urea Nitrogen 91 mg/dL (9-16); Calcium 8.4 mg/dL (8.4-10.2); Carbon Dioxide 18 mmol/L (22-29); Chloride 110 mmol/L (96-108); Creatinine Clr Calc Pharmacy 5.5; Estimated Glomerular Filt Rate 6; Glucose Random 96 mg/dL (60-115); Potassium 4.1 mmol/L (3.3-5.1); Sodium 139 mmol/L (135-145)
--- NOTE | 2024-04-28 12:02 | P.CNUR_ITS ---
History of Present Illness Consult details Consult date: 04/28/24 Narrative: CC: Acute on chronic renal insult - question of post renal obstruction 88-year-old male Known to Urology Invasive bladder cancer floor of bladder Hydronephrosis at time of presentation in January Underwent initial procedure with resection and left stent placement Presented to [facility] in March with acute renal insult. Had external PCN tubes placed to bilateral with PCN tube placed on right side. A week ago underwent PCN tube internalization. [place] double-J stents placed bilaterally along with Ovalles catheter. Presents to emergency room with left-sided flank pain Cr 8.0, BUN 91, sodium 137. Urine creatinine and sodium 55, 48 Imaging - CT The kidneys are normal in size, shape, and attenuation. Lateral double-J stents are seen in place with proximal stent within the bilateral renal pelvises and distal stent extending into the urinary bladder. There is persistent moderate bilateral hydronephrosis slightly more pronounced on the left. Images have been personally reviewed. Sequence compared to January. The left hydronephrosis is actually partially resolved compared to January. The right has been stable. The suggests that these are chronic findings. Calculated FeNa = 5%- suggestive of intrinsic renal process. Would admit with gentle rehydration. If failure to improve stents could be revised, however there was still currently urine output. Review of Systems 2 Constitutional: Constitutional: Reports as per HPI and Reports no additional constitutional complaints Cardiovascular: Cardiovascular: Reports as per HPI and Reports no additional cardiovascular complaints Respiratory: Respiratory: Reports as per HPI and Reports no additional respiratory complaints Gastrointestinal: Gastrointestinal: Reports as per HPI and Reports no additional gastrointestinal complaints Genitourinary: Genitourinary: Reports as per HPI Musculoskeletal: Musculoskeletal: Reports no additional musculoskeletal complaints and Reports as per HPI Neurologic: Reports system reviewed and no additional complaints, except as documented and Reports as per HPI [facility] Past Medical History Medical History Prostate mass Osteopenia Paget's bone disease Overweight (BMI 25.0-29.9) Peripheral vascular disease Hypercholesterolemia Diabetic nephropathy Type 2 diabetes mellitus with hyperglycemia Macular degeneration Lumbar degenerative disc disease Left renal stone Paget's disease of bone Vitamin D deficiency Aortic stenosis, mild Coronary artery disease Family History Family History Father CVD (cardiovascular disease) Mother CVD (cardiovascular disease) Heart disease Brother In good health Sister In good health Son Diabetes Surgical History Surgical History History of removal of calculus of renal pelvis through percutaneous nephrostomy S/P CABG x 3 History of tonsillectomy History of bilateral cataract extraction History of ankle surgery S/P repair of hydrocele History of inguinal hernia repair Social History Social History Household Members: Spouse Housing: House Do you presently have visiting nurse or other home services: No Alcohol intake: never Patient Tobacco Use Status: Former Tobacco user Tobacco use type: Cigarette Cigarette Packs Per Day: 2 Cigarettes Per Day: 40.0 Years Smoked: 30 Smoked in Last 30 Days: No e-Cigarette/Vaping Use: Never Used Use of substances other than those prescribed or required for medical reasons: No Advance Directives: No Advance Directives Information Provided: Yes Do you have a plan to hurt others: No Plan service: Yes Current occupational status: retired Cognitive needs: No Hearing needs: No Vision needs: Yes Meds Allergies Allergy/AdvReac Type Severity Reaction Status Date / Time No Known Allergies Allergy Verified 04/28/24 04:03 [No Known Allergies*] Active Medications: Current Medications Acetaminophen (Acetaminophen 325 Mg Tablet) 650 mg PO Q6H PRN PRN Reason: Pain, Mild (Pain Scale 1-3), fever or headache Ascorbic Acid (Ascorbic Acid 500 Mg Tablet) 1,000 mg PO DAILY [facility] Atorvastatin Calcium (Atorvastatin Calcium 80 Mg Tablet) 80 mg PO DAILY [facility] Calcium Carbonate (Calcium Carbonate 750 Mg Tab.Chew) 750 mg PO Q4H PRN PRN Reason: Heartburn Cyanocobalamin (Cyanocobalamin (Vitamin B-12) 1,000 Mcg Tablet) 1,000 mcg PO Q48H [facility] Ferrous Sulfate (Ferrous Sulfate 324 Mg Tablet.Dr) 324 mg PO Q48H [facility] Glucose (Glucose Gel 15 Gm Gel..Gram.) 15 gm PO Q15M PRN; Protocol PRN Reason: per Hypoglycemia Standing Ord. Sodium Bicarbonate 100 meq/ (Dextrose) 1,000 mls @ 100 mls/hr IV .Q10H [facility] Dextrose (D10) 250 mls @ 750 mls/hr IV Q15M PRN; Protocol PRN Reason: per Hypoglycemia Standing Ord. Ceftriaxone Sodium 1 gm/ (Sodium Chloride) 50 mls @ 100 mls/hr IV Q24H [facility] Insulin Human Lispro (Insulin Lispro 100 Unit/Ml 3 Ml Vial) 0 unit SUBCUT QIDACHS [facility]; Protocol Magnesium Hydroxide (Milk Of Magnesia 30 Ml Oral.Susp) 30 ml PO DAILY PRN PRN Reason: Constipation Melatonin (Melatonin 3 Mg Tablet) 6 mg PO BEDTIME PRN PRN Reason: Insomnia Methenamine Hippurate (Methenamine Hippurate 1 Gm Tablet) 1 gm PO DAILY [facility] Metoprolol Succinate (Metoprolol Succinate Er 12.5 Mg Halftab.Er.24h) 12.5 mg PO DAILY [facility]; Protocol Paroxetine HCl (Paroxetine Hcl 10 Mg Tablet) 10 mg PO DAILY [facility] Sodium Chloride (0.9 % Sodium Chloride Flush 3 Ml Syringe) 3 ml IVFLUSH QSHIFT [facility] Vitamin D (Cholecalciferol (Vitamin D3) 25 Mcg Tablet) 50 mcg PO DAILY [facility] Home Medications ?Medication ?Instructions ?Recorded ?Confirmed ?Last Taken ?Type aspirin 81 mg tablet,delayed 81 mg PO DAILY 10/11/20 04/28/24 01/26/24 History release (Adult Aspirin Regimen) vitamins A,C,J-cnkg-gaylxe 1 tab PO BID 03/29/21 04/28/24 01/26/24 History [PreserVision AREDS] cyanocobalamin (vitamin B-12) 1,000 mcg PO Q OTHER DAY 01/26/24 04/28/24 Unknown History 1,000 mcg capsule Physical Exam 2 Vital Signs: Vital Signs: Last Vital Signs Temp 97.8 F 04/28/24 10:44 Pulse 62 04/28/24 10:44 Resp 16 04/28/24 10:44 BP 129/53 L 04/28/24 10:44 Pulse Ox 100 04/28/24 10:44 O2 Del Method Room Air 04/28/24 10:44 BMI result Body Mass Index 24.5 Const: General: cooperative, healthy appearing, comfortable and no acute distress Orientation/consciousness: patient oriented x3 HEENT: Face and sinus: Yes normal facial exam Mouth: moist mucous membranes Neck: Neck: Yes normal visual inspection, Yes full ROM and Yes trachea midline Chest: Chest palpation & inspection: normal inspection of the chest Resp: Effort & Inspection: normal respiratory effort, able to speak in complete sentences and no respiratory distress GI: Inspection: Yes normal to inspection Back/Spine/Pelvis: Cervical Spine: normal cervical lordosis Thoracic/Lumbar Spine: thoracic and lumbar spine normal to inspection Skin: General skin exam: no rashes or lesions noted Neuro: General: patient oriented x3, tone normal and moves all extremities Extrem: General: Yes normal to inspection and Yes capillary refill normal Results Labs 04/28/24 07:03 04/28/24 10:38 Labs: Abnormal lab results 04/28/24 04/28/24 04/28/24 Range/Units 04:33 04:41 05:45 WBC (4.8-10.8) X10*3/uL RBC (4.60-5.80) X10*6/uL Hgb (14.0-18.0) g/dl Hct (42.0-52.0) % Plt Count (160-400) X10*3/uL MPV (9.4-12.4) fL Immature Gran % (Auto) (0.0-0.4) % Neut % (Auto) (45-73) % Lymph % (Auto) (20-40) % Lymph # (Auto) (1.2-4.9) X10*3/uL Abs Immat Gran (auto) (0.00-0.03) X10*3/uL Absolute Neuts (auto) (2.0-8.3) x10*3/uL VBG pH (7.32-7.43) VBG HCO3 (22-26) mmol/L Chloride (96-108) mmol/L Carbon Dioxide 14 L (22-29) mmol/L Anion Gap 21 H (12-20) BUN 99 H (9-16) mg/dL Creatinine 8.64 H* (0.5-1.4) mg/dL Lactic Acid 0.2 L (0.5-2.0) mmol/L Urine Protein 300 (3+) H (Neg-Trace) mg/dL Urine Blood Large (3+) H (Negative) Ur Leukocyte Esterase Large (3+) H (Negative) Urine RBC >20 H (0-2) /HPF Urine WBC >50 H (0-5) /HPF 04/28/24 04/28/24 04/28/24 Range/Units 07:03 10:38 10:41 WBC 10.9 H (4.8-10.8) X10*3/uL RBC 2.90 L D (4.60-5.80) X10*6/uL Hgb 8.2 L D (14.0-18.0) g/dl Hct 24.4 L D (42.0-52.0) % Plt Count 423 H D (160-400) X10*3/uL MPV 8.6 L (9.4-12.4) fL Immature Gran % (Auto) 0.5 H (0.0-0.4) % Neut % (Auto) 83.2 H (45-73) % Lymph % (Auto) 8.1 L (20-40) % Lymph # (Auto) 0.9 L (1.2-4.9) X10*3/uL Abs Immat Gran (auto) 0.06 H (0.00-0.03) X10*3/uL Absolute Neuts (auto) 9.1 H (2.0-8.3) x10*3/uL VBG pH 7.27 L (7.32-7.43) VBG HCO3 13 L (22-26) mmol/L Chloride 110 H (96-108) mmol/L Carbon Dioxide 18 L (22-29) mmol/L Anion Gap (12-20) BUN 91 H (9-16) mg/dL Creatinine 7.96 H* (0.5-1.4) mg/dL Lactic Acid (0.5-2.0) mmol/L Urine Protein (Neg-Trace) mg/dL Urine Blood (Negative) Ur Leukocyte Esterase (Negative) Urine RBC (0-2) /HPF Urine WBC (0-5) /HPF Short CBC 04/28/24 Range/Units 07:03 WBC 10.9 H (4.8-10.8) X10*3/uL Hgb 8.2 L D (14.0-18.0) g/dl Hct 24.4 L D (42.0-52.0) % Plt Count 423 H D (160-400) X10*3/uL BMP 04/28/24 04/28/24 04:41 10:38 Sodium 137 139 Potassium 4.4 4.1 Chloride 106 110 H Carbon Dioxide 14 L 18 L BUN 99 H 91 H Creatinine 8.64 H* 7.96 H* Calcium 9.1 8.4 D Urine 04/28/24 Range/Units 04:33 Urine Color Yellow Urine Appearance Turbid Urine pH 5.5 (5.0-9.0) Ur Specific [place] 1.010 (1.005-1.025) Urine Protein 300 (3+) H (Neg-Trace) mg/dL Urine Glucose (UA) Negative (Negative) mg/dL All other labs normal. Assessment and Plan (1) Bladder cancer: Status: Acute (2) Acute renal failure: Status: Acute Plan Nephrology evaluation Initial gentle rehydration If failure to resolve would revise internal stents. Procedures Date of Service Date of Service: 04/28/24
[2024-04-28] MEDS: Ferrous Sulfate 324 MG TABLET.DR PO (12:16)
[2024-04-28] MEDS: Cyanocobalamin (Vitamin B-12) 1,000 MCG TABLET 1000 MCG PO (12:16)
[2024-04-28] MEDS: Sodium Bicarbonate 8.4% 100 MEQ in Dextrose 5 % 900 ML IV (12:16)
--- NOTE | 2024-04-28 13:28 | PM.CNNEP ---
History of Present Illness Reason for Consult Consult date: 04/29/24 Chief Complaint Chief complaint: JOSI Obstructive Uropathy History of Present Illness Narrative: 88-year-old male with history aortic stenosis, macular degeneration, Paget's disease with osteopenia, [id number] type 2 diabetes, coronary artery disease, diabetic polyneuropathy, bladder cancer and hypertension who is s/p bilateral J-stent placement on 04/21 with [address] catheter in place presented to the ED due to left flank pain. Has been following closely with Dr. Corbett and Dr. Dugan in urology and is now following with Radiation Oncology at [facility] for invasive bladder cancer at the floor of the bladder. He had bilateral external PCN tubes placed on March 26 but was then admitted to [facility] with acute kidney injury. One week ago, underwent PCN tube internal fixation by Dr. Dugan with double-J stents placed bilaterally along with Ovalles catheter. He is reporting suprapubic pressure but otherwise denies any fevers, chills, abdominal pain, nausea, vomiting, hematuria, frequency, urgency. He does note the urine in his Ovalles bag has been cloudy but no blood. Since arrival, VSS. WBC 10.9, h/h 8.2/24.4% ([place] 9.8/30.3% [place] [facility] [place] Creat 7.96 on admission, baseline around 1.3. BUN 91. Lytes wnl except co2 18, AG 15. VBG with pH 7.27, pCO2 28, bicarb 13. Urinalysis significant for 3+ leukocytes, negative nitrites, 3+ blood, positive urinary sediment with elevated squamous epithelial cells with 3+ bacteria. He has been clamping the catheter at home and empties it 3 to 4 times a day. He uses a bag at night. He has been draining about a L of urine. Over the last 24 hours he has noted decreased urine output and has had left flank pain. The urine was whitish in [place]. This seems to have improved over the last 12 hours. Currently Ovalles is draining cloudy urine. He is on IV hydration. Review of Systems Constitutional: Denies fever(s) and Denies weight loss Cardiovascular: Denies chest pain Respiratory: Denies cough and Denies hemoptysis Gastrointestinal: Denies abdominal pain, Denies diarrhea and Denies nausea Denies focal weakness PMFSH Past Medical History Medical History Prostate mass Osteopenia Paget's bone disease Overweight (BMI 25.0-29.9) Peripheral vascular disease Hypercholesterolemia Diabetic nephropathy Type 2 diabetes mellitus with hyperglycemia Macular degeneration Lumbar degenerative disc disease Left renal stone Paget's disease of bone Vitamin D deficiency Aortic stenosis, mild Coronary artery disease Family History Family History Father CVD (cardiovascular disease) Mother CVD (cardiovascular disease) Heart disease Brother In good health Sister In good health Son Diabetes Surgical History Surgical History History of removal of calculus of renal pelvis through percutaneous nephrostomy S/P CABG x 3 History of tonsillectomy History of bilateral cataract extraction History of ankle surgery S/P repair of hydrocele History of inguinal hernia repair Social History Social History Household Members: Family Household Members Other:: son Housing: House Do you presently have visiting nurse or other home services: No Alcohol intake: never Patient Tobacco Use Status: Former Tobacco user Tobacco use type: Cigarette Cigarette Packs Per Day: 2 Cigarettes Per Day: 40.0 Years Smoked: 30 e-Cigarette/Vaping Use: Never Used service: Yes Current occupational status: retired Cognitive needs: No Hearing needs: No Vision needs: Yes Meds Allergies Allergy/AdvReac Type Severity Reaction Status Date / Time No Known Allergies Allergy Verified 04/28/24 04:03 [No Known Allergies*] Active Medications: Current Medications Acetaminophen (Acetaminophen 325 Mg Tablet) 650 mg PO Q6H PRN PRN Reason: Pain, Mild (Pain Scale 1-3), fever or headache Ascorbic Acid (Ascorbic Acid 500 Mg Tablet) 1,000 mg PO DAILY [facility] Calcium Carbonate (Calcium Carbonate 750 Mg Tab.Chew) 750 mg PO Q4H PRN PRN Reason: Heartburn Cyanocobalamin (Cyanocobalamin (Vitamin B-12) 1,000 Mcg Tablet) 1,000 mcg PO Q48H [facility] Last Admin: 04/28/24 12:16 Dose: 1,000 mcg Ferrous Sulfate (Ferrous Sulfate 324 Mg Tablet.) 324 mg PO Q48H [facility] Last Admin: 04/28/24 12:16 Dose: 324 mg Glucose (Glucose Gel 15 Gm Gel..Gram.) 15 gm PO Q15M PRN; Protocol PRN Reason: per Hypoglycemia Standing Ord. Sodium Bicarbonate 100 meq/ (Dextrose) 1,000 mls @ 75 mls/hr IV .[id number] [facility] Last Admin: 04/28/24 12:16 Dose: 100 mls/hr Dextrose (D10) 250 mls @ 750 mls/hr IV Q15M PRN; Protocol PRN Reason: per Hypoglycemia Standing Ord. Ceftriaxone Sodium 1 gm/ (Sodium Chloride) 50 mls @ 100 mls/hr IV Q24H [facility] Insulin Human Lispro (Insulin Lispro 100 Unit/Ml 3 Ml Vial) 0 unit SUBCUT QIDACHS [facility]; Protocol Last Admin: 04/28/24 12:10 Dose: Not Given Magnesium Hydroxide (Milk Of Magnesia 30 Ml Oral.Susp) 30 ml PO DAILY PRN PRN Reason: Constipation Melatonin (Melatonin 3 Mg Tablet) 6 mg PO BEDTIME PRN PRN Reason: Insomnia Methenamine Hippurate (Methenamine Hippurate 1 Gm Tablet) 1 gm PO DAILY [facility] Metoprolol Succinate (Metoprolol Succinate Er 12.5 Mg Halftab.Er.24h) 12.5 mg PO DAILY [facility]; Protocol Paroxetine HCl (Paroxetine Hcl 10 Mg Tablet) 10 mg PO DAILY [facility] Sodium Chloride (0.9 % Sodium Chloride Flush 3 Ml Syringe) 3 ml IVFLUSH QSHIFT [facility] Vitamin D (Cholecalciferol (Vitamin D3) 25 Mcg Tablet) 50 mcg PO DAILY [facility] Home Medications ?Medication ?Instructions ?Recorded ?Confirmed ?Last Taken ?Type aspirin 81 mg tablet,delayed 81 mg PO DAILY 10/11/20 04/28/24 01/26/24 History release (Adult Aspirin Regimen) vitamins A,C,A-fhdq-ceffmc 1 tab PO BID 03/29/21 04/28/24 01/26/24 History [PreserVision AREDS] cyanocobalamin (vitamin B-12) 1,000 mcg PO Q OTHER DAY 01/26/24 04/28/24 Unknown History 1,000 mcg capsule Physical Exam Vital Signs: Last Vital Signs Temp 97.8 F 04/28/24 10:44 Pulse 62 04/28/24 10:44 Resp 16 04/28/24 10:44 BP 129/53 L 04/28/24 10:44 Pulse Ox 100 04/28/24 10:44 O2 Del Method Room Air 04/28/24 10:44 BMI result Body Mass Index 24.5 Awake. Comfortable. Neck is supple. Mucosa moist. Lungs air entry Heart S1-S2 heard no gallop. Abdomen soft. Extremities no edema. No involuntary movements. No myoclonus. Results Lab Results 04/29/24 05:36 04/29/24 05:36 Lab results: Chemistry 04/28/24 04/28/24 04:41 10:38 Sodium 137 139 Potassium 4.4 4.1 Carbon Dioxide 14 L 18 L BUN 99 H 91 H Creatinine 8.64 H* 7.96 H* Calcium 9.1 8.4 D Hematology 04/28/24 07:03 WBC 10.9 H Hgb 8.2 L D Plt Count 423 H D Urinalysis 04/28/24 04:33 Urine Color Yellow Urine Appearance Turbid Urine pH 5.5 Ur Specific [place] 1.010 Urine Protein 300 (3+) H Urine Glucose (UA) Negative Urine Ketones Negative Urine Blood Large (3+) H Urine Nitrite Negative Ur Leukocyte Esterase Large (3+) H Urine RBC >20 H Urine WBC >50 H Ur Squamous Epith Cells >20 Hyaline Casts 6-10 Urine Studies 04/28/24 04:33 Urine Creatinine 55.13 Assessment and Plan (1) Acute renal failure: Status: Acute (2) Bladder cancer: Status: Acute Plan 88-year-old man with acute kidney injury superimposed on CKD. Based on the available data and the imaging studies I suspect he has JOSI is primarily due to obstruction and there could be an additional component hypoperfusion from volume depletion. Acute tubular injury can not be ruled out yet. No clear evidence of active glomerulonephritis or interstitial disease at this time. Currently he is urine output is improving with IV hydration. He has no signs or symptoms of uremia. He has significant acidosis due to JOSI. Serum potassium is in the normal range. Recommendations IV hydration with bicarb supplementation. Keep intake more than output. Watch urine output closely/hourly. Monitor renal function closely. If the urine output does not improve or if the renal function does not improve , obstruction should be re-evaluated and he would require further urologic intervention. There is no absolute indication for dialysis yet. We will follow along with the team. Procedures Date of Service Date of Service: 04/29/24
--- NOTE | 2024-04-28 13:42 | MHC.EDTECH ---
pt switched over to hospital bed
--- NOTE | 2024-04-28 14:48 | PC.NURSE ---
patient ambulated to the bathroom with one assist with steady gait, no assistive devices. patient states he has a bowel movement. patient ambulated independently back to room and is sitting at the edge of the bed conversing with visitors.
[2024-04-28 19:33] LABS: Hematocrit 26.3 % (42.0-52.0); Hemoglobin 8.8 g/dl (14.0-18.0)
[2024-04-28 19:52] VITALS: BP 128/73; PULSE 64; RESP 18; TEMP 36.3; O2SAT 100
[2024-04-28 20:51] LABS: Glucose, Whole Blood 139 mg/dL (60-115)
[2024-04-28] MEDS: 0.9 % Sodium Chloride Flush 3 ML SYRINGE IVFLUSH (21:29)
[2024-04-28] MEDS: Sodium Bicarbonate 8.4% 100 MEQ in Dextrose 5 % 900 ML 75 MEQ IV (22:57)
[2024-04-28] MEDS: Melatonin 3 MG TABLET 6 MG PO (23:01)
[2024-04-28 23:59] VITALS: BP 109/58; PULSE 46; RESP 16; TEMP 36.2; O2SAT 98
--- NOTE | 2024-04-29 00:02 | PC.NURSE ---
Pt's respirations even and unlabored, heart rate in the 45's-50's, BP 109/58, MD made aware.
[2024-04-29 05:00] VITALS: PULSE 50
[2024-04-29] MEDS: cefTRIAXone sodium 1 GM in 0.9 % Sodium Chloride 50 ML IV (05:14)
[2024-04-29 06:16] LABS: MANUAL DIFF FLAG NO
[2024-04-29 06:21] LABS: Basophils Absolute Auto 0.1 X10*3/uL (0.0-0.2); Basophils Percent Auto 0.5 % (0-2); Eosinophils Absolute Auto 0.2 X10*3/uL (0.0-0.4); Eosinophils Percent Auto 2.1 % (0-4); Hematocrit 25.2 % (42.0-52.0); Hemoglobin 8.4 g/dl (14.0-18.0); Imm Gran Abs Auto 0.05 X10*3/uL (0.00-0.03); Imm Gran Pct Auto 0.5 % (0.0-0.4); Lymphocytes Absolute Auto 0.9 X10*3/uL (1.2-4.9); Mean Corpuscular HGB Conc 33.3 g/dl (31.0-36.0); Mean Corpuscular Hemoglobin 27.8 pg (27.0-33.0); Mean Corpuscular Volume 83.4 fL (80.0-98.0); Mean Platelet Volume 8.8 fL (9.4-12.4); Monocytes Absolute Auto 0.8 X10*3/uL (0.1-1.2); Monocytes Percent Auto 7.9 % (2-11); Neutrophils Absolute Auto 7.7 x10*3/uL (2.0-8.3); Platelet Count 432 X10*3/uL (160-400); Red Blood Count 3.02 X10*6/uL (4.60-5.80); Red Cell Distribution Width 14.7 % (11.0-16.0); White Blood Count 9.6 X10*3/uL (4.8-10.8)
[2024-04-29 06:35] LABS: Anion Gap 15 (12-20); Blood Urea Nitrogen 91 mg/dL (9-16); Calcium 8.2 mg/dL (8.4-10.2); Carbon Dioxide 21 mmol/L (22-29); Chloride 106 mmol/L (96-108); Creatinine Clr Calc Pharmacy 5.7; Estimated Glomerular Filt Rate 7; Glucose Random 108 mg/dL (60-115); Potassium 3.4 mmol/L (3.3-5.1); Sodium 139 mmol/L (135-145)
[2024-04-29 06:52] VITALS: BP 114/55; PULSE 57; RESP 17; TEMP 36.6; O2SAT 98
[2024-04-29 07:27] LABS: Glucose, Whole Blood 101 mg/dL (60-115)
[2024-04-29] MEDS: PARoxetine HCL 10 MG TABLET PO (08:27)
[2024-04-29] MEDS: Metoprolol Succinate ER 12.5 MG HALFTAB.ER.24H PO (08:27)
[2024-04-29] MEDS: Methenamine Hippurate 1 GM TABLET PO (08:27)
[2024-04-29] MEDS: Ascorbic Acid 500 MG TABLET 1000 MG PO (08:27)
[2024-04-29] MEDS: Cholecalciferol (Vitamin D3) 25 MCG TABLET 50 MCG PO (08:27)
--- NOTE | 2024-04-29 09:11 | PM.PNNEP ---
Subjective Subjective Date of Service: 05/01/24 Interval history: Events noted Feels about the same UO about 60 cc/hr On IVf No change in creatinine Physical Exam Vital Signs: Vital Signs: Last Vital Signs Temp 98 F 04/29/24 06:52 Pulse 57 04/29/24 06:52 Resp 17 04/29/24 06:52 BP 114/55 L 04/29/24 06:52 Pulse Ox 98 04/29/24 06:52 O2 Del Method Room Air 04/29/24 06:52 BMI result Body Mass Index 24.5 Awake. Comfortable. Neck is supple. Mucosa moist. Lungs bilateral scattered rhonchi. Heart S1-S2 heard no gallop. Abdomen soft. Extremities no edema. No involuntary movements. No myoclonus. Objective Data Labs 04/30/24 05:59 05/01/24 05:23 Labs: Laboratory Results - last 24 hr 04/28/24 04/28/24 04/28/24 04:33 08:30 10:38 WBC RBC Hgb Hct MCV MCH MCHC RDW Plt Count MPV Immature Gran % (Auto) Neut % (Auto) Lymph % (Auto) [place] % (Auto) Eos % (Auto) Baso % (Auto) Lymph # (Auto) [place] # (Auto) Eos # (Auto) Baso # (Auto) Abs Immat Gran (auto) Absolute Neuts (auto) Absolute Nucleated RBC Nucleated RBC % (auto) VBG pH VBG pCO2 VBG pO2 VBG HCO3 VBG O2 Saturation VBG Base Excess Sodium 139 Potassium 4.1 Chloride 110 H Carbon Dioxide 18 L Anion Gap 15 BUN 91 H Creatinine 7.96 H* Estim Creat Clear Calc 5.5 Estimated GFR 6 POC Glucose Random Glucose 96 Calcium 8.4 D Ur Random Sodium 48.0 Urine Creatinine 55.13 Blood Type B Positive Antibody Screen NEGATIVE 04/28/24 04/28/24 04/28/24 10:41 19:18 20:27 WBC RBC Hgb 8.8 L Hct 26.3 L MCV MCH MCHC RDW Plt Count MPV Immature Gran % (Auto) Neut % (Auto) Lymph % (Auto) [place] % (Auto) Eos % (Auto) Baso % (Auto) Lymph # (Auto) [place] # (Auto) Eos # (Auto) Baso # (Auto) Abs Immat Gran (auto) Absolute Neuts (auto) Absolute Nucleated RBC Nucleated RBC % (auto) VBG pH 7.27 L VBG pCO2 28 VBG pO2 67 VBG HCO3 13 L VBG O2 Saturation 89.0 VBG Base Excess -12.0 Sodium Potassium Chloride Carbon Dioxide Anion Gap BUN Creatinine Estim Creat Clear Calc Estimated GFR POC Glucose 139 H Random Glucose Calcium Ur Random Sodium Urine Creatinine Blood Type Antibody Screen 04/29/24 04/29/24 05:36 07:18 WBC 9.6 RBC 3.02 L Hgb 8.4 L Hct 25.2 L MCV 83.4 MCH 27.8 MCHC 33.3 RDW 14.7 Plt Count 432 H MPV 8.8 L Immature Gran % (Auto) 0.5 H Neut % (Auto) 80.0 H Lymph % (Auto) 9.0 L [place] % (Auto) 7.9 Eos % (Auto) 2.1 Baso % (Auto) 0.5 Lymph # (Auto) 0.9 L [place] # (Auto) 0.8 Eos # (Auto) 0.2 Baso # (Auto) 0.1 Abs Immat Gran (auto) 0.05 H Absolute Neuts (auto) 7.7 Absolute Nucleated RBC 0.000 Nucleated RBC % (auto) 0.0 VBG pH VBG pCO2 VBG pO2 VBG HCO3 VBG O2 Saturation VBG Base Excess Sodium 139 Potassium 3.4 Chloride 106 Carbon Dioxide 21 L Anion Gap 15 BUN 91 H Creatinine 7.76 H* Estim Creat Clear Calc 5.7 Estimated GFR 7 POC Glucose 101 Random Glucose 108 Calcium 8.2 L Ur Random Sodium Urine Creatinine Blood Type Antibody Screen Microbiology Microbiology Results: Microbiology 04/28/24 05:58 Blood - Venous Blood Culture - Preliminary No growth after 24 hours. 04/28/24 05:45 Blood - Venous Blood Culture - Preliminary No growth after 24 hours. Procedures Date of Service Date of Service: 05/01/24 Assessment & Plan Assessment and plan (1) Acute renal failure: Status: Acute (2) Bladder cancer: Status: Acute Plan 88-year-old man with acute kidney injury superimposed on CKD. Based on the available data and the imaging studies I suspect he has JOSI is primarily due to obstruction and there could be an additional component hypoperfusion from volume depletion. Acute tubular injury can not be ruled out yet. No clear evidence of active glomerulonephritis or interstitial disease at this time. Currently urine output is improving with IV hydration. He has no signs or symptoms of uremia. He has acidosis due to JOSI whic is esponding to IV bicarb. Serum potassium is in the normal range. Recommendations Continue with IV hydration with bicarb supplementation. Keep intake more than output. Watch urine output closely/hourly. Monitor renal function closely. Await Urology re-evaluation further intervention. There is no absolute indication for dialysis yet. We will follow along with the team. Time Spent With Patient Time: Total time managing care of this patient today ____ minutes. Progress Note: Quality Stroke Does the patient have a stroke diagnosis?: No
--- NOTE | 2024-04-29 10:37 | MHC.CM.PN ---
IMM DELIVERED PT LIVES WITH SPOUSE. INDEPENDENT WITH MOBILITY AT BASELINE. PT IS ACTIVE WITH [facility]. COPY OF HCP REQUESTED, PT GIVES PERMISSION FOR CM TO SPEAK WITH SON AND REQUEST. PCP DR. MARTINEZ. DP: HOME WITH RESUMPTION OF [facility] SERVICES IS THE GOAL. PT'S FAMILY WILL TRANSPORT HOME. CM WILL CONTINUE TO FOLLOW FOR ANY CHANGE TO DC PLAN.
[2024-04-29 11:18] LABS: Glucose, Whole Blood 149 mg/dL (60-115)
[2024-04-29 15:22] VITALS: BP 148/62; PULSE 62; RESP 18; TEMP 36; O2SAT 98
[2024-04-29] MEDS: Sodium Bicarbonate 8.4% 100 MEQ in Dextrose 5 % 900 ML 75 MEQ IV (15:57)
[2024-04-29 16:26] LABS: Glucose, Whole Blood 112 mg/dL (60-115)
--- NOTE | 2024-04-29 16:36 | P.PNIM_ITS ---
Subjective Subjective Date of Service: 04/29/24 Interval History: Denies flank pain, no acute overnight events ,denies nausea, no vomiting, no fevers, no chills, denies lightheadedness or dizziness, no confusion. Review of Systems All other system reviewed and negative Physical Exam 2 Vital Signs: Vital Signs: Last Vital Signs Temp 96.8 F 04/29/24 15:22 Pulse 62 04/29/24 15:22 Resp 18 04/29/24 15:22 BP 148/62 H 04/29/24 15:22 Pulse Ox 98 04/29/24 15:22 O2 Del Method Room Air 04/29/24 15:22 BMI result Body Mass Index 24.5 Const: Other: General awake alert, resting comfortably in no acute distress. Neck supple, no JVD. CVS regular rate rhythm, Respiratory lungs clear to auscultation, no respiratory distress, no wheeze, no rhonchi. Gastrointestinal abdomen soft, non tender, bowel sounds audible, no guarding , no rigidity. Extremities no edema. no CVA tenderness. Neuro non focal ,moving all 4 extremity speech clear. Skin pallor/no rash Psych appropriate affect Objective Data Active Medications Acetaminophen (Acetaminophen 325 Mg Tablet) 650 mg PO Q6H PRN PRN Reason: Pain, Mild (Pain Scale 1-3), fever or headache Ascorbic Acid (Ascorbic Acid 500 Mg Tablet) 1,000 mg PO DAILY [facility] Last Admin: 04/29/24 08:27 Dose: 1,000 mg Documented By: JALEN Calcium Carbonate (Calcium Carbonate 750 Mg Tab.Chew) 750 mg PO Q4H PRN PRN Reason: Heartburn Cyanocobalamin (Cyanocobalamin (Vitamin B-12) 1,000 Mcg Tablet) 1,000 mcg PO Q48H [facility] Last Admin: 04/28/24 12:16 Dose: 1,000 mcg Documented By: RODOLFO Ferrous Sulfate (Ferrous Sulfate 324 Mg Tablet.) 324 mg PO Q48H [facility] Last Admin: 04/28/24 12:16 Dose: 324 mg Documented By: RODOLFO Glucose (Glucose Gel 15 Gm Gel..Gram.) 15 gm PO Q15M PRN; Protocol PRN Reason: per Hypoglycemia Standing Ord. Dextrose (D10) 250 mls @ 750 mls/hr IV Q15M PRN; Protocol PRN Reason: per Hypoglycemia Standing Ord. Ceftriaxone Sodium 1 gm/ (Sodium Chloride) 50 mls @ 100 mls/hr IV Q24H [facility] Last Infusion: 04/29/24 05:44 Dose: Infused Documented By: JUAN FRANCISCO Sodium Bicarbonate 100 meq/ (Dextrose) 1,000 mls @ 75 mls/hr IV .[id number] [facility] Last Admin: 04/29/24 15:57 Dose: 75 mls/hr Documented By: JALEN Insulin Human Lispro (Insulin Lispro 100 Unit/Ml 3 Ml Vial) 0 unit SUBCUT QIDACHS [facility]; Protocol Last Admin: 04/29/24 16:34 Dose: Not Given Documented By: JALEN Non-Admin Reason: No Insulin Coverage Magnesium Hydroxide (Milk Of Magnesia 30 Ml Oral.Susp) 30 ml PO DAILY PRN PRN Reason: Constipation Melatonin (Melatonin 3 Mg Tablet) 6 mg PO BEDTIME PRN PRN Reason: Insomnia Last Admin: 04/28/24 23:01 Dose: 6 mg Documented By: JUAN FRANCISCO Methenamine Hippurate (Methenamine Hippurate 1 Gm Tablet) 1 gm PO DAILY [facility] Last Admin: 04/29/24 08:27 Dose: 1 gm Documented By: JALEN Metoprolol Succinate (Metoprolol Succinate Er 12.5 Mg Halftab.Er.24h) 12.5 mg PO DAILY [facility]; Protocol Last Admin: 04/29/24 08:27 Dose: 12.5 mg Documented By: JALEN Paroxetine HCl (Paroxetine Hcl 10 Mg Tablet) 10 mg PO DAILY [facility] Last Admin: 04/29/24 08:27 Dose: 10 mg Documented By: JALEN Sodium Chloride (0.9 % Sodium Chloride Flush 3 Ml Syringe) 3 ml IVFLUSH QSHIFT [facility] Last Admin: 04/29/24 15:59 Dose: Not Given Documented By: JALEN Non-Admin Reason: IV Running Vitamin D (Cholecalciferol (Vitamin D3) 25 Mcg Tablet) 50 mcg PO DAILY [facility] Last Admin: 04/29/24 08:27 Dose: 50 mcg Documented By: JALEN Labs 04/29/24 05:36 04/29/24 05:36 Labs: Laboratory Results - last 24 hr 04/28/24 04/29/24 04/29/24 20:27 05:36 07:18 MCV 83.4 MCH 27.8 MCHC 33.3 RDW 14.7 Plt Count 432 H MPV 8.8 L Immature Gran % (Auto) 0.5 H Neut % (Auto) 80.0 H Lymph % (Auto) 9.0 L [place] % (Auto) 7.9 Eos % (Auto) 2.1 Baso % (Auto) 0.5 Lymph # (Auto) 0.9 L [place] # (Auto) 0.8 Eos # (Auto) 0.2 Baso # (Auto) 0.1 Abs Immat Gran (auto) 0.05 H Absolute Neuts (auto) 7.7 Absolute Nucleated RBC 0.000 Nucleated RBC % (auto) 0.0 Anion Gap 15 Estim Creat Clear Calc 5.7 Estimated GFR 7 POC Glucose 139 H 101 Random Glucose 108 Calcium 8.2 L 04/29/24 04/29/24 11:10 16:22 MCV MCH MCHC RDW Plt Count MPV Immature Gran % (Auto) Neut % (Auto) Lymph % (Auto) [place] % (Auto) Eos % (Auto) Baso % (Auto) Lymph # (Auto) [place] # (Auto) Eos # (Auto) Baso # (Auto) Abs Immat Gran (auto) Absolute Neuts (auto) Absolute Nucleated RBC Nucleated RBC % (auto) Anion Gap Estim Creat Clear Calc Estimated GFR POC Glucose 149 H 112 Random Glucose Calcium Microbiology Microbiology Results: Microbiology 04/28/24 07:36 Urine Culture - Preliminary Urine Catheterized - [place] Catheter Culture in progress. 04/28/24 05:58 Blood Culture - Preliminary Blood - Venous No growth after 24 hours. 04/28/24 05:45 Blood Culture - Preliminary Blood - Venous No growth after 24 hours. Assessment and Plan (1) Hydronephrosis: Status: Acute Plan 88-year-old male with history aortic stenosis, macular degeneration, Paget's disease with osteopenia, [id number] type 2 diabetes, coronary artery disease, diabetic polyneuropathy, bladder cancer and hypertension who is s/p bilateral J-stent placement on 04/21 with [place] catheter in place admitted for further management of JOSI r/t suspected obstructive uropathy. #Acute kidney injury- suspect 2/2 obstructive uropathy on admission urine sodium 40.0, urine creatinine 55.13, FENA 5.0%. Creatinine 7.96, baseline around 1.3. Lytes WNL except co2 14 on arrival Creatinine unchanged despite IV fluids making urine 60 mL/hour Case discussed with Nephrology, they feel no additional component of hypoperfusion, they recommend to discuss case with Urology, Dr. Dugan will consider revision of stent placement,s/p bilateral PCN internalization with bilateral ureteral j stent placement 04/21 -avoid nephrotoxins -strict I&O, keep intake more than output. -continue [place] catheter,monitor renal function, electrolytes and urine output # acute metabolic acidosis -on admission VBG pH 7.27, pCO2 28, bicarb 13, bicarb improving continue IV be bicarb drip # UTI continue IV ceftriaxone day 2, follow urine and blood culture. #Bladder cancer -following with Radiation Oncology at [facility], has not yet started therapy. s/p turbt 01/2024, recommend outpatient follow-up. # [id number] type 2 diabetes -POC glucose, advanced to diabetic diet -Humalog on sliding scale -hold metformin # hypertension -continue metoprolol # hyperlipidemia -hold statin # acute on chronic normocytic anemia -likely in setting of JOSI, above transfusion threshold -continue ferrous sulfate -monitor H/H # CAD -no anginal chest pain -hold aspirin in case of urologic procedure. Hold statin. Continue metoprolol DVT prophylaxis- SCPs for now full code Patient requires continued inpatient stay for management of acute kidney injury secondary to obstructive uropathy likely requiring surgical intervention and will require expert consultation close monitoring of renal function and electrolyte levels as well as correction of metabolic acidosis with bicarbonate drip. Quality Stroke Does the patient have a stroke diagnosis?: No VTE Prior VTE?: No VTE Risk Level:: Medical - moderate - high VTE Device Contraindication: N/A - Device Ordered VTE Drug Contraindication: Treatment Not Indicated
[2024-04-29 20:15] LABS: Glucose, Whole Blood 115 mg/dL (60-115)
[2024-04-29] MEDS: Melatonin 3 MG TABLET 6 MG PO (22:30)
[2024-04-29 23:27] VITALS: BP 133/61; PULSE 54; RESP 18; TEMP 36.3; O2SAT 98
[2024-04-30] VITALS (10 sets, daily range): BP systolic 108–168; BP diastolic 56–93; PULSE 51–62; RESP 12–18; TEMP 35.9–36.3; O2SAT 96–100
[2024-04-30] MEDS: Sodium Bicarbonate 8.4% 100 MEQ in Dextrose 5 % 900 ML 75 MEQ IV (05:05)
[2024-04-30] MEDS: cefTRIAXone sodium 1 GM in 0.9 % Sodium Chloride 50 ML IV (05:06)
[2024-04-30 06:25] LABS: Hematocrit 25.6 % (42.0-52.0); Hemoglobin 8.6 g/dl (14.0-18.0); Mean Corpuscular HGB Conc 33.6 g/dl (31.0-36.0); Mean Corpuscular Hemoglobin 27.8 pg (27.0-33.0); Mean Corpuscular Volume 82.8 fL (80.0-98.0); Mean Platelet Volume 8.7 fL (9.4-12.4); Platelet Count 415 X10*3/uL (160-400); Red Blood Count 3.09 X10*6/uL (4.60-5.80); Red Cell Distribution Width 14.8 % (11.0-16.0); White Blood Count 10.2 X10*3/uL (4.8-10.8)
[2024-04-30 06:47] LABS: Anion Gap 14 (12-20); Blood Urea Nitrogen 82 mg/dL (9-16); Calcium 8.1 mg/dL (8.4-10.2); Carbon Dioxide 24 mmol/L (22-29); Chloride 104 mmol/L (96-108); Creatinine Clr Calc Pharmacy 6.2; Estimated Glomerular Filt Rate 7; Glucose Random 113 mg/dL (60-115); Potassium 3.3 mmol/L (3.3-5.1); Sodium 139 mmol/L (135-145)
[2024-04-30] MEDS: Metoprolol Succinate ER 12.5 MG HALFTAB.ER.24H PO (07:34)
[2024-04-30] MEDS: PARoxetine HCL 10 MG TABLET PO (07:34)
[2024-04-30] MEDS: Ascorbic Acid 500 MG TABLET 1000 MG PO (07:34)
[2024-04-30] MEDS: Methenamine Hippurate 1 GM TABLET PO (07:34)
[2024-04-30] MEDS: Cholecalciferol (Vitamin D3) 25 MCG TABLET 50 MCG PO (07:34)
[2024-04-30 07:44] LABS: Glucose, Whole Blood 101 mg/dL (60-115)
[2024-04-30 11:17] LABS: Glucose, Whole Blood 152 mg/dL (60-115)
[2024-04-30] MEDS: Cyanocobalamin (Vitamin B-12) 1,000 MCG TABLET 1000 MCG PO (11:52)
[2024-04-30] MEDS: Ferrous Sulfate 324 MG TABLET.DR PO (11:52)
--- NOTE | 2024-04-30 14:57 | P.PNIM_ITS ---
Subjective Subjective Date of Service: 04/30/24 Interval History: Being followed for acute kidney injury Offers no acute complaints of flank pain, no nausea, no vomiting, no abdominal pain tolerated breakfast denies lightheadedness, no dizziness, no shortness of breath, no PND or orthopnea, no other acute events overnight. Review of Systems All other system reviewed and are negative. Physical Exam 2 Vital Signs: Vital Signs: Last Vital Signs Temp 96.8 F 04/30/24 07:07 Pulse 59 04/30/24 07:34 Resp 12 04/30/24 07:07 BP 121/60 04/30/24 07:34 Pulse Ox 100 04/30/24 07:07 O2 Del Method Room Air 04/30/24 07:07 BMI result Body Mass Index 24.5 Const: Other: General awake alert, resting comfortably in no acute distress. Neck supple, no JVD. CVS regular rate rhythm, Respiratory lungs clear to auscultation, no respiratory distress, no wheeze, no rhonchi. Gastrointestinal abdomen soft, non tender, bowel sounds audible, no guarding , no rigidity. Extremities no edema. no CVA tenderness. Neuro non focal ,moving all 4 extremity speech clear. Skin pallor/no rash Psych appropriate affect Objective Data Active Medications Acetaminophen (Acetaminophen 325 Mg Tablet) 650 mg PO Q6H PRN PRN Reason: Pain, Mild (Pain Scale 1-3), fever or headache Ascorbic Acid (Ascorbic Acid 500 Mg Tablet) 1,000 mg PO DAILY [facility] Last Admin: 04/30/24 07:34 Dose: 1,000 mg Documented By: COTEMA Calcium Carbonate (Calcium Carbonate 750 Mg Tab.Chew) 750 mg PO Q4H PRN PRN Reason: Heartburn Cyanocobalamin (Cyanocobalamin (Vitamin B-12) 1,000 Mcg Tablet) 1,000 mcg PO Q48H [facility] Last Admin: 04/30/24 11:52 Dose: 1,000 mcg Documented By: JANIS.COTEMA Ferrous Sulfate (Ferrous Sulfate 324 Mg Tablet.) 324 mg PO Q48H [facility] Last Admin: 04/30/24 11:52 Dose: 324 mg Documented By: COTEMA Glucose (Glucose Gel 15 Gm Gel..Gram.) 15 gm PO Q15M PRN; Protocol PRN Reason: per Hypoglycemia Standing Ord. Dextrose (D10) 250 mls @ 750 mls/hr IV Q15M PRN; Protocol PRN Reason: per Hypoglycemia Standing Ord. Ceftriaxone Sodium 1 gm/ (Sodium Chloride) 50 mls @ 100 mls/hr IV Q24H [facility] Last Infusion: 04/30/24 05:48 Dose: Infused Documented By: CONSTANZA Lactated Ringer's (Lr) 1,000 mls @ 60 mls/hr IVCONT .[id number] [facility] Insulin Human Lispro (Insulin Lispro 100 Unit/Ml 3 Ml Vial) 0 unit SUBCUT QIDACHS [facility]; Protocol Last Admin: 04/30/24 11:19 Dose: Not Given Documented By: ZOIE Non-Admin Reason: NPO Magnesium Hydroxide (Milk Of Magnesia 30 Ml Oral.Susp) 30 ml PO DAILY PRN PRN Reason: Constipation Melatonin (Melatonin 3 Mg Tablet) 6 mg PO BEDTIME PRN PRN Reason: Insomnia Last Admin: 04/29/24 22:30 Dose: 6 mg Documented By: UMER Metoprolol Succinate (Metoprolol Succinate Er 12.5 Mg Halftab.Er.24h) 12.5 mg PO DAILY [facility]; Protocol Last Admin: 04/30/24 07:34 Dose: 12.5 mg Documented By: ZOIE Paroxetine HCl (Paroxetine Hcl 10 Mg Tablet) 10 mg PO DAILY [facility] Last Admin: 04/30/24 07:34 Dose: 10 mg Documented By: ZOIE Sodium Chloride (0.9 % Sodium Chloride Flush 3 Ml Syringe) 3 ml IVFLUSH QSHIFT [facility] Last Admin: 04/30/24 14:43 Dose: Not Given Documented By: ZOIE Non-Admin Reason: IV Running Vitamin D (Cholecalciferol (Vitamin D3) 25 Mcg Tablet) 50 mcg PO DAILY [facility] Last Admin: 04/30/24 07:34 Dose: 50 mcg Documented By: ZOIE Labs 04/30/24 05:59 04/30/24 05:59 Labs: Laboratory Results - last 24 hr 04/29/24 04/29/24 04/30/24 16:22 20:07 05:59 MCV 82.8 MCH 27.8 MCHC 33.6 RDW 14.8 Plt Count 415 H MPV 8.7 L Absolute Nucleated RBC 0.000 Nucleated RBC % (auto) 0.0 Anion Gap 14 Estim Creat Clear Calc 6.2 Estimated GFR 7 POC Glucose 112 115 Random Glucose 113 Calcium 8.1 L 04/30/24 04/30/24 07:25 11:03 MCV MCH MCHC RDW Plt Count MPV Absolute Nucleated RBC Nucleated RBC % (auto) Anion Gap Estim Creat Clear Calc Estimated GFR POC Glucose 101 152 H Random Glucose Calcium Microbiology Microbiology Results: Microbiology 04/28/24 07:36 Urine Culture - Preliminary Urine Catheterized - [place] Catheter Enterococcus/Streptococcus sp Yeast 04/28/24 05:58 Blood Culture - Preliminary Blood - Venous No growth after 48 hours. 04/28/24 05:45 Blood Culture - Preliminary Blood - Venous No growth after 48 hours. Assessment and Plan (1) Hydronephrosis: Status: Acute Plan 88-year-old male with history aortic stenosis, macular degeneration, Paget's disease with osteopenia, [id number] type 2 diabetes, coronary artery disease, diabetic polyneuropathy, bladder cancer and hypertension who is s/p bilateral J-stent placement on 04/21 with [place] catheter in place admitted for further management of JOSI r/t suspected obstructive uropathy. #Acute kidney injury- suspect 2/2 obstructive uropathy on admission urine sodium 40.0, urine creatinine 55.13, FENA 5.0%. Creatinine 7.96, baseline around 1.3. Lytes WNL except co2 14 on arrival No significant change in renal function despite IV fluids Case discussed with Nephrology, they feel no additional component of hypoperfusion, Patient evaluated by Urology and will undergo revision of stent placement -avoid nephrotoxins -strict I&O, keep intake more than output. -continue [place] catheter,monitor renal function, electrolytes and urine output, will DC IV bicarb drip and place on IV LR 60 mL/hour # acute metabolic acidosis -on admission VBG pH 7.27, pCO2 28, bicarb 13, bicarb normalized to 24 will DC IV bicarb drip # UTI on IV ceftriaxone day 3, blood culture negative, urine culture grew Enterococcus and Streptococcus species 50 to 100,000 will follow final sensitivities ,adjust antibiotics. #Bladder cancer -following with Radiation Oncology at [facility], has not yet started therapy. s/p turbt 01/2024, recommend outpatient follow-up. # [id number]-qibynarzi type 2 diabetes -POC glucose, advanced to diabetic diet -Humalog on sliding scale -hold metformin # hypertension -continue metoprolol # hyperlipidemia -hold statin # acute on chronic normocytic anemia -likely in setting of JOSI, above transfusion threshold -continue ferrous sulfate -monitor H/H # CAD -no anginal chest pain -hold aspirin in case of urologic procedure. Hold statin. Continue metoprolol DVT prophylaxis- SCPs for now full code Patient requires continued inpatient stay for management of acute kidney injury secondary to obstructive uropathy likely requiring surgical intervention and will require expert consultation close monitoring of renal function and electrolyte levels Quality Stroke Does the patient have a stroke diagnosis?: No VTE Prior VTE?: No VTE Risk Level:: Medical - moderate - high VTE Device Contraindication: N/A - Device Ordered VTE Drug Contraindication: Treatment Not Indicated
--- NOTE | 2024-04-30 15:33 | MHC.CM.PN ---
EMR reviewed and per MD rounds, pt is not medically cleared for discharge due to ongoing management of JOSI.
[2024-04-30 16:05] LABS: Glucose, Whole Blood 113 mg/dL (60-115)
[2024-04-30] MEDS: Lactated Ringers 1,000 ML 60 ML IVCONT (16:05)
--- NOTE | 2024-04-30 17:13 | P.CONAN_ITS ---
[facility] Active Problems Active Problems: All Active Problems Obstructive uropathy (Acute) Acute renal failure (Acute) Depression, major (Acute) Bladder cancer (Acute) Hydronephrosis (Acute) Bladder mass (Acute) Abnormal computed tomography of abdomen and pelvis (Acute) UTI (urinary tract infection) (Acute) Laceration of finger of left hand (Acute) Obesity (BMI 30.0-34.9) (Acute) PVC (premature ventricular contraction) (Acute) Essential hypertension (Acute) Non-rheumatic aortic stenosis (Acute) Atherosclerotic cardiovascular disease (Acute) Anemia (Acute) Dysgeusia (Acute) Macular degeneration (Acute) Osteopenia (Acute) Paget's bone disease (Acute) Overweight (BMI 25.0-29.9) (Acute) Hypercholesterolemia (Acute) Diabetic nephropathy (Acute) Type 2 diabetes mellitus with hyperglycemia (Acute) Vitamin D deficiency (Acute) Coronary artery disease (Acute) Past Medical History Medical History Prostate mass Osteopenia Paget's bone disease Overweight (BMI 25.0-29.9) Peripheral vascular disease Hypercholesterolemia Diabetic nephropathy Type 2 diabetes mellitus with hyperglycemia Macular degeneration Lumbar degenerative disc disease Left renal stone Paget's disease of bone Vitamin D deficiency Aortic stenosis, mild Coronary artery disease Functional capacity: independent ambulation Family History Family History Father CVD (cardiovascular disease) Mother CVD (cardiovascular disease) Heart disease Brother In good health Sister In good health Son Diabetes Family history of problems with anesthesia: No Surgical History Surgical History History of removal of calculus of renal pelvis through percutaneous nephrostomy S/P CABG x 3 History of tonsillectomy History of bilateral cataract extraction History of ankle surgery S/P repair of hydrocele History of inguinal hernia repair History of Problems with Anesthesia: No Social History Social History Household Members: Family Household Members Other:: son Housing: House Do you presently have visiting nurse or other home services: No Alcohol intake: never Patient Tobacco Use Status: Former Tobacco user Tobacco use type: Cigarette Cigarette Packs Per Day: 2 Cigarettes Per Day: 40.0 Years Smoked: 30 e-Cigarette/Vaping Use: Never Used service: No Current occupational status: retired Cognitive needs: No Hearing needs: No Vision needs: Yes Meds Allergies Allergy/AdvReac Type Severity Reaction Status Date / Time No Known Allergies Allergy Verified 04/28/24 04:03 [No Known Allergies*] Active Medications: Current Medications Acetaminophen (Acetaminophen 325 Mg Tablet) 650 mg PO Q6H PRN PRN Reason: Pain, Mild (Pain Scale 1-3), fever or headache Ascorbic Acid (Ascorbic Acid 500 Mg Tablet) 1,000 mg PO DAILY [facility] Last Admin: 04/30/24 07:34 Dose: 1,000 mg Calcium Carbonate (Calcium Carbonate 750 Mg Tab.Chew) 750 mg PO Q4H PRN PRN Reason: Heartburn Cyanocobalamin (Cyanocobalamin (Vitamin B-12) 1,000 Mcg Tablet) 1,000 mcg PO Q48H [facility] Last Admin: 04/30/24 11:52 Dose: 1,000 mcg Ferrous Sulfate (Ferrous Sulfate 324 Mg Tablet.Dr) 324 mg PO Q48H [facility] Last Admin: 04/30/24 11:52 Dose: 324 mg Glucose (Glucose Gel 15 Gm Gel..Gram.) 15 gm PO Q15M PRN; Protocol PRN Reason: per Hypoglycemia Standing Ord. Dextrose (D10) 250 mls @ 750 mls/hr IV Q15M PRN; Protocol PRN Reason: per Hypoglycemia Standing Ord. Ceftriaxone Sodium 1 gm/ (Sodium Chloride) 50 mls @ 100 mls/hr IV Q24H [facility] Last Infusion: 04/30/24 05:48 Dose: Infused Lactated Ringer's (Lr) 1,000 mls @ 60 mls/hr IVCONT .[id number] [facility] Last Admin: 04/30/24 16:05 Dose: 60 mls/hr Insulin Human Lispro (Insulin Lispro 100 Unit/Ml 3 Ml Vial) 0 unit SUBCUT QIDACHS [facility]; Protocol Last Admin: 04/30/24 16:08 Dose: Not Given Magnesium Hydroxide (Milk Of Magnesia 30 Ml Oral.Susp) 30 ml PO DAILY PRN PRN Reason: Constipation Melatonin (Melatonin 3 Mg Tablet) 6 mg PO BEDTIME PRN PRN Reason: Insomnia Last Admin: 04/29/24 22:30 Dose: 6 mg Metoprolol Succinate (Metoprolol Succinate Er 12.5 Mg Halftab.Er.24h) 12.5 mg PO DAILY [facility]; Protocol Last Admin: 04/30/24 07:34 Dose: 12.5 mg Paroxetine HCl (Paroxetine Hcl 10 Mg Tablet) 10 mg PO DAILY [facility] Last Admin: 04/30/24 07:34 Dose: 10 mg Sodium Chloride (0.9 % Sodium Chloride Flush 3 Ml Syringe) 3 ml IVFLUSH QSHIFT [facility] Last Admin: 04/30/24 14:43 Dose: Not Given Vitamin D (Cholecalciferol (Vitamin D3) 25 Mcg Tablet) 50 mcg PO DAILY [facility] Last Admin: 04/30/24 07:34 Dose: 50 mcg Home Medications ?Medication ?Instructions ?Recorded ?Confirmed ?Last Taken ?Type aspirin 81 mg tablet,delayed 81 mg PO DAILY 10/11/20 04/28/24 01/26/24 History release (Adult Aspirin Regimen) vitamins A,C,[id number] 1 tab PO BID 03/29/21 04/28/24 01/26/24 History [PreserVision AREDS] cyanocobalamin (vitamin B-12) 1,000 mcg PO Q OTHER DAY 01/26/24 04/28/24 Unknown History 1,000 mcg capsule Exam Height,Weight and Vital Signs: Height 5 ft 4 in Weight 64.7 kg Last Vital Signs Temp 96.6 F L 04/30/24 16:00 Pulse 61 04/30/24 16:00 Resp 16 04/30/24 16:00 BP 159/70 H 04/30/24 16:00 Pulse Ox 97 04/30/24 16:00 O2 Del Method Room Air 04/30/24 16:00 Pertinent Lab Results Pertinent Lab Results: Laboratory Tests 04/28/24 04/28/24 04/28/24 04:33 04:41 05:45 WBC RBC Hgb Hct MCV MCH MCHC RDW Plt Count MPV Immature Gran % (Auto) Neut % (Auto) Lymph % (Auto) [place] % (Auto) Eos % (Auto) Baso % (Auto) Lymph # (Auto) [place] # (Auto) Eos # (Auto) Baso # (Auto) Abs Immat Gran (auto) Absolute Neuts (auto) Absolute Nucleated RBC Nucleated RBC % (auto) VBG pH VBG pCO2 VBG pO2 VBG HCO3 VBG O2 Saturation VBG Base Excess Sodium 137 Potassium 4.4 Chloride 106 Carbon Dioxide 14 L Anion Gap 21 H BUN 99 H Creatinine 8.64 H* Estim Creat Clear Calc 5.1 Estimated GFR 6 POC Glucose Random Glucose 99 Lactic Acid 0.2 L Calcium 9.1 Urine Color Yellow Urine Appearance Turbid Urine pH 5.5 Ur Specific [place] 1.010 Urine Protein 300 (3+) H Urine Glucose (UA) Negative Urine Ketones Negative Urine Blood Large (3+) H Urine Nitrite Negative Ur Leukocyte Esterase Large (3+) H Urine RBC >20 H Urine WBC >50 H Ur Squamous Epith Cells >20 Urine Bacteria 3+ Hyaline Casts 6-10 Urine Yeast Present Ur Random Sodium 48.0 Urine Creatinine 55.13 Blood Type Antibody Screen 04/28/24 04/28/24 04/28/24 07:03 08:30 10:38 WBC 10.9 H RBC 2.90 L D Hgb 8.2 L D Hct 24.4 L D MCV 84.1 MCH 28.3 MCHC 33.6 RDW 14.6 Plt Count 423 H D MPV 8.6 L Immature Gran % (Auto) 0.5 H Neut % (Auto) 83.2 H Lymph % (Auto) 8.1 L [place] % (Auto) 6.5 Eos % (Auto) 1.3 Baso % (Auto) 0.4 Lymph # (Auto) 0.9 L [place] # (Auto) 0.7 Eos # (Auto) 0.1 Baso # (Auto) 0.0 Abs Immat Gran (auto) 0.06 H Absolute Neuts (auto) 9.1 H Absolute Nucleated RBC 0.000 Nucleated RBC % (auto) 0.0 VBG pH VBG pCO2 VBG pO2 VBG HCO3 VBG O2 Saturation VBG Base Excess Sodium 139 Potassium 4.1 Chloride 110 H Carbon Dioxide 18 L Anion Gap 15 BUN 91 H Creatinine 7.96 H* Estim Creat Clear Calc 5.5 Estimated GFR 6 POC Glucose Random Glucose 96 Lactic Acid Calcium 8.4 D Urine Color Urine Appearance Urine pH Ur Specific [place] Urine Protein Urine Glucose (UA) Urine Ketones Urine Blood Urine Nitrite Ur Leukocyte Esterase Urine RBC Urine WBC Ur Squamous Epith Cells Urine Bacteria Hyaline Casts Urine Yeast Ur Random Sodium Urine Creatinine Blood Type B Positive Antibody Screen NEGATIVE 04/28/24 04/28/24 04/28/24 10:41 19:18 20:27 WBC RBC Hgb 8.8 L Hct 26.3 L MCV MCH MCHC RDW Plt Count MPV Immature Gran % (Auto) Neut % (Auto) Lymph % (Auto) [place] % (Auto) Eos % (Auto) Baso % (Auto) Lymph # (Auto) [place] # (Auto) Eos # (Auto) Baso # (Auto) Abs Immat Gran (auto) Absolute Neuts (auto) Absolute Nucleated RBC Nucleated RBC % (auto) VBG pH 7.27 L VBG pCO2 28 VBG pO2 67 VBG HCO3 13 L VBG O2 Saturation 89.0 VBG Base Excess -12.0 Sodium Potassium Chloride Carbon Dioxide Anion Gap BUN Creatinine Estim Creat Clear Calc Estimated GFR POC Glucose 139 H Random Glucose Lactic Acid Calcium Urine Color Urine Appearance Urine pH Ur Specific [place] Urine Protein Urine Glucose (UA) Urine Ketones Urine Blood Urine Nitrite Ur Leukocyte Esterase Urine RBC Urine WBC Ur Squamous Epith Cells Urine Bacteria Hyaline Casts Urine Yeast Ur Random Sodium Urine Creatinine Blood Type Antibody Screen 04/29/24 04/29/24 04/29/24 05:36 07:18 11:10 WBC 9.6 RBC 3.02 L Hgb 8.4 L Hct 25.2 L MCV 83.4 MCH 27.8 MCHC 33.3 RDW 14.7 Plt Count 432 H MPV 8.8 L Immature Gran % (Auto) 0.5 H Neut % (Auto) 80.0 H Lymph % (Auto) 9.0 L [place] % (Auto) 7.9 Eos % (Auto) 2.1 Baso % (Auto) 0.5 Lymph # (Auto) 0.9 L [place] # (Auto) 0.8 Eos # (Auto) 0.2 Baso # (Auto) 0.1 Abs Immat Gran (auto) 0.05 H Absolute Neuts (auto) 7.7 Absolute Nucleated RBC 0.000 Nucleated RBC % (auto) 0.0 VBG pH VBG pCO2 VBG pO2 VBG HCO3 VBG O2 Saturation VBG Base Excess Sodium 139 Potassium 3.4 Chloride 106 Carbon Dioxide 21 L Anion Gap 15 BUN 91 H Creatinine 7.76 H* Estim Creat Clear Calc 5.7 Estimated GFR 7 POC Glucose 101 149 H Random Glucose 108 Lactic Acid Calcium 8.2 L Urine Color Urine Appearance Urine pH Ur Specific [place] Urine Protein Urine Glucose (UA) Urine Ketones Urine Blood Urine Nitrite Ur Leukocyte Esterase Urine RBC Urine WBC Ur Squamous Epith Cells Urine Bacteria Hyaline Casts Urine Yeast Ur Random Sodium Urine Creatinine Blood Type Antibody Screen 04/29/24 04/29/24 04/30/24 16:22 20:07 05:59 WBC 10.2 RBC 3.09 L Hgb 8.6 L Hct 25.6 L MCV 82.8 MCH 27.8 MCHC 33.6 RDW 14.8 Plt Count 415 H MPV 8.7 L Immature Gran % (Auto) Neut % (Auto) Lymph % (Auto) [place] % (Auto) Eos % (Auto) Baso % (Auto) Lymph # (Auto) [place] # (Auto) Eos # (Auto) Baso # (Auto) Abs Immat Gran (auto) Absolute Neuts (auto) Absolute Nucleated RBC 0.000 Nucleated RBC % (auto) 0.0 VBG pH VBG pCO2 VBG pO2 VBG HCO3 VBG O2 Saturation VBG Base Excess Sodium 139 Potassium 3.3 Chloride 104 Carbon Dioxide 24 Anion Gap 14 BUN 82 H Creatinine 7.09 H* Estim Creat Clear Calc 6.2 Estimated GFR 7 POC Glucose 112 115 Random Glucose 113 Lactic Acid Calcium 8.1 L Urine Color Urine Appearance Urine pH Ur Specific [place] Urine Protein Urine Glucose (UA) Urine Ketones Urine Blood Urine Nitrite Ur Leukocyte Esterase Urine RBC Urine WBC Ur Squamous Epith Cells Urine Bacteria Hyaline Casts Urine Yeast Ur Random Sodium Urine Creatinine Blood Type Antibody Screen 04/30/24 04/30/24 04/30/24 07:25 11:03 15:56 WBC RBC Hgb Hct MCV MCH MCHC RDW Plt Count MPV Immature Gran % (Auto) Neut % (Auto) Lymph % (Auto) [place] % (Auto) Eos % (Auto) Baso % (Auto) Lymph # (Auto) [place] # (Auto) Eos # (Auto) Baso # (Auto) Abs Immat Gran (auto) Absolute Neuts (auto) Absolute Nucleated RBC Nucleated RBC % (auto) VBG pH VBG pCO2 VBG pO2 VBG HCO3 VBG O2 Saturation VBG Base Excess Sodium Potassium Chloride Carbon Dioxide Anion Gap BUN Creatinine Estim Creat Clear Calc Estimated GFR POC Glucose 101 152 H 113 Random Glucose Lactic Acid Calcium Urine Color Urine Appearance Urine pH Ur Specific [place] Urine Protein Urine Glucose (UA) Urine Ketones Urine Blood Urine Nitrite Ur Leukocyte Esterase Urine RBC Urine WBC Ur Squamous Epith Cells Urine Bacteria Hyaline Casts Urine Yeast Ur Random Sodium Urine Creatinine Blood Type Antibody Screen Airway Mallampati Class: III TM Dist: >3cm Neck ROM: Full Denture: Upper and Lower Heart: RRR Lungs: CTA Assessment and Plan Assessment Anesthesia Assessment: Anesthesia Plan Discussed Final Anesthetic Review Family History of Problems with Anesthesia: No History of Problems with Anesthesia: No NPO: Yes ASA Class: III and Emergency Final Preanesthetic Review: Meds/Allgs Chart Reviewed, Consent Obtained/Reviewed and Anes Risks/Benef Reviewed Patient Risk: Intermediate Procedure Risk: Low Anesthetic Plan Anesthetic Plan: MAC: Disposition: Standard PACU
[2024-04-30 18:35] LABS: Glucose, Whole Blood 98 mg/dL (60-115)
--- NOTE | 2024-04-30 19:08 | MHC.SHP ---
Pre-Procedural Eval Section A - 24 Hr Update-Section A only Date of Service: 04/30/24 The patient is an INPATIENT: Yes Changes since office visit: No Cold of Flu in the past 2 weeks, No New Medical Problems, No Changes in Medication and No Patient answered all questions The patient has been examined within 24 hours of the surgical procedure. The History & Physical has been completed within 30 days and I have reviewed it.: Yes Section B - Complete if H&P > 30 days Chief Complaint: JOSI Obstructive Uropathy Details of Present Illness: Has bilateral stents - Cr not improving - will replace stents with double stents bilateral Relevant Social History: None Present Medications: see Short Stay Collaborative assessment Medical History: Significant History History of Previous Operations: Relevant previous surgery/procedure and date(s) Allergies: Allergies Allergy/AdvReac Type Severity Reaction Status Date / Time No Known Allergies Allergy Verified 04/28/24 04:03 [No Known Allergies*] Review of Systems Sugical H&P ROS: Negative: Constitution, Cardiovascular, Respiratory, Neurological, Psychiatric, Hem-Onc, Allergic/Immunologic, Gastrointestinal, Genitourinary, Musculoskeletal, Integumentary, Endocrine and Eyes/Ears/Nose/Throat Exam Surgical H&P Exam: Normal: HEENT, Normal: Heart, Normal: Lungs, Normal: Extremities, Normal: Abdomen, Normal: Skin and Normal: Neurological Plan Diagnosis/Plan: Unchanged (bilateral stent exchange) I have reviewed the history and physical and performed a pertinent physical examination on my patient. No changes have occurred unless specified. Time Spent With Patient Time: Total time managing care of this patient today ____ minutes.
--- NOTE | 2024-04-30 19:46 | P.CONAN_ITS ---
[facility] Active Problems Active Problems: All Active Problems Obstructive uropathy (Acute) Acute renal failure (Acute) Depression, major (Acute) Bladder cancer (Acute) Hydronephrosis (Acute) Bladder mass (Acute) Abnormal computed tomography of abdomen and pelvis (Acute) UTI (urinary tract infection) (Acute) Laceration of finger of left hand (Acute) Obesity (BMI 30.0-34.9) (Acute) PVC (premature ventricular contraction) (Acute) Essential hypertension (Acute) Non-rheumatic aortic stenosis (Acute) Atherosclerotic cardiovascular disease (Acute) Anemia (Acute) Dysgeusia (Acute) Macular degeneration (Acute) Osteopenia (Acute) Paget's bone disease (Acute) Overweight (BMI 25.0-29.9) (Acute) Hypercholesterolemia (Acute) Diabetic nephropathy (Acute) Type 2 diabetes mellitus with hyperglycemia (Acute) Vitamin D deficiency (Acute) Coronary artery disease (Acute) Past Medical History Medical History Prostate mass Osteopenia Paget's bone disease Overweight (BMI 25.0-29.9) Peripheral vascular disease Hypercholesterolemia Diabetic nephropathy Type 2 diabetes mellitus with hyperglycemia Macular degeneration Lumbar degenerative disc disease Left renal stone Paget's disease of bone Vitamin D deficiency Aortic stenosis, mild Coronary artery disease Functional capacity: independent ambulation Family History Family History Father CVD (cardiovascular disease) Mother CVD (cardiovascular disease) Heart disease Brother In good health Sister In good health Son Diabetes Family history of problems with anesthesia: No Surgical History Surgical History History of removal of calculus of renal pelvis through percutaneous nephrostomy S/P CABG x 3 History of tonsillectomy History of bilateral cataract extraction History of ankle surgery S/P repair of hydrocele History of inguinal hernia repair History of Problems with Anesthesia: No Social History Social History Household Members: Family Household Members Other:: son Housing: House Do you presently have visiting nurse or other home services: No Alcohol intake: never Patient Tobacco Use Status: Former Tobacco user Tobacco use type: Cigarette Cigarette Packs Per Day: 2 Cigarettes Per Day: 40.0 Years Smoked: 30 e-Cigarette/Vaping Use: Never Used service: No Current occupational status: retired Cognitive needs: No Hearing needs: No Vision needs: Yes Meds Allergies Allergy/AdvReac Type Severity Reaction Status Date / Time No Known Allergies Allergy Verified 04/28/24 04:03 [No Known Allergies*] Active Medications: Current Medications Acetaminophen (Acetaminophen 325 Mg Tablet) 650 mg PO Q6H PRN PRN Reason: Pain, Mild (Pain Scale 1-3), fever or headache Ascorbic Acid (Ascorbic Acid 500 Mg Tablet) 1,000 mg PO DAILY [facility] Last Admin: 04/30/24 07:34 Dose: 1,000 mg Calcium Carbonate (Calcium Carbonate 750 Mg Tab.Chew) 750 mg PO Q4H PRN PRN Reason: Heartburn Cyanocobalamin (Cyanocobalamin (Vitamin B-12) 1,000 Mcg Tablet) 1,000 mcg PO Q48H [facility] Last Admin: 04/30/24 11:52 Dose: 1,000 mcg Fentanyl (Fentanyl Citrate/Pf 100 Mcg/2 Ml Vial) 25 mcg IVPUSH Q5M PRN PRN Reason: Pain, Moderate(Pain Scale 4-6) Stop: 05/01/24 01:39 Ferrous Sulfate (Ferrous Sulfate 324 Mg Tablet.Dr) 324 mg PO Q48H [facility] Last Admin: 04/30/24 11:52 Dose: 324 mg Glucose (Glucose Gel 15 Gm Gel..Gram.) 15 gm PO Q15M PRN; Protocol PRN Reason: per Hypoglycemia Standing Ord. Dextrose (D10) 250 mls @ 750 mls/hr IV Q15M PRN; Protocol PRN Reason: per Hypoglycemia Standing Ord. Ceftriaxone Sodium 1 gm/ (Sodium Chloride) 50 mls @ 100 mls/hr IV Q24H [facility] Last Infusion: 04/30/24 05:48 Dose: Infused Lactated Ringer's (Lr) 1,000 mls @ 60 mls/hr IVCONT .[id number] [facility] Last Admin: 04/30/24 16:05 Dose: 60 mls/hr Insulin Human Lispro (Insulin Lispro 100 Unit/Ml 3 Ml Vial) 0 unit SUBCUT QIDACHS [facility]; Protocol Last Admin: 04/30/24 16:08 Dose: Not Given Magnesium Hydroxide (Milk Of Magnesia 30 Ml Oral.Susp) 30 ml PO DAILY PRN PRN Reason: Constipation Melatonin (Melatonin 3 Mg Tablet) 6 mg PO BEDTIME PRN PRN Reason: Insomnia Last Admin: 04/29/24 22:30 Dose: 6 mg Metoprolol Succinate (Metoprolol Succinate Er 12.5 Mg Halftab.Er.24h) 12.5 mg PO DAILY [facility]; Protocol Last Admin: 04/30/24 07:34 Dose: 12.5 mg Paroxetine HCl (Paroxetine Hcl 10 Mg Tablet) 10 mg PO DAILY [facility] Last Admin: 04/30/24 07:34 Dose: 10 mg Sodium Chloride (0.9 % Sodium Chloride Flush 3 Ml Syringe) 3 ml IVFLUSH QSHIFT [facility] Last Admin: 04/30/24 14:43 Dose: Not Given Vitamin D (Cholecalciferol (Vitamin D3) 25 Mcg Tablet) 50 mcg PO DAILY [facility] Last Admin: 04/30/24 07:34 Dose: 50 mcg Home Medications ?Medication ?Instructions ?Recorded ?Confirmed ?Last Taken ?Type aspirin 81 mg tablet,delayed 81 mg PO DAILY 10/11/20 04/28/24 01/26/24 History release (Adult Aspirin Regimen) vitamins A,C,A-[id number]-[id number] 1 tab PO BID 03/29/21 04/28/24 01/26/24 History [PreserVision AREDS] cyanocobalamin (vitamin B-12) 1,000 mcg PO Q OTHER DAY 01/26/24 04/28/24 Unknown History 1,000 mcg capsule Exam Height,Weight and Vital Signs: Height 5 ft 4 in Weight 64.7 kg Last Vital Signs Temp 96.9 F 04/30/24 18:26 Pulse 62 04/30/24 18:26 Resp 16 04/30/24 18:26 BP 168/60 H 04/30/24 18:26 Pulse Ox 100 04/30/24 18:26 O2 Del Method Room Air 04/30/24 18:26 Pertinent Lab Results Pertinent Lab Results: Laboratory Tests 04/28/24 04/28/24 04/28/24 04:33 04:41 05:45 WBC RBC Hgb Hct MCV MCH MCHC RDW Plt Count MPV Immature Gran % (Auto) Neut % (Auto) Lymph % (Auto) [place] % (Auto) Eos % (Auto) Baso % (Auto) Lymph # (Auto) [place] # (Auto) Eos # (Auto) Baso # (Auto) Abs Immat Gran (auto) Absolute Neuts (auto) Absolute Nucleated RBC Nucleated RBC % (auto) VBG pH VBG pCO2 VBG pO2 VBG HCO3 VBG O2 Saturation VBG Base Excess Sodium 137 Potassium 4.4 Chloride 106 Carbon Dioxide 14 L Anion Gap 21 H BUN 99 H Creatinine 8.64 H* Estim Creat Clear Calc 5.1 Estimated GFR 6 POC Glucose Random Glucose 99 Lactic Acid 0.2 L Calcium 9.1 Urine Color Yellow Urine Appearance Turbid Urine pH 5.5 Ur Specific [place] 1.010 Urine Protein 300 (3+) H Urine Glucose (UA) Negative Urine Ketones Negative Urine Blood Large (3+) H Urine Nitrite Negative Ur Leukocyte Esterase Large (3+) H Urine RBC >20 H Urine WBC >50 H Ur Squamous Epith Cells >20 Urine Bacteria 3+ Hyaline Casts 6-10 Urine Yeast Present Ur Random Sodium 48.0 Urine Creatinine 55.13 Blood Type Antibody Screen 04/28/24 04/28/24 04/28/24 07:03 08:30 10:38 WBC 10.9 H RBC 2.90 L D Hgb 8.2 L D Hct 24.4 L D MCV 84.1 MCH 28.3 MCHC 33.6 RDW 14.6 Plt Count 423 H D MPV 8.6 L Immature Gran % (Auto) 0.5 H Neut % (Auto) 83.2 H Lymph % (Auto) 8.1 L [place] % (Auto) 6.5 Eos % (Auto) 1.3 Baso % (Auto) 0.4 Lymph # (Auto) 0.9 L [place] # (Auto) 0.7 Eos # (Auto) 0.1 Baso # (Auto) 0.0 Abs Immat Gran (auto) 0.06 H Absolute Neuts (auto) 9.1 H Absolute Nucleated RBC 0.000 Nucleated RBC % (auto) 0.0 VBG pH VBG pCO2 VBG pO2 VBG HCO3 VBG O2 Saturation VBG Base Excess Sodium 139 Potassium 4.1 Chloride 110 H Carbon Dioxide 18 L Anion Gap 15 BUN 91 H Creatinine 7.96 H* Estim Creat Clear Calc 5.5 Estimated GFR 6 POC Glucose Random Glucose 96 Lactic Acid Calcium 8.4 D Urine Color Urine Appearance Urine pH Ur Specific [place] Urine Protein Urine Glucose (UA) Urine Ketones Urine Blood Urine Nitrite Ur Leukocyte Esterase Urine RBC Urine WBC Ur Squamous Epith Cells Urine Bacteria Hyaline Casts Urine Yeast Ur Random Sodium Urine Creatinine Blood Type B Positive Antibody Screen NEGATIVE 04/28/24 04/28/24 04/28/24 10:41 19:18 20:27 WBC RBC Hgb 8.8 L Hct 26.3 L MCV MCH MCHC RDW Plt Count MPV Immature Gran % (Auto) Neut % (Auto) Lymph % (Auto) [place] % (Auto) Eos % (Auto) Baso % (Auto) Lymph # (Auto) [place] # (Auto) Eos # (Auto) Baso # (Auto) Abs Immat Gran (auto) Absolute Neuts (auto) Absolute Nucleated RBC Nucleated RBC % (auto) VBG pH 7.27 L VBG pCO2 28 VBG pO2 67 VBG HCO3 13 L VBG O2 Saturation 89.0 VBG Base Excess -12.0 Sodium Potassium Chloride Carbon Dioxide Anion Gap BUN Creatinine Estim Creat Clear Calc Estimated GFR POC Glucose 139 H Random Glucose Lactic Acid Calcium Urine Color Urine Appearance Urine pH Ur Specific [place] Urine Protein Urine Glucose (UA) Urine Ketones Urine Blood Urine Nitrite Ur Leukocyte Esterase Urine RBC Urine WBC Ur Squamous Epith Cells Urine Bacteria Hyaline Casts Urine Yeast Ur Random Sodium Urine Creatinine Blood Type Antibody Screen 04/29/24 04/29/24 04/29/24 05:36 07:18 11:10 WBC 9.6 RBC 3.02 L Hgb 8.4 L Hct 25.2 L MCV 83.4 MCH 27.8 MCHC 33.3 RDW 14.7 Plt Count 432 H MPV 8.8 L Immature Gran % (Auto) 0.5 H Neut % (Auto) 80.0 H Lymph % (Auto) 9.0 L [place] % (Auto) 7.9 Eos % (Auto) 2.1 Baso % (Auto) 0.5 Lymph # (Auto) 0.9 L [place] # (Auto) 0.8 Eos # (Auto) 0.2 Baso # (Auto) 0.1 Abs Immat Gran (auto) 0.05 H Absolute Neuts (auto) 7.7 Absolute Nucleated RBC 0.000 Nucleated RBC % (auto) 0.0 VBG pH VBG pCO2 VBG pO2 VBG HCO3 VBG O2 Saturation VBG Base Excess Sodium 139 Potassium 3.4 Chloride 106 Carbon Dioxide 21 L Anion Gap 15 BUN 91 H Creatinine 7.76 H* Estim Creat Clear Calc 5.7 Estimated GFR 7 POC Glucose 101 149 H Random Glucose 108 Lactic Acid Calcium 8.2 L Urine Color Urine Appearance Urine pH Ur Specific [place] Urine Protein Urine Glucose (UA) Urine Ketones Urine Blood Urine Nitrite Ur Leukocyte Esterase Urine RBC Urine WBC Ur Squamous Epith Cells Urine Bacteria Hyaline Casts Urine Yeast Ur Random Sodium Urine Creatinine Blood Type Antibody Screen 04/29/24 04/29/24 04/30/24 16:22 20:07 05:59 WBC 10.2 RBC 3.09 L Hgb 8.6 L Hct 25.6 L MCV 82.8 MCH 27.8 MCHC 33.6 RDW 14.8 Plt Count 415 H MPV 8.7 L Immature Gran % (Auto) Neut % (Auto) Lymph % (Auto) [place] % (Auto) Eos % (Auto) Baso % (Auto) Lymph # (Auto) [place] # (Auto) Eos # (Auto) Baso # (Auto) Abs Immat Gran (auto) Absolute Neuts (auto) Absolute Nucleated RBC 0.000 Nucleated RBC % (auto) 0.0 VBG pH VBG pCO2 VBG pO2 VBG HCO3 VBG O2 Saturation VBG Base Excess Sodium 139 Potassium 3.3 Chloride 104 Carbon Dioxide 24 Anion Gap 14 BUN 82 H Creatinine 7.09 H* Estim Creat Clear Calc 6.2 Estimated GFR 7 POC Glucose 112 115 Random Glucose 113 Lactic Acid Calcium 8.1 L Urine Color Urine Appearance Urine pH Ur Specific [place] Urine Protein Urine Glucose (UA) Urine Ketones Urine Blood Urine Nitrite Ur Leukocyte Esterase Urine RBC Urine WBC Ur Squamous Epith Cells Urine Bacteria Hyaline Casts Urine Yeast Ur Random Sodium Urine Creatinine Blood Type Antibody Screen 04/30/24 04/30/24 04/30/24 07:25 11:03 15:56 WBC RBC Hgb Hct MCV MCH MCHC RDW Plt Count MPV Immature Gran % (Auto) Neut % (Auto) Lymph % (Auto) [place] % (Auto) Eos % (Auto) Baso % (Auto) Lymph # (Auto) [place] # (Auto) Eos # (Auto) Baso # (Auto) Abs Immat Gran (auto) Absolute Neuts (auto) Absolute Nucleated RBC Nucleated RBC % (auto) VBG pH VBG pCO2 VBG pO2 VBG HCO3 VBG O2 Saturation VBG Base Excess Sodium Potassium Chloride Carbon Dioxide Anion Gap BUN Creatinine Estim Creat Clear Calc Estimated GFR POC Glucose 101 152 H 113 Random Glucose Lactic Acid Calcium Urine Color Urine Appearance Urine pH Ur Specific [place] Urine Protein Urine Glucose (UA) Urine Ketones Urine Blood Urine Nitrite Ur Leukocyte Esterase Urine RBC Urine WBC Ur Squamous Epith Cells Urine Bacteria Hyaline Casts Urine Yeast Ur Random Sodium Urine Creatinine Blood Type Antibody Screen 04/30/24 18:32 WBC RBC Hgb Hct MCV MCH MCHC RDW Plt Count MPV Immature Gran % (Auto) Neut % (Auto) Lymph % (Auto) [place] % (Auto) Eos % (Auto) Baso % (Auto) Lymph # (Auto) [place] # (Auto) Eos # (Auto) Baso # (Auto) Abs Immat Gran (auto) Absolute Neuts (auto) Absolute Nucleated RBC Nucleated RBC % (auto) VBG pH VBG pCO2 VBG pO2 VBG HCO3 VBG O2 Saturation VBG Base Excess Sodium Potassium Chloride Carbon Dioxide Anion Gap BUN Creatinine Estim Creat Clear Calc Estimated GFR POC Glucose 98 Random Glucose Lactic Acid Calcium Urine Color Urine Appearance Urine pH Ur Specific [place] Urine Protein Urine Glucose (UA) Urine Ketones Urine Blood Urine Nitrite Ur Leukocyte Esterase Urine RBC Urine WBC Ur Squamous Epith Cells Urine Bacteria Hyaline Casts Urine Yeast Ur Random Sodium Urine Creatinine Blood Type Antibody Screen Airway Heart: RRR Lungs: CTA Assessment and Plan Assessment Anesthesia Assessment: Anesthesia Plan Discussed Final Anesthetic Review Family History of Problems with Anesthesia: No History of Problems with Anesthesia: No NPO: Yes ASA Class: III and Emergency Final Preanesthetic Review: Meds/Allgs Chart Reviewed, Consent Obtained/Reviewed and Anes Risks/Benef Reviewed Patient Risk: Intermediate Procedure Risk: Low Anesthetic Plan Anesthetic Plan: MAC: Disposition: Standard PACU
--- NOTE | 2024-04-30 19:53 | W.PM.OPN ---
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 Right stent removal, right retrograde, double right stent placement Surgeon: Dr Lobo Dugan Anesthesia: LMA Indications for procedure: Bladder cancer Procedure: After informed consent was verified the patient was brought to the operating room and placed in a supine position. Anesthesia was administered per protocol. The patient was placed in modified dorsal lithotomy position and prepped and draped in a sterile fashion. A safety pause time-out was performed. Laterality of procedure and antibiotics were confirmed, appropriate imaging was available A 22 [place] cystoscope was introduced per urethra. Cancer across base of bladder. Seven [place] double-J stents emerging from each ureter. The left ureter attempt made to place a Glidewire along the ureter. Unable to manipulate. The left ureter was grasped and brought to the meatus. A sensor wire placed up to the with normal pelvis. The 7 [place] stent was removed. A dual-lumen catheter was placed over the sensor wire up to the level renal pelvis. Retrograde examination performed. A Glidewire was placed in the 2nd lumen. Double-lumen catheter was removed. The Glidewire was backloaded through the cystoscope. This was advanced into the bladder. A 6 [place] by 24 cm stent was then placed under fluoroscopy. The cystoscope was removed. The sensor guidewire was then backloaded through the cystoscope. A 2nd 6 [place] by 24 cm stent was advanced alongside the initial stent. This will create a wide channel between the 2 stents to allow urinary drainage even if there is obstruction of stent weep holes. Attention directed to the right side. A similar procedure was performed with the stent removed and exchanged for 2 6 [place] 24 cm stents. Appropriate coil was seen within the renal pelvis bilateral and within the bladder. Images taken. Sixteen [place] catheter placed to allow drainage. The patient tolerated the procedure well and was transferred in a stable condition to the recovery area. Pathology: None Drains: 4 6 [place] by 24 cm double-J stents
--- NOTE | 2024-04-30 20:20 | P.PNNP_ITS ---
Subjective Subjective Date of Service: 04/30/24 Interval history: no other acute events overnight. For stent change today Physical Exam 2 Vital Signs: Vital Signs: Last Vital Signs Temp 97.3 F 04/30/24 20:00 Pulse 59 04/30/24 20:00 Resp 16 04/30/24 20:00 BP 132/93 H 04/30/24 20:00 Pulse Ox 99 04/30/24 20:00 O2 Del Method Room Air 04/30/24 20:00 BMI result Body Mass Index 24.5 Const: General: comfortable and no acute distress O rientation/consciousness: patient oriented x3 HEENT: Head: Yes normocephalic Mouth: Normal oral and palatal mucosa present Eyes: EOM: EOMs intact bilaterally Neck: Neck: Yes supple Resp: Auscultation: clear to auscultation bilaterally Cardio: Jugular venous distension: no JVD Rate: regular rate GI: Palpation (GI): Soft to palpation Auscultation: normal bowel sounds : General: Yes no CVA tenderness Back/Spine/Pelvis: Back: no CVA tenderness Skin: General skin exam: no rashes or lesions noted Neuro: General: patient oriented x3 and moves all extremities Extrem: General: Yes no pedal edema Objective Data Labs 04/30/24 05:59 04/30/24 05:59 Labs: Laboratory Results - last 24 hr 04/30/24 04/30/24 04/30/24 05:59 07:25 11:03 WBC 10.2 RBC 3.09 L Hgb 8.6 L Hct 25.6 L MCV 82.8 MCH 27.8 MCHC 33.6 RDW 14.8 Plt Count 415 H MPV 8.7 L Absolute Nucleated RBC 0.000 Nucleated RBC % (auto) 0.0 Sodium 139 Potassium 3.3 Chloride 104 Carbon Dioxide 24 Anion Gap 14 BUN 82 H Creatinine 7.09 H* Estim Creat Clear Calc 6.2 Estimated GFR 7 POC Glucose 101 152 H Random Glucose 113 Calcium 8.1 L 04/30/24 04/30/24 15:56 18:32 WBC RBC Hgb Hct MCV MCH MCHC RDW Plt Count MPV Absolute Nucleated RBC Nucleated RBC % (auto) Sodium Potassium Chloride Carbon Dioxide Anion Gap BUN Creatinine Estim Creat Clear Calc Estimated GFR POC Glucose 113 98 Random Glucose Calcium Microbiology Microbiology Results: Microbiology 04/28/24 07:36 Urine Catheterized - [place] Catheter Urine Culture - Preliminary Enterococcus/Streptococcus sp Yeast 04/28/24 05:58 Blood - Venous Blood Culture - Preliminary No growth after 48 hours. 04/28/24 05:45 Blood - Venous Blood Culture - Preliminary No growth after 48 hours. Procedures Date of Service Date of Service: 04/30/24 Assessment & Plan Assessment and plan (1) Acute renal failure: Status: Acute Plan JOSI due to multifactorial etiology Serum creatinine improving For stenting today No indication for HD C/W rest of current supportive care Progress Note: Quality Stroke Does the patient have a stroke diagnosis?: No
[2024-04-30] MEDS: Lactated Ringers 1,000 ML 100 ML IVCONT (21:17)
[2024-04-30 21:34] LABS: Glucose, Whole Blood 99 mg/dL (60-115)
[2024-05-01] VITALS (7 sets, daily range): BP systolic 122–158; BP diastolic 58–69; PULSE 55–66; RESP 12–16; TEMP 36–36.4; O2SAT 96–100
[2024-05-01] MEDS: 0.9 % Sodium Chloride Flush 3 ML SYRINGE IVFLUSH (03:01)
[2024-05-01] MEDS: Melatonin 3 MG TABLET 6 MG PO (03:15)
[2024-05-01] MEDS: cefTRIAXone sodium 1 GM in 0.9 % Sodium Chloride 50 ML IV (05:17)
[2024-05-01] MEDS: Lactated Ringers 1,000 ML 60 ML IVCONT ×3 (05:17→22:18)
[2024-05-01] MEDS: Lactated Ringers 1,000 ML 100 ML IVCONT (05:19)
[2024-05-01 06:33] LABS: Anion Gap 16 (12-20); Blood Urea Nitrogen 69 mg/dL (9-16); Calcium 8.2 mg/dL (8.4-10.2); Carbon Dioxide 27 mmol/L (22-29); Chloride 102 mmol/L (96-108); Estimated Glomerular Filt Rate 9; Glucose Random 94 mg/dL (60-115); Potassium 3.5 mmol/L (3.3-5.1); Sodium 141 mmol/L (135-145)
[2024-05-01 07:31] LABS: Glucose, Whole Blood 83 mg/dL (60-115)
[2024-05-01] MEDS: Cholecalciferol (Vitamin D3) 25 MCG TABLET 50 MCG PO (08:03)
[2024-05-01] MEDS: PARoxetine HCL 10 MG TABLET PO (08:03)
[2024-05-01] MEDS: Metoprolol Succinate ER 12.5 MG HALFTAB.ER.24H PO (08:03)
[2024-05-01] MEDS: Ascorbic Acid 500 MG TABLET 1000 MG PO (08:04)
--- NOTE | 2024-05-01 08:48 | P.CDIM_ITS ---
PROVIDER RESPONSE TEXT: To clarify, the appropriate diagnosis supported by the clinical indicators: Acute renal failure (Injury) on Chronic Kidney Disease (CKD): patric on ckd 3 QUERY TEXT: PHYSICIAN'S DOCUMENTATION REQUEST Date of Query: 05/01/2024 06:44 AM EDT Patient Name: Kenneth Beard Admit Date: 04/28/2024 Dear Mitch Atkins, A review of the medical record indicates additional documentation may be needed. Please review below and update the documentation accordingly. Clinical Indicators: Nephrology note dated 04/29 - 88 year old man with acute kidney injury superimposed on CKD. Urology consult note dated 04/28 - Acute on chronic renal insult - question of post renal obstruction. Progress note dated 04/30 - Acute kidney injury - suspect 2/2 obstructive uropathy. Please clarify which of the following accurately represents the patient's stage of the noted CKD: Acute renal failure (Injury) on Chronic Kidney Disease (CKD) Stage 1, 2, 3a, 3b, 4 Other (explain) Clinically unable to determine (explain) Thank you, Janell Amaya, CCS, CDIS Use of terms such as suspected, likely, concern for, or probable (associated with a specific diagnosi s that is being evaluated, monitored, or treated as if it exists) are acceptable and can be coded in the inpatient se tting, when documented at the time of discharge. Please use your independent medical judgment in providing your response. THIS QUERY IS PART OF THE PERMANENT MEDICAL RECORD
[2024-05-01 11:16] LABS: Glucose, Whole Blood 130 mg/dL (60-115)
--- NOTE | 2024-05-01 11:30 | HO.POSTANES ---
Post Anesthesia Evaluation Post Anesthesia Evaluation Date of Service: 04/30/24 Vital Signs: Vital Signs Temp Pulse Resp BP Pulse Ox O2 Del Method 05/01/24 08:03 66 143/67 H 05/01/24 07:41 96.8 F 66 14 143/67 H 96 Room Air 05/01/24 02:58 96.9 F 62 16 158/69 H 98 Room Air 04/30/24 23:57 96.9 F 59 16 108/57 L 99 Room Air Anesthesia: General Mental Status: Awake Pain Control: Satisfactory Nausea/Vomiting: None Hydration: Adequate Anesthesia-Related Issues: No Anes. Related Issues
--- NOTE | 2024-05-01 11:47 | P.PNNP_ITS ---
Subjective Subjective Date of Service: 05/01/24 Interval history: no other acute events overnight. For stent change today Physical Exam 2 Vital Signs: Vital Signs: Last Vital Signs Temp 96.8 F 05/01/24 07:41 Pulse 66 05/01/24 08:03 Resp 14 05/01/24 07:41 BP 143/67 H 05/01/24 08:03 Pulse Ox 96 05/01/24 07:41 O2 Del Method Room Air 05/01/24 07:41 BMI result Body Mass Index 24.5 Const: General: comfortable and no acute distress O rientation/consciousness: patient oriented x3 HEENT: Head: Yes normocephalic Mouth: Normal oral and palatal mucosa present Eyes: EOM: EOMs intact bilaterally Neck: Neck: Yes supple Resp: Auscultation: clear to auscultation bilaterally Cardio: Jugular venous distension: no JVD Rate: regular rate GI: Palpation (GI): Soft to palpation Auscultation: normal bowel sounds : General: Yes no CVA tenderness Back/Spine/Pelvis: Back: no CVA tenderness Skin: General skin exam: no rashes or lesions noted Neuro: General: patient oriented x3 and moves all extremities Extrem: General: Yes no pedal edema Objective Data Labs 04/30/24 05:59 05/01/24 05:23 Labs: Laboratory Results - last 24 hr 04/30/24 04/30/24 04/30/24 15:56 18:32 21:27 Hold Purple Top Sodium Potassium Chloride Carbon Dioxide Anion Gap BUN Creatinine Estim Creat Clear Calc Estimated GFR POC Glucose 113 98 99 Random Glucose Calcium 05/01/24 05/01/24 05/01/24 05:23 07:12 11:13 Hold Purple Top SEE NOTE Sodium 141 Potassium 3.5 Chloride 102 Carbon Dioxide 27 Anion Gap 16 BUN 69 H Creatinine 6.28 H* Estim Creat Clear Calc 7.0 Estimated GFR 9 POC Glucose 83 130 H Random Glucose 94 Calcium 8.2 L Microbiology Microbiology Results: Microbiology 04/28/24 07:36 Urine Catheterized - [place] Catheter Urine Culture - Preliminary Enterococcus faecalis Yeast 04/28/24 05:58 Blood - Venous Blood Culture - Preliminary No growth after 48 hours. 04/28/24 05:45 Blood - Venous Blood Culture - Preliminary No growth after 48 hours. Procedures Date of Service Date of Service: 05/01/24 Assessment & Plan Assessment and plan (1) Acute renal failure: Status: Acute (2) Bladder cancer: Status: Acute Plan 88-year-old man with acute kidney injury superimposed on CKD. JOSI is primarily due to obstruction and there could be an additional component hypoperfusion from volume depletion. No clear evidence of active glomerulonephritis or interstitial disease at this time. s/pstent He has no signs or symptoms of uremia. He has acidosis due to JOSI whic is esponding to IV bicarb. Serum potassium is in the normal range. UO has improved Recommendations Continue with IV hydration Keep I >O Keep intake more than output. Watch urine output closely Monitor renal function closely. There is no absolute indication for dialysis Time Spent With Patient Time: Total time managing care of this patient today ____ minutes. Progress Note: Quality Stroke Does the patient have a stroke diagnosis?: No
[2024-05-01] MEDS: Amoxicillin 500 MG CAPSULE PO ×2 (13:53→20:38)
--- NOTE | 2024-05-01 15:17 | P.PNIM_ITS ---
Subjective Subjective Date of Service: 05/01/24 Interval History: Being followed for acute on chronic kidney disease. Creatinine remains elevated despite revision of bilateral stents, patient offers no complaints of flank pain, no nausea, no vomiting, no abdominal pain, no lightheadedness or dizziness tolerating diet no acute issues overnight. Review of Systems All other system reviewed and negative Physical Exam 2 Vital Signs: Vital Signs: Last Vital Signs Temp 96.8 F 05/01/24 12:00 Pulse 64 05/01/24 12:00 Resp 12 05/01/24 12:00 BP 122/58 L 05/01/24 12:00 Pulse Ox 98 05/01/24 12:00 O2 Del Method Room Air 05/01/24 15:17 BMI result Body Mass Index 24.5 Const: Other: General awake alert, resting comfortably in no acute distress. Neck supple, no JVD. CVS regular rate rhythm, Respiratory lungs clear to auscultation, no respiratory distress, no wheeze, no rhonchi. Gastrointestinal abdomen soft, non tender, bowel sounds audible, no guarding , no rigidity. Extremities no edema. no CVA tenderness. Neuro non focal ,moving all 4 extremity speech clear. Skin pallor/no rash Psych appropriate affect Objective Data Active Medications Acetaminophen (Acetaminophen 325 Mg Tablet) 650 mg PO Q6H PRN PRN Reason: Pain, Mild (Pain Scale 1-3), fever or headache Amoxicillin (Amoxicillin 500 Mg Capsule) 500 mg PO BID [facility] Last Admin: 05/01/24 13:53 Dose: 500 mg Documented By: COTEMA Ascorbic Acid (Ascorbic Acid 500 Mg Tablet) 1,000 mg PO DAILY [facility] Last Admin: 05/01/24 08:04 Dose: 1,000 mg Documented By: COTEMA Calcium Carbonate (Calcium Carbonate 750 Mg Tab.Chew) 750 mg PO Q4H PRN PRN Reason: Heartburn Cyanocobalamin (Cyanocobalamin (Vitamin B-12) 1,000 Mcg Tablet) 1,000 mcg PO Q48H [facility] Last Admin: 04/30/24 11:52 Dose: 1,000 mcg Documented By: COTEMA Ferrous Sulfate (Ferrous Sulfate 324 Mg Tablet.) 324 mg PO Q48H [facility] Last Admin: 04/30/24 11:52 Dose: 324 mg Documented By: COTEMA Glucose (Glucose Gel 15 Gm Gel..Gram.) 15 gm PO Q15M PRN; Protocol PRN Reason: per Hypoglycemia Standing Ord. Dextrose (D10) 250 mls @ 750 mls/hr IV Q15M PRN; Protocol PRN Reason: per Hypoglycemia Standing Ord. Lactated Ringer's (Lr) 1,000 mls @ 60 mls/hr IVCONT .[id number] [facility] Last Admin: 05/01/24 08:04 Dose: 60 mls/hr Documented By: ZOIE Insulin Human Lispro (Insulin Lispro 100 Unit/Ml 3 Ml Vial) 0 unit SUBCUT QIDACHS [facility]; Protocol Last Admin: 05/01/24 11:36 Dose: Not Given Documented By: ZOIE Non-Admin Reason: No Insulin Coverage Magnesium Hydroxide (Milk Of Magnesia 30 Ml Oral.Susp) 30 ml PO DAILY PRN PRN Reason: Constipation Melatonin (Melatonin 3 Mg Tablet) 6 mg PO BEDTIME PRN PRN Reason: Insomnia Last Admin: 05/01/24 03:15 Dose: 6 mg Documented By: ANTOIC Metoprolol Succinate (Metoprolol Succinate Er 12.5 Mg Halftab.Er.24h) 12.5 mg PO DAILY [facility]; Protocol Last Admin: 05/01/24 08:03 Dose: 12.5 mg Documented By: ZOIE Paroxetine HCl (Paroxetine Hcl 10 Mg Tablet) 10 mg PO DAILY [facility] Last Admin: 05/01/24 08:03 Dose: 10 mg Documented By: ZOIE Sodium Chloride (0.9 % Sodium Chloride Flush 3 Ml Syringe) 3 ml IVFLUSH QSHIFT [facility] Last Admin: 05/01/24 13:52 Dose: Not Given Documented By: ZOIE Non-Admin Reason: IV Running Vitamin D (Cholecalciferol (Vitamin D3) 25 Mcg Tablet) 50 mcg PO DAILY [facility] Last Admin: 05/01/24 08:03 Dose: 50 mcg Documented By: ZOIE Labs 04/30/24 05:59 05/01/24 05:23 Labs: Laboratory Results - last 24 hr 04/30/24 04/30/24 04/30/24 15:56 18:32 21:27 Hold Purple Top Anion Gap Estim Creat Clear Calc Estimated GFR POC Glucose 113 98 99 Random Glucose Calcium 05/01/24 05/01/24 05/01/24 05:23 07:12 11:13 Hold Purple Top SEE NOTE Anion Gap 16 Estim Creat Clear Calc 7.0 Estimated GFR 9 POC Glucose 83 130 H Random Glucose 94 Calcium 8.2 L Microbiology Microbiology Results: Microbiology 04/28/24 07:36 Urine Culture - Final Urine Catheterized - Ovalles Catheter Enterococcus faecalis Miranda albicans Assessment and Plan (1) Hydronephrosis: Status: Acute Plan 88-year-old male with history aortic stenosis, macular degeneration, Paget's disease with osteopenia, [id number]-yhrilguqg type 2 diabetes, coronary artery disease, diabetic polyneuropathy, bladder cancer and hypertension who is s/p bilateral J-stent placement on 04/21 with O[address] catheter in place admitted for further management of JOSI r/t suspected obstructive uropathy. #Acute on chronic kidney disease stage 3- suspect 2/2 obstructive uropathy and some prerenal component on admission Creatinine 7.96, baseline around 1.3. Lytes WNL except co2 14 on arrival Status post revision of bilateral ureteric stents on 04/[address] Dugan Mild improvement in creatinine 6.28 today, bicarb normalized status post bicarb drip Case discussed with Nephrology, they feel no additional component of hypoperfusion, -avoid nephrotoxins -strict I&O, keep intake more than output. -continue Ovalles catheter,monitor renal function, electrolytes and urine output, on IV LR 60 mL/hour # acute metabolic acidosis due to above resolved with IV bicarb drip # UTI blood culture negative, urine culture grew Enterococcus faecalis and Miranda less than 50,000, status post IV ceftriaxone x2 days will place on amoxicillin renally dosed started on 05/01 #Bladder cancer -following with Radiation Oncology at [facility], has not yet started therapy. s/p turbt 01/2024, recommend outpatient follow-up. # [id number]-jmrnilgaj type 2 diabetes -stable blood sugars,on diabetic diet,Humalog sliding scale -hold metformin # hypertension -stable BP continue metoprolol # acute on chronic normocytic anemia -likely in setting of JOSI, above transfusion threshold, continue ferrous sulfate -monitor H/H # CAD -no anginal chest pain, continue metoprolol , aspirin on hold for possible further urological procedures DVT prophylaxis- SCPs for now full code Patient requires continued inpatient stay for management of acute kidney injury secondary to obstructive uropathy for close monitoring of renal function and electrolyte levels Quality Stroke Does the patient have a stroke diagnosis?: No VTE Prior VTE?: No VTE Risk Level:: Medical - moderate - high VTE Device Contraindication: N/A - Device Ordered VTE Drug Contraindication: Treatment Not Indicated
[2024-05-01 16:25] LABS: Glucose, Whole Blood 95 mg/dL (60-115)
[2024-05-01 20:07] LABS: Glucose, Whole Blood 102 mg/dL (60-115)
[2024-05-02] VITALS (8 sets, daily range): BP systolic 97–162; BP diastolic 50–74; PULSE 50–71; RESP 14–18; TEMP 36–36.6; O2SAT 93–100
[2024-05-02 07:24] LABS: Hematocrit 26.2 % (42.0-52.0); Hemoglobin 8.4 g/dl (14.0-18.0); Mean Corpuscular HGB Conc 32.1 g/dl (31.0-36.0); Mean Corpuscular Hemoglobin 27.5 pg (27.0-33.0); Mean Corpuscular Volume 85.9 fL (80.0-98.0); Mean Platelet Volume 9.1 fL (9.4-12.4); Platelet Count 429 X10*3/uL (160-400); Red Blood Count 3.05 X10*6/uL (4.60-5.80); Red Cell Distribution Width 14.9 % (11.0-16.0); White Blood Count 8.1 X10*3/uL (4.8-10.8)
[2024-05-02 07:39] LABS: Glucose, Whole Blood 92 mg/dL (60-115)
[2024-05-02 07:55] LABS: Anion Gap 15 (12-20); Blood Urea Nitrogen 62 mg/dL (9-16); Calcium 8.7 mg/dL (8.4-10.2); Carbon Dioxide 27 mmol/L (22-29); Chloride 104 mmol/L (96-108); Creatinine Clr Calc Pharmacy 7.9; Estimated Glomerular Filt Rate 10; Glucose Random 85 mg/dL (60-115); Potassium 3.3 mmol/L (3.3-5.1); Sodium 143 mmol/L (135-145)
--- NOTE | 2024-05-02 09:37 | P.PNNP_ITS ---
Subjective Subjective Date of Service: 05/02/24 Interval history: Events noted Doing much better. Urine output has improve Physical Exam 2 Vital Signs: Vital Signs: Last Vital Signs Temp 96.8 F 05/02/24 07:22 Pulse 63 05/02/24 07:22 Resp 16 05/02/24 07:22 BP 136/61 05/02/24 07:22 Pulse Ox 95 05/02/24 07:22 O2 Del Method Room Air 05/02/24 07:22 BMI result Body Mass Index 24.5 Const: General: comfortable and no acute distress O rientation/consciousness: patient oriented x3 HEENT: Head: Yes normocephalic Mouth: Normal oral and palatal mucosa present Eyes: EOM: EOMs intact bilaterally Neck: Neck: Yes supple Resp: Auscultation: clear to auscultation bilaterally Cardio: Jugular venous distension: no JVD Rate: regular rate GI: Palpation (GI): Soft to palpation Auscultation: normal bowel sounds : General: Yes no CVA tenderness Back/Spine/Pelvis: Back: no CVA tenderness Skin: General skin exam: no rashes or lesions noted Neuro: General: patient oriented x3 and moves all extremities Extrem: General: Yes no pedal edema Objective Data Labs 05/02/24 05:55 05/02/24 05:55 Labs: Laboratory Results - last 24 hr 05/01/24 05/01/24 05/01/24 11:13 16:22 20:04 WBC RBC Hgb Hct MCV MCH MCHC RDW Plt Count MPV Absolute Nucleated RBC Nucleated RBC % (auto) Sodium Potassium Chloride Carbon Dioxide Anion Gap BUN Creatinine Estim Creat Clear Calc Estimated GFR POC Glucose 130 H 95 102 Random Glucose Calcium 05/02/24 05/02/24 05:55 07:16 WBC 8.1 RBC 3.05 L Hgb 8.4 L Hct 26.2 L MCV 85.9 MCH 27.5 MCHC 32.1 RDW 14.9 Plt Count 429 H MPV 9.1 L Absolute Nucleated RBC 0.000 Nucleated RBC % (auto) 0.0 Sodium 143 Potassium 3.3 Chloride 104 Carbon Dioxide 27 Anion Gap 15 BUN 62 H Creatinine 5.57 H* Estim Creat Clear Calc 7.9 Estimated GFR 10 POC Glucose 92 Random Glucose 85 Calcium 8.7 D Microbiology Microbiology Results: Microbiology 04/28/24 07:36 Urine Catheterized - Ovalles Catheter Urine Culture - Final Enterococcus faecalis Miranda albicans 04/28/24 05:58 Blood - Venous Blood Culture - Preliminary No growth after 48 hours. 04/28/24 05:45 Blood - Venous Blood Culture - Preliminary No growth after 48 hours. Procedures Date of Service Date of Service: 05/02/24 Assessment & Plan Assessment and plan (1) Acute renal failure: Status: Acute (2) Bladder cancer: Status: Acute Plan 88-year-old man with acute kidney injury superimposed on CKD. JOSI is primarily due to obstruction and there could be an additional component hypoperfusion from volume depletion. No clear evidence of active glomerulonephritis or interstitial disease at this time. s/pstent He has no signs or symptoms of uremia. acidosis due to JOSI Serum potassium is in the normal range. UO has improved Renal function is gradually improving Recommendations Continue with IV hydration for 1 more Keep intake more than output. Watch urine output Monitor renal function closely. There is no absolute indication for dialysis Time Spent With Patient Time: Total time managing care of this patient today ____ minutes. Progress Note: Quality Stroke Does the patient have a stroke diagnosis?: No
[2024-05-02] MEDS: 0.9 % Sodium Chloride Flush 3 ML SYRINGE IVFLUSH ×3 (09:48→20:54)
[2024-05-02] MEDS: Metoprolol Succinate ER 12.5 MG HALFTAB.ER.24H PO (09:49)
[2024-05-02] MEDS: Cyanocobalamin (Vitamin B-12) 1,000 MCG TABLET 1000 MCG PO (09:49)
[2024-05-02] MEDS: Amoxicillin 500 MG CAPSULE PO ×2 (09:50→20:52)
[2024-05-02] MEDS: Ascorbic Acid 500 MG TABLET 1000 MG PO (09:50)
[2024-05-02] MEDS: Cholecalciferol (Vitamin D3) 25 MCG TABLET 50 MCG PO (09:50)
[2024-05-02] MEDS: PARoxetine HCL 10 MG TABLET PO (09:50)
[2024-05-02 11:38] LABS: Glucose, Whole Blood 102 mg/dL (60-115)
[2024-05-02] MEDS: Ferrous Sulfate 324 MG TABLET.DR PO (12:55)
--- NOTE | 2024-05-02 13:37 | P.PNIM_ITS ---
Subjective Subjective Date of Service: 05/02/24 Interval History: Continues to improve. No new issues. Review of Systems Denies chest pain Denies shortness of breath Denies nausea vomiting diarrhea Denies fever chills Physical Exam 2 Vital Signs: Vital Signs: Last Vital Signs Temp 97.1 F 05/02/24 12:00 Pulse 68 05/02/24 12:00 Resp 18 05/02/24 12:00 BP 110/58 L 05/02/24 12:00 Pulse Ox 100 05/02/24 12:00 O2 Del Method Room Air 05/02/24 12:00 BMI result Body Mass Index 24.5 Const: Other: Awake alert no acute distress Resp: Other: Clear to auscultation bilaterally no rales rhonchi or wheezes Cardio: Other: No S4; positive S1-S2; S3 murmurs rubs or gallops GI: Other: Soft nontender nondistended normoactive bowel sounds Extrem: Other: No edema bilaterally Objective Data Active Medications Acetaminophen (Acetaminophen 325 Mg Tablet) 650 mg PO Q6H PRN PRN Reason: Pain, Mild (Pain Scale 1-3), fever or headache Amoxicillin (Amoxicillin 500 Mg Capsule) 500 mg PO BID [facility] Last Admin: 05/02/24 09:50 Dose: 500 mg Documented By: MANDO Ascorbic Acid (Ascorbic Acid 500 Mg Tablet) 1,000 mg PO DAILY [facility] Last Admin: 05/02/24 09:50 Dose: 1,000 mg Documented By: MANDO Calcium Carbonate (Calcium Carbonate 750 Mg Tab.Chew) 750 mg PO Q4H PRN PRN Reason: Heartburn Cyanocobalamin (Cyanocobalamin (Vitamin B-12) 1,000 Mcg Tablet) 1,000 mcg PO Q48H [facility] Last Admin: 05/02/24 09:49 Dose: 1,000 mcg Documented By: MANDO Ferrous Sulfate (Ferrous Sulfate 324 Mg Tablet.Dr) 324 mg PO Q48H [facility] Last Admin: 05/02/24 12:55 Dose: 324 mg Documented By: MANDO Glucose (Glucose Gel 15 Gm Gel..Gram.) 15 gm PO Q15M PRN; Protocol PRN Reason: per Hypoglycemia Standing Ord. Dextrose (D10) 250 mls @ 750 mls/hr IV Q15M PRN; Protocol PRN Reason: per Hypoglycemia Standing Ord. Lactated Ringer's (Lr) 1,000 mls @ 60 mls/hr IVCONT .[id number] [facility] Last Infusion: 05/01/24 22:18 Dose: Infused Documented By: ANDREWS Insulin Human Lispro (Insulin Lispro 100 Unit/Ml 3 Ml Vial) 0 unit SUBCUT QIDACHS [facility]; Protocol Last Admin: 05/02/24 11:45 Dose: Not Given Documented By: MANDO Non-Admin Reason: No Insulin Coverage Magnesium Hydroxide (Milk Of Magnesia 30 Ml Oral.Susp) 30 ml PO DAILY PRN PRN Reason: Constipation Melatonin (Melatonin 3 Mg Tablet) 6 mg PO BEDTIME PRN PRN Reason: Insomnia Last Admin: 05/01/24 03:15 Dose: 6 mg Documented By: ANTOIC Metoprolol Succinate (Metoprolol Succinate Er 12.5 Mg Halftab.Er.24h) 12.5 mg PO DAILY [facility]; Protocol Last Admin: 05/02/24 09:49 Dose: 12.5 mg Documented By: MANDO Paroxetine HCl (Paroxetine Hcl 10 Mg Tablet) 10 mg PO DAILY [facility] Last Admin: 05/02/24 09:50 Dose: 10 mg Documented By: MANDO Sodium Chloride (0.9 % Sodium Chloride Flush 3 Ml Syringe) 3 ml IVFLUSH QSHIFT [facility] Last Admin: 05/02/24 09:48 Dose: 3 ml Documented By: MANDO Vitamin D (Cholecalciferol (Vitamin D3) 25 Mcg Tablet) 50 mcg PO DAILY [facility] Last Admin: 05/02/24 09:50 Dose: 50 mcg Documented By: MANDO Labs 05/02/24 05:55 05/02/24 05:55 Labs: Laboratory Results - last 24 hr 05/01/24 05/01/24 05/02/24 16:22 20:04 05:55 MCV 85.9 MCH 27.5 MCHC 32.1 RDW 14.9 Plt Count 429 H MPV 9.1 L Absolute Nucleated RBC 0.000 Nucleated RBC % (auto) 0.0 Anion Gap 15 Estim Creat Clear Calc 7.9 Estimated GFR 10 POC Glucose 95 102 Random Glucose 85 Calcium 8.7 D 05/02/24 05/02/24 07:16 11:34 MCV MCH MCHC RDW Plt Count MPV Absolute Nucleated RBC Nucleated RBC % (auto) Anion Gap Estim Creat Clear Calc Estimated GFR POC Glucose 92 102 Random Glucose Calcium Microbiology Microbiology Results: Microbiology 04/28/24 07:36 Urine Culture - Final Urine Catheterized - Ovalles Catheter Enterococcus faecalis Miranda albicans Assessment and Plan (1) Obstructive uropathy: Status: Acute (2) Acute renal failure: Status: Acute Plan 88-year-old male with history aortic stenosis, macular degeneration, Paget's disease with osteopenia, lcz-izlvdwn-vammjyzvb type 2 diabetes, coronary artery disease, diabetic polyneuropathy, bladder cancer and hypertension who is s/p bilateral J-stent placement on 04/21 with O[place] catheter in place admitted for further management of JOSI r/t suspected obstructive uropathy. 1.Acute on chronic kidney disease stage 3- 2/2 obstructive uropathy -status post revision of bilateral ureteric stents on 04/[address] Dugan -creatinine slowly improving -continue Ovalles catheter,monitor renal function, electrolytes and urine output, on IV LR 60 mL/hour -outpatient follow-up; Ovalles to be removed then 2.UTI -complete course of amoxicillin as ordered 3.Bladder cancer -following with Radiation Oncology at [facility], has not yet started therapy. s/p turbt 01/2024, recommend outpatient follow-up. 4.Wyn-ccdzbyf-xvdpiagse type 2 diabetes -metformin held; restart when appropriate -lispro correctional scale 5.Hypertension -acceptable control on current therapies full code Pneumatic Patient requires continued inpatient stay for management of acute kidney injury secondary to obstructive uropathy for close monitoring of renal function and electrolyte levels Quality Stroke Does the patient have a stroke diagnosis?: No VTE Prior VTE?: No VTE Risk Level:: Medical - moderate - high VTE Device Contraindication: N/A - Device Ordered VTE Drug Contraindication: Treatment Not Indicated
[2024-05-02] MEDS: Lactated Ringers 1,000 ML 60 ML IVCONT (14:42)
[2024-05-02 16:06] LABS: Glucose, Whole Blood 111 mg/dL (60-115)
[2024-05-02 20:14] LABS: Glucose, Whole Blood 92 mg/dL (60-115)
[2024-05-03 03:18] VITALS: BP 132/60; PULSE 67; RESP 16; TEMP 36.2; O2SAT 98
[2024-05-03] MEDS: Lactated Ringers 1,000 ML 60 ML IVCONT (06:04)
[2024-05-03 06:44] LABS: MANUAL DIFF FLAG NO
[2024-05-03 07:04] LABS: Basophils Absolute Auto 0.1 X10*3/uL (0.0-0.2); Basophils Percent Auto 0.7 % (0-2); Eosinophils Absolute Auto 0.4 X10*3/uL (0.0-0.4); Eosinophils Percent Auto 4.6 % (0-4); Hematocrit 26.7 % (42.0-52.0); Hemoglobin 8.3 g/dl (14.0-18.0); Imm Gran Abs Auto 0.05 X10*3/uL (0.00-0.03); Imm Gran Pct Auto 0.5 % (0.0-0.4); Lymphocytes Absolute Auto 1.2 X10*3/uL (1.2-4.9); Lymphocytes Percent Auto 12.6 % (20-40); Mean Corpuscular HGB Conc 31.1 g/dl (31.0-36.0); Mean Corpuscular Hemoglobin 27.3 pg (27.0-33.0); Mean Corpuscular Volume 87.8 fL (80.0-98.0); Mean Platelet Volume 8.9 fL (9.4-12.4); Monocytes Absolute Auto 0.7 X10*3/uL (0.1-1.2); Monocytes Percent Auto 7.5 % (2-11); Neutrophils Absolute Auto 7.1 x10*3/uL (2.0-8.3); Neutrophils Percent Auto 74.1 % (45-73); Platelet Count 429 X10*3/uL (160-400); Red Blood Count 3.04 X10*6/uL (4.60-5.80); Red Cell Distribution Width 14.7 % (11.0-16.0); White Blood Count 9.5 X10*3/uL (4.8-10.8)
[2024-05-03 07:12] VITALS: BP 141/64; PULSE 59; RESP 16; TEMP 35.7; O2SAT 98
[2024-05-03 07:41] LABS: Glucose, Whole Blood 78 mg/dL (60-115)
[2024-05-03 07:43] LABS: Alanine Aminotransferase 23 U/L (0-40); Albumin Level 2.5 g/dL (3.5-5.0); Alkaline Phosphatase 70 U/L (39-117); Anion Gap 15 (12-20); Aspartate Amino Transferase 17 U/L (5-37); Bilirubin Total 0.3 mg/dL (0.0-1.0); Blood Urea Nitrogen 54 mg/dL (9-16); Calcium 8.2 mg/dL (8.4-10.2); Carbon Dioxide 26 mmol/L (22-29); Chloride 103 mmol/L (96-108); Creatinine Clr Calc Pharmacy 8.5; Estimated Glomerular Filt Rate 11; Glucose Fasting 75 mg/dL (60-99); Potassium 3.3 mmol/L (3.3-5.1); Sodium 141 mmol/L (135-145); Total Protein 5.4 g/dL (6.5-8.0)
[2024-05-03] MEDS: PARoxetine HCL 10 MG TABLET PO (08:43)
[2024-05-03] MEDS: Metoprolol Succinate ER 12.5 MG HALFTAB.ER.24H PO (08:43)
[2024-05-03] MEDS: Amoxicillin 500 MG CAPSULE PO (08:43)
[2024-05-03] MEDS: Cholecalciferol (Vitamin D3) 25 MCG TABLET 50 MCG PO (08:43)
[2024-05-03] MEDS: Ascorbic Acid 500 MG TABLET 1000 MG PO (08:43)
[2024-05-03] MEDS: 0.9 % Sodium Chloride Flush 3 ML SYRINGE IVFLUSH (08:45)
[2024-05-03 11:06] LABS: Glucose, Whole Blood 110 mg/dL (60-115)
[2024-05-03 12:00] VITALS: BP 109/57; PULSE 67; RESP 18; TEMP 36.3; O2SAT 99
--- NOTE | 2024-05-03 13:52 | P.DS_ITS ---
DS: Providers Provider Date of Service: 05/03/24 Date of admission: 04/28/24 11:26 Date of discharge: 05/03/24 Primary care physician: Radha Ortiz MD Consults: 04/28/24 11:29 Consult to Nephrology Routine Consulting Provider: [facility] Reason for consultation: patric Consult to Urology Routine Consulting Provider: Lobo Dugan Reason for consultation: obstructive uropathy DS: Diagnosis Discharge Diagnosis (1) Obstructive uropathy: Status: Acute (2) Acute renal failure: Status: Acute DS: Summary Hospital Course Hospital Course: 88-year-old male with history aortic stenosis, macular degeneration, Paget's disease with osteopenia, [id number]-[id number] type 2 diabetes, coronary artery disease, diabetic polyneuropathy, bladder cancer and hypertension who is s/p bilateral J-stent placement on 04/21 with Du catheter in place presented to the ED due to left flank pain. Has been following closely with Dr. Corbett and Dr. Dugan in urology and is now following with Radiation Oncology at [facility] for invasive bladder cancer at the floor of the bladder. He had bilateral external PCN tubes placed on March 26 but was then admitted to [facility] with acute kidney injury. One week ago, underwent PCN tube internal fixation by Dr. Dugan with double-J stents placed bilaterally along with Du catheter. He is reporting suprapubic pressure but otherwise denies any fevers, chills, abdominal pain, nausea, vomiting, hematuria, frequency, urgency. He does note the urine in his Du bag has been cloudy but no blood. Since arrival, VSS. WBC 10.9, h/h 8.2/24.4% (was 9.8/30.3% at [facility] on 04[place]10). Creat 7.96 on admission, baseline around 1.3. BUN 91. Lytes wnl except co2 18, AG 15. VBG with pH 7.27, pCO2 28, bicarb 13. Urinalysis significant for 3+ leukocytes, negative nitrites, 3+ blood, positive urinary sediment with elevated squamous epithelial cells with 3+ bacteria. CT abdomen/pelvis shows bilateral double-J stents in place with persistent moderate bilateral hydronephrosis slightly more pronounced on the left. Urine sodium 48, urine creatinine 55.13. FeNa 5.0%. In the ED, du catheter replaced, output -475cc. In the ED, given 2 L IV NS and changed to sodium bicarbonate drip. He has also been given 1 g IV ceftriaxone. The patient will be admitted for further management of acute kidney injury with concern for obstructive uropathy. Hospital Course Admitted to general medical floor. Maintain on ceftriaxone 1 g IV Q 24 hours. Seen in consultation by Urology (follows Dr. Dugan as outpatient); on 04/21/2024 patient underwent bilateral stent internalization along with extensive fulguration of bladder tumor. Patient tolerated the procedure well. Postoperatively he was started on amoxicillin 500 mg b.i.d. and has been afebrile since. He was seen in consultation by Nephrology who felt that his acute kidney injury was related to obstruction along with a possible component of hypoperfusion. He he received gentle IV volume repletion. His creatinine continued to improve however has remained elevated. On the day of discharge it was discussed with Nephrology who felt that creatinine was moving back towards normal albeit slowly; patient wishes to be discharged home to start treatment at [facility]. At this point in time he is medically acceptable for same Time Attestation Discharge Coordination Time (in mins): 35 Quality: Safe Use of Opioids Does Pt have an Active Cancer Diagnosis on the Problem List?: Yes Opioid Measure Date for [facility] Report: 04/03/24 Opioid Measure Time for [facility] Report: 13:57 Quality: Stroke Does the patient have a stroke diagnosis?: No Physical Exam Vital Signs: Vital Signs: Last Vital Signs Temp 97.3 F 05/03/24 12:00 Pulse 67 05/03/24 12:00 Resp 18 05/03/24 12:00 BP 109/57 L 05/03/24 12:00 Pulse Ox 99 05/03/24 12:00 O2 Del Method Room Air 05/03/24 12:00 BMI result Body Mass Index 24.5 Const: Other: Awake alert no acute distress Resp: Other: Clear to auscultation bilaterally no rales rhonchi or wheezes Cardio: Other: No S4; positive S1-S2; S3 murmurs rubs or gallops GI: Other: Soft nontender nondistended normoactive bowel sounds Extrem: Other: No edema bilaterally DS: Data Data Completed and Pending Completed studies during hospitalization [Text1]: Procedures Dilation of Left Ureter with Intraluminal Device, Via Natural or Artificial Opening Endoscopic (01/26/24) Excision of Bladder, Via Natural or Artificial Opening Endoscopic (01/26/24) Fluoroscopy of Left Kidney, Ureter and Bladder (01/26/24) Labs on day of discharge: Laboratory Results - last 24 hr 05/02/24 05/02/24 05/03/24 16:00 20:10 05:54 WBC 9.5 RBC 3.04 L Hgb 8.3 L Hct 26.7 L MCV 87.8 MCH 27.3 MCHC 31.1 RDW 14.7 Plt Count 429 H MPV 8.9 L Immature Gran % (Auto) 0.5 H Neut % (Auto) 74.1 H Lymph % (Auto) 12.6 L Wilcox % (Auto) 7.5 Eos % (Auto) 4.6 H Baso % (Auto) 0.7 Lymph # (Auto) 1.2 Wilcox # (Auto) 0.7 Eos # (Auto) 0.4 Baso # (Auto) 0.1 Abs Immat Gran (auto) 0.05 H Absolute Neuts (auto) 7.1 Absolute Nucleated RBC 0.000 Nucleated RBC % (auto) 0.0 Sodium 141 Potassium 3.3 Chloride 103 Carbon Dioxide 26 Anion Gap 15 BUN 54 H Creatinine 5.21 H* Estim Creat Clear Calc 8.5 Estimated GFR 11 POC Glucose 111 92 Fasting Glucose 75 Calcium 8.2 L Total Bilirubin 0.3 AST 17 ALT 23 Alkaline Phosphatase 70 Total Protein 5.4 L Albumin 2.5 L 05/03/24 05/03/24 07:19 10:57 WBC RBC Hgb Hct MCV MCH MCHC RDW Plt Count MPV Immature Gran % (Auto) Neut % (Auto) Lymph % (Auto) Wilcox % (Auto) Eos % (Auto) Baso % (Auto) Lymph # (Auto) Wilcox # (Auto) Eos # (Auto) Baso # (Auto) Abs Immat Gran (auto) Absolute Neuts (auto) Absolute Nucleated RBC Nucleated RBC % (auto) Sodium Potassium Chloride Carbon Dioxide Anion Gap BUN Creatinine Estim Creat Clear Calc Estimated GFR POC Glucose 78 110 Fasting Glucose Calcium Total Bilirubin AST ALT Alkaline Phosphatase Total Protein Albumin Discharge Plan Discharge Anticipated Discharge Date/Time: 05/03/24 13:45 Patient Disposition: Home Health Service Discharge Diagnosis: Obstructive uropathy Referrals: Radha Ortiz MD [Primary Care Provider] - 1 Week Discharge Medications: New amoxicillin 500 mg Capsule 500 mg PO BID Qty: 14 0RF Continued (DME) blood sugar diagnostic Strip See Rx Instructions Not Applicable TID Qty: 3 3RF Rx Instructions: As directed check blood sugars 3 times a day cholecalciferol (vitamin D3) 50 mcg (2,000 unit) capsule 50 mcg PO DAILY Qty: 30 11RF (DME) lancets Misc See Rx Instructions .ROUTE TID Qty: 300 3RF Rx Instructions: As directed check the blood sugars 3 times a day ONETOUCH ULTRASOFT LANCETS ferrous sulfate [Feosol] 325 mg (65 mg iron) tablet 325 mg PO Q OTHER DAY Qty: 90 0RF metoprolol succinate 25 mg tablet extended release 24 hr 12.5 mg PO DAILY Qty: 90 3RF paroxetine HCl [Paxil] 10 mg tablet 10 mg PO DAILY Qty: 30 0RF ascorbic acid (vitamin C) [Vitamin C] 1,000 mg tablet 1 g PO DAILY 90 Days Qty: 90 1RF methenamine hippurate 1 gram tablet 1 g PO DAILY 90 Days Qty: 90 1RF cyanocobalamin (vitamin B-12) 1,000 mcg capsule 1,000 mcg PO Q OTHER DAY aspirin [Adult Aspirin Regimen] 81 mg tablet,delayed release (DR/EC) 81 mg PO DAILY Hold Instructions: Resume on 02/07/24. (DME) OneTouch Ultra Test Strip See Rx Instructions .ROUTE .MEDSUPPLY Qty: 100 3RF Rx Instructions: As directed check the blood sugar once a day rosuvastatin [Crestor] 40 mg tablet 40 mg PO DAILY Qty: 90 2RF vitamins A,C,I-raxv-ytbnhc 1 tab PO BID Discontinued metformin 500 mg tablet 500 mg PO DAILY 90 Days Qty: 90 1RF Discharge Orders: Discharge Order (Routine); Ordered 05/03/24 Ordered By: Jose Baugh Diet: Advance to usual diet Activity on Discharge: As tolerated Stand Alone Forms: Patient Portal Discharge page Print Language: Lao Care Plan Goals: Continue with indwelling falling; intermittent capping and drainage as previously managed. Follow up with Dr. Dugan as scheduled Health Concerns: Complete course of amoxicillin Plan of Treatment: Make arrangements with [facility] to begin treatment for your bladder cancer Assessment: See discharge summary
--- NOTE | 2024-05-03 13:59 | W.MHC.F2F ---
Service Date Service Date: 05/03/24 Encounter Date of encounter: 05/03/24 Encounter: Acute hospitalization Reasons for Services Signs and symptoms assessed: Ongoing assistance with chronic indwelling Ovalles catheter and deconditioned gait Reason for halfway: medication management, teach disease management and GI/ assessment Reason for occupational therapy: home safety and mobility and gait/transfer training Homebound: Leaving the home is medically contraindicated at this time without the asist of a device and/or another person due th the listed conditions above and below. Reason homebound: unsteady gait / fall risk and unable to drive Certification: Based on the above findings, I certify that this patient is confined to the home and needs intermittent halfway care, physical therapy and/or speech therapy, or continues to need occupational therapy. The patient is under my care, and I have initiated the establishment of the plan of care. The patient will be followed by a physician who will periodically review the plan of care. Time Spent With Patient Time: Total time managing care of this patient today ____ minutes.
--- NOTE | 2024-05-03 15:11 | MHC.CM.PN ---
PT TO DC HOME TODAY WITH RESUMPTION OF [facility] VIA PRIVATE TRANSPORT
== END 2024-05-03 14:40 | disposition home health service (06) | DRG 660 ==
LOC: HO.ED 06:37 → HO.EDOVER 11:34 → HO.S3 18:06
PROVIDERS: Hospitalist; Internal Medicine; Urology; Admitting Provider Physician Assistant; Emergency Provider Internal Medicine; PCP Internal Medicine; Visit Provider Hospitalist
PROC: 0T788DZ Dilation of Bilateral Ureters with Intraluminal Device, Via Natural or Artificial Opening Endoscopic (ICD-10-PCS; principal; 2024-04-30 17:00)
DX: N13.6 Pyonephrosis (principal); E87.21 Acute metabolic acidosis; I25.10 Atherosclerotic heart disease of native coronary artery without angina pectoris; N17.0 Acute kidney failure with tubular necrosis; M88.9 Osteitis deformans of unspecified bone; B95.2 Enterococcus as the cause of diseases classified elsewhere; E78.5 Hyperlipidemia, unspecified; I12.9 Hypertensive chronic kidney disease with stage 1 through stage 4 chronic kidney disease, or unspecified chronic kidney disease; D63.0 Anemia in neoplastic disease; D63.1 Anemia in chronic kidney disease; E11.42 Type 2 diabetes mellitus with diabetic polyneuropathy; N18.30 Chronic kidney disease, stage 3 unspecified; C67.9 Malignant neoplasm of bladder, unspecified; E11.22 Type 2 diabetes mellitus with diabetic chronic kidney disease; Z95.1 Presence of aortocoronary bypass graft; Z87.891 Personal history of nicotine dependence; Z79.82 Long term (current) use of aspirin; Z79.899 Other long term (current) drug therapy
CPT/HCPCS: 36415; 74176; 80048; 80053; 81001; 82570; 82803; 82947; 83605; 84300; 85014; 85018; 85025; 85027; 86850; 86900; 86901; 87040; 87086; 87088; 87186; 99285; C1758; C1769; C2617; J0696; J1956; J2704; J3010; J7120; Q9967

== ENCOUNTER → 2024-04-28 11:26 | Outpatient (BNV) | payer MEDICARE, SELFPAY | PROVIDERS: Admitting Provider Physician Assistant; Emergency Provider Internal Medicine; PCP Internal Medicine; Visit Provider Internal Medicine Hypertension Specialist | DX: N17.8 Other acute kidney failure (principal); N18.9 Chronic kidney disease, unspecified; C67.9 Malignant neoplasm of bladder, unspecified | CPT/HCPCS: 99223; 99232 ==

== ENCOUNTER → 2024-04-28 11:26 | Outpatient (BNV) | payer MEDICARE, SELFPAY | PROVIDERS: Admitting Provider Physician Assistant; Emergency Provider Internal Medicine; PCP Internal Medicine; Visit Provider Urology | DX: N13.2 Hydronephrosis with renal and ureteral calculous obstruction (principal) | CPT/HCPCS: 52332; 74420; 99222 ==

== ENCOUNTER → 2024-04-28 11:26 | Outpatient (BNV) | payer MEDICARE, SELFPAY | PROVIDERS: Admitting Provider Physician Assistant; Emergency Provider Internal Medicine; PCP Internal Medicine; Visit Provider Physician Assistant | DX: N13.39 Other hydronephrosis (principal) | CPT/HCPCS: 99223; 99232; 99233; 99239; G0180 ==

== ENCOUNTER 2024-05-06 09:44 | Outpatient (AMB) | payer MEDICARE, SELFPAY ==
--- NOTE | 2024-05-06 09:50 | A.OFFVIS_ITS ---
Intake Visit Reasons: TURBT follow up Intake Note: Patient is Present for Telephone Follow Up TURBT Urology Med: None Antibiotic Allergy: None Blood Thinner: Aspirin Senior National Account Manager Required: No Allergies No Known Allergies [No Known Allergies*] Allergy (Verified 05/06/24 09:51) HPI Comments Details: Kenneth is a very pleasant male. Accompanied by his family. He has a patient of Dr Ortiz. 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 Underwent stent placement right side Assessment with radiation oncology for palliative RT. Therapy would not be for curative intent. 02/02 TURBT incomplete with left stent placement Complicated since lesion involved left ureteric orifice. Stent required Bladder, transurethral resection: High grade urothelial carcinoma, invasive into muscularis propria. Procedure: Transurethral resection Tumor site: Left ureteric orifice Histologic type: Urothelial carcinoma Histologic grade: High-grade Muscularis propria: Present Extent of invasion: Muscularis propria Lymphovascular invasion: Present CT - There is an abnormal heterogeneous soft tissue mass involving the base of the bladder measuring 4.1 cm, inseparable from the prostate gland and involving the left ureterovesicular junction and abutting the right ureterovesicular junction resulting in moderate left hydroureteronephrosis with a delayed nephrogram and mild right hydroureteronephrosis. Findings are suspicious for transitional cell carcinoma, though differential considerations could include primary prostatic malignancy invading the bladder. Recommend correlation with PSA, urologic evaluation and consideration of cystoscopy. [facility] Medical History Prostate mass Osteopenia Paget's bone disease Overweight (BMI 25.0-29.9) Peripheral vascular disease Hypercholesterolemia Diabetic nephropathy Type 2 diabetes mellitus with hyperglycemia Macular degeneration Lumbar degenerative disc disease Left renal stone Paget's disease of bone Vitamin D deficiency Aortic stenosis, mild Coronary artery disease Surgical History History of removal of calculus of renal pelvis through percutaneous nephrostomy S/P CABG x 3 History of tonsillectomy History of bilateral cataract extraction History of ankle surgery S/P repair of hydrocele History of inguinal hernia repair Family History Father CVD (cardiovascular disease) Mother CVD (cardiovascular disease) Heart disease Brother In good health Sister In good health Son Diabetes Social History Household Members: Family Household Members Other:: son Housing: House Do you presently have visiting nurse or other home services: No Alcohol intake: never Patient Tobacco Use Status: Former Tobacco user Tobacco use type: Cigarette Cigarette Packs Per Day: 2 Cigarettes Per Day: 40.0 Years Smoked: 30 e-Cigarette/Vaping Use: Never Used service: No Current occupational status: retired Cognitive needs: No Hearing needs: No Vision needs: Yes Review of Systems Const All systems reviewed & are unremarkable except as noted in HPI and below Reports no additional complaints Resp Reports no additional complaints GI Reports no additional complaints Reports as per HPI Musc Reports no additional complaints Physical Exam Telemedicine evaluation Appropriate responses Regular breathing rate and rhythm HEENT Head: Yes normal to inspection Ears: hearing grossly normal bilaterally Eyes General: appearance normal, both eyes and all related structures Neck Neck: Yes normal visual inspection Chest Chest palpation & inspection: normal inspection of the chest Resp Effort & Inspection: normal respiratory effort and able to speak in complete sentences Telehealth Telehealth Telehealth Platform: Drivewyze Location of provider rendering services: practice address Location of patient: address on file Patient Identification confirmed using: Name, : Yes Telehealth method: voice only Patient verbally consented to treatment: Yes Patient verbally consented to billing insurance company: Yes Patient informed of any privacy concerns related to visit: Yes Minutes spent on Phone/Video with Pt.: 15 Assessment & Plan Assessment & Plan (1) Bladder cancer: Code(s): C67.9 - Malignant neoplasm of bladder, unspecified Category: Medical Qualifiers: Bladder location: unspecified site Qualified Code(s): C67.9 - Malignant neoplasm of bladder, unspecified (2) Acute renal failure: Code(s): N17.9 - Acute kidney failure, unspecified Category: Medical Qualifiers: Acute renal failure type: unspecified Qualified Code(s): N17.9 - Acute kidney failure, unspecified Plan One-week follow-up lab work, three-month follow-up office Orders: Orders Basic Metabolic Panel 1 Week N17.9 - Acute kidney failure, unspecified Patient Instructions: Imaging studies, laboratory and physical exam results were discussed and reviewed in detail. No major barriers to patient understanding were identified. An opportunity to ask questions regarding the treatment plan was provided. All questions were answered. The patient expressed understanding and agreement with the above treatment plan. The patient is aware they should contact our office by phone for worsening of their current condition or the appearance of new urologic symptoms. Compliance is encouraged with any medications and followup testing that is ordered. It is a privilege to participate in the urologic care of your patient. If you have any questions or concerns regarding treatment for the above conditions, or other urologic issues, please do not hesitate to contact me. The office telephone contact is [phone]. This note is constructed using voice recognition software. While every effort has been made to ensure accuracy scrap hoist operator errors may have been included. Yours sincerely, Dr Lobo Dugan MD, [facility] - Urology Providers of Expert, Compassionate Care for the Genitourinary System Coding Level of Care Code Tele Est Pt Level 3 (99534) Diagnoses Malignant neoplasm of urinary bladder, unspecified site C67.9 Bladder location: unspecified site Acute renal failure, unspecified acute renal failure type N17.9 Acute renal failure type: unspecified
== END 2024-05-06 10:53 | disposition home or self-care (01) ==
LOC: HO.HUSH 09:44
PROVIDERS: PCP Internal Medicine; Visit Provider Urology
DX: N17.9 Acute kidney failure, unspecified (principal); C67.9 Malignant neoplasm of bladder, unspecified
CPT/HCPCS: 99442

== ENCOUNTER → 2024-05-06 09:44 | Outpatient (BNVA) | payer MEDICARE, SELFPAY | PROVIDERS: PCP Internal Medicine; Visit Provider Urology ==

== ENCOUNTER 2024-05-07 14:23 | Outpatient (AMB) | payer MEDICARE, SELFPAY ==
[2024-05-07 14:28] VITALS: BP 102/70; PULSE 64; O2SAT 94; BMI 24.9
--- NOTE | 2024-05-07 14:28 | MHC.PC.OV ---
Vital Signs 05/07/24 14:28 Height 5 ft 4 in Weight 145 lb BMI 24.9 BP 102/70 Blood Pressure Location Lt brachial Position Sitting Pulse 64 Pulse Source Pulse Oximeter Pulse Oximetry (%) 94 Oxygen Delivery Method Room Air Intake Visit Reasons: DM Follow Up Patient Admitting Clerk Required: No Master Automotive Technician: Not Required per policy Accompanied by: Self / Same As Patient Allergies No Known Allergies [No Known Allergies*] Allergy (Verified 05/07/24 14:29) Medication List - Last Reconciled 05/07/24 by Radha Ortiz MD amoxicillin 500 mg PO BID ascorbic acid (vitamin C) (Vitamin C) 1 g PO DAILY 90 days aspirin (Adult Aspirin Regimen) 81 mg PO DAILY blood sugar diagnostic As directed check blood sugars 3 times a day blood sugar diagnostic (GreenButtonTouch Ultra Test strips) As directed check the blood sugar once a day cholecalciferol (vitamin D3) 50 mcg PO DAILY cyanocobalamin (vitamin B-12) 1,000 mcg PO DAILY ferrous sulfate (Feosol) 325 mg PO Q OTHER DAY lancets As directed check the blood sugars 3 times a day ONETOUCH ULTRASOFT LANCETS methenamine hippurate 1 g PO DAILY 90 days metoprolol succinate ER 12.5 mg (1/2 x 25 mg) PO DAILY paroxetine HCl (Paxil) 10 mg PO DAILY rosuvastatin (Crestor) 40 mg PO DAILY vitamins A,C,Y-[id number]-tkicdw (PreserVision AREDS) 1 tab PO BID Tobacco use date assessed: 02/07/24 Fall risk assessment: No Falls in past year Last assessed Fall Risk: 05/07/24 Dental Screening Dental Screen Date: 01/01/24 HPI DM Follow Up HPI Details 88-year-old male with a history of bladder cancer hypertension diabetes mellitus Paget's bone disease aortic stenosis hypercholesterolemia coronary artery disease last seen in 01/30/2024. Patient is here for follow-up. Patient had urinary retention and creatinine went up underwent stent placement on the right side patient is for palliative radiotherapy. February 02 TURBT with left stent placement(soft tissue mass involving the base of the bladder 4.1 cm inseparable from the prostate gland creating moderate left hydroureteronephrosis and mild right hydroureteronephrosis.. 05/01/2024 echocardiogram The left ventricular systolic function is normal. The visually estimated ejection fraction is between 55-60%. - The basal inferior segment is hypokinetic. - There is severe calcification of the aortic valve. There is moderate aortic valve stenosis. 1.38 cm squared [facility] Medical History Prostate mass Osteopenia Paget's bone disease Overweight (BMI 25.0-29.9) Peripheral vascular disease Hypercholesterolemia Diabetic nephropathy Type 2 diabetes mellitus with hyperglycemia Macular degeneration Lumbar degenerative disc disease Left renal stone Paget's disease of bone Vitamin D deficiency Aortic stenosis, mild Coronary artery disease Surgical History History of removal of calculus of renal pelvis through percutaneous nephrostomy S/P CABG x 3 History of tonsillectomy History of bilateral cataract extraction History of ankle surgery S/P repair of hydrocele History of inguinal hernia repair Family History Father CVD (cardiovascular disease) Mother CVD (cardiovascular disease) Heart disease Brother In good health Sister In good health Son Diabetes Social History Household Members: Family Household Members Other:: son Housing: House Do you presently have visiting nurse or other home services: No Alcohol intake: never Patient Tobacco Use Status: Former Tobacco user Tobacco use type: Cigarette Cigarette Packs Per Day: 2 Cigarettes Per Day: 40.0 Years Smoked: 30 e-Cigarette/Vaping Use: Never Used service: No Current occupational status: retired Cognitive needs: No Hearing needs: No Vision needs: Yes Questionnaire Thrive Questionnaire Date Thrive assessed: 04/29/24 LESLEY-7 AMB Questionnaire LESLEY-7 Date LESLEY - 7 assessed: 01/01/24 Source: Developed by Drs. Lawson Jackson, Geeta Montoya, Chivo Felix and colleagues, with an educational fallon from [employer]. Physical exam (Primary Care) Vital Signs: Last Vital Signs Pulse 64 05/07/24 14:28 BP 102/70 05/07/24 14:28 Pulse Ox 94 05/07/24 14:28 Oxygen Delivery Method Room Air 05/07/24 14:28 BMI result Body Mass Index 24.9 Tobacco/Smoking Status: Tobacco use Status Tobacco use date assessed 02/07/24 05/07/24 14:29 Patient Tobacco Use Status Former Tobacco user 05/07/24 14:29 Tobacco use type Cigarette 05/07/24 14:29 e-Cigarette/Vaping Use Never Used 05/07/24 14:29 Thrive Assessment: Date of Thrive Assessment Date Thrive assessed 04/29/24 05/07/24 14:29 Const General: alert; No acute distress Eyes Conjunctivae: conjunctivae normal Resp Auscultation: clear to auscultation bilaterally Cardio Rate: regular rate Rhythm: regular rhythm GI Inspection: Yes normal to inspection Extrem General: Yes normal to inspection and No edema Assessment and Plan Assessment & Plan (1) Type 2 diabetes mellitus with hyperglycemia: Comment: Roxy Code(s): E11.65 - Type 2 diabetes mellitus with hyperglycemia Qualifiers: Diabetes mellitus longterm insulin use: without longterm use Qualified Code(s): E11.65 - Type 2 diabetes mellitus with hyperglycemia Plan: Decrease the amount of carbohydrate intake, pasta, bread, rice and potatoes are all sugar and that is aside from all the sweet stuff, remember that fruits are good but they are Sweet also. (2) Hypercholesterolemia: Code(s): E78.00 - Pure hypercholesterolemia, unspecified Plan: Avoid fried foods, chicken skin, eggs, butter margarine, pastries and meat. Be it pork or beef they have a lot of cholesterol on rosuvastatin 40 mg once a day (3) Atherosclerotic cardiovascular disease: Code(s): I25.10 - Atherosclerotic heart disease of crow coronary artery without angina pectoris Plan: Control the cholesterol, weight, blood pressure, diabetes. With the hypotension and dizziness will temporarily discontinue metoprolol to see if this gets better (4) Non-rheumatic aortic stenosis: Comment: April 2022 1.2 cm2, march 2023 0.93, 03/2024 1.3 Code(s): I35.0 - Nonrheumatic aortic (valve) stenosis Plan: Continuing to monitor echocardiogram (5) Acute renal failure: Code(s): N17.9 - Acute kidney failure, unspecified Qualifiers: Acute renal failure type: unspecified Qualified Code(s): N17.9 - Acute kidney failure, unspecified Plan: Continue to monitor keep well hydrated status post stent placements. repeat blood work next week (6) Bladder cancer: Comment: TURP Code(s): C67.9 - Malignant neoplasm of bladder, unspecified Qualifiers: Bladder location: unspecified site Qualified Code(s): C67.9 - Malignant neoplasm of bladder, unspecified Plan: Patient has had TURBT with stent placement and now with radiation therapy. (7) Gait instability: Code(s): R26.81 - Unsteadiness on feet Plan: Rollator prescription printed (8) Peripheral vascular disease: Code(s): I73.9 - Peripheral vascular disease, unspecified Plan: Requested support stockings (9) Severe anemia: Code(s): D64.9 - Anemia, unspecified Plan: Will follow-up in the blood work. Orders: Orders AMB Hemoglobin A1c Today E11.65 - Type 2 diabetes mellitus with hyperglycemia Complete Blood Count Auto Diff Today N17.9 - Acute kidney failure, unspecified Reticulocyte Count Today N17.9 - Acute kidney failure, unspecified Ferritin Today N17.9 - Acute kidney failure, unspecified IRON PROFILE Today N17.9 - Acute kidney failure, unspecified Vitamin B12 and Folate Today N17.9 - Acute kidney failure, unspecified Comprehensive Met. Panel Today N17.9 - Acute kidney failure, unspecified Medications: New [Rollator] As directed 1 ea 0RF C67.9 - Malignant neoplasm of bladder, unspecified, R26.81 - Unsteadiness on feet compress.stocking,knee,reg,lrg As directed 20-30 mm HG 6 ea 0RF I73.9 - Peripheral vascular disease, unspecified Changed From cyanocobalamin (vitamin B-12) 1,000 mcg PO Q OTHER DAY To cyanocobalamin (vitamin B-12) 1,000 mcg PO DAILY 30 caps 12RF Coding Level of Care Code Est Pt Level 4 (98573) Diagnoses Type 2 diabetes mellitus with hyperglycemia, without long-term current use of insulin E11.65 Diabetes mellitus terminal press operator insulin use: without terminal press operator use Hypercholesterolemia E78.00 Atherosclerotic cardiovascular disease I25.10 Non-rheumatic aortic stenosis I35.0 Acute renal failure, unspecified acute renal failure type N17.9 Acute renal failure type: unspecified Malignant neoplasm of urinary bladder, unspecified site C67.9 Bladder location: unspecified site Gait instability R26.81 Peripheral vascular disease I73.9 Severe anemia D64.9
== END 2024-05-07 15:36 | disposition home or self-care (01) ==
PROVIDERS: PCP Internal Medicine; Visit Provider Internal Medicine
DX: E11.65 Type 2 diabetes mellitus with hyperglycemia (principal); N17.9 Acute kidney failure, unspecified; C67.9 Malignant neoplasm of bladder, unspecified; I73.9 Peripheral vascular disease, unspecified; E78.00 Pure hypercholesterolemia, unspecified; I25.10 Atherosclerotic heart disease of native coronary artery without angina pectoris; I35.0 Nonrheumatic aortic (valve) stenosis; R26.81 Unsteadiness on feet; D64.9 Anemia, unspecified
CPT/HCPCS: 99214

== ENCOUNTER 2024-05-12 12:58 | Outpatient (AMB) | payer MEDICARE, SELFPAY ==
[2024-05-12 13:24] VITALS: BP 110/58; BMI 25.6
--- NOTE | 2024-05-12 13:24 | A.OFFVIS_ITS ---
Vital Signs 05/12/24 13:24 Height 5 ft 4 in Weight 149 lb 0.52 oz BMI 25.6 BP 110/58 L Blood Pressure Location Lt brachial Position Sitting Intake Visit Reasons: 1 YEAR FUP AFTER ECHO Allergies No Known Allergies [No Known Allergies*] Allergy (Verified 05/12/24 13:27) Medication List - Last Reconciled 05/12/24 by Nj Damian MD ascorbic acid (vitamin C) (Vitamin C) 1 g PO DAILY 90 days aspirin (Adult Aspirin Regimen) 81 mg PO DAILY blood sugar diagnostic As directed check blood sugars 3 times a day blood sugar diagnostic (OneTouch Ultra Test strips) As directed check the blood sugar once a day cholecalciferol (vitamin D3) 50 mcg PO DAILY compress.stocking,knee,reg,lrg As directed 20-30 mm HG cyanocobalamin (vitamin B-12) 1,000 mcg PO DAILY ferrous sulfate (Feosol) 325 mg PO Q OTHER DAY lancets As directed check the blood sugars 3 times a day ONETOUCH ULTRASOFT LANCETS methenamine hippurate 1 g PO DAILY 90 days metoprolol succinate ER 12.5 mg (1/2 x 25 mg) PO DAILY paroxetine HCl (Paxil) 10 mg PO DAILY [Rollator As directed] rosuvastatin (Crestor) 40 mg PO DAILY vitamins A,C,H-ugct-hkwdhx (PreserVision AREDS) 1 tab PO BID HPI Comments Details: Kenneth returns for follow-up regarding coronary disease and bypass surgery. From the cardiac standpoint, it does not really have any concerns like angina or shortness of breath or in fact anything cardiac sounding. However, it seems that he has been having some renal issues and recently, admission for JOSI. Per last nephrology note, thought to be related to obstruction. [facility] Medical History (Updated 05/12/24 @ 13:45 by Nj Damian MD) Peripheral vascular disease Prostate mass Osteopenia Paget's bone disease Overweight (BMI 25.0-29.9) Hypercholesterolemia Diabetic nephropathy Type 2 diabetes mellitus with hyperglycemia Macular degeneration Lumbar degenerative disc disease Left renal stone Paget's disease of bone Vitamin D deficiency Aortic stenosis, mild Coronary artery disease Surgical History History of removal of calculus of renal pelvis through percutaneous nephrostomy S/P CABG x 3 History of tonsillectomy History of bilateral cataract extraction History of ankle surgery S/P repair of hydrocele History of inguinal hernia repair Family History Father CVD (cardiovascular disease) Mother CVD (cardiovascular disease) Heart disease Brother In good health Sister In good health Son Diabetes Social History Household Members: Family Household Members Other:: son Housing: House Do you presently have visiting nurse or other home services: No Alcohol intake: never Patient Tobacco Use Status: Former Tobacco user Tobacco use type: Cigarette Cigarette Packs Per Day: 2 Cigarettes Per Day: 40.0 Years Smoked: 30 e-Cigarette/Vaping Use: Never Used service: No Current occupational status: retired Cognitive needs: No Hearing needs: No Vision needs: Yes Review of Systems Const All systems reviewed & are unremarkable except as noted in HPI and below Reports as per HPI and Reports no additional complaints Eyes Reports as per HPI and Denies no additional complaints ENT Denies no additional complaints and Reports as per HPI Card Reports as per HPI, Reports no additional complaints, Denies acrocyanosis, Denies chest pain, Denies leg edema, Denies lightheadedness, Denies palpitations and Denies dyspnea Resp Reports as per HPI, Denies no additional complaints and Denies dyspnea GI Reports as per HPI and Denies no additional complaints Reports no additional complaints and Reports as per HPI Musc Reports no additional complaints and Reports as per HPI Skin/Breast Reports system reviewed and no additional complaints, except as documented Neuro Reports no additional complaints and Reports as per HPI Psych Reports no additional complaints and Reports as per HPI Endo Reports no additional complaints, Reports as per HPI and Denies palpitations Blayne/Lymph Reports no additional complaints and Reports as per HPI Aller/Immun Reports no additional complaints and Reports as per HPI Physical Exam Vital Signs: Last Vital Signs BP 110/58 L 05/12/24 13:24 BMI result Body Mass Index 25.6 Const General: comfortable and no acute distress Orientation/consciousness: patient oriented x3 HEENT Other: Unremarkable Head: Yes normal to inspection Neck Neck: Yes normal visual inspection Chest Chest palpation & inspection: normal inspection of the chest Resp Auscultation: clear to auscultation bilaterally Cardio Palpation: normal PMI Heart sounds: S1 normal heart sound present, S2 normal heart sound present, no gallops, Murmur heart sound present systolic II/ and at the right sternal border and no rubs GI Palpation (GI): Soft to palpation Back/Spine/Pelvis Other: unremarkable Skin General skin exam: no rashes or lesions noted Neuro General: patient oriented x3 Extrem Other: 1+ edema General: Yes normal to inspection Psych Mental Status: mental status grossly normal Assessment & Plan Assessment & Plan (1) Atherosclerotic cardiovascular disease: Code(s): I25.10 - Atherosclerotic heart disease of [place] coronary artery without angina pectoris Category: Medical Plan: Status post coronary bypass. Continue aspirin and statins. Clinically, no angina. Lipidss generally well controlled. (2) Non-rheumatic aortic stenosis: Code(s): I35.0 - Nonrheumatic aortic (valve) stenosis Category: Medical Plan: In the most recent echocardiogram, thought to be having moderate aortic stenosis. Prior to that, thought to be rather moderate to severe. Any case, he has got no symptoms and more importantly has recent JOSI. Will monitor this by echocardiograms. (3) Essential hypertension: Code(s): I10 - Essential (primary) hypertension Category: Medical Plan: Stable. No changes. (4) Acute renal failure: Code(s): N17.9 - Acute kidney failure, unspecified Category: Medical Qualifiers: Acute renal failure type: unspecified Qualified Code(s): N17.9 - Acute kidney failure, unspecified Plan Discussed with family. Orders: Orders CA echo transthoracic complete 6 Months I35.0 - Nonrheumatic aortic (valve) stenosis Patient Instructions: Most recently creatinine 5.2. It was as much as 8.6. Will request nephrology follow-up. Coding Level of Care Code Est Pt Level 4 (25209) Diagnoses Atherosclerotic cardiovascular disease I25.10 Non-rheumatic aortic stenosis I35.0 Essential hypertension I10 Acute renal failure, unspecified acute renal failure type N17.9 Acute renal failure type: unspecified
== END 2024-05-12 13:41 | disposition home or self-care (01) ==
PROVIDERS: PCP Internal Medicine; Visit Provider Internal Medicine
DX: I25.10 Atherosclerotic heart disease of native coronary artery without angina pectoris (principal); I35.0 Nonrheumatic aortic (valve) stenosis; I10 Essential (primary) hypertension; N17.9 Acute kidney failure, unspecified
CPT/HCPCS: 99214

== ENCOUNTER → 2024-05-12 12:58 | Outpatient (BNVA) | payer MEDICARE, SELFPAY | PROVIDERS: PCP Internal Medicine; Visit Provider Internal Medicine | DX: I25.10 Atherosclerotic heart disease of native coronary artery without angina pectoris (principal); I35.0 Nonrheumatic aortic (valve) stenosis; I10 Essential (primary) hypertension; N17.9 Acute kidney failure, unspecified | CPT/HCPCS: 99212 ==

== ENCOUNTER 2024-05-13 11:13 | Outpatient (REF) | payer MEDICARE, SELFPAY ==
[2024-05-13 14:01] LABS: Anion Gap 15 (12-20); Blood Urea Nitrogen 56 mg/dL (9-16); Calcium 8.5 mg/dL (8.4-10.2); Carbon Dioxide 22 mmol/L (22-29); Chloride 105 mmol/L (96-108); Estimated Glomerular Filt Rate 10; Glucose Random 138 mg/dL (60-115); Potassium 3.5 mmol/L (3.3-5.1); Sodium 138 mmol/L (135-145)
== END 2024-05-13 11:14 | disposition home or self-care (01) ==
LOC: HO.10HDL 11:13
PROVIDERS: Visit Provider Urology
DX: N17.9 Acute kidney failure, unspecified (principal)
CPT/HCPCS: 36415; 80048

== ENCOUNTER 2024-05-16 09:19 | Inpatient (IN) | payer MEDICARE, SELFPAY ==
[2024-05-16] VITALS (7 sets, daily range): BP systolic 97–131; BP diastolic 38–61; PULSE 51–67; RESP 14–18; TEMP 36.4–36.9; O2SAT 94–99; BMI 24.7; BMI 25.0
--- NOTE | ~2024-05-16 | IR_ITS ---
EXAMINATION: FLUOROSCOPY NEPHROSTOGRAM CLINICAL INFORMATION: Obstructive uropathy. Indwelling ureteral stents with persistent hydronephrosis. Left flank pain COMPARISON: CT abdomen and pelvis 05/16/2024 I personally supervised an independent trained observer for moderate conscious sedation utilizing Versed and fentanyl. The patient was monitored with pulse oximetry, blood pressure cuff, and EKG leads by a registered nurse. Total intraservice sedation time: 15 minutes TECHNIQUE/FINDINGS: Informed consent was obtained following a discussion of the risks and benefits of the procedure with the patient. The patient was placed prone on the fluoroscopy table and the left flank was sterilely prepped and draped. Preliminary ultrasound demonstrates moderate left hydronephrosis. Fluoroscopic image demonstrates indwelling bilateral ureteral stents. Following the administration of 1% lidocaine for local anesthesia, lower pole posterior calyx was accessed with an AccuStick needle under direct ultrasound guidance, an image was saved. The needle was exchanged for a triaxial dilator. Nephrostogram was performed demonstrating the access to be satisfactory. There is moderate hydroureteronephrosis. There is minimal contrast into the bladder. The tract was dilated and an 8.5 [place] nephrostomy tube was placed. The pigtails formed within the renal pelvis. Contrast injection demonstrates satisfactory position of the tube. The external portion of the catheter was secured with 3-0 Prolene suture and the catheter was maintained to gravity bag drainage. A dressing was applied. The patient tolerated the procedure well with no immediate complications. FLUOROSCOPY TIME: 1.8 minutes DOSE AREA PRODUCT: 16 uGy-m2 (microgray-meter squared) IR/IR nephrostomy IMPRESSION: Technically successful placement of left nephrostomy tube.
--- NOTE | ~2024-05-16 | CT_ITS ---
EXAMINATION: CT ABDOMEN AND PELVIS WITHOUT CONTRAST CLINICAL INFORMATION: History of gallbladder carcinoma with bilateral J stent COMPARISON: 04/28/2024 TECHNIQUE: Multidetector volumetric imaging was performed from the superior aspect of the liver through the pubic symphysis. Sagittal and coronal reformatted images were obtained on the technologist's workstation. This CT examination was performed using dose optimization techniques as appropriate, variously including the following: *Automated exposure control *Adjustment of mA and/or kV according to patient size (this includes techniques or standardized protocols for targeted exams where dose is matched to indication/reason for exam; i.e. extremities or head) *Use of iterative reconstruction technique DLP: 400 mGy-cm FINDINGS: LUNG BASES: The visualized lung bases are unremarkable. LIVER, GALLBLADDER, AND BILIARY TREE: The liver is normal in size, shape, and attenuation. No focal hepatic lesion or biliary ductal dilatation is present. There is small amount of calculi in the dependent portion of gallbladder PANCREAS: Unremarkable. SPLEEN: Unremarkable. ADRENAL GLANDS: Unremarkable. KIDNEYS AND URETERS: Both kidneys revealed moderate hydronephrosis there are there are bilateral double-J ureteral stents coiled proximally in the collecting system of both kidneys and distally into urinary bladder BLADDER: Bladder is decompressed via [place] catheter GASTROINTESTINAL TRACT: The small and large bowel are unremarkable. The appendix is unremarkable. ABDOMINAL WALL: No significant hernia is appreciated. LYMPH NODES: Normal. VASCULAR: Unremarkable. PELVIC VISCERA: There is prostatomegaly OSSEOUS STRUCTURES: Unremarkable. CT/CT abdomen pelvis wo IV con IMPRESSION: 1. Cholelithiasis without cholecystitis. 2. Bilateral hydronephrosis with ureteral stents in place. 3. Prostatomegaly. Fleischner guidelines were followed.
--- NOTE | 2024-05-16 12:03 | ED.GENADULT ---
HPI - General Adult General Chief complaint: Abdominal Pain Stated complaint: UTI? Time Seen by Provider: 05/16/24 12:03 History of Present Illness ED Provider: Dr. Kolb HPI narrative: 88 y/o M patient; PMH aortic stenosis, paget's disease with osteopenia, T2DM, CAD, HTN, bladder cancer s/p bilateral J-stent placement on 04/21 with chronic indwelling du (followed by Dr. Corbett and Dr. Dugan); who presents from home reporting left sided flank pain with decreased urinary output for the last 2 days. Associated with pain traveling from left flank into left lower quadrant. Denies: nausea/vomiting, diarrhea, fever or chills. Patient last admitted to this hospital from 04/28 - 05/03/2024 for similar left flank pain. Diagnosed with acute kidney injury 2/2 to obstructive uropathy. Eventually discharged to home following slow improvement of creatinine. Patient is pending initiation of chemotherapy (planned to start around May 26). Related Data Home Medications ?Medication ?Instructions ?Recorded ?Confirmed aspirin 81 mg tablet,delayed 81 mg PO DAILY 10/11/20 05/12/24 release (Adult Aspirin Regimen) vitamins A,C,H-kikv-rkzjra 1 tab PO BID 03/29/21 05/12/24 [PreserVision AREDS] Previous Rx's ?Medication ?Instructions ?Recorded blood sugar diagnostic #3 boxes 03/31/21 cholecalciferol (vitamin D3) 50 50 mcg PO DAILY #30 caps 04/20/22 mcg (2,000 unit) capsule lancets #300 ea 07/11/23 blood sugar diagnostic (OneTouch #100 ea 09/06/23 Ultra Test strips) rosuvastatin 40 mg tablet (Crestor) 40 mg PO DAILY #90 tabs 01/01/24 ferrous sulfate 325 mg (65 mg 325 mg PO Q OTHER DAY #90 tabs 03/11/24 iron) tablet (Feosol) metoprolol succinate 25 mg 12.5 mg (1/2 x 25 mg) PO DAILY #90 04/18/24 tablet,extended release 24 hr tabs paroxetine HCl 10 mg tablet (Paxil) 10 mg PO DAILY #30 tabs 04/18/24 ascorbic acid (vitamin C) 1,000 mg 1 g PO DAILY UTI prevention 90 04/21/24 tablet (Vitamin C) days #90 tabs methenamine hippurate 1 gram tablet 1 g PO DAILY 90 days #90 tabs 04/21/24 Rollator #1 ea 05/07/24 compress.stocking,knee,reg,lrg #6 ea 05/07/24 cyanocobalamin (vitamin B-12) 1,000 mcg PO DAILY #30 caps 05/07/24 1,000 mcg capsule Allergies Allergy/AdvReac Type Severity Reaction Status Date / Time No Known Allergies Allergy Verified 05/16/24 09:25 [No Known Allergies*] Review of Systems Review of Systems: Yes all other systems are reviewed and are negative Neurologic: Denies Sensory deficit (Neuro) [facility], [facility] Past Medical History Attestation statement: The following information was validated with the patient. Source: old records reviewed Medical History Peripheral vascular disease Prostate mass Osteopenia Paget's bone disease Overweight (BMI 25.0-29.9) Hypercholesterolemia Diabetic nephropathy Type 2 diabetes mellitus with hyperglycemia Macular degeneration Lumbar degenerative disc disease Left renal stone Paget's disease of bone Vitamin D deficiency Aortic stenosis, mild Coronary artery disease Surgical History History of removal of calculus of renal pelvis through percutaneous nephrostomy S/P CABG x 3 History of tonsillectomy History of bilateral cataract extraction History of ankle surgery S/P repair of hydrocele History of inguinal hernia repair Family History Family History Father CVD (cardiovascular disease) Mother CVD (cardiovascular disease) Heart disease Brother In good health Sister In good health Son Diabetes Social History Social History Household Members: Family Household Members Other:: son Housing: House Do you presently have visiting nurse or other home services: No Alcohol intake: never Patient Tobacco Use Status: Former Tobacco user Tobacco use type: Cigarette Cigarette Packs Per Day: 2 Cigarettes Per Day: 40.0 Years Smoked: 30 Smoked in Last 30 Days: No e-Cigarette/Vaping Use: Never Used Advance Directives: Yes Advance Directives on File: Yes Advance Directives Date on File: 05/05/24 service: No Current occupational status: retired Cognitive needs: No Hearing needs: No Vision needs: Yes Physical Exam ED Vital Signs: Vital Signs - 24 hr 05/16/24 09:24 05/16/24 10:29 05/16/24 12:54 Temperature 97.5 F 98.4 F Pulse Rate 64 67 52 Respiratory Rate 16 16 16 Blood Pressure 106/50 L 97/38 L 115/43 L Pulse Oximetry 98 99 Oxygen Delivery Method Room Air Room Air Room Air 05/16/24 13:58 Temperature Pulse Rate 51 Respiratory Rate 16 Blood Pressure 117/42 L Pulse Oximetry 97 Oxygen Delivery Method Room Air BMI result Body Mass Index 24.7 Patient is afebrile and hemodynamically stable. Const General: cooperative Orientation/consciousness: patient oriented x3 HENMT Head: Yes normal to inspection and Yes atraumatic Eyes General: appearance normal, both eyes and all related structures Pupils: Equal, round and reactive pupils present EOM: EOMs intact bilaterally Neck Neck: Yes normal visual inspection, Yes full ROM, Yes supple and No tender Chest Chest palpation & inspection: normal inspection of the chest and normal palpation of entire chest wall Resp Effort & Inspection: normal respiratory effort, able to speak in complete sentences, no cough and no respiratory distress Auscultation: clear to auscultation bilaterally Cardio Rate: regular rate Rhythm: regular rhythm Peripheral pulses: Peripheral pulses 2+ throughout GI Other: Left lower quadrant and suprapubic abdominal tenderness Inspection: Yes normal to inspection and No Abdominal wall edema Palpation (GI): Soft to palpation, not firm, no guarding and not rigid Auscultation: normal bowel sounds Neuro General: patient oriented x3 Cranial nerves: Yes Equal, round and reactive pupils present Motor exam (neuro): 5/5 motor strength present throughout Sensory Exam: No Sensory deficit (Neuro) Course Course Course Narrative: Patient is afebrile and hemodynamically stable. Will perform bladder scan to assess for retention. No evidence of retention with bladder scan 35cc. Ordered for UA, basic labs, and CT Abdomen/Pelvis WO Contrast due to poor hx Creatinine. Providing 1L IVF. Reevaluation(s) Reevaluation #1: Labs reviewed - Worsening baseline anemia Hgb 7.3 (prior 8.3 on 05/03). Evidence of JOSI Cr 6.91 (prior 5.5 on 05/13). CT Abdomen/Pelvis wo contrast unremarkable. Urinalysis with evidence of infection. Obtaining lactic acid and blood cultures, planning to start on Ceftriaxone 1g IV. Discussed with urology. Plan: Admit to hospitalist for JOSI and cystitis Condition: Stable Medications Administered Discontinued Medications Generic Name Dose Route Start Last Admin Trade Name Margie PRN Reason Stop Dose Admin Sodium Chloride 1,000 mls @ 999 mls/hr 05/16/24 12:15 05/16/24 14:28 Ns IV 05/16/24 13:15 Infused .Q1H1M ELEANOR Infusion Ceftriaxone Sodium 1 gm/ 50 mls @ 100 mls/hr 05/16/24 14:13 05/16/24 14:28 Sodium Chloride IV 05/16/24 14:42 100 mls/hr ONCE ONE Administration Medical Decision Making Lab Data 05/16/24 12:02 05/16/24 12:02 Labs: Lab Results 05/16/24 05/16/24 Range/Units 12:02 13:52 WBC 7.8 (4.8-10.8) X10*3/uL RBC 2.55 L (4.60-5.80) X10*6/uL Hgb 7.3 L (14.0-18.0) g/dl Hct 22.5 L (42.0-52.0) % MCV 88.2 (80.0-98.0) fL MCH 28.6 (27.0-33.0) pg MCHC 32.4 (31.0-36.0) g/dl RDW 15.0 (11.0-16.0) % Plt Count 323 (160-400) X10*3/uL MPV 9.5 (9.4-12.4) fL Immature Gran % (Auto) 0.4 (0.0-0.4) % Neut % (Auto) 73.0 (45-73) % Lymph % (Auto) 13.7 L (20-40) % [place] % (Auto) 10.6 (2-11) % Eos % (Auto) 1.8 (0-4) % Baso % (Auto) 0.5 (0-2) % Lymph # (Auto) 1.1 L (1.2-4.9) X10*3/uL [place] # (Auto) 0.8 (0.1-1.2) X10*3/uL Eos # (Auto) 0.1 (0.0-0.4) X10*3/uL Baso # (Auto) 0.0 (0.0-0.2) X10*3/uL Abs Immat Gran (auto) 0.03 (0.00-0.03) X10*3/uL Absolute Neuts (auto) 5.7 (2.0-8.3) x10*3/uL Absolute Nucleated RBC 0.000 (0.0-0.012) X10*3/uL Nucleated RBC % (auto) 0.0 (0.0-0.2) /100WBC Sodium 139 (135-145) mmol/L Potassium 4.0 (3.3-5.1) mmol/L Chloride 106 (96-108) mmol/L Carbon Dioxide 21 L (22-29) mmol/L Anion Gap 16 (12-20) BUN 67 H (9-16) mg/dL Creatinine 6.91 H* (0.5-1.4) mg/dL Estim Creat Clear Calc 6.4 Estimated GFR 8 Random Glucose 121 H (60-115) mg/dL Calcium 8.3 L (8.4-10.2) mg/dL Magnesium 2.5 (1.6-2.6) mg/dL Total Bilirubin 0.1 (0.0-1.0) mg/dL AST 33 (5-37) U/L ALT 48 H (0-40) U/L Alkaline Phosphatase 73 (39-117) U/L Total Protein 5.4 L (6.5-8.0) g/dL Albumin 2.6 L (3.5-5.0) g/dL Lipase 57 (8-78) U/L Urine Color Yellow Urine Appearance Turbid Urine pH 6.0 (5.0-9.0) Ur Specific [place] 1.010 (1.005-1.025) Urine Protein 100 (2+) H (Neg-Trace) mg/dL Urine Glucose (UA) Negative (Negative) mg/dL Urine Ketones Negative (Negative) mg/dL Urine Blood Large (3+) H (Negative) Urine Nitrite Negative (Negative) Ur Leukocyte Esterase Large (3+) H (Negative) Urine RBC >20 H (0-2) /HPF Urine WBC >50 H (0-5) /HPF Ur Squamous Epith Cells 3-5 (0-2) /HPF Urine Bacteria 4+ (None Seen) Hyaline Casts 0-2 (0-2) /LPF Urine Yeast Present Radiology Impression Discussion of test interpretation with radiology: I have reviewed the radiologist's reading. Radiologist Impression: EXAMINATION: CT ABDOMEN AND PELVIS WITHOUT CONTRAST CLINICAL INFORMATION: History of gallbladder carcinoma with bilateral J stent COMPARISON: 04/28/2024 TECHNIQUE: Multidetector volumetric imaging was performed from the superior aspect of the liver through the pubic symphysis. Sagittal and coronal reformatted images were obtained on the technologist's workstation. This CT examination was performed using dose optimization techniques as appropriate, variously including the following: *Automated exposure control *Adjustment of mA and/or kV according to patient size (this includes techniques or standardized protocols for targeted exams where dose is matched to indication/reason for exam; i.e. extremities or head) *Use of iterative reconstruction technique DLP: 400 mGy-cm FINDINGS: LUNG BASES: The visualized lung bases are unremarkable. LIVER, GALLBLADDER, AND BILIARY TREE: The liver is normal in size, shape, and attenuation. No focal hepatic lesion or biliary ductal dilatation is present. There is small amount of calculi in the dependent portion of gallbladder PANCREAS: Unremarkable. SPLEEN: Unremarkable. ADRENAL GLANDS: Unremarkable. KIDNEYS AND URETERS: Both kidneys revealed moderate hydronephrosis there are there are bilateral double-J ureteral stents coiled proximally in the collecting system of both kidneys and distally into urinary bladder BLADDER: Bladder is decompressed via Du catheter GASTROINTESTINAL TRACT: The small and large bowel are unremarkable. The appendix is unremarkable. ABDOMINAL WALL: No significant hernia is appreciated. LYMPH NODES: Normal. VASCULAR: Unremarkable. PELVIC VISCERA: There is prostatomegaly OSSEOUS STRUCTURES: Unremarkable. CT/CT abdomen pelvis wo IV con IMPRESSION: 1. Cholelithiasis without cholecystitis. 2. Bilateral hydronephrosis with ureteral stents in place. 3. Prostatomegaly. Fleischner guidelines were followed. Discharge Plan Discharge Patient Disposition: Admitted As Inpatient Print Language: Citizen Of [place]
[2024-05-16 12:07] LABS: MANUAL DIFF FLAG NO
[2024-05-16 12:15] LABS: Basophils Percent Auto 0.5 % (0-2); Eosinophils Absolute Auto 0.1 X10*3/uL (0.0-0.4); Eosinophils Percent Auto 1.8 % (0-4); Hematocrit 22.5 % (42.0-52.0); Hemoglobin 7.3 g/dl (14.0-18.0); Imm Gran Abs Auto 0.03 X10*3/uL (0.00-0.03); Imm Gran Pct Auto 0.4 % (0.0-0.4); Lymphocytes Absolute Auto 1.1 X10*3/uL (1.2-4.9); Lymphocytes Percent Auto 13.7 % (20-40); Mean Corpuscular HGB Conc 32.4 g/dl (31.0-36.0); Mean Corpuscular Hemoglobin 28.6 pg (27.0-33.0); Mean Corpuscular Volume 88.2 fL (80.0-98.0); Mean Platelet Volume 9.5 fL (9.4-12.4); Monocytes Absolute Auto 0.8 X10*3/uL (0.1-1.2); Monocytes Percent Auto 10.6 % (2-11); Neutrophils Absolute Auto 5.7 x10*3/uL (2.0-8.3); Platelet Count 323 X10*3/uL (160-400); Red Blood Count 2.55 X10*6/uL (4.60-5.80); White Blood Count 7.8 X10*3/uL (4.8-10.8)
[2024-05-16 12:33] LABS: Alanine Aminotransferase 48 U/L (0-40); Albumin Level 2.6 g/dL (3.5-5.0); Alkaline Phosphatase 73 U/L (39-117); Anion Gap 16 (12-20); Aspartate Amino Transferase 33 U/L (5-37); Bilirubin Total 0.1 mg/dL (0.0-1.0); Blood Urea Nitrogen 67 mg/dL (9-16); Calcium 8.3 mg/dL (8.4-10.2); Carbon Dioxide 21 mmol/L (22-29); Chloride 106 mmol/L (96-108); Creatinine Clr Calc Pharmacy 6.4; Estimated Glomerular Filt Rate 8; Glucose Random 121 mg/dL (60-115); Lipase 57 U/L (8-78); Magnesium 2.5 mg/dL (1.6-2.6); Sodium 139 mmol/L (135-145); Total Protein 5.4 g/dL (6.5-8.0)
[2024-05-16] MEDS: 0.9 % Sodium Chloride 1,000 ML 999 ML IV (12:54)
[2024-05-16 13:58] LABS: Appearance Urine Turbid; Color Urine Yellow; Glucose Urine UA Negative (Negative); Leukocyte Esterase Urine Large (3+) (Negative); Nitrite Urine Negative (Negative); UMIC TRIGGER UACC YES; Urine Blood Large (3+) (Negative); Urine Ketones Negative (Negative); Urine Protein 100 (2+) mg/dL (Neg-Trace)
[2024-05-16 14:11] LABS: Bacteria Urine 4+ (None Seen); Hyaline Casts Urine 0-2 /LPF (0-2); RBC Urine >20 /HPF (0-2); UACC Culture Trigger YES; WBC Urine >50 /HPF (0-5)
[2024-05-16] MEDS: cefTRIAXone sodium 1 GM in 0.9 % Sodium Chloride 50 ML IV (14:28)
[2024-05-16] MEDS: HYDROmorphone HCl 0.5 MG/0.5 ML SYRINGE IVPUSH (15:54)
--- NOTE | 2024-05-16 16:14 | PHA.MEDREC ---
Pharmacy Consult ? Medication Reconciliation Pharmacy has completed the medication reconciliation. Confirmed medications with patient and patients at bedside. They were able to confirm he takes a Ferrous Sulfate 325mg tablet every other day and he last took that along with all his other medications yesterday 05/15/24. Patient was able to also confirm he is taking his metoprolol 25mg tablet where he takes 1/2 tablet daily.
--- NOTE | 2024-05-16 16:36 | P.HPHOSP_ITS ---
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 Patient reports he woke up on a.m. of presentation with last urine in his [place] than usual. He was also having left flank pain radiating to front. Denies fever or chills. In ED UA with bacteriuria and pyuria, CT abdomen showed bilateral hydro stable, lab significant for creatinine increased to 6.91, was 5.53 on 05/13/2024. Review of Systems 2 Review of Systems: Yes all other systems are reviewed and are negative [facility] Medical History Peripheral vascular disease Prostate mass Osteopenia Paget's bone disease Overweight (BMI 25.0-29.9) Hypercholesterolemia Diabetic nephropathy Type 2 diabetes mellitus with hyperglycemia Macular degeneration Lumbar degenerative disc disease Left renal stone Paget's disease of bone Vitamin D deficiency Aortic stenosis, mild Coronary artery disease Family History Father CVD (cardiovascular disease) Mother CVD (cardiovascular disease) Heart disease Brother In good health Sister In good health Son Diabetes Surgical History History of removal of calculus of renal pelvis through percutaneous nephrostomy S/P CABG x 3 History of tonsillectomy History of bilateral cataract extraction History of ankle surgery S/P repair of hydrocele History of inguinal hernia repair Social History Household Members: Family Household Members Other:: son Housing: House Do you presently have visiting nurse or other home services: No Alcohol intake: never Patient Tobacco Use Status: Former Tobacco user Tobacco use type: Cigarette Cigarette Packs Per Day: 2 Cigarettes Per Day: 40.0 Years Smoked: 30 Smoked in Last 30 Days: No e-Cigarette/Vaping Use: Never Used Advance Directives: Yes Advance Directives on File: Yes Advance Directives Date on File: 05/05/24 service: No Current occupational status: retired Cognitive needs: No Hearing needs: No Vision needs: Yes Meds Allergies Allergy/AdvReac Type Severity Reaction Status Date / Time No Known Allergies Allergy Verified 05/16/24 09:25 [No Known Allergies*] Active Medications: Current Medications Ascorbic Acid (Ascorbic Acid 500 Mg Tablet) 1,000 mg PO DAILY ELEANOR Aspirin (Aspirin Enteric Coated 81 Mg Tablet.Dr) 81 mg PO DAILY ELEANOR Cyanocobalamin (Cyanocobalamin (Vitamin B-12) 1,000 Mcg Tablet) 1,000 mcg PO DAILY [facility] Ceftriaxone Sodium 1 gm/ (Sodium Chloride) 50 mls @ 100 mls/hr IV Q24H ELEANOR Sodium Chloride (Ns) 1,000 mls @ 75 mls/hr IVCONT .[id number] ELEANOR Methenamine Hippurate (Methenamine Hippurate 1 Gm Tablet) 1 gm PO DAILY ELEANOR Metoprolol Succinate (Metoprolol Succinate Er 12.5 Mg Halftab.Er.24h) 12.5 mg PO DAILY ELEANOR; Protocol Non-Formulary Medication (Ferrous Sulfate [Feosol]) 325 mg PO Q OTHER DAY ELEANOR Non-Formulary Medication (Rosuvastatin [Crestor]) 40 mg PO DAILY [facility] Paroxetine HCl (Paroxetine Hcl 10 Mg Tablet) 10 mg PO DAILY [facility] Vitamin D (Cholecalciferol (Vitamin D3) 25 Mcg Tablet) 50 mcg PO DAILY [facility] Home Medications ?Medication ?Instructions ?Recorded ?Confirmed ?Last Taken ?Type aspirin 81 mg tablet,delayed 81 mg PO DAILY 10/11/20 05/16/24 05/15/24 History release (Adult Aspirin Regimen) vitamins A,C,R-telp-sulfww 1 tab PO BID 03/29/21 05/16/24 05/15/24 History [PreserVision AREDS] Physical Exam 2 Vital Signs and Narrative: Vital Signs: Last Vital Signs Temp 98.0 F 05/16/24 16:00 Pulse 56 05/16/24 16:00 Resp 14 05/16/24 16:00 BP 108/38 L 05/16/24 16:00 Pulse Ox 94 05/16/24 16:00 O2 Del Method Room Air 05/16/24 16:00 BMI result Body Mass Index 24.7 General: AO X 3, no acute distress Resp: CTA bilateral, no accessory muscles used CVS: S1,S2,RRR GI: soft, non tender, non distended Neuro: motor grossly intact, alert Psych: appropriate affect, appropriate insight Results Labs 05/16/24 12:02 05/16/24 12:02 Labs: Laboratory Results - last 24 hr 05/16/24 05/16/24 05/16/24 12:02 13:52 14:34 MCV 88.2 MCH 28.6 MCHC 32.4 RDW 15.0 Plt Count 323 MPV 9.5 Immature Gran % (Auto) 0.4 Neut % (Auto) 73.0 Lymph % (Auto) 13.7 L [place] % (Auto) 10.6 Eos % (Auto) 1.8 Baso % (Auto) 0.5 Lymph # (Auto) 1.1 L [place] # (Auto) 0.8 Eos # (Auto) 0.1 Baso # (Auto) 0.0 Abs Immat Gran (auto) 0.03 Absolute Neuts (auto) 5.7 Absolute Nucleated RBC 0.000 Nucleated RBC % (auto) 0.0 Anion Gap 16 Estim Creat Clear Calc 6.4 Estimated GFR 8 Random Glucose 121 H Lactic Acid 1.0 Calcium 8.3 L Magnesium 2.5 Total Bilirubin 0.1 AST 33 ALT 48 H Alkaline Phosphatase 73 Total Protein 5.4 L Albumin 2.6 L Lipase 57 Urine Color Yellow Urine Appearance Turbid Urine pH 6.0 Ur Specific [place] 1.010 Urine Protein 100 (2+) H Urine Glucose (UA) Negative Urine Ketones Negative Urine Blood Large (3+) H Urine Nitrite Negative Ur Leukocyte Esterase Large (3+) H Urine RBC >20 H Urine WBC >50 H Ur Squamous Epith Cells 3-5 Urine Bacteria 4+ Hyaline Casts 0-2 Urine Yeast Present Imaging Radiologist's Impressions: Impressions Abdomen/Pelvis CT 05/16/24 13:30 IMPRESSION: 1. Cholelithiasis without cholecystitis. 2. Bilateral hydronephrosis with ureteral stents in place. 3. Prostatomegaly. Fleischner guidelines were followed. 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, s/p bilateral ureteral stents, aortic stenosis, presented with left flank pain and oliguria JOSI on CKD 5 with history bilateral hydronephrosis due to bladder Gentle hydration, monitor BMP, Nephro and Urology eval, not requiring urgent dialysis at this time Pyuria and bacteria Possible UTI due chronic [place], will empirically cover with ceftriaxone Coronary artery disease Aspirin and statin Moderate aortic stenosis Monitor closely while getting gentle hydration DVT prophylaxis with heparin Full code Patient with oliguria and JOSI, likely require at least 2 midnights inpatient Quality Stroke Does the patient have a stroke diagnosis?: No VTE Prior VTE?: No VTE Risk Level:: Medical - moderate - high VTE Device Contraindication: Treatment Not Indicated VTE Drug Contraindication: N/A - Med Ordered
[2024-05-16] MEDS: 0.9 % Sodium Chloride 1,000 ML 75 ML IVCONT (18:22)
--- NOTE | 2024-05-16 18:48 | PC.NURSE ---
Pt. came from ED with leg baf full, switched to regular du bag.
[2024-05-16] MEDS: Heparin Sodium,Porcine 5,000 UNIT/ML VIAL 5000 UNIT SUBCUT (23:46)
[2024-05-17] VITALS (7 sets, daily range): BP systolic 100–142; BP diastolic 50–66; PULSE 57–72; RESP 16–18; TEMP 36–36.6; O2SAT 93–99
[2024-05-17 05:44] LABS: Hematocrit 21.5 % (42.0-52.0); Mean Corpuscular HGB Conc 32.1 g/dl (31.0-36.0); Mean Corpuscular Hemoglobin 28.3 pg (27.0-33.0); Mean Corpuscular Volume 88.1 fL (80.0-98.0); Mean Platelet Volume 8.9 fL (9.4-12.4); Platelet Count 297 X10*3/uL (160-400); Red Blood Count 2.44 X10*6/uL (4.60-5.80); White Blood Count 7.4 X10*3/uL (4.8-10.8)
[2024-05-17 05:49] LABS: Hemoglobin 6.9 g/dl (14.0-18.0)
[2024-05-17 06:03] LABS: Anion Gap 16 (12-20); Blood Urea Nitrogen 65 mg/dL (9-16); Calcium 7.9 mg/dL (8.4-10.2); Carbon Dioxide 19 mmol/L (22-29); Chloride 111 mmol/L (96-108); Creatinine Clr Calc Pharmacy 6.5; Estimated Glomerular Filt Rate 8; Glucose Fasting 75 mg/dL (60-99); Potassium 3.9 mmol/L (3.3-5.1); Sodium 142 mmol/L (135-145)
[2024-05-17] MEDS: 0.9 % Sodium Chloride 1,000 ML 75 ML IVCONT (06:13)
[2024-05-17] MEDS: Cholecalciferol (Vitamin D3) 25 MCG TABLET 50 MCG PO (08:41)
[2024-05-17] MEDS: Atorvastatin Calcium 80 MG TABLET PO (08:41)
[2024-05-17] MEDS: Ferrous Sulfate 324 MG TABLET.DR PO (08:41)
[2024-05-17] MEDS: Ascorbic Acid 500 MG TABLET 1000 MG PO (08:41)
[2024-05-17] MEDS: Cyanocobalamin (Vitamin B-12) 1,000 MCG TABLET 1000 MCG PO (08:41)
[2024-05-17] MEDS: Metoprolol Succinate ER 12.5 MG HALFTAB.ER.24H PO (09:54)
[2024-05-17] MEDS: Methenamine Hippurate 1 GM TABLET PO (09:54)
[2024-05-17] MEDS: Heparin Sodium,Porcine 5,000 UNIT/ML VIAL 5000 UNIT SUBCUT ×2 (09:54→17:06)
[2024-05-17] MEDS: PARoxetine HCL 10 MG TABLET PO (09:54)
[2024-05-17] MEDS: Aspirin Enteric Coated 81 MG TABLET.DR PO (09:55)
--- NOTE | 2024-05-17 10:20 | P.PNIM_ITS ---
Subjective Subjective Date of Service: 05/17/24 Interval History: no complaints Physical Exam 2 Vital Signs: Vital Signs: Last Vital Signs Temp 97.9 F 05/17/24 08:08 Pulse 60 05/17/24 08:08 Resp 17 05/17/24 08:08 BP 119/59 L 05/17/24 08:08 Pulse Ox 93 05/17/24 06:58 O2 Del Method Room Air 05/17/24 06:58 BMI result Body Mass Index 25.0 General: AO X 3, no acute distress Resp: CTA bilateral, no accessory muscles used CVS: S1,S2,RRR, murmur GI: soft, non tender, non distended Neuro: motor grossly intact, alert Psych: appropriate affect, appropriate insight Objective Data Active Medications Acetaminophen (Acetaminophen 325 Mg Tablet) 650 mg PO Q6H PRN PRN Reason: Pain, Mild (Pain Scale 1-3), fever or headache Ascorbic Acid (Ascorbic Acid 500 Mg Tablet) 1,000 mg PO DAILY [facility] Last Admin: 05/17/24 08:41 Dose: 1,000 mg Documented By: PETAR Aspirin (Aspirin Enteric Coated 81 Mg Tablet.) 81 mg PO DAILY [facility] Last Admin: 05/17/24 09:55 Dose: 81 mg Documented By: PETAR Atorvastatin Calcium (Atorvastatin Calcium 80 Mg Tablet) 80 mg PO DAILY [facility] Last Admin: 05/17/24 08:41 Dose: 80 mg Documented By: PETAR Calcium Carbonate (Calcium Carbonate 750 Mg Tab.Chew) 750 mg PO Q4H PRN PRN Reason: Heartburn Cyanocobalamin (Cyanocobalamin (Vitamin B-12) 1,000 Mcg Tablet) 1,000 mcg PO DAILY [facility] Last Admin: 05/17/24 08:41 Dose: 1,000 mcg Documented By: PETAR Ferrous Sulfate (Ferrous Sulfate 324 Mg Tablet.) 324 mg PO Q48H [facility] Last Admin: 05/17/24 08:41 Dose: 324 mg Documented By: PETAR Heparin Sodium (Porcine) (Heparin Sodium,Porcine 5,000 Unit/Ml Vial) 5,000 unit SUBCUT Q8H [facility] Last Admin: 05/17/24 09:54 Dose: 5,000 unit Documented By: PETAR Ceftriaxone Sodium 1 gm/ (Sodium Chloride) 50 mls @ 100 mls/hr IV Q24H [facility] Magnesium Hydroxide (Milk Of Magnesia 30 Ml Oral.Susp) 30 ml PO DAILY PRN PRN Reason: Constipation Melatonin (Melatonin 3 Mg Tablet) 6 mg PO BEDTIME PRN PRN Reason: Insomnia Methenamine Hippurate (Methenamine Hippurate 1 Gm Tablet) 1 gm PO DAILY [facility] Last Admin: 05/17/24 09:54 Dose: 1 gm Documented By: PETAR Metoprolol Succinate (Metoprolol Succinate Er 12.5 Mg Halftab.Er.24h) 12.5 mg PO DAILY [facility]; Protocol Last Admin: 05/17/24 09:54 Dose: 12.5 mg Documented By: PETAR Paroxetine HCl (Paroxetine Hcl 10 Mg Tablet) 10 mg PO DAILY [facility] Last Admin: 05/17/24 09:54 Dose: 10 mg Documented By: PETAR Sodium Chloride (0.9 % Sodium Chloride Flush 3 Ml Syringe) 3 ml IVFLUSH QSHIFT [facility] Last Admin: 05/17/24 08:43 Dose: Not Given Documented By: PETAR Non-Admin Reason: blood infusing Vitamin D (Cholecalciferol (Vitamin D3) 25 Mcg Tablet) 50 mcg PO DAILY [facility] Last Admin: 05/17/24 08:41 Dose: 50 mcg Documented By: PETAR Labs 05/17/24 05:29 05/17/24 05:29 Labs: Laboratory Results - last 24 hr 05/16/24 05/16/24 05/16/24 12:02 13:52 14:34 MCV 88.2 MCH 28.6 MCHC 32.4 RDW 15.0 Plt Count 323 MPV 9.5 Immature Gran % (Auto) 0.4 Neut % (Auto) 73.0 Lymph % (Auto) 13.7 L [place] % (Auto) 10.6 Eos % (Auto) 1.8 Baso % (Auto) 0.5 Lymph # (Auto) 1.1 L [place] # (Auto) 0.8 Eos # (Auto) 0.1 Baso # (Auto) 0.0 Abs Immat Gran (auto) 0.03 Absolute Neuts (auto) 5.7 Absolute Nucleated RBC 0.000 Nucleated RBC % (auto) 0.0 Anion Gap 16 Estim Creat Clear Calc 6.4 Estimated GFR 8 Random Glucose 121 H Fasting Glucose Lactic Acid 1.0 Calcium 8.3 L Magnesium 2.5 Total Bilirubin 0.1 AST 33 ALT 48 H Alkaline Phosphatase 73 Total Protein 5.4 L Albumin 2.6 L Lipase 57 Urine Color Yellow Urine Appearance Turbid Urine pH 6.0 Ur Specific [place] 1.010 Urine Protein 100 (2+) H Urine Glucose (UA) Negative Urine Ketones Negative Urine Blood Large (3+) H Urine Nitrite Negative Ur Leukocyte Esterase Large (3+) H Urine RBC >20 H Urine WBC >50 H Ur Squamous Epith Cells 3-5 Urine Bacteria 4+ Hyaline Casts 0-2 Urine Yeast Present Blood Type Antibody Screen Crossmatch 05/17/24 05/17/24 05:29 06:30 MCV 88.1 MCH 28.3 MCHC 32.1 RDW 15.0 Plt Count 297 MPV 8.9 L Immature Gran % (Auto) Neut % (Auto) Lymph % (Auto) [place] % (Auto) Eos % (Auto) Baso % (Auto) Lymph # (Auto) [place] # (Auto) Eos # (Auto) Baso # (Auto) Abs Immat Gran (auto) Absolute Neuts (auto) Absolute Nucleated RBC 0.000 Nucleated RBC % (auto) 0.0 Anion Gap 16 Estim Creat Clear Calc 6.5 Estimated GFR 8 Random Glucose Fasting Glucose 75 Lactic Acid Calcium 7.9 L Magnesium Total Bilirubin AST ALT Alkaline Phosphatase Total Protein Albumin Lipase Urine Color Urine Appearance Urine pH Ur Specific [place] Urine Protein Urine Glucose (UA) Urine Ketones Urine Blood Urine Nitrite Ur Leukocyte Esterase Urine RBC Urine WBC Ur Squamous Epith Cells Urine Bacteria Hyaline Casts Urine Yeast Blood Type B Positive Antibody Screen NEGATIVE Crossmatch See Detail 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, s/p bilateral ureteral stents, aortic stenosis, presented with left flank pain and oliguria JOSI on CKD 5 with history bilateral hydronephrosis due to bladder Gentle hydration, monitor BMP, Nephro and Urology eval, not requiring urgent dialysis at this time anemia of CKD transfuse 1 unit, monitor Pyuria and bacteria Possible UTI due chronic Ovalles, will empirically cover with ceftriaxone, follow up culture Coronary artery disease Aspirin and statin Moderate aortic stenosis Monitor closely while getting gentle hydration DVT prophylaxis with heparin Full code reason for continued hospitalization:anemia Quality Stroke Does the patient have a stroke diagnosis?: No VTE Prior VTE?: No VTE Risk Level:: Medical - moderate - high VTE Device Contraindication: Treatment Not Indicated VTE Drug Contraindication: N/A - Med Ordered
[2024-05-17] MEDS: cefTRIAXone sodium 1 GM in 0.9 % Sodium Chloride 50 ML IV (11:02)
--- NOTE | 2024-05-17 16:28 | MHC.CM.PN ---
CM MET WITH PT AND DAUGHTER, CAR, AT BEDSIDE PT LIVES WITH HIS AND IS INDEPENDENT WITH CARE HE IS ACTIVE WITH [facility] FOR PT AND SN HE HAS A WALKER HE USES WHEN GOING OUT OF THE HOME HCP ON FILE AND VERIFIED PCP: ROSALINE MARTINEZ IMM DELIVERED DCP: HOME RESUME [facility] FAMILY TO TRANSPORT
[2024-05-17] MEDS: 0.9 % Sodium Chloride Flush 3 ML SYRINGE IVFLUSH ×2 (17:06→20:35)
--- NOTE | 2024-05-17 19:29 | PC.NURSE ---
Patient with critical Hgb this morning and received orders to have 1 unit of blood transfused. Patient received 1 unit of RBC and assessed and did not present with any signs and symptoms of transfusion reaction. Patient assessed following transfusion and vitals at baseline. Frequent rounding performed and safety maintained.
[2024-05-18] VITALS (7 sets, daily range): BP systolic 115–163; BP diastolic 58–69; PULSE 51–66; RESP 16–17; TEMP 36.2–36.7; O2SAT 96–99
[2024-05-18] MEDS: Heparin Sodium,Porcine 5,000 UNIT/ML VIAL 5000 UNIT SUBCUT ×4 (00:06→23:50)
[2024-05-18 05:42] LABS: Hematocrit 26.4 % (42.0-52.0); Hemoglobin 8.5 g/dl (14.0-18.0); Mean Corpuscular HGB Conc 32.2 g/dl (31.0-36.0); Mean Corpuscular Hemoglobin 28.5 pg (27.0-33.0); Mean Corpuscular Volume 88.6 fL (80.0-98.0); Mean Platelet Volume 8.6 fL (9.4-12.4); Platelet Count 322 X10*3/uL (160-400); Red Blood Count 2.98 X10*6/uL (4.60-5.80); White Blood Count 8.7 X10*3/uL (4.8-10.8)
[2024-05-18 06:15] LABS: Anion Gap 17 (12-20); Blood Urea Nitrogen 71 mg/dL (9-16); Calcium 8.3 mg/dL (8.4-10.2); Carbon Dioxide 18 mmol/L (22-29); Chloride 108 mmol/L (96-108); Creatinine Clr Calc Pharmacy 6.1; Estimated Glomerular Filt Rate 7; Glucose Fasting 67 mg/dL (60-99); Sodium 139 mmol/L (135-145)
[2024-05-18] MEDS: Metoprolol Succinate ER 12.5 MG HALFTAB.ER.24H PO (08:31)
[2024-05-18] MEDS: cefTRIAXone sodium 1 GM in 0.9 % Sodium Chloride 50 ML IV (08:31)
[2024-05-18] MEDS: Ascorbic Acid 500 MG TABLET 1000 MG PO (08:33)
[2024-05-18] MEDS: Cyanocobalamin (Vitamin B-12) 1,000 MCG TABLET 1000 MCG PO (08:33)
[2024-05-18] MEDS: Atorvastatin Calcium 80 MG TABLET PO (08:33)
[2024-05-18] MEDS: Aspirin Enteric Coated 81 MG TABLET.DR PO (08:33)
[2024-05-18] MEDS: 0.9 % Sodium Chloride Flush 3 ML SYRINGE IVFLUSH ×2 (08:33→15:26)
[2024-05-18] MEDS: PARoxetine HCL 10 MG TABLET PO (08:33)
[2024-05-18] MEDS: Methenamine Hippurate 1 GM TABLET PO (08:33)
[2024-05-18] MEDS: Cholecalciferol (Vitamin D3) 25 MCG TABLET 50 MCG PO (08:33)
--- NOTE | 2024-05-18 09:04 | HO.PM.IMPN ---
Subjective Subjective Date of Service: 05/18/24 Interval History: no complaints Physical Exam Vital Signs: Vital Signs: Last Vital Signs Temp 98 F 05/18/24 06:54 Pulse 66 05/18/24 08:31 Resp 17 05/18/24 06:54 BP 124/58 L 05/18/24 08:25 Pulse Ox 96 05/18/24 06:54 O2 Del Method Room Air 05/18/24 06:54 BMI result Body Mass Index 25.0 General: AO X 3, no acute distress Resp: CTA bilateral, no accessory muscles used CVS: S1,S2,RRR, murmur GI: soft, non tender, non distended Neuro: motor grossly intact, alert Psych: appropriate affect, appropriate insight Objective Data Active Medications Acetaminophen (Acetaminophen 325 Mg Tablet) 650 mg PO Q6H PRN PRN Reason: Pain, Mild (Pain Scale 1-3), fever or headache Ascorbic Acid (Ascorbic Acid 500 Mg Tablet) 1,000 mg PO DAILY [facility] Last Admin: 05/18/24 08:33 Dose: 1,000 mg Documented By: ABELARDO Aspirin (Aspirin Enteric Coated 81 Mg Tablet.) 81 mg PO DAILY [facility] Last Admin: 05/18/24 08:33 Dose: 81 mg Documented By: ABELARDO Atorvastatin Calcium (Atorvastatin Calcium 80 Mg Tablet) 80 mg PO DAILY [facility] Last Admin: 05/18/24 08:33 Dose: 80 mg Documented By: ABELARDO Calcium Carbonate (Calcium Carbonate 750 Mg Tab.Chew) 750 mg PO Q4H PRN PRN Reason: Heartburn Cyanocobalamin (Cyanocobalamin (Vitamin B-12) 1,000 Mcg Tablet) 1,000 mcg PO DAILY [facility] Last Admin: 05/18/24 08:33 Dose: 1,000 mcg Documented By: ABELARDO Ferrous Sulfate (Ferrous Sulfate 324 Mg Tablet.) 324 mg PO Q48H [facility] Last Admin: 05/17/24 08:41 Dose: 324 mg Documented By: PETAR Heparin Sodium (Porcine) (Heparin Sodium,Porcine 5,000 Unit/Ml Vial) 5,000 unit SUBCUT Q8H [facility] Last Admin: 05/18/24 08:31 Dose: 5,000 unit Documented By: ABELARDO Ceftriaxone Sodium 1 gm/ (Sodium Chloride) 50 mls @ 100 mls/hr IV Q24H [facility] Last Admin: 05/18/24 08:31 Dose: 100 mls/hr Documented By: ABELARDO Magnesium Hydroxide (Milk Of Magnesia 30 Ml Oral.Susp) 30 ml PO DAILY PRN PRN Reason: Constipation Melatonin (Melatonin 3 Mg Tablet) 6 mg PO BEDTIME PRN PRN Reason: Insomnia Methenamine Hippurate (Methenamine Hippurate 1 Gm Tablet) 1 gm PO DAILY [facility] Last Admin: 05/18/24 08:33 Dose: 1 gm Documented By: ABELARDO Metoprolol Succinate (Metoprolol Succinate Er 12.5 Mg Halftab.Er.24h) 12.5 mg PO DAILY [facility]; Protocol Last Admin: 05/18/24 08:31 Dose: 12.5 mg Documented By: ABELARDO Paroxetine HCl (Paroxetine Hcl 10 Mg Tablet) 10 mg PO DAILY [facility] Last Admin: 05/18/24 08:33 Dose: 10 mg Documented By: ABELARDO Sodium Chloride (0.9 % Sodium Chloride Flush 3 Ml Syringe) 3 ml IVFLUSH QSHIFT [facility] Last Admin: 05/18/24 08:33 Dose: 3 ml Documented By: ABELARDO Vitamin D (Cholecalciferol (Vitamin D3) 25 Mcg Tablet) 50 mcg PO DAILY [facility] Last Admin: 05/18/24 08:33 Dose: 50 mcg Documented By: ABELARDO Labs 05/18/24 05:34 05/18/24 05:34 Labs: Laboratory Results - last 24 hr 05/17/24 05/18/24 06:30 05:34 MCV 88.6 MCH 28.5 MCHC 32.2 RDW 15.0 Plt Count 322 MPV 8.6 L Absolute Nucleated RBC 0.000 Nucleated RBC % (auto) 0.0 Anion Gap 17 Estim Creat Clear Calc 6.1 Estimated GFR 7 Fasting Glucose 67 Calcium 8.3 L Crossmatch See Detail Microbiology Microbiology Results: Microbiology 05/16/24 14:34 Blood Culture - Preliminary Blood - Venous No growth after 24 hours. 05/16/24 14:34 Blood Culture - Preliminary Blood - Venous No growth after 24 hours. 05/16/24 Unknown Urine Culture - Preliminary Urine Catheterized - Straight Catheter Culture in progress. 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, s/p bilateral ureteral stents, aortic stenosis, presented with left flank pain and oliguria JOSI on CKD 5 with history bilateral hydronephrosis due to bladder monitor BMP, Nephro and Urology eval, not requiring urgent dialysis at this time anemia of CKD transfused 1 unit, hgb improved appropriately, monitor Pyuria and bacteria Possible UTI due chronic [place], will empirically cover with ceftriaxone, follow up culture Coronary artery disease Aspirin and statin Moderate aortic stenosis Monitor closely while getting gentle hydration DVT prophylaxis with heparin Full code reason for continued hospitalization:josi Quality Stroke Does the patient have a stroke diagnosis?: No VTE Prior VTE?: No VTE Risk Level:: Medical - moderate - high VTE Device Contraindication: Treatment Not Indicated VTE Drug Contraindication: N/A - Med Ordered
[2024-05-18] MEDS: Acetaminophen 325 MG TABLET 650 MG PO ×2 (14:40→20:02)
[2024-05-18] MEDS: Fluconazole in NaCl,Iso-Osm 200 MG/100 ML PIGGYBACK 100 MG IV (15:26)
[2024-05-18 16:29] LABS: Glucose, Whole Blood 92 mg/dL (60-115)
[2024-05-18 20:53] LABS: Glucose, Whole Blood 108 mg/dL (60-115)
[2024-05-18] MEDS: Melatonin 3 MG TABLET 6 MG PO (23:52)
[2024-05-19] VITALS (7 sets, daily range): BP systolic 91–169; BP diastolic 51–72; PULSE 61–65; RESP 16–18; TEMP 36–36.4; O2SAT 96–99; BMI 25.0
[2024-05-19] MEDS: oxyCODONE HCl Immed Release 5 MG TABLET PO ×2 (01:36→15:00)
[2024-05-19 06:20] LABS: Hematocrit 26.8 % (42.0-52.0); Hemoglobin 8.7 g/dl (14.0-18.0); Mean Corpuscular HGB Conc 32.5 g/dl (31.0-36.0); Mean Corpuscular Hemoglobin 28.4 pg (27.0-33.0); Mean Corpuscular Volume 87.6 fL (80.0-98.0); Mean Platelet Volume 9.2 fL (9.4-12.4); Platelet Count 381 X10*3/uL (160-400); Red Blood Count 3.06 X10*6/uL (4.60-5.80); Red Cell Distribution Width 14.9 % (11.0-16.0); White Blood Count 9.9 X10*3/uL (4.8-10.8)
[2024-05-19 07:15] LABS: Anion Gap 17 (12-20); Blood Urea Nitrogen 76 mg/dL (9-16); Calcium 8.4 mg/dL (8.4-10.2); Carbon Dioxide 17 mmol/L (22-29); Chloride 109 mmol/L (96-108); Glucose Fasting 80 mg/dL (60-99); Sodium 139 mmol/L (135-145)
[2024-05-19 07:18] LABS: Creatinine Clr Calc Pharmacy 5.8; Estimated Glomerular Filt Rate 7
[2024-05-19] MEDS: Atorvastatin Calcium 80 MG TABLET PO (07:32)
[2024-05-19] MEDS: Cyanocobalamin (Vitamin B-12) 1,000 MCG TABLET 1000 MCG PO (07:32)
[2024-05-19] MEDS: Metoprolol Succinate ER 12.5 MG HALFTAB.ER.24H PO (07:32)
[2024-05-19] MEDS: Aspirin Enteric Coated 81 MG TABLET.DR PO (07:32)
[2024-05-19] MEDS: Cholecalciferol (Vitamin D3) 25 MCG TABLET 50 MCG PO (07:32)
[2024-05-19] MEDS: Ferrous Sulfate 324 MG TABLET.DR PO (07:32)
[2024-05-19] MEDS: Ascorbic Acid 500 MG TABLET 1000 MG PO (07:33)
[2024-05-19] MEDS: Methenamine Hippurate 1 GM TABLET PO (07:33)
[2024-05-19] MEDS: PARoxetine HCL 10 MG TABLET PO (07:33)
[2024-05-19] MEDS: Heparin Sodium,Porcine 5,000 UNIT/ML VIAL 5000 UNIT SUBCUT ×2 (07:33→15:00)
[2024-05-19] MEDS: 0.9 % Sodium Chloride Flush 3 ML SYRINGE IVFLUSH ×2 (07:33→21:37)
[2024-05-19 07:59] LABS: Glucose, Whole Blood 83 mg/dL (60-115)
--- NOTE | 2024-05-19 08:50 | HO.PM.IMPN ---
Subjective Subjective Date of Service: 05/19/24 Interval History: left flank pain Physical Exam Vital Signs: Vital Signs: Last Vital Signs Temp 97.1 F 05/19/24 07:45 Pulse 63 05/19/24 07:45 Resp 18 05/19/24 07:45 BP 169/72 H 05/19/24 07:45 Pulse Ox 96 05/19/24 07:45 O2 Del Method Room Air 05/19/24 07:45 BMI result Body Mass Index 25.0 General: AO X 3, no acute distress Resp: CTA bilateral, no accessory muscles used CVS: S1,S2,RRR, murmur GI: soft, non tender, non distended Neuro: motor grossly intact, alert Psych: appropriate affect, appropriate insight Objective Data Active Medications Acetaminophen (Acetaminophen 325 Mg Tablet) 650 mg PO Q6H PRN PRN Reason: Pain, Mild (Pain Scale 1-3), fever or headache Last Admin: 05/18/24 20:02 Dose: 650 mg Documented By: KARLIE Ascorbic Acid (Ascorbic Acid 500 Mg Tablet) 1,000 mg PO DAILY [facility] Last Admin: 05/19/24 07:33 Dose: 1,000 mg Documented By: JOSE Aspirin (Aspirin Enteric Coated 81 Mg Tablet.) 81 mg PO DAILY [facility] Last Admin: 05/19/24 07:32 Dose: 81 mg Documented By: JOSE Atorvastatin Calcium (Atorvastatin Calcium 80 Mg Tablet) 80 mg PO DAILY [facility] Last Admin: 05/19/24 07:32 Dose: 80 mg Documented By: JOSE Calcium Carbonate (Calcium Carbonate 750 Mg Tab.Chew) 750 mg PO Q4H PRN PRN Reason: Heartburn Cyanocobalamin (Cyanocobalamin (Vitamin B-12) 1,000 Mcg Tablet) 1,000 mcg PO DAILY [facility] Last Admin: 05/19/24 07:32 Dose: 1,000 mcg Documented By: JOSE Ferrous Sulfate (Ferrous Sulfate 324 Mg Tablet.) 324 mg PO Q48H [facility] Last Admin: 05/19/24 07:32 Dose: 324 mg Documented By: JOSE Heparin Sodium (Porcine) (Heparin Sodium,Porcine 5,000 Unit/Ml Vial) 5,000 unit SUBCUT Q8H [facility] Last Admin: 05/19/24 07:33 Dose: 5,000 unit Documented By: JOSE Ceftriaxone Sodium 1 gm/ (Sodium Chloride) 50 mls @ 100 mls/hr IV Q24H [facility] Last Infusion: 05/18/24 09:31 Dose: Infused Documented By: ABELARDO Fluconazole (Diflucan) 200 mg in 100 mls @ 100 mls/hr IV Q24H [facility] Last Infusion: 05/18/24 16:30 Dose: Infused Documented By: ABELARDO Magnesium Hydroxide (Milk Of Magnesia 30 Ml Oral.Susp) 30 ml PO DAILY PRN PRN Reason: Constipation Melatonin (Melatonin 3 Mg Tablet) 6 mg PO BEDTIME PRN PRN Reason: Insomnia Last Admin: 05/18/24 23:52 Dose: 6 mg Documented By: AUGUSTO Methenamine Hippurate (Methenamine Hippurate 1 Gm Tablet) 1 gm PO DAILY [facility] Last Admin: 05/19/24 07:33 Dose: 1 gm Documented By: JOSE Metoprolol Succinate (Metoprolol Succinate Er 12.5 Mg Halftab.Er.24h) 12.5 mg PO DAILY [facility]; Protocol Last Admin: 05/19/24 07:32 Dose: 12.5 mg Documented By: JOSE Oxycodone HCl (Oxycodone Hcl Immed Release 5 Mg Tablet) 5 mg PO Q4H PRN PRN Reason: moderate pain Last Admin: 05/19/24 01:36 Dose: 5 mg Documented By: AUGUSTO Paroxetine HCl (Paroxetine Hcl 10 Mg Tablet) 10 mg PO DAILY [facility] Last Admin: 05/19/24 07:33 Dose: 10 mg Documented By: JOSE Sodium Chloride (0.9 % Sodium Chloride Flush 3 Ml Syringe) 3 ml IVFLUSH QSHIFT [facility] Last Admin: 05/19/24 07:33 Dose: 3 ml Documented By: JOSE Vitamin D (Cholecalciferol (Vitamin D3) 25 Mcg Tablet) 50 mcg PO DAILY [facility] Last Admin: 05/19/24 07:32 Dose: 50 mcg Documented By: JOSE Labs 05/19/24 05:36 05/19/24 05:36 Labs: Laboratory Results - last 24 hr 05/17/24 05/18/24 05/18/24 05:29 16:24 20:17 MCV MCH MCHC RDW Plt Count MPV Absolute Nucleated RBC Nucleated RBC % (auto) Smear Path Review SEE NOTE Anion Gap Estim Creat Clear Calc Estimated GFR POC Glucose 92 108 Fasting Glucose Calcium 05/19/24 05/19/24 05:36 07:49 MCV 87.6 MCH 28.4 MCHC 32.5 RDW 14.9 Plt Count 381 MPV 9.2 L Absolute Nucleated RBC 0.000 Nucleated RBC % (auto) 0.0 Smear Path Review Anion Gap 17 Estim Creat Clear Calc 5.8 Estimated GFR 7 POC Glucose 83 Fasting Glucose 80 Calcium 8.4 Microbiology Microbiology Results: Microbiology 05/16/24 14:34 Blood Culture - Preliminary Blood - Venous No growth after 48 hours. 05/16/24 14:34 Blood Culture - Preliminary Blood - Venous No growth after 48 hours. 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, s/p bilateral ureteral stents, aortic stenosis, presented with left flank pain and oliguria JOSI on CKD 5 with history bilateral hydronephrosis due to bladder monitor BMP, Nephro following, not requiring urgent dialysis at this time but creatinine continues to worsen slowly, non oliguric, bun increasing, poor appetite d/w , plan for left nephrostomy anemia of CKD transfused 1 unit, hgb improved appropriately, monitor Pyuria and bacteria Possible UTI due chronic [place], empirically cover with ceftriaxone, culture growing yeast, added diflucan Coronary artery disease Aspirin and statin Moderate aortic stenosis Monitor closely while getting gentle hydration DVT prophylaxis with heparin Full code reason for continued hospitalization:josi Quality Stroke Does the patient have a stroke diagnosis?: No VTE Prior VTE?: No VTE Risk Level:: Medical - moderate - high VTE Device Contraindication: Treatment Not Indicated VTE Drug Contraindication: N/A - Med Ordered
[2024-05-19] MEDS: cefTRIAXone sodium 1 GM in 0.9 % Sodium Chloride 50 ML IV (09:15)
--- NOTE | 2024-05-19 09:36 | PM.CNNEP ---
History of Present Illness Reason for Consult Consult date: 05/19/24 Reason for consult: JOSI on CKD Chief Complaint Chief complaint: UTI? 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 Patient reports he woke up on a.m. of presentation with last urine in his Ovalles than usual. He was also having left flank pain radiating to front. Denies fever or chills. In ED UA with bacteriuria and pyuria, CT abdomen showed bilateral hydro stable, lab significant for creatinine increased to 6.91, was 5.53 on 05/13/2024. Received IV fluids over the last 24-48 hours without any significant improvement in creatinine. New today he is feeling nauseous. No vomiting. No shortness of breath. FOR[facility]LY [facility] Past Medical History Medical History Peripheral vascular disease Prostate mass Osteopenia Paget's bone disease Overweight (BMI 25.0-29.9) Hypercholesterolemia Diabetic nephropathy Type 2 diabetes mellitus with hyperglycemia Macular degeneration Lumbar degenerative disc disease Left renal stone Paget's disease of bone Vitamin D deficiency Aortic stenosis, mild Coronary artery disease Family History Family History Father CVD (cardiovascular disease) Mother CVD (cardiovascular disease) Heart disease Brother In good health Sister In good health Son Diabetes Surgical History Surgical History History of removal of calculus of renal pelvis through percutaneous nephrostomy S/P CABG x 3 History of tonsillectomy History of bilateral cataract extraction History of ankle surgery S/P repair of hydrocele History of inguinal hernia repair Social History Social History Household Members: Spouse Household Members Other:: son Housing: House Do you presently have visiting nurse or other home services: Yes Alcohol intake: never Patient Tobacco Use Status: Former Tobacco user Tobacco use type: Cigarette Cigarette Packs Per Day: 2 Cigarettes Per Day: 40.0 Years Smoked: 30 e-Cigarette/Vaping Use: Never Used Advance Directives Date on File: 05/05/24 service: Yes Current occupational status: retired Cognitive needs: No Hearing needs: No Vision needs: Yes Meds Allergies Allergy/AdvReac Type Severity Reaction Status Date / Time No Known Allergies Allergy Verified 05/16/24 09:25 [No Known Allergies*] Active Medications: Current Medications Acetaminophen (Acetaminophen 325 Mg Tablet) 650 mg PO Q6H PRN PRN Reason: Pain, Mild (Pain Scale 1-3), fever or headache Last Admin: 05/18/24 20:02 Dose: 650 mg Ascorbic Acid (Ascorbic Acid 500 Mg Tablet) 1,000 mg PO DAILY [facility] Last Admin: 05/19/24 07:33 Dose: 1,000 mg Aspirin (Aspirin Enteric Coated 81 Mg Tablet.) 81 mg PO DAILY [facility] Last Admin: 05/19/24 07:32 Dose: 81 mg Atorvastatin Calcium (Atorvastatin Calcium 80 Mg Tablet) 80 mg PO DAILY [facility] Last Admin: 05/19/24 07:32 Dose: 80 mg Calcium Carbonate (Calcium Carbonate 750 Mg Tab.Chew) 750 mg PO Q4H PRN PRN Reason: Heartburn Cyanocobalamin (Cyanocobalamin (Vitamin B-12) 1,000 Mcg Tablet) 1,000 mcg PO DAILY [facility] Last Admin: 05/19/24 07:32 Dose: 1,000 mcg Ferrous Sulfate (Ferrous Sulfate 324 Mg Tablet.) 324 mg PO Q48H [facility] Last Admin: 05/19/24 07:32 Dose: 324 mg Heparin Sodium (Porcine) (Heparin Sodium,Porcine 5,000 Unit/Ml Vial) 5,000 unit SUBCUT Q8H [facility] Last Admin: 05/19/24 07:33 Dose: 5,000 unit Ceftriaxone Sodium 1 gm/ (Sodium Chloride) 50 mls @ 100 mls/hr IV Q24H [facility] Last Admin: 05/19/24 09:15 Dose: 100 mls/hr Fluconazole (Diflucan) 200 mg in 100 mls @ 100 mls/hr IV Q24H [facility] Last Infusion: 05/18/24 16:30 Dose: Infused Magnesium Hydroxide (Milk Of Magnesia 30 Ml Oral.Susp) 30 ml PO DAILY PRN PRN Reason: Constipation Melatonin (Melatonin 3 Mg Tablet) 6 mg PO BEDTIME PRN PRN Reason: Insomnia Last Admin: 05/18/24 23:52 Dose: 6 mg Methenamine Hippurate (Methenamine Hippurate 1 Gm Tablet) 1 gm PO DAILY [facility] Last Admin: 05/19/24 07:33 Dose: 1 gm Metoprolol Succinate (Metoprolol Succinate Er 12.5 Mg Halftab.Er.24h) 12.5 mg PO DAILY [facility]; Protocol Last Admin: 05/19/24 07:32 Dose: 12.5 mg Oxycodone HCl (Oxycodone Hcl Immed Release 5 Mg Tablet) 5 mg PO Q4H PRN PRN Reason: moderate pain Last Admin: 05/19/24 01:36 Dose: 5 mg Paroxetine HCl (Paroxetine Hcl 10 Mg Tablet) 10 mg PO DAILY [facility] Last Admin: 05/19/24 07:33 Dose: 10 mg Sodium Chloride (0.9 % Sodium Chloride Flush 3 Ml Syringe) 3 ml IVFLUSH QSHIFT [facility] Last Admin: 05/19/24 07:33 Dose: 3 ml Vitamin D (Cholecalciferol (Vitamin D3) 25 Mcg Tablet) 50 mcg PO DAILY [facility] Last Admin: 05/19/24 07:32 Dose: 50 mcg Home Medications ?Medication ?Instructions ?Recorded ?Confirmed ?Last Taken ?Type aspirin 81 mg tablet,delayed 81 mg PO DAILY 10/11/20 05/16/24 05/15/24 History release (Adult Aspirin Regimen) vitamins A,C,[id number]-[id number]-adqdnv 1 tab PO BID 03/29/21 05/16/24 05/15/24 History [PreserVision AREDS] ferrous sulfate 325 mg (65 mg 325 mg PO Q48H 05/16/24 05/16/24 05/15/24 History iron) tablet (FeroSul) Physical Exam Vital Signs: Last Vital Signs Temp 97.1 F 05/19/24 07:45 Pulse 63 05/19/24 07:45 Resp 18 05/19/24 07:45 BP 169/72 H 05/19/24 07:45 Pulse Ox 96 05/19/24 07:45 O2 Del Method Room Air 05/19/24 07:45 BMI result Body Mass Index 25.0 Const General: ill appearing Neck Neck: Yes supple Resp Auscultation: clear to auscultation bilaterally Cardio Palpation: no palpable S3 Heart sounds: no rubs GI Palpation (GI): Soft to palpation Auscultation: normal bowel sounds Neuro Motor exam (neuro): no asterixis Results Lab Results 05/20/24 05:12 05/20/24 05:12 Lab results: Chemistry 05/16/24 05/17/24 05/18/24 12:02 05:29 05:34 Sodium 139 142 139 Potassium 4.0 3.9 4.0 Carbon Dioxide 21 L 19 L 18 L BUN 67 H 65 H 71 H Creatinine 6.91 H* 6.66 H* 7.06 H* Calcium 8.3 L 7.9 L 8.3 L 05/19/24 05:36 Sodium 139 Potassium 4.0 Carbon Dioxide 17 L BUN 76 H Creatinine 7.43 H* Calcium 8.4 Hematology 05/16/24 05/17/24 05/18/24 12:02 05:29 05:34 WBC 7.8 7.4 8.7 Hgb 7.3 L 6.9 L* 8.5 L D Plt Count 323 297 322 05/19/24 05:36 WBC 9.9 Hgb 8.7 L Plt Count 381 Urinalysis 05/16/24 13:52 Urine Color Yellow Urine Appearance Turbid Urine pH 6.0 Ur Specific [place] 1.010 Urine Protein 100 (2+) H Urine Glucose (UA) Negative Urine Ketones Negative Urine Blood Large (3+) H Urine Nitrite Negative Ur Leukocyte Esterase Large (3+) H Urine RBC >20 H Urine WBC >50 H Ur Squamous Epith Cells 3-5 Hyaline Casts 0-2 Assessment and Plan (1) Acute renal failure: Qualifiers: Acute renal failure type: unspecified Qualified Code(s): N17.9 - Acute kidney failure, unspecified Status: Acute (2) Bladder cancer: Qualifiers: Bladder location: unspecified site Qualified Code(s): C67.9 - Malignant neoplasm of bladder, unspecified Status: Acute Plan 88-year-old man with acute kidney injury superimposed on CKD. JOSI is primarily due to obstruction No clear evidence of active glomerulonephritis or interstitial disease at this time. Recommendations IV hydration Keep intake more than output. Watch urine output closely/hourly. Monitor renal function closely. Await urological intervention to relieve obstruction Discussed with patient and his regarding the possible possible need for dialysis if there is no improvement in renal function. We will follow along with the team. Procedures Date of Service Date of Service: 05/20/24
--- NOTE | 2024-05-19 10:57 | MHC.CM.PN ---
PER MD ROUNDS, PT NOT YET MEDICALLY CLEARED DCP: HOME WITH RESUMPTION OF [facility] FAMILY TO TRANSPORT
[2024-05-19 11:35] LABS: Glucose, Whole Blood 95 mg/dL (60-115)
--- NOTE | 2024-05-19 12:07 | MHC.CLN ---
NUTRITION DIET=REGULAR. ADDING ENSURE BID. PATIENT TAKES SUPPLEMENT AT HOME. ENSURE BID PROVIDES 700 KCALS, 40 G PROTEIN. REPORTS POOR APPETITE WITH IMPAIRED TASTE AND SMELL. QUALIFIES MODERATELY MALNOURISHED IN THE CONTEXT OF CHRONIC ILLNESS. MILD DEPLETION OF MUSCLE MASS, SIGNIFICANT WEIGHT LOSS (-14% X 4 MONTHS) AND DECREASED PO INTAKE. CKD STAGE V NOTED. FOLLOW FOR DIET TOLERANCE, INTAKE AND LABS. SEE CLINICAL NUTRITION ASSESSMENT 05/19/24.
[2024-05-19] MEDS: Fluconazole in NaCl,Iso-Osm 200 MG/100 ML PIGGYBACK 100 MG IV (14:49)
[2024-05-19 16:11] LABS: Glucose, Whole Blood 126 mg/dL (60-115)
[2024-05-19 20:09] LABS: Glucose, Whole Blood 105 mg/dL (60-115)
[2024-05-20 05:58] LABS: Hematocrit 26.2 % (42.0-52.0); Hemoglobin 8.5 g/dl (14.0-18.0); Mean Corpuscular HGB Conc 32.4 g/dl (31.0-36.0); Mean Corpuscular Hemoglobin 28.6 pg (27.0-33.0); Mean Corpuscular Volume 88.2 fL (80.0-98.0); Mean Platelet Volume 9.3 fL (9.4-12.4); Platelet Count 392 X10*3/uL (160-400); Red Blood Count 2.97 X10*6/uL (4.60-5.80); Red Cell Distribution Width 14.9 % (11.0-16.0); White Blood Count 7.5 X10*3/uL (4.8-10.8)
[2024-05-20 06:27] LABS: Anion Gap 19 (12-20); Blood Urea Nitrogen 76 mg/dL (9-16); Calcium 8.4 mg/dL (8.4-10.2); Carbon Dioxide 16 mmol/L (22-29); Chloride 109 mmol/L (96-108); Creatinine Clr Calc Pharmacy 5.7; Estimated Glomerular Filt Rate 7; Glucose Fasting 82 mg/dL (60-99); Potassium 3.7 mmol/L (3.3-5.1); Sodium 140 mmol/L (135-145)
[2024-05-20] MEDS: 0.9 % Sodium Chloride Flush 3 ML SYRINGE IVFLUSH ×3 (07:06→23:48)
[2024-05-20 07:17] VITALS: BP 113/56; PULSE 62; RESP 16; TEMP 36.5; O2SAT 93
[2024-05-20] MEDS: Metoprolol Succinate ER 12.5 MG HALFTAB.ER.24H PO (07:28)
[2024-05-20] MEDS: Methenamine Hippurate 1 GM TABLET PO (07:29)
[2024-05-20] MEDS: Atorvastatin Calcium 80 MG TABLET PO (07:29)
[2024-05-20] MEDS: cefTRIAXone sodium 1 GM in 0.9 % Sodium Chloride 50 ML IV (07:29)
[2024-05-20] MEDS: PARoxetine HCL 10 MG TABLET PO (07:29)
[2024-05-20 07:31] LABS: Glucose, Whole Blood 69 mg/dL (60-115)
--- NOTE | 2024-05-20 11:21 | P.PNIM_ITS ---
Subjective Subjective Date of Service: 05/20/24 Interval History: pain improved Physical Exam 2 Vital Signs: Vital Signs: Last Vital Signs Temp 97.7 F 05/20/24 07:17 Pulse 62 05/20/24 07:17 Resp 16 05/20/24 07:17 BP 113/56 L 05/20/24 07:17 Pulse Ox 93 05/20/24 07:17 O2 Del Method Room Air 05/20/24 07:17 BMI result Body Mass Index 25.0 Const: General: ill appearing Neck: Neck: Yes supple Resp: Auscultation: clear to auscultation bilaterally Cardio: Palpation: no palpable S3 Heart sounds: no rubs GI: Palpation (GI): Soft to palpation Auscultation: normal bowel sounds Neuro: Motor exam (neuro): no asterixis Objective Data Active Medications Acetaminophen (Acetaminophen 325 Mg Tablet) 650 mg PO Q6H PRN PRN Reason: Pain, Mild (Pain Scale 1-3), fever or headache Last Admin: 05/18/24 20:02 Dose: 650 mg Documented By: KARLIE Ascorbic Acid (Ascorbic Acid 500 Mg Tablet) 1,000 mg PO DAILY [facility] Last Admin: 05/20/24 07:23 Dose: Not Given Documented By: SAUD Non-Admin Reason: NPO Aspirin (Aspirin Enteric Coated 81 Mg Tablet.) 81 mg PO DAILY [facility] Last Admin: 05/19/24 07:32 Dose: 81 mg Documented By: JOSE Atorvastatin Calcium (Atorvastatin Calcium 80 Mg Tablet) 80 mg PO DAILY [facility] Last Admin: 05/20/24 07:29 Dose: 80 mg Documented By: SAUD Calcium Carbonate (Calcium Carbonate 750 Mg Tab.Chew) 750 mg PO Q4H PRN PRN Reason: Heartburn Cyanocobalamin (Cyanocobalamin (Vitamin B-12) 1,000 Mcg Tablet) 1,000 mcg PO DAILY [facility] Last Admin: 05/20/24 07:24 Dose: Not Given Documented By: SAUD Non-Admin Reason: NPO Ferrous Sulfate (Ferrous Sulfate 324 Mg Tablet.) 324 mg PO Q48H [facility] Last Admin: 05/19/24 07:32 Dose: 324 mg Documented By: JOSE Heparin Sodium (Porcine) (Heparin Sodium,Porcine 5,000 Unit/Ml Vial) 5,000 unit SUBCUT Q8H [facility] Last Admin: 05/20/24 07:23 Dose: Not Given Documented By: SAUD Non-Admin Reason: surgery this AM Ceftriaxone Sodium 1 gm/ (Sodium Chloride) 50 mls @ 100 mls/hr IV Q24H [facility] Last Infusion: 05/20/24 08:46 Dose: Infused Documented By: SAUD Fluconazole (Diflucan) 200 mg in 100 mls @ 100 mls/hr IV Q24H [facility] Last Infusion: 05/19/24 15:57 Dose: Infused Documented By: DION Magnesium Hydroxide (Milk Of Magnesia 30 Ml Oral.Susp) 30 ml PO DAILY PRN PRN Reason: Constipation Melatonin (Melatonin 3 Mg Tablet) 6 mg PO BEDTIME PRN PRN Reason: Insomnia Last Admin: 05/18/24 23:52 Dose: 6 mg Documented By: AUGUSTO Methenamine Hippurate (Methenamine Hippurate 1 Gm Tablet) 1 gm PO DAILY [facility] Last Admin: 05/20/24 07:29 Dose: 1 gm Documented By: SAUD Metoprolol Succinate (Metoprolol Succinate Er 12.5 Mg Halftab.Er.24h) 12.5 mg PO DAILY [facility]; Protocol Last Admin: 05/20/24 07:28 Dose: 12.5 mg Documented By: SAUD Oxycodone HCl (Oxycodone Hcl Immed Release 5 Mg Tablet) 5 mg PO Q4H PRN PRN Reason: moderate pain Last Admin: 05/19/24 15:00 Dose: 5 mg Documented By: DION Paroxetine HCl (Paroxetine Hcl 10 Mg Tablet) 10 mg PO DAILY [facility] Last Admin: 05/20/24 07:29 Dose: 10 mg Documented By: SAUD Sodium Chloride (0.9 % Sodium Chloride Flush 3 Ml Syringe) 3 ml IVFLUSH QSHIFT [facility] Last Admin: 05/20/24 07:06 Dose: 3 ml Documented By: SAUD Vitamin D (Cholecalciferol (Vitamin D3) 25 Mcg Tablet) 50 mcg PO DAILY [facility] Last Admin: 05/20/24 07:23 Dose: Not Given Documented By: SAUD Non-Admin Reason: NPO Labs 05/20/24 05:12 05/20/24 05:12 Labs: Laboratory Results - last 24 hr 05/19/24 05/19/2424 11:31 16:04 20:01 MCV MCH MCHC RDW Plt Count MPV Absolute Nucleated RBC Nucleated RBC % (auto) Anion Gap Estim Creat Clear Calc Estimated GFR POC Glucose 95 126 H 105 Fasting Glucose Calcium 05/20/24 05/20/24 05:12 07:27 MCV 88.2 MCH 28.6 MCHC 32.4 RDW 14.9 Plt Count 392 MPV 9.3 L Absolute Nucleated RBC 0.000 Nucleated RBC % (auto) 0.0 Anion Gap 19 Estim Creat Clear Calc 5.7 Estimated GFR 7 POC Glucose 69 Fasting Glucose 82 Calcium 8.4 Microbiology Microbiology Results: Microbiology 05/16/24 Unknown Urine Culture - Final Urine Catheterized - Straight Catheter Miranda albicans 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, s/p bilateral ureteral stents, aortic stenosis, presented with left flank pain and oliguria JOSI on CKD 5 with history bilateral hydronephrosis due to bladder monitor BMP, Nephro following, not requiring urgent dialysis at this time, but may need if no improvement in near future creatinine continues to worsen slowly, non oliguric, bun increasing, poor appetite d/w , plan for left nephrostomy 05/20/24 anemia of CKD transfused 1 unit, hgb improved appropriately, monitor Pyuria and bacteria Possible UTI due chronic Ovalles, empirically cover with ceftriaxone, culture growing yeast, added diflucan Coronary artery disease Aspirin and statin Moderate aortic stenosis Monitor closely while getting gentle hydration DVT prophylaxis with heparin Full code reason for continued hospitalization:josi Quality Stroke Does the patient have a stroke diagnosis?: No VTE Prior VTE?: No VTE Risk Level:: Medical - moderate - high VTE Device Contraindication: Treatment Not Indicated VTE Drug Contraindication: N/A - Med Ordered
[2024-05-20 11:29] LABS: Glucose, Whole Blood 102 mg/dL (60-115)
[2024-05-20] MEDS: Fluconazole in NaCl,Iso-Osm 200 MG/100 ML PIGGYBACK 100 MG IV (15:11)
[2024-05-20] MEDS: Heparin Sodium,Porcine 5,000 UNIT/ML VIAL 5000 UNIT SUBCUT ×2 (15:11→23:47)
[2024-05-20 15:15] VITALS: BP 134/61; PULSE 60; RESP 16; TEMP 36.4; O2SAT 98
--- NOTE | 2024-05-20 15:28 | P.PNNP_ITS ---
Subjective Subjective Date of Service: 05/20/24 Interval history: pain improved Physical Exam 2 Vital Signs: Vital Signs: Last Vital Signs Temp 97.5 F 05/20/24 15:15 Pulse 60 05/20/24 15:15 Resp 16 05/20/24 15:15 BP 134/61 05/20/24 15:15 Pulse Ox 98 05/20/24 15:15 O2 Del Method Room Air 05/20/24 15:15 BMI result Body Mass Index 25.0 Const: General: ill appearing Neck: Neck: Yes supple Resp: Auscultation: clear to auscultation bilaterally Cardio: Palpation: no palpable S3 Heart sounds: no rubs GI: Palpation (GI): Soft to palpation Auscultation: normal bowel sounds Neuro: Motor exam (neuro): no asterixis Objective Data Labs 05/20/24 05:12 05/20/24 05:12 Labs: Laboratory Results - last 24 hr 05/19/24 05/19/24 05/20/24 16:04 20:01 05:12 WBC 7.5 RBC 2.97 L Hgb 8.5 L Hct 26.2 L MCV 88.2 MCH 28.6 MCHC 32.4 RDW 14.9 Plt Count 392 MPV 9.3 L Absolute Nucleated RBC 0.000 Nucleated RBC % (auto) 0.0 Sodium 140 Potassium 3.7 Chloride 109 H Carbon Dioxide 16 L Anion Gap 19 BUN 76 H Creatinine 7.58 H* Estim Creat Clear Calc 5.7 Estimated GFR 7 POC Glucose 126 H 105 Fasting Glucose 82 Calcium 8.4 05/20/24 05/20/24 07:27 11:21 WBC RBC Hgb Hct MCV MCH MCHC RDW Plt Count MPV Absolute Nucleated RBC Nucleated RBC % (auto) Sodium Potassium Chloride Carbon Dioxide Anion Gap BUN Creatinine Estim Creat Clear Calc Estimated GFR POC Glucose 69 102 Fasting Glucose Calcium Microbiology Microbiology Results: Microbiology 05/16/24 Unknown Urine Catheterized - Straight Catheter Urine Culture - Final Miranda albicans 05/16/24 14:34 Blood - Venous Blood Culture - Preliminary No growth after 48 hours. 05/16/24 14:34 Blood - Venous Blood Culture - Preliminary No growth after 48 hours. Procedures Date of Service Date of Service: 05/20/24 Assessment & Plan Assessment and plan (1) Acute renal failure: Status: Acute (2) Bladder cancer: Status: Acute Plan 88-year-old man with acute kidney injury superimposed on CKD. JOSI is primarily due to obstruction No clear evidence of active glomerulonephritis or interstitial disease at this time. Recommendations IV hydration Keep intake more than output. Watch urine output closely/hourly. Monitor renal function closely. Await urological intervention to relieve obstruction Discussed with patient and his regarding the possible possible need for dialysis if there is no improvement in renal function. We will follow along with the team. Time Spent With Patient Time: Total time managing care of this patient today ____ minutes. Progress Note: Quality Stroke Does the patient have a stroke diagnosis?: No
[2024-05-20 16:14] LABS: Glucose, Whole Blood 82 mg/dL (60-115)
[2024-05-20 20:39] LABS: Glucose, Whole Blood 105 mg/dL (60-115)
[2024-05-20 23:49] VITALS: BP 127/60; PULSE 51; RESP 16; TEMP 37.2; O2SAT 97
[2024-05-21 06:31] LABS: Hemoglobin 8.5 g/dl (14.0-18.0); Mean Corpuscular HGB Conc 32.7 g/dl (31.0-36.0); Mean Corpuscular Volume 88.7 fL (80.0-98.0); Mean Platelet Volume 9.1 fL (9.4-12.4); Platelet Count 374 X10*3/uL (160-400); Red Blood Count 2.93 X10*6/uL (4.60-5.80); Red Cell Distribution Width 14.9 % (11.0-16.0); White Blood Count 6.9 X10*3/uL (4.8-10.8)
[2024-05-21 06:55] LABS: Anion Gap 16 (12-20); Blood Urea Nitrogen 83 mg/dL (9-16); Calcium 8.5 mg/dL (8.4-10.2); Carbon Dioxide 18 mmol/L (22-29); Chloride 110 mmol/L (96-108); Creatinine Clr Calc Pharmacy 5.3; Estimated Glomerular Filt Rate 6; Glucose Fasting 76 mg/dL (60-99); Potassium 3.9 mmol/L (3.3-5.1); Sodium 140 mmol/L (135-145)
[2024-05-21 07:35] LABS: Glucose, Whole Blood 74 mg/dL (60-115)
[2024-05-21 07:56] VITALS: BP 134/64; PULSE 67; RESP 17; TEMP 36.1; O2SAT 98
[2024-05-21] MEDS: Metoprolol Succinate ER 12.5 MG HALFTAB.ER.24H PO (08:46)
[2024-05-21] MEDS: Atorvastatin Calcium 80 MG TABLET PO (08:46)
[2024-05-21] MEDS: Cyanocobalamin (Vitamin B-12) 1,000 MCG TABLET 1000 MCG PO (08:46)
[2024-05-21] MEDS: PARoxetine HCL 10 MG TABLET PO (08:46)
[2024-05-21] MEDS: Ferrous Sulfate 324 MG TABLET.DR PO (08:47)
[2024-05-21] MEDS: 0.9 % Sodium Chloride Flush 3 ML SYRINGE IVFLUSH (08:47)
[2024-05-21] MEDS: Methenamine Hippurate 1 GM TABLET PO (08:47)
[2024-05-21] MEDS: cefTRIAXone sodium 1 GM in 0.9 % Sodium Chloride 50 ML IV (08:47)
[2024-05-21] MEDS: Ascorbic Acid 500 MG TABLET 1000 MG PO (08:47)
[2024-05-21] MEDS: Cholecalciferol (Vitamin D3) 25 MCG TABLET 50 MCG PO (08:47)
[2024-05-21] MEDS: Heparin Sodium,Porcine 5,000 UNIT/ML VIAL 5000 UNIT SUBCUT ×2 (08:47→19:00)
--- NOTE | 2024-05-21 10:56 | MHC.CLN ---
F/U DIET CHANGED TO REGULAR TO PROMOTE PO INTAKE. ENSURE BID PROVIDES 700 KCALS, 40 G PROTEIN. REPORTS POOR APPETITE WITH IMPAIRED TASTE AND SMELL. CKD STAGE V NOTED. NEPHROLOGY FOLLOWING. FOLLOW FOR DIET TOLERANCE, INTAKE AND LABS.
[2024-05-21 11:15] LABS: Glucose, Whole Blood 81 mg/dL (60-115)
--- NOTE | 2024-05-21 11:53 | HO.PM.IMPN ---
Subjective Subjective Date of Service: 05/21/24 Interval History: seen and evaluated this morning Feels ok overall after placement of lt PCN yesterday making fair amount of urine Cr still going up along w BUN Review of Systems Review of Systems: Yes all other systems are reviewed and are negative Physical Exam Vital Signs: Vital Signs: Last Vital Signs Temp 97.0 F 05/21/24 07:56 Pulse 67 05/21/24 07:56 Resp 17 05/21/24 07:56 BP 134/64 05/21/24 07:56 Pulse Ox 98 05/21/24 07:56 O2 Del Method Room Air 05/21/24 07:56 BMI result Body Mass Index 25.0 Const: Other: Constitutional : Awake, interactive, not in distress Neck : Normal inspection, Supple Cardiovascular : RRR, no JVP, no lower extremity edema Respiratory : good bilateral air entry, no crackles, wheezes or rhonchi Gastrointestinal: soft, lax, Normal bowel sounds, Non tender Urology: Ovalles in place, Lt PCN w yellow urine and sediment Skin : Warm, Dry Neurological : Alert & oriented x3, No focal deficit Objective Data Active Medications Acetaminophen (Acetaminophen 325 Mg Tablet) 650 mg PO Q6H PRN PRN Reason: Pain, Mild (Pain Scale 1-3), fever or headache Last Admin: 05/18/24 20:02 Dose: 650 mg Documented By: KARLIE Ascorbic Acid (Ascorbic Acid 500 Mg Tablet) 1,000 mg PO DAILY [facility] Last Admin: 05/21/24 08:47 Dose: 1,000 mg Documented By: SAUD Aspirin (Aspirin Enteric Coated 81 Mg Tablet.) 81 mg PO DAILY [facility] Last Admin: 05/19/24 07:32 Dose: 81 mg Documented By: JOSE Atorvastatin Calcium (Atorvastatin Calcium 80 Mg Tablet) 80 mg PO DAILY [facility] Last Admin: 05/21/24 08:46 Dose: 80 mg Documented By: SAUD Calcium Carbonate (Calcium Carbonate 750 Mg Tab.Chew) 750 mg PO Q4H PRN PRN Reason: Heartburn Cyanocobalamin (Cyanocobalamin (Vitamin B-12) 1,000 Mcg Tablet) 1,000 mcg PO DAILY [facility] Last Admin: 05/21/24 08:46 Dose: 1,000 mcg Documented By: SAUD Ferrous Sulfate (Ferrous Sulfate 324 Mg Tablet.) 324 mg PO Q48H [facility] Last Admin: 05/21/24 08:47 Dose: 324 mg Documented By: SAUD Fluconazole (Fluconazole 100 Mg Tablet) 200 mg PO Q24H [facility] Heparin Sodium (Porcine) (Heparin Sodium,Porcine 5,000 Unit/Ml Vial) 5,000 unit SUBCUT Q8H [facility] Last Admin: 05/21/24 08:47 Dose: 5,000 unit Documented By: SAUD Ceftriaxone Sodium 1 gm/ (Sodium Chloride) 50 mls @ 100 mls/hr IV Q24H [facility] Last Infusion: 05/21/24 09:19 Dose: Infused Documented By: SAUD Magnesium Hydroxide (Milk Of Magnesia 30 Ml Oral.Susp) 30 ml PO DAILY PRN PRN Reason: Constipation Melatonin (Melatonin 3 Mg Tablet) 6 mg PO BEDTIME PRN PRN Reason: Insomnia Last Admin: 05/18/24 23:52 Dose: 6 mg Documented By: AUGUSTO Methenamine Hippurate (Methenamine Hippurate 1 Gm Tablet) 1 gm PO DAILY [facility] Last Admin: 05/21/24 08:47 Dose: 1 gm Documented By: SAUD Metoprolol Succinate (Metoprolol Succinate Er 12.5 Mg Halftab.Er.24h) 12.5 mg PO DAILY [facility]; Protocol Last Admin: 05/21/24 08:46 Dose: 12.5 mg Documented By: SAUD Oxycodone HCl (Oxycodone Hcl Immed Release 5 Mg Tablet) 5 mg PO Q4H PRN PRN Reason: moderate pain Last Admin: 05/19/24 15:00 Dose: 5 mg Documented By: DION Paroxetine HCl (Paroxetine Hcl 10 Mg Tablet) 10 mg PO DAILY [facility] Last Admin: 05/21/24 08:46 Dose: 10 mg Documented By: SAUD Sodium Chloride (0.9 % Sodium Chloride Flush 3 Ml Syringe) 3 ml IVFLUSH QSHIFT [facility] Last Admin: 05/21/24 08:47 Dose: 3 ml Documented By: SAUD Vitamin D (Cholecalciferol (Vitamin D3) 25 Mcg Tablet) 50 mcg PO DAILY [facility] Last Admin: 05/21/24 08:47 Dose: 50 mcg Documented By: SAUD Labs 05/21/24 05:56 05/21/24 05:56 Labs: Laboratory Results - last 24 hr 05/20/24 05/20/24 05/21/24 16:10 20:28 05:56 MCV 88.7 MCH 29.0 MCHC 32.7 RDW 14.9 Plt Count 374 MPV 9.1 L Absolute Nucleated RBC 0.000 Nucleated RBC % (auto) 0.0 Anion Gap 16 Estim Creat Clear Calc 5.3 Estimated GFR 6 POC Glucose 82 105 Fasting Glucose 76 Calcium 8.5 05/21/24 05/21/24 07:25 11:06 MCV MCH MCHC RDW Plt Count MPV Absolute Nucleated RBC Nucleated RBC % (auto) Anion Gap Estim Creat Clear Calc Estimated GFR POC Glucose 74 81 Fasting Glucose Calcium Assessment and Plan (1) Cystitis: Status: Acute (2) Bladder cancer: Status: Acute (3) JOSI (acute kidney injury): Status: Acute Plan 88M PMH CAD s/p cabg, bladder ca complicated by bilateral hydro and 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, s/p bilateral ureteral stents, aortic stenosis, presented with left flank pain and oliguria JOSI on CKD 5 with history bilateral hydronephrosis due to bladder Cr continues to worsen to 8, no signs of uremia, non-oliguric Nephro following, not requiring urgent dialysis at this time, but may need if no improvement in near future Had left nephrostomy 05/20/24 Urology following anemia of CKD transfused 1 unit, hgb improved appropriately, monitor Hb Pyuria and bacteria likely UTI due chronic Ovalles, empirically covered with ceftriaxone, culture growing yeast, added diflucan Coronary artery disease Aspirin and statin Moderate aortic stenosis Monitor closely while getting gentle hydration DVT prophylaxis with heparin Full code reason for continued hospitalization:josi pending improvement\start dialysis Quality Stroke Does the patient have a stroke diagnosis?: No VTE Prior VTE?: No VTE Risk Level:: Medical - moderate - high VTE Device Contraindication: Treatment Not Indicated VTE Drug Contraindication: N/A - Med Ordered
--- NOTE | 2024-05-21 11:56 | MHC.CM.PN ---
Per MD rounds no discharge today. A Neph tube was placed in the OR yesterday. Patient may require HD. Nephrology is monitoring renal function closely. DP resume [facility]. Family will provide transport home.
[2024-05-21] MEDS: 0.9 % Sodium Chloride 1,000 ML 75 ML IVCONT (12:27)
[2024-05-21] MEDS: Fluconazole 100 MG TABLET 200 MG PO (14:18)
--- NOTE | 2024-05-21 15:32 | P.PNNP_ITS ---
Subjective Subjective Date of Service: 05/21/24 Interval history: seen and evaluated this morning Feels ok overall after placement of lt PCN yesterday making fair amount of urine Cr still going up along w BUN Physical Exam 2 Vital Signs: Vital Signs: Last Vital Signs Temp 97.0 F 05/21/24 07:56 Pulse 67 05/21/24 07:56 Resp 17 05/21/24 07:56 BP 134/64 05/21/24 07:56 Pulse Ox 98 05/21/24 07:56 O2 Del Method Room Air 05/21/24 07:56 BMI result Body Mass Index 25.0 Const: General: ill appearing Neck: Neck: Yes supple Resp: Auscultation: clear to auscultation bilaterally Cardio: Palpation: no palpable S3 Heart sounds: no rubs GI: Palpation (GI): Soft to palpation Auscultation: normal bowel sounds Neuro: Motor exam (neuro): no asterixis Objective Data Labs 05/21/24 05:56 05/21/24 05:56 Labs: Laboratory Results - last 24 hr 05/20/24 05/20/24 05/21/24 16:10 20:28 05:56 WBC 6.9 RBC 2.93 L Hgb 8.5 L Hct 26.0 L MCV 88.7 MCH 29.0 MCHC 32.7 RDW 14.9 Plt Count 374 MPV 9.1 L Absolute Nucleated RBC 0.000 Nucleated RBC % (auto) 0.0 Sodium 140 Potassium 3.9 Chloride 110 H Carbon Dioxide 18 L Anion Gap 16 BUN 83 H Creatinine 8.15 H* Estim Creat Clear Calc 5.3 Estimated GFR 6 POC Glucose 82 105 Fasting Glucose 76 Calcium 8.5 05/21/24 05/21/24 07:25 11:06 WBC RBC Hgb Hct MCV MCH MCHC RDW Plt Count MPV Absolute Nucleated RBC Nucleated RBC % (auto) Sodium Potassium Chloride Carbon Dioxide Anion Gap BUN Creatinine Estim Creat Clear Calc Estimated GFR POC Glucose 74 81 Fasting Glucose Calcium Microbiology Microbiology Results: Microbiology 05/16/24 Unknown Urine Catheterized - Straight Catheter Urine Culture - Final Miranda albicans 05/16/24 14:34 Blood - Venous Blood Culture - Preliminary No growth after 48 hours. 05/16/24 14:34 Blood - Venous Blood Culture - Preliminary No growth after 48 hours. Procedures Date of Service Date of Service: 05/21/24 Assessment & Plan Assessment and plan (1) Acute renal failure: Status: Acute (2) Bladder cancer: Status: Acute Plan 88-year-old man with acute kidney injury superimposed on CKD. JOSI is primarily due to obstruction No clear evidence of active glomerulonephritis or interstitial disease at this time. s/p PCN Recommendations Keep intake more than output. Watch urine output closely. Monitor renal function closely. May need for dialysis if there is no improvement in renal function. We will follow along with the team. Time Spent With Patient Time: Total time managing care of this patient today ____ minutes. Progress Note: Quality Stroke Does the patient have a stroke diagnosis?: No
[2024-05-21 15:33] VITALS: BP 137/63; PULSE 61; RESP 18; TEMP 36.3; O2SAT 100
[2024-05-21 16:34] LABS: Glucose, Whole Blood 110 mg/dL (60-115)
[2024-05-21 20:00] VITALS: BP 134/76; PULSE 64; RESP 18; TEMP 36.3; O2SAT 99
[2024-05-21 21:04] LABS: Glucose, Whole Blood 134 mg/dL (60-115)
[2024-05-21 23:42] VITALS: BP 114/55; PULSE 53; RESP 16; TEMP 36.2; O2SAT 96
[2024-05-22] MEDS: 0.9 % Sodium Chloride 1,000 ML 75 ML IVCONT ×2 (01:13→16:45)
[2024-05-22 07:17] LABS: Hematocrit 25.9 % (42.0-52.0); Hemoglobin 8.3 g/dl (14.0-18.0); Mean Corpuscular Hemoglobin 28.8 pg (27.0-33.0); Mean Corpuscular Volume 89.9 fL (80.0-98.0); Mean Platelet Volume 9.1 fL (9.4-12.4); Platelet Count 384 X10*3/uL (160-400); Red Blood Count 2.88 X10*6/uL (4.60-5.80); White Blood Count 8.1 X10*3/uL (4.8-10.8)
[2024-05-22 07:24] LABS: INTERNATIONAL NORM RATIO 1.3 (0.9-1.1); Prothrombin Time 16.1 SEC (11.1-13.3)
[2024-05-22 08:00] VITALS: BP 119/60; PULSE 60; RESP 14; TEMP 36.6; O2SAT 96
[2024-05-22 08:01] LABS: Anion Gap 15 (12-20); Blood Urea Nitrogen 80 mg/dL (9-16); Calcium 8.4 mg/dL (8.4-10.2); Carbon Dioxide 16 mmol/L (22-29); Chloride 112 mmol/L (96-108); Creatinine Clr Calc Pharmacy 5.5; Estimated Glomerular Filt Rate 7; Glucose Random 103 mg/dL (60-115); Potassium 4.4 mmol/L (3.3-5.1); Sodium 139 mmol/L (135-145)
[2024-05-22 08:16] LABS: Glucose, Whole Blood 100 mg/dL (60-115)
[2024-05-22] MEDS: cefTRIAXone sodium 1 GM in 0.9 % Sodium Chloride 50 ML IV (08:18)
[2024-05-22] MEDS: PARoxetine HCL 10 MG TABLET PO (08:19)
[2024-05-22] MEDS: Metoprolol Succinate ER 12.5 MG HALFTAB.ER.24H PO (08:19)
[2024-05-22 11:40] LABS: Glucose, Whole Blood 148 mg/dL (60-115)
--- NOTE | 2024-05-22 12:49 | P.PNNP_ITS ---
Subjective Subjective Date of Service: 05/22/24 Interval history: Events noted creatinine is beginning to improve Physical Exam 2 Vital Signs: Vital Signs: Last Vital Signs Temp 97.8 F 05/22/24 08:00 Pulse 60 05/22/24 08:00 Resp 14 05/22/24 08:00 BP 119/60 05/22/24 08:00 Pulse Ox 96 05/22/24 08:00 O2 Del Method Room Air 05/22/24 08:00 BMI result Body Mass Index 25.0 Neck: Neck: Yes supple Resp: Auscultation: clear to auscultation bilaterally Cardio: Palpation: no palpable S3 Heart sounds: no rubs GI: Palpation (GI): Soft to palpation Auscultation: normal bowel sounds Neuro: Motor exam (neuro): no asterixis Objective Data Labs 05/22/24 06:01 05/22/24 06:01 Labs: Laboratory Results - last 24 hr 05/21/24 05/21/24 05/22/24 16:18 20:56 06:01 WBC 8.1 RBC 2.88 L Hgb 8.3 L Hct 25.9 L MCV 89.9 MCH 28.8 MCHC 32.0 RDW 15.0 Plt Count 384 MPV 9.1 L Absolute Nucleated RBC 0.000 Nucleated RBC % (auto) 0.0 PT 16.1 H INR 1.3 H Sodium 139 Potassium 4.4 Chloride 112 H Carbon Dioxide 16 L Anion Gap 15 BUN 80 H Creatinine 7.83 H* Estim Creat Clear Calc 5.5 Estimated GFR 7 POC Glucose 110 134 H Random Glucose 103 Calcium 8.4 05/22/24 05/22/24 08:13 11:35 WBC RBC Hgb Hct MCV MCH MCHC RDW Plt Count MPV Absolute Nucleated RBC Nucleated RBC % (auto) PT INR Sodium Potassium Chloride Carbon Dioxide Anion Gap BUN Creatinine Estim Creat Clear Calc Estimated GFR POC Glucose 100 148 H Random Glucose Calcium Microbiology Microbiology Results: Microbiology 05/16/24 14:34 Blood - Venous Blood Culture - Final No growth after 5 days. 05/16/24 14:34 Blood - Venous Blood Culture - Final No growth after 5 days. 05/16/24 Unknown Urine Catheterized - Straight Catheter Urine Culture - Final Miranda albicans Procedures Date of Service Date of Service: 05/22/24 Assessment & Plan Assessment and plan (1) Acute renal failure: Status: Acute (2) Bladder cancer: Status: Acute Plan 88-year-old man with acute kidney injury superimposed on CKD. JOSI is primarily due to obstruction No clear evidence of active glomerulonephritis or interstitial disease at this time. s/p PCN Recommendations Keep intake more than output. Watch urine output closely. Monitor renal function closely. May need for dialysis in the near future. No absolute indication for dialysis today Okay to discharge home He needs outpatient follow-up in few weeks We will follow along with the team. Time Spent With Patient Time: Total time managing care of this patient today ____ minutes. Progress Note: Quality Stroke Does the patient have a stroke diagnosis?: No
--- NOTE | 2024-05-22 13:12 | PC.NURSE ---
du cath remvoed at 1130 pt DTV at 1730
--- NOTE | 2024-05-22 15:12 | PM.DS ---
DS: Providers Provider Date of Service: 05/22/24 Date of admission: 05/16/24 16:35 Primary care physician: Radha Ortiz MD Consults: 05/16/24 16:33 Consult to Nephrology Routine Consulting Provider: [facility] Reason for consultation: josi on ckd v Consult to Urology Routine Consulting Provider: [facility] Reason for consultation: bilateral hydro, josi on ckd v DS: Diagnosis Discharge Diagnosis (1) Cystitis: Status: Acute (2) Bladder cancer: Status: Acute (3) JOSI (acute kidney injury): Status: Acute DS: Summary Hospital Course Hospital Course: Admission note HPI 88M PMH CAD s/p cabg, bladder ca copmlicated by bilateral hydro and 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 Patient reports he woke up on a.m. of presentation with last urine in his [place] than usual. He was also having left flank pain radiating to front. Denies fever or chills. In ED UA with bacteriuria and pyuria, CT abdomen showed bilateral hydro stable, lab significant for creatinine increased to 6.91, was 5.53 on 05/13/2024. Hospital course The patient was admitted for treatment of JOSI on CKD 5 with history bilateral hydronephrosis due to bladder cancer comlicated with bilateral stents placed previously. CT scan showed Bilateral hydronephrosis with ureteral stents in place. The patient was seen by urology who recommended percutanous drainage for the left side which was done and he has left nephrostomy 05/20/24 with a plan to follow with urology as outpatient. Creatinine was worsening with elevated BUN but no signs of uremia. Evaluated by nephrology team who followed him during hospital stay with max creatinine of 8.1 and felt that he does not requiring urgent dialysis at this time. responded partially to IV fluids with improvement of Cr to 7.8. Nephrology recommended discharge home and follow up as outpatient. to repeat BMP tomorrow. For anemia of CKD he was transfused 1 unit, hgb improved appropriately. Noticed to have Pyuria and bacteria and was empirically covered with ceftriaxone but urine culture grew yeast that was treated with diflucan and will be discharged on it to finish total of 10 days. [place] catheter was removed and he was monitored for retention. Bladder scan and void trials done. Discharge plan Continue Diflucan for 4 more days Follow with Dr Walter as outpatient in 2 weeks To repeat kidney function test next week Time Attestation Discharge Coordination Time (in mins): 42 Quality: Safe Use of Opioids Does Pt have an Active Cancer Diagnosis on the Problem List?: No Quality: Stroke Does the patient have a stroke diagnosis?: No Physical Exam Vital Signs: Vital Signs: Last Vital Signs Temp 97.8 F 05/22/24 08:00 Pulse 60 05/22/24 08:00 Resp 14 05/22/24 08:00 BP 119/60 05/22/24 08:00 Pulse Ox 96 05/22/24 08:00 O2 Del Method Room Air 05/22/24 08:00 BMI result Body Mass Index 25.0 DS: Data Data Completed and Pending Completed studies during hospitalization [Text1]: Procedures Dilation of Bilateral Ureters with Intraluminal Device, Via Natural or Artificial Opening Endoscopic (04/28/24) Dilation of Left Ureter with Intraluminal Device, Via Natural or Artificial Opening Endoscopic (01/26/24) Excision of Bladder, Via Natural or Artificial Opening Endoscopic (01/26/24) Fluoroscopy of Kidneys, Ureters and Bladder (04/28/24) Fluoroscopy of Left Kidney, Ureter and Bladder (01/26/24) Removal of Intraluminal Device from Ureter, Via Natural or Artificial Opening Endoscopic (04/28/24) Labs on day of discharge: Laboratory Results - last 24 hr 05/21/24 05/21/24 05/22/24 16:18 20:56 06:01 WBC 8.1 RBC 2.88 L Hgb 8.3 L Hct 25.9 L MCV 89.9 MCH 28.8 MCHC 32.0 RDW 15.0 Plt Count 384 MPV 9.1 L Absolute Nucleated RBC 0.000 Nucleated RBC % (auto) 0.0 PT 16.1 H INR 1.3 H Sodium 139 Potassium 4.4 Chloride 112 H Carbon Dioxide 16 L Anion Gap 15 BUN 80 H Creatinine 7.83 H* Estim Creat Clear Calc 5.5 Estimated GFR 7 POC Glucose 110 134 H Random Glucose 103 Calcium 8.4 05/22/24 05/22/24 08:13 11:35 WBC RBC Hgb Hct MCV MCH MCHC RDW Plt Count MPV Absolute Nucleated RBC Nucleated RBC % (auto) PT INR Sodium Potassium Chloride Carbon Dioxide Anion Gap BUN Creatinine Estim Creat Clear Calc Estimated GFR POC Glucose 100 148 H Random Glucose Calcium Discharge Plan Discharge Anticipated Discharge Date/Time: 05/22/24 14:51 Patient Disposition: Home Health Service Discharge Diagnosis: Acute renal failure Urine infection Referrals: [facility] [Outside] - 3-5 Days (resume services) Angel,Radha Washburn MD [Primary Care Provider] - 1 Week Discharge Medications: New fluconazole 100 mg Tablet 100 mg PO Q24H Qty: 4 0RF Continued (DME) blood sugar diagnostic Strip See Rx Instructions Not Applicable TID Qty: 3 3RF Rx Instructions: As directed check blood sugars 3 times a day cholecalciferol (vitamin D3) 50 mcg (2,000 unit) capsule 50 mcg PO DAILY Qty: 30 11RF (DME) lancets Misc See Rx Instructions .ROUTE TID Qty: 300 3RF Rx Instructions: As directed check the blood sugars 3 times a day ONETOUCH ULTRASOFT LANCETS metoprolol succinate 25 mg tablet extended release 24 hr 12.5 mg PO DAILY Qty: 90 3RF paroxetine HCl [Paxil] 10 mg tablet 10 mg PO DAILY Qty: 90 0RF ascorbic acid (vitamin C) [Vitamin C] 1,000 mg tablet 1 g PO DAILY 90 Days Qty: 90 1RF methenamine hippurate 1 gram tablet 1 g PO DAILY 90 Days Qty: 90 1RF ferrous sulfate [FeroSul] 325 mg (65 mg iron) tablet 325 mg PO Q48H aspirin [Adult Aspirin Regimen] 81 mg tablet,delayed release (DR/EC) 81 mg PO DAILY Hold Instructions: Resume on 02/07/24. (DME) OneTouch Ultra Test Strip See Rx Instructions .ROUTE .MEDSUPPLY Qty: 100 3RF Rx Instructions: As directed check the blood sugar once a day rosuvastatin [Crestor] 40 mg tablet 40 mg PO DAILY Qty: 90 2RF cyanocobalamin (vitamin B-12) 1,000 mcg capsule 1,000 mcg PO DAILY Qty: 30 12RF (DME) Rollator See Rx Instructions .Route .MEDSUPPLY Qty: 1 0RF Rx Instructions: As directed (DME) compress.stocking,knee,reg,lrg Misc See Rx Instructions .Route Qty: 6 0RF Rx Instructions: As directed 20-30 mm HG vitamins A,C,O-amic-nwhmkf 1 tab PO BID Discharge Orders: Discharge Order (Routine); Ordered 05/22/24 Ordered By: Fanny Perkins Diet: Advance to usual diet Activity on Discharge: As tolerated Stand Alone Forms: Patient Portal Discharge page Print Language: [place] Other Ambulatory Orders: Basic Metabolic Panel (Routine) Timeframe: 5 Days Facility: [facility] - Location: Laboratory Ordered By: Fanny Perkins Care Plan Goals: Continue Diflucan for 4 more days Follow with Dr Walter as outpatient in 2 weeks To repeat kidney function test next week Health Concerns: Read below Plan of Treatment: Read below Assessment: Read below Discharge Date/Time: 05/22/24 19:40
[2024-05-22 16:00] VITALS: BP 154/69; PULSE 60; RESP 12; TEMP 36.5; O2SAT 97
--- NOTE | 2024-05-22 16:25 | MHC.CM.PN ---
Patient is discharge to home today. [facility] will resume services on Sunday. Patient has arranged for a ride home from a family member.
[2024-05-22 16:38] LABS: Glucose, Whole Blood 96 mg/dL (60-115)
[2024-05-22] MEDS: Fluconazole 100 MG TABLET 200 MG PO (16:44)
--- NOTE | 2024-05-22 17:12 | MHC.CLN ---
CONSULT PER PROVIDER NUTRITION PO INTAKE VARIABLE DIET RX:REGULAR-APPROPRIATE TO PROMOTE INCREASE KCALS WITH ADVANCED AGE PT RECEIVING ENSURE BID. PATIENT TAKES SUPPLEMENT AT HOME. ENSURE BID PROVIDES 700 KCALS, 40 G PROTEIN WITH 100% ACCEPTANCE REPORTS POOR APPETITE WITH IMPAIRED TASTE AND SMELL QUALIFIES MODERATELY MALNOURISHED IN THE CONTEXT OF CHRONIC ILLNESS MONITOR PO INTAKE AND ENCOURAGE SUPPLEMENTS SEE CLINICAL NUTRITION ASSESSMENT 05/19/24
== END 2024-05-22 19:40 | disposition home health service (06) | DRG 699 ==
LOC: HO.ED 14:42 → HO.EDOVER 16:42 → HO.S3 16:54
PROVIDERS: Physician Assistant; Student in an Organized Health Care Education/Training Program; Admitting Provider Internal Medicine; Emergency Provider Emergency Medicine; PCP Internal Medicine; Visit Provider Student in an Organized Health Care Education/Training Program
PROC: 0T9130Z Drainage of Left Kidney with Drainage Device, Percutaneous Approach (ICD-10-PCS; principal; 2024-05-20 12:30)
DX: T83.511A Infection and inflammatory reaction due to indwelling urethral catheter, initial encounter (principal); B37.49 Other urogenital candidiasis; N17.9 Acute kidney failure, unspecified; N18.5 Chronic kidney disease, stage 5; C67.9 Malignant neoplasm of bladder, unspecified; I35.0 Nonrheumatic aortic (valve) stenosis; Y73.8 Miscellaneous gastroenterology and urology devices associated with adverse incidents, not elsewhere classified; I25.10 Atherosclerotic heart disease of native coronary artery without angina pectoris; D63.1 Anemia in chronic kidney disease; D63.0 Anemia in neoplastic disease; Z95.1 Presence of aortocoronary bypass graft; Z87.891 Personal history of nicotine dependence; Z79.82 Long term (current) use of aspirin; Z79.899 Other long term (current) drug therapy
CPT/HCPCS: 36415; 50432; 74176; 80048; 80053; 81001; 82947; 83605; 83690; 83735; 85025; 85027; 85610; 86850; 86900; 86901; 86923; 87040; 87086; 87088; 97116; 97161; 99152; 99285; C1758; C1769; C1887; C1892; C1894; J0696; J1170; J1450; J1644; P9016

== ENCOUNTER 2024-05-16 16:35 | Outpatient (BNV) | payer MEDICARE, SELFPAY | END 2024-05-20 14:10 | PROVIDERS: Admitting Provider Internal Medicine; Emergency Provider Emergency Medicine; PCP Internal Medicine; Visit Provider Student in an Organized Health Care Education/Training Program | DX: N13.30 Unspecified hydronephrosis (principal) | CPT/HCPCS: 50432; 99152 ==

== ENCOUNTER → 2024-05-16 16:35 | Outpatient (BNV) | payer MEDICARE, SELFPAY | PROVIDERS: Admitting Provider Internal Medicine; Emergency Provider Emergency Medicine; PCP Internal Medicine; Visit Provider Internal Medicine | DX: N30.90 Cystitis, unspecified without hematuria (principal); C67.9 Malignant neoplasm of bladder, unspecified; N17.9 Acute kidney failure, unspecified | CPT/HCPCS: 99223; 99232; 99233; 99239 ==

== ENCOUNTER → 2024-05-16 16:35 | Outpatient (BNV) | payer MEDICARE, SELFPAY | PROVIDERS: Admitting Provider Internal Medicine; Emergency Provider Emergency Medicine; PCP Internal Medicine; Visit Provider Internal Medicine Hypertension Specialist | DX: N17.8 Other acute kidney failure (principal); N18.9 Chronic kidney disease, unspecified; C67.9 Malignant neoplasm of bladder, unspecified | CPT/HCPCS: 99223; 99232 ==

== ENCOUNTER 2024-05-24 12:54 | Outpatient (REF) | payer MEDICARE, SELFPAY ==
[2024-05-24 13:26] LABS: Anion Gap 18 (12-20); Blood Urea Nitrogen 77 mg/dL (9-16); Carbon Dioxide 18 mmol/L (22-29); Chloride 110 mmol/L (96-108); Glucose Random 98 mg/dL (60-115); Potassium 4.3 mmol/L (3.3-5.1); Sodium 142 mmol/L (135-145)
[2024-05-24 13:31] LABS: Estimated Glomerular Filt Rate 6
== END 2024-05-24 12:55 | disposition home or self-care (01) ==
LOC: HO.HVNA 12:54
PROVIDERS: Visit Provider Internal Medicine Hypertension Specialist
DX: N17.9 Acute kidney failure, unspecified (principal)
CPT/HCPCS: 36415; 80048

== ENCOUNTER 2024-05-29 11:01 | Outpatient (AMB) | payer MEDICARE, SELFPAY ==
--- NOTE | 2024-05-29 11:12 | MHC.OFFVIS ---
Intake Visit Reasons: bladder flush Intake Note: Patient is Present for bladder flush Urology Med: vitamin C Antibiotic Allergy: None Blood Thinner: Aspirin Plastic Eye Technician Required: No Allergies No Known Allergies [No Known Allergies*] Allergy (Verified 06/04/24 09:11) HPI Comments Details: Kenneth is a very pleasant male. Accompanied by his family. He has a patient of Dr Ortiz. He is seen for the following urologic conditions - bladder cancer In office Catheter clogged Flused today Talked with Kenneth and his son Creatinine was starting to resolve last week Next week follow-up lab work Plan chemotherapy status May 26 Bladder cancer - high-grade muscularis propria invasion 04/04 admission [facility] with retention and elevated creatinine. Underwent stent placement right side Assessment with radiation oncology for palliative RT. Therapy would not be for curative intent. 02/02 TURBT incomplete with left stent placement Complicated since lesion involved left ureteric orifice. Stent required Bladder, transurethral resection: High grade urothelial carcinoma, invasive into muscularis propria. Procedure: Transurethral resection Tumor site: Left ureteric orifice Histologic type: Urothelial carcinoma Histologic grade: High-grade Muscularis propria: Present Extent of invasion: Muscularis propria Lymphovascular invasion: Present CT - There is an abnormal heterogeneous soft tissue mass involving the base of the bladder measuring 4.1 cm, inseparable from the prostate gland and involving the left ureterovesicular junction and abutting the right ureterovesicular junction resulting in moderate left hydroureteronephrosis with a delayed nephrogram and mild right hydroureteronephrosis. Findings are suspicious for transitional cell carcinoma, though differential considerations could include primary prostatic malignancy invading the bladder. Recommend correlation with PSA, urologic evaluation and consideration of cystoscopy. [facility] Medical History (Updated 07/08/24 @ 10:27 by Hiram Walter MD) Bladder cancer Bladder cancer Peripheral vascular disease Prostate mass Osteopenia Paget's bone disease Overweight (BMI 25.0-29.9) Hypercholesterolemia Diabetic nephropathy Type 2 diabetes mellitus with hyperglycemia Macular degeneration Lumbar degenerative disc disease Left renal stone Paget's disease of bone Vitamin D deficiency Aortic stenosis, mild Coronary artery disease Surgical History History of removal of calculus of renal pelvis through percutaneous nephrostomy S/P CABG x 3 History of tonsillectomy History of bilateral cataract extraction History of ankle surgery S/P repair of hydrocele History of inguinal hernia repair Family History Father CVD (cardiovascular disease) Mother CVD (cardiovascular disease) Heart disease Brother In good health Sister In good health Son Diabetes Social History Household Members: Spouse Household Members Other:: son Housing: House Do you presently have visiting nurse or other home services: Yes Alcohol intake: never Patient Tobacco Use Status: Former Tobacco user Tobacco use type: Cigarette Cigarette Packs Per Day: 2 Cigarettes Per Day: 40.0 Years Smoked: 30 e-Cigarette/Vaping Use: Never Used Advance Directives Date on File: 05/05/24 service: Yes Current occupational status: retired Cognitive needs: No Hearing needs: No Vision needs: Yes Review of Systems Const Denies chills and Denies fever(s) Card Reports no additional complaints and Denies syncope Resp Denies cough GI Denies abdominal pain and Denies heartburn Reports as per HPI and Denies change in libido Neuro Denies syncope Psych Denies change in libido Endo Denies change in libido Physical Exam Const General: cooperative, healthy appearing, comfortable and no acute distress Orientation/consciousness: patient oriented x3 HEENT Face and sinus: Yes normal facial exam Mouth: moist mucous membranes Neck Neck: Yes normal visual inspection, Yes full ROM and Yes trachea midline Chest Chest palpation & inspection: normal inspection of the chest Resp Effort & Inspection: normal respiratory effort, able to speak in complete sentences and no respiratory distress GI Inspection: Yes normal to inspection Back/Spine/Pelvis Cervical Spine: normal cervical lordosis Thoracic/Lumbar Spine: thoracic and lumbar spine normal to inspection Skin General skin exam: no rashes or lesions noted Neuro General: patient oriented x3, gait normal, tone normal and moves all extremities Extrem General: Yes normal to inspection and Yes capillary refill normal Results AMB Urinalysis, Automated UA Leukoctes 500 Kendal/uL Last Edit by VAMSI Lynch on 05/29/24 11:25 UA Nitrite Negative Last Edit by VAMSI Lynch on 05/29/24 11:25 UA Urobilinogen 0.2 mg/dL Last Edit by VAMSI Lynch on 05/29/24 11:25 UA Protein 100 mg/dL Last Edit by VAMSI Lynch on 05/29/24 11:25 UA pH 6.0 Last Edit by VAMSI Lynch on 05/29/24 11:25 UA Blood 200 Yazan/uL Last Edit by VAMSI Lynch on 05/29/24 11:25 UA Specific [place] 1.015 Last Edit by VAMSI Lynch on 05/29/24 11:25 UA Ketone Negative Last Edit by VAMSI Lynch on 05/29/24 11:25 UA Bilirubin 0 mg/dL Last Edit by Cristhian Garcia CCM on 05/29/24 11:25 UA Glucose 0 mg/dL Last Edit by VAMSI Lynch on 05/29/24 11:25 Results Reviewed Results Reviewed: Laboratory Last Values Urine pH (Auto) 6.0 05/29/24 11:24 Specific [place] (Auto) 1.015 05/29/24 11:24 Urine Protein (Auto) 100 mg/dL 05/29/24 11:24 Glucose (UA)(Auto) 0 mg/dL 05/29/24 11:24 Urine Ketones (Auto) Negative 05/29/24 11:24 Urine Blood (Auto) 200 Yazan/uL 05/29/24 11:24 Urine Nitrite (Auto) Negative 05/29/24 11:24 Urine Bilirubin (Auto) 0 mg/dL 05/29/24 11:24 Urine Urobilinogen (Auto) 0.2 mg/dL 05/29/24 11:24 Leukocyte Esterase (Auto) 500 Kendal/uL 05/29/24 11:24 Assessment & Plan Assessment & Plan (1) Bladder cancer: Code(s): C67.9 - Malignant neoplasm of bladder, unspecified Category: Medical Plan Keep du Orders: Orders AMB Urinalysis Automated 05/29/24 Z13.9 - Encounter for screening, unspecified Patient Instructions: Imaging studies, laboratory and physical exam results were discussed and reviewed in detail. No major barriers to patient understanding were identified. An opportunity to ask questions regarding the treatment plan was provided. All questions were answered. The patient expressed understanding and agreement with the above treatment plan. The patient is aware they should contact our office by phone for worsening of their current condition or the appearance of new urologic symptoms. Compliance is encouraged with any medications and followup testing that is ordered. It is a privilege to participate in the urologic care of your patient. If you have any questions or concerns regarding treatment for the above conditions, or other urologic issues, please do not hesitate to contact me. The office telephone contact is [phone]. This note is constructed using voice recognition software. While every effort has been made to ensure accuracy oilseed meat presser errors may have been included. Yours sincerely, Dr Lobo Dugan MD, [facility] Urology Providers of Expert, Compassionate Care for the Genitourinary System Coding Level of Care Code Est Pt Level 3 (55845) Diagnoses Bladder cancer C67.9
== END 2024-05-29 11:49 | disposition home or self-care (01) ==
PROVIDERS: PCP Internal Medicine; Visit Provider Urology
DX: C67.8 Malignant neoplasm of overlapping sites of bladder (principal)
CPT/HCPCS: 99213

== ENCOUNTER → 2024-05-29 11:01 | Outpatient (BNVA) | payer MEDICARE, SELFPAY | PROVIDERS: PCP Internal Medicine; Visit Provider Urology | DX: C67.9 Malignant neoplasm of bladder, unspecified (principal) | CPT/HCPCS: 81003; 99212 ==

== ENCOUNTER → 2024-05-30 12:33 | Outpatient (BNVA) | payer MEDICARE, SELFPAY | PROVIDERS: PCP Internal Medicine; Visit Provider Urology | DX: Z46.6 Encounter for fitting and adjustment of urinary device (principal) | CPT/HCPCS: 51702 ==

== ENCOUNTER 2024-06-03 11:00 | Outpatient (REF) | payer MEDICARE, SELFPAY ==
[2024-06-03 12:11] LABS: MANUAL DIFF FLAG NO
[2024-06-03 12:28] LABS: Basophils Percent Auto 0.6 % (0-2); Eosinophils Percent Auto 0.4 % (0-4); Hematocrit 27.3 % (42.0-52.0); Hemoglobin 8.5 g/dl (14.0-18.0); Imm Gran Abs Auto 0.11 X10*3/uL (0.00-0.03); Imm Gran Pct Auto 1.6 % (0.0-0.4); Immature Retic Fraction 3.9 % (2.3-13.4); Lymphocytes Absolute Auto 0.5 X10*3/uL (1.2-4.9); Lymphocytes Percent Auto 7.4 % (20-40); Mean Corpuscular HGB Conc 31.1 g/dl (31.0-36.0); Mean Corpuscular Hemoglobin 28.5 pg (27.0-33.0); Mean Corpuscular Volume 91.6 fL (80.0-98.0); Mean Platelet Volume 8.8 fL (9.4-12.4); Monocytes Absolute Auto 0.1 X10*3/uL (0.1-1.2); Neutrophils Absolute Auto 6.1 x10*3/uL (2.0-8.3); Platelet Count 312 X10*3/uL (160-400); Red Blood Count 2.98 X10*6/uL (4.60-5.80); Red Cell Distribution Width 14.8 % (11.0-16.0); Retic HGB Equivalent 33.1 pg (30.0-35.0); Reticulocyte Percent 0.6 % (0.5-1.8); Reticulocytes Absolute 0.019 X10*6/uL (0.026-0.095); White Blood Count 6.9 X10*3/uL (4.8-10.8)
[2024-06-03 12:34] LABS: Estimated Average Glucose 114 mg/dL; Hemoglobin A1C 79.6721 umol/L; Hemoglobin A1c % 5.6 % (<6.0)
[2024-06-03 13:24] LABS: Folate 2.8 ng/mL (> or = 4.0); Vitamin B12 1503 pg/mL (200-900)
[2024-06-03 14:06] LABS: Ferritin 1928 ng/mL (20-250)
[2024-06-03 14:17] LABS: Alanine Aminotransferase < 5 U/L (0-40); Albumin Level 2.9 g/dL (3.5-5.0); Alkaline Phosphatase 72 U/L (39-117); Anion Gap 23 (12-20); Aspartate Amino Transferase 8 U/L (5-37); Bilirubin Total 0.1 mg/dL (0.0-1.0); Blood Urea Nitrogen 122 mg/dL (9-16); Calcium 8.5 mg/dL (8.4-10.2); Carbon Dioxide 12 mmol/L (22-29); Chloride 109 mmol/L (96-108); Estimated Glomerular Filt Rate 5; Glucose Random 151 mg/dL (60-115); Iron 115 mcg/dL (45-160); Magnesium 2.5 mg/dL (1.6-2.6); Percent Iron Saturation 82 % (15-50); Sodium 139 mmol/L (135-145); Total Iron Binding Capacity 140 mcg/dL (228-428); Unsaturated Iron Binding < 25 ug/dL
== END 2024-06-03 11:01 | disposition home or self-care (01) ==
LOC: HO.LAB 11:00
PROVIDERS: PCP Internal Medicine; Visit Provider Internal Medicine Hypertension Specialist
DX: N17.9 Acute kidney failure, unspecified (principal); E11.65 Type 2 diabetes mellitus with hyperglycemia; D64.9 Anemia, unspecified
CPT/HCPCS: 36415; 80053; 82607; 82728; 82746; 83036; 83540; 83735; 85025; 85045; 99212

== ENCOUNTER 2024-06-03 11:00 | Outpatient (AMB) | payer MEDICARE, SELFPAY ==
[2024-06-03 11:02] VITALS: BP 122/50; PULSE 68; O2SAT 99; BMI 24.7
--- NOTE | 2024-06-03 11:02 | HO.NEPHOV_ITS ---
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 He was recently hospitalized and underwent percutaneous nephrostomy. He is here for follow-up. Right nephrostomy tube is draining blood-tinged urine. Left is clear. He is undergoing chemotherapy for bladder cancer. Undergoing radiation therapy as well. [facility] Medical History Peripheral vascular disease Prostate mass Osteopenia Paget's bone disease Overweight (BMI 25.0-29.9) Hypercholesterolemia Diabetic nephropathy Type 2 diabetes mellitus with hyperglycemia Macular degeneration Lumbar degenerative disc disease Left renal stone Paget's disease of bone Vitamin D deficiency Aortic stenosis, mild Coronary artery disease Surgical History History of removal of calculus of renal pelvis through percutaneous nephrostomy S/P CABG x 3 History of tonsillectomy History of bilateral cataract extraction History of ankle surgery S/P repair of hydrocele History of inguinal hernia repair Family History Father CVD (cardiovascular disease) Mother CVD (cardiovascular disease) Heart disease Brother In good health Sister In good health Son Diabetes Social History Household Members: Spouse Household Members Other:: son Housing: House Do you presently have visiting nurse or other home services: Yes Alcohol intake: never Patient Tobacco Use Status: Former Tobacco user Tobacco use type: Cigarette Cigarette Packs Per Day: 2 Cigarettes Per Day: 40.0 Years Smoked: 30 e-Cigarette/Vaping Use: Never Used Advance Directives Date on File: 05/05/24 service: Yes Current occupational status: retired Cognitive needs: No Hearing needs: No Vision needs: Yes Physical Exam Vital Signs: Last Vital Signs Pulse 68 06/03/24 11:02 BP 122/50 L 06/03/24 11:02 Pulse Ox 99 06/03/24 11:02 Oxygen Delivery Method Room Air 06/03/24 11:02 BMI result Body Mass Index 24.7 Neck Neck: Yes supple Resp Auscultation: clear to auscultation bilaterally Cardio Palpation: no palpable S3 Heart sounds: no rubs GI Palpation (GI): Soft to palpation Auscultation: normal bowel sounds Neuro Motor exam (neuro): no asterixis Results Reviewed Nephrology Results: Hgb 8.5 g/dl (14.0-18.0) L 06/03/24 WBC 6.9 X10*3/uL (4.8-10.8) 06/03/24 Plt Count 312 X10*3/uL (160-400) 06/03/24 Sodium 139 mmol/L (135-145) 06/03/24 Potassium 5.0 mmol/L (3.3-5.1) 06/03/24 Chloride 109 mmol/L (96-108) H 06/03/24 Carbon Dioxide 12 mmol/L (22-29) L 06/03/24 BUN 122 mg/dL (9-16) H 06/03/24 Creatinine 10.15 mg/dL (0.5-1.4) H* 06/03/24 Calcium 8.5 mg/dL (8.4-10.2) 06/03/24 Urine Protein 100 (2+) mg/dL (Neg-Trace) H 05/16/24 Assessment & Plan Assessment & Plan (1) JOSI (acute kidney injury): Code(s): N17.9 - Acute kidney failure, unspecified Category: Medical (2) Severe anemia: Code(s): D64.9 - Anemia, unspecified Category: Medical Plan Elderly man with the acute kidney injury superimposed on chronic kidney disease in the setting of bladder cancer and obstructive uropathy. Status post nephrostomy. Currently on chemotherapy and undergoing radiation as well. Clinically he has no signs or symptoms of uremia. Fluid status seems acceptable. He is approaching is end stage renal disease and he may be requiring renal replacement therapy. I have discussed this with the patient and the family. If the need arises he is agreeable for dialysis. Labs ordered for today. Encouraged him to keep intake more than output. Continue to avoid nephrotoxic agents. She will follow closely along with the team. Orders: Orders Basic Metabolic Panel Today N17.9 - Acute kidney failure, unspecified Coding Level of Care Code Est Pt Level 4 (40595) Diagnoses JOSI (acute kidney injury) N17.9 Severe anemia D64.9
== END 2024-06-03 11:24 | disposition home or self-care (01) ==
PROVIDERS: PCP Internal Medicine; Visit Provider Internal Medicine Hypertension Specialist
DX: N17.9 Acute kidney failure, unspecified (principal); D64.9 Anemia, unspecified
CPT/HCPCS: 99214

== ENCOUNTER 2024-06-04 08:59 | Outpatient (AMB) | payer MEDICARE, SELFPAY ==
[2024-06-04 09:01] VITALS: BP 110/58; PULSE 62; BMI 24.7
--- NOTE | 2024-06-04 09:01 | MHC.PC.OV ---
Vital Signs 06/04/24 09:01 Height 5 ft 4 in Weight 144 lb 2.917 oz BMI 24.7 BP 110/58 L Blood Pressure Location Lt brachial Position Sitting Pulse 62 Pulse Source Pulse Oximeter Oxygen Delivery Method Room Air Intake Visit Reasons: [facility] 05/22 pain lower back, uti, yeast infection Intake Note: Patient is here for hospital discharge follow up. Patient was discharged from [facility] on 05/22/2024 Disc Pad Grinder Required: No Allergies No Known Allergies [No Known Allergies*] Allergy (Verified 06/04/24 09:11) Tobacco use date assessed: 02/07/24 Fall risk assessment: No Falls in past year Last assessed Fall Risk: 06/04/24 Dental Screening Dental Screen Date: 01/01/24 HPI [facility] 05/22 pain lower back, uti, yeast infection HPI Details 89-year-old male with past medical history of bladder cancer, coronary artery disease, diabetes mellitus, hypercholesterolemia, hypertension, and peripheral vascular disease last seen 05/07/[address] Ortiz coming in for hospital follow up.? Patient presented to [facility] ED 05/16/2024 reporting left-sided flank pain and oliguria for 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 Patient's creatinine increased and responded partially to IV fluid.?Underwent percutaneous nephrostomy. He was discharged 05/22/24 with treatment for yeast infection and follow up with Urology and Nephrology outpatient. Patient was seen by endovascular 05/28/24 for PICC insertion. Seen by Urology for bladder flush and catheter change. Seen by nephrology 06/03/24 right nephrostomy tube draining blood-tinged urine and left is clear. They discussed the possibility of dialysis.? Continue to follow up closely with Nephrology.?Patient was seen by radiation oncology 05/28/24 [facility] and we will request these notes. Today he tells us he has finished the medication for the yeast infection. He is still continuing to have discomfort at the tip of the penis and pain with urination. He has been in contact with Urology who is aware of these concerns and are following closely. He also mentions he has been having blood in the urine which urology is also aware of. He has been having good output with the left nephrostomy as well as the catheter. PFSH Medical History (Updated 06/04/24 @ 09:48 by Seble Courtney PA-C) Bladder cancer Bladder cancer Peripheral vascular disease Prostate mass Osteopenia Paget's bone disease Overweight (BMI 25.0-29.9) Hypercholesterolemia Diabetic nephropathy Type 2 diabetes mellitus with hyperglycemia Macular degeneration Lumbar degenerative disc disease Left renal stone Paget's disease of bone Vitamin D deficiency Aortic stenosis, mild Coronary artery disease Surgical History History of removal of calculus of renal pelvis through percutaneous nephrostomy S/P CABG x 3 History of tonsillectomy History of bilateral cataract extraction History of ankle surgery S/P repair of hydrocele History of inguinal hernia repair Family History Father CVD (cardiovascular disease) Mother CVD (cardiovascular disease) Heart disease Brother In good health Sister In good health Son Diabetes Social History Household Members: Spouse Household Members Other:: son Housing: House Do you presently have visiting nurse or other home services: Yes Alcohol intake: never Patient Tobacco Use Status: Former Tobacco user Tobacco use type: Cigarette Cigarette Packs Per Day: 2 Cigarettes Per Day: 40.0 Years Smoked: 30 Packs Per Year: 60 Packs per year/per ci.00 e-Cigarette/Vaping Use: Never Used Advance Directives Date on File: 05/05/24 service: Yes Current occupational status: retired Cognitive needs: No Hearing needs: No Vision needs: Yes Questionnaire Thrive Questionnaire Date Thrive assessed: 05/17/24 AUDIT C Alcohol Use Questionnaire (AUDIT-C) 1. How often do you have a drink containing alcohol?: Never 3. How often do you have six or more drinks on one occasion?: Never Total Score: 0 LESLEY-7 AMB Questionnaire LESLEY-7 Date LESLEY - 7 assessed: 01/01/24 Source: Developed by Drs. Lawson Jackson, Geeta Montoya, Chivo Felix and colleagues, with an educational fallon from [employer]. Review of Systems Const Details: Patient has been having increased fatigue and weakness since beginning cancer treatment Denies body aches, Denies chills, Denies fever(s), Denies headache(s) and Denies poor appetite Eyes Reports no additional complaints ENT Denies dizziness, Denies headache(s) and Denies odynophagia Card Denies chest pain, Denies syncope, Denies edema, Denies irregular heart rhythm and Denies lightheadedness GI Denies constipation, Denies diarrhea, Denies odynophagia and Denies vomiting Details: Pain with urination and irritation at the tip of the penis Skin/Breast Reports system reviewed and no additional complaints, except as documented Neuro Denies dizziness, Denies syncope and Denies headache(s) Psych Reports no additional complaints Physical exam (Primary Care) Vital Signs: Oxygen Delivery Method Room Air 06/04/24 09:01 Tobacco/Smoking Status: Tobacco use Status Tobacco use date assessed 02/07/24 06/04/24 09:02 Patient Tobacco Use Status Former Tobacco user 06/04/24 09:02 Tobacco use type Cigarette 06/04/24 09:02 e-Cigarette/Vaping Use Never Used 06/04/24 09:02 Thrive Assessment: Date of Thrive Assessment Date Thrive assessed 05/17/24 06/04/24 09:02 Const General: alert; No acute distress Eyes Conjunctivae: conjunctivae normal Resp Auscultation: clear to auscultation bilaterally Cardio Rate: regular rate Rhythm: regular rhythm GI Inspection: Yes normal to inspection Other: Catheter bag has dark yellow urine with no visualized blood or clots. Nephrostomy bag is clear yellow. Extrem General: Yes normal to inspection and No edema Assessment and Plan Assessment & Plan (1) JOSI (acute kidney injury): Code(s): N17.9 - Acute kidney failure, unspecified Plan: Acute kidney injury was improved at time of discharge. On last labs 06/03/2022 for creatinine was found to be 10.15. Discuss this value with Dr. Ortiz and we feel is appropriate to follow up with interlocker for further steps. Per last nephrology note patient was being considered for dialysis and patient will call interlocker regarding current labs. Left nephrostomy still in place with good output. (2) Bladder cancer: Code(s): C67.9 - Malignant neoplasm of bladder, unspecified Plan: Patient is being treated for bladder cancer at the [facility]. He underwent his 1st treatment this month. He has been having continued blood in the urine which is followed by Urology very closely. Patient is followed by Nephrology as well. Plan This note was constructed using voice recognition software. While every effort has been made to ensure accuracy and trimming inspector, still areas may have been included sometimes these areas may affect the content or meeting of the given symptoms. Total time spent caring for the patient today was 35 minutes. This includes time spent before the visit reviewing the chart, time spent during the visit, and time spent after the visit and documentation. Coding Level of Care Code Est Pt Level 4 (02752) Diagnoses JOSI (acute kidney injury) N17.9 Bladder cancer C67.9
== END 2024-06-04 09:52 | disposition home or self-care (01) ==
PROVIDERS: PCP Internal Medicine
DX: N17.9 Acute kidney failure, unspecified (principal); C67.9 Malignant neoplasm of bladder, unspecified
CPT/HCPCS: 99214

== ENCOUNTER 2024-07-08 10:07 | Outpatient (AMB) | payer MEDICARE, SELFPAY ==
--- NOTE | 2024-07-08 10:07 | HO.NEPHOV_ITS ---
Vital Signs 07/08/24 10:08 Height 5 ft 4 in Weight 134 lb BMI 23.0 BP 88/40 L Blood Pressure Location Lt brachial Position Sitting Intake Visit Reasons: 4-5 wks follow up/ Conf Automobile Body Customizer Required: No Accompanied by: Children Allergies No Known Allergies [No Known Allergies*] Allergy (Verified 06/04/24 09:11) Medication List - Last Reconciled 07/08/24 by Hiram Walter MD ascorbic acid (vitamin C) (Vitamin C) 1 g PO DAILY 90 days aspirin (Adult Aspirin Regimen) 81 mg PO DAILY blood sugar diagnostic As directed check blood sugars 3 times a day blood sugar diagnostic (OneTouch Ultra Test strips) As directed check the blood sugar once a day cholecalciferol (vitamin D3) 50 mcg PO DAILY compress.stocking,knee,reg,lrg As directed 20-30 mm HG cyanocobalamin (vitamin B-12) 1,000 mcg PO DAILY ferrous sulfate (FeroSul) 325 mg PO Q48H lancets As directed check the blood sugars 3 times a day ONETOUCH ULTRASOFT LANCETS methenamine hippurate 1 g PO DAILY 90 days paroxetine HCl (Paxil) 10 mg PO DAILY [Rollator As directed] vitamins A,C,E-alom-kaesxo (PreserVision AREDS) 1 tab PO BID HPI Comments Details: 89M with CAD s/p cabg, bladder ca copmlicated by bilateral hydro and 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, s/p bilateral ureteral stents, aortic stenosis, He has sediments CKD. He was recently hospitalized and underwent percutaneous nephrostomy. He is here for follow-up. Right nephrostomy tube is draining blood-tinged urine. Left is clear. He is undergoing chemotherapy for bladder cancer. Undergoing radiation therapy as well. 07/08/2024. Recently admitted to [facility]. PermCath was inserted he underwent for dialysis treatments. Subsequently he was transition to home hospice. He has not had dialysis for the last 10 days. He was accompanied by his son and . He is unsure if he wants to continue or stop dialysis at this time. [facility] Medical History (Updated 07/08/24 @ 10:27 by Hiram Walter MD) Bladder cancer Bladder cancer Peripheral vascular disease Prostate mass Osteopenia Paget's bone disease Overweight (BMI 25.0-29.9) Hypercholesterolemia Diabetic nephropathy Type 2 diabetes mellitus with hyperglycemia Macular degeneration Lumbar degenerative disc disease Left renal stone Paget's disease of bone Vitamin D deficiency Aortic stenosis, mild Coronary artery disease Surgical History History of removal of calculus of renal pelvis through percutaneous nephrostomy S/P CABG x 3 History of tonsillectomy History of bilateral cataract extraction History of ankle surgery S/P repair of hydrocele History of inguinal hernia repair Family History Father CVD (cardiovascular disease) Mother CVD (cardiovascular disease) Heart disease Brother In good health Sister In good health Son Diabetes Social History Household Members: Spouse Household Members Other:: son Housing: House Do you presently have visiting nurse or other home services: Yes Alcohol intake: never Patient Tobacco Use Status: Former Tobacco user Tobacco use type: Cigarette Cigarette Packs Per Day: 2 Cigarettes Per Day: 40.0 Years Smoked: 30 e-Cigarette/Vaping Use: Never Used Advance Directives Date on File: 05/05/24 service: Yes Current occupational status: retired Cognitive needs: No Hearing needs: No Vision needs: Yes Physical Exam Vital Signs: Last Vital Signs BP 88/40 L 07/08/24 10:08 BMI result Body Mass Index 23.0 Neck Neck: Yes supple Resp Auscultation: clear to auscultation bilaterally Cardio Palpation: no palpable S3 Heart sounds: no rubs GI Palpation (GI): Soft to palpation Auscultation: normal bowel sounds Other: Urostomy tubes in place Ovalles in place Neuro Motor exam (neuro): no asterixis Results Reviewed Results Reviewed: Labs was from [facility] was reviewed Nephrology Results: Hgb 8.5 g/dl (14.0-18.0) L 06/03/24 WBC 6.9 X10*3/uL (4.8-10.8) 06/03/24 Plt Count 312 X10*3/uL (160-400) 06/03/24 Sodium 139 mmol/L (135-145) 06/03/24 Potassium 5.0 mmol/L (3.3-5.1) 06/03/24 Chloride 109 mmol/L (96-108) H 06/03/24 Carbon Dioxide 12 mmol/L (22-29) L 06/03/24 BUN 122 mg/dL (9-16) H 06/03/24 Creatinine 10.15 mg/dL (0.5-1.4) H* 06/03/24 Calcium 8.5 mg/dL (8.4-10.2) 06/03/24 Assessment & Plan Assessment & Plan (1) JOSI (acute kidney injury): Code(s): N17.9 - Acute kidney failure, unspecified Category: Medical (2) Severe anemia: Code(s): D64.9 - Anemia, unspecified Category: Medical (3) CKD (chronic kidney disease), symptom management only: Code(s): N18.9 - Chronic kidney disease, unspecified Category: Medical Plan Elderly man with the acute kidney injury superimposed on chronic kidney disease in the setting of bladder cancer and obstructive uropathy. Status post nephrostomy. Currently on chemotherapy and undergoing radiation as well. Clinically he has no signs or symptoms of uremia. Fluid status seems acceptable. He is approaching is end stage renal disease and he may be requiring renal replacement therapy. I have discussed this with the patient and the family. If the need arises he is agreeable for dialysis. Encouraged him to keep intake more than output. Continue to avoid nephrotoxic agents. 07/08/2024. Had a detailed discussion with the patient and the family. He is unsure if he wants to continue dialysis or if he wants to stop dialysis. In any case he has no signs or symptoms of fluid overload or uremia. He is still has some residual renal function. We have agreed to discontinue the PermCath and observe him over the next several weeks. If the need for dialysis arises we will we will discuss again with the patient and see how he wants to proceed. Patient and family are in agreement with this plan Orders: Orders Complete Blood Count Auto Diff 3 Weeks Hiram Walter MD N18.9 - Chronic kidney disease, unspecified Basic Metabolic Panel 3 Weeks Hiram Walter MD N18.9 - Chronic kidney disease, unspecified IR cvc remove any age Today Hiram Walter MD N18.9 - Chronic kidney disease, unspecified Medications: Changed From cyanocobalamin (vitamin B-12) 1,000 mcg PO DAILY 30 caps 12RF To cyanocobalamin (vitamin B-12) EVERY OTHER DAY 1,000 mcg PO DAILY Radha Ortiz, Coding Level of Care Code Est Pt Level 4 (08184) Diagnoses JOSI (acute kidney injury) N17.9 Severe anemia D64.9 CKD (chronic kidney disease), symptom management only N18.9
[2024-07-08 10:08] VITALS: BP 88/40; BMI 23.0
== END 2024-07-08 10:31 | disposition home or self-care (01) ==
PROVIDERS: PCP Internal Medicine; Visit Provider Internal Medicine Hypertension Specialist
DX: N17.9 Acute kidney failure, unspecified (principal); D64.9 Anemia, unspecified; N18.9 Chronic kidney disease, unspecified
CPT/HCPCS: 99214

== ENCOUNTER → 2024-07-08 10:07 | Outpatient (BNVA) | payer MEDICARE, SELFPAY | PROVIDERS: PCP Internal Medicine; Visit Provider Internal Medicine Hypertension Specialist | DX: N18.9 Chronic kidney disease, unspecified (principal); N17.9 Acute kidney failure, unspecified; D64.9 Anemia, unspecified | CPT/HCPCS: 99212 ==

== ENCOUNTER 2024-07-15 10:38 | Outpatient (REF) | payer OTHER, MEDICARE, SELFPAY ==
--- NOTE | ~2024-07-15 | IR_ITS ---
Permacath removal Patient presents with a tunneled dialysis catheter. Patient has decided to discontinue dialysis. Referring physician requests removal. The right chest was prepped and draped in routine sterile fashion. 1% lidocaine was used for local anesthesia. Using blunt dissection, the tunneled dialysis catheter was removed from the chest wall without complication. After hemostasis was obtained, a dry sterile dressing was applied. Patient tolerated the procedure well. IR/IR cvc remov tunnel wo prt/adjuster arbitrator Impression: Permacath removal This procedure was performed by Osman Cormier PA-C and supervised by Dr. Bledsoe Electronically signed by: Vargas Bledsoe MD 09/25/2024 01:29 PM [facility]
[2024-07-15 11:49] LABS: MANUAL DIFF FLAG NO
[2024-07-15 12:16] LABS: Basophils Absolute Auto 0.1 X10*3/uL (0.0-0.2); Basophils Percent Auto 0.8 % (0-2); Eosinophils Absolute Auto 0.3 X10*3/uL (0.0-0.4); Eosinophils Percent Auto 3.1 % (0-4); Hematocrit 27.4 % (42.0-52.0); Hemoglobin 8.5 g/dl (14.0-18.0); Imm Gran Abs Auto 0.06 X10*3/uL (0.00-0.03); Imm Gran Pct Auto 0.6 % (0.0-0.4); Lymphocytes Absolute Auto 0.3 X10*3/uL (1.2-4.9); Lymphocytes Percent Auto 2.8 % (20-40); Mean Corpuscular Hemoglobin 29.9 pg (27.0-33.0); Mean Corpuscular Volume 96.5 fL (80.0-98.0); Mean Platelet Volume 9.6 fL (9.4-12.4); Monocytes Absolute Auto 0.6 X10*3/uL (0.1-1.2); Monocytes Percent Auto 5.3 % (2-11); Neutrophils Absolute Auto 9.2 x10*3/uL (2.0-8.3); Neutrophils Percent Auto 87.4 % (45-73); Platelet Count 288 X10*3/uL (160-400); Red Blood Count 2.84 X10*6/uL (4.60-5.80); Red Cell Distribution Width 15.6 % (11.0-16.0); White Blood Count 10.6 X10*3/uL (4.8-10.8)
[2024-07-15 13:09] LABS: Anion Gap 31 (12-20); Blood Urea Nitrogen 161 mg/dL (9-16); Calcium 9.1 mg/dL (8.4-10.2); Carbon Dioxide 13 mmol/L (22-29); Chloride 97 mmol/L (96-108); Glucose Random 73 mg/dL (60-115); Potassium 5.4 mmol/L (3.3-5.1); Sodium 136 mmol/L (135-145)
[2024-07-15 13:28] LABS: Estimated Glomerular Filt Rate 3
== END 2024-07-15 10:39 | disposition home or self-care (01) ==
LOC: HO.RADIR 10:38
PROVIDERS: PCP Internal Medicine; Visit Provider Internal Medicine Hypertension Specialist
DX: N18.9 Chronic kidney disease, unspecified (principal)
CPT/HCPCS: 36415; 36589; 80048; 85025

== ENCOUNTER → 2024-07-15 10:41 | Outpatient (BNV) | payer MEDICARE, SELFPAY | PROVIDERS: PCP Internal Medicine; Visit Provider Physician Assistant Surgical | DX: N18.9 Chronic kidney disease, unspecified (principal); Z45.2 Encounter for adjustment and management of vascular access device | CPT/HCPCS: 36589 ==